=== PATIENT | male | born 1955 | race Caucasian/White ===

== ENCOUNTER → 2017-09-26 12:44 | Outpatient (CLI) | payer OTHER, SELFPAY ==
--- NOTE | 2017-09-26 12:46 | RAD_ITS ---
STUDY: X-RAY - LEFT ANKLE REASON FOR EXAM: Male, 62 years old. Post surgery TECHNIQUE: 3 view(s) of the ankle. COMPARISON: 07/18/2017. FINDINGS: Distal fibular fracture with increased screws. 3 screws in the distal tibia. Good alignment of the fractures with callus formation. Normal medial and lateral malleoli. Normal tibiotalar articulation and ankle mortise. Normal visualized talus and calcaneus. The visualized subtalar, talonavicular, calcaneocuboid and tarsal articulations are normal. The soft tissue structures are unremarkable. RAD/Ankle min 3 Views IMPRESSION: Intact hardware. Good alignment. No acute injury. Electronically Signed: Usman Jones DO at 21:24 EST , Service support ,
== END ==
PROVIDERS: Family Provider Family Medicine; PCP Family Medicine; Visit Provider Orthopaedic Surgery
DX: S82.302D Unspecified fracture of lower end of left tibia, subsequent encounter for closed fracture with routine healing (principal); S82.432D Displaced oblique fracture of shaft of left fibula, subsequent encounter for closed fracture with routine healing
CPT/HCPCS: 73610

== ENCOUNTER 2017-10-18 20:16 | Emergency (ER) | payer OTHER, SELFPAY ==
[2017-10-18 20:17] VITALS: BP 155/87; PULSE 88; RESP 16; TEMP 36.4; O2SAT 98; BMI 35.4
--- NOTE | 2017-10-18 21:25 | RAD_ITS ---
STUDY: X-RAY - LEFT HAND, ATTENTION 5TH FINGER REASON FOR EXAM: Male, 62 years old. SMASHING INJURY OF LEFT 5TH DIGIT TECHNIQUE: 3 view(s) of the finger were obtained. COMPARISON: None. FINDINGS: Normal metacarpal head. Normal metacarpophalangeal joint. Normal proximal phalanx. Normal middle phalanx. Normal distal phalanx. Normal proximal interphalangeal joint. Normal distal interphalangeal joint. Soft tissue swelling overlying the fifth digit. RAD/Finger(s) Min 2 Views IMPRESSION: Soft tissue swelling overlying the fifth digit. Electronically Signed: Rigo Lanier MD at 21:54 EST , Service support ,
--- NOTE | 2017-10-18 21:59 | ED.VISSUMM ---
- ER Visit Summary Date of Service: 10/18/17 Chief Complaint: Left fifth finger injury History of Present Illness: The patient is a 62 M who presents with an injury to his left small finger. This occurred about 3 hours prior to presentation. He states a piece of wood burning equipment fell in a trailer and pinched his finger between the piece of equipment in the side. He notes the piece of equipment weighs about 2 times. He does complain of some numbness in the distal finger. His tetanus is up-to-date. He denies any other injuries. Physical Examination: Afebrile vitals are stable Heart regular rate and rhythm Lungs are clear There is a crush injury over the distal left fifth finger and soft tissue swelling his sensation is intact to light touch distally and he does have brisk capillary refill there is skin tear along the medial side of the left fifth finger as well as some macerated tissue distally the nailbed appears to be intact he does not have a clear laceration amenable to sutured wound closure Test Results: Finger x-ray shows soft tissue swelling no fracture Emergency Department Course and Treatment: Digital block was performed and the patient's wound was cleansed with sterile saline small pieces of macerated tissue were debrided. There is no laceration amenable to sutured wound closure. Topical antibiotic ointment and dressing was applied. He was placed in a finger splint. He was instructed on dressing changes. He was advised to follow-up with his primary care physician. He understands return for new or worsening symptoms was discharged home. Treatment Plan: [] Disposition: Discharge Impression: Crush injury left fifth finger This note was generated with [employer] dictation software. It may contain incorrect words, spelling, and punctuation that were not noted in review of the chart prior to signing ED Disposition - Plan for ED Patient: Chief Complaint: Laceration Referrals: Marisa Arredondo MD [Primary Care Provider] -
--- NOTE | 2017-10-18 22:02 | ED.DEP ---
ED Disposition - Plan for ED Patient: Chief Complaint: Laceration Instructions: ED Crush Injury Finger No Fx Prescriptions: Hydrocodone Bitart/Apap 5-325 [[place] 5/325] 1 - 2 tab PO Q6H PRN 3 Days #12 tab PRN Reason: Pain Referrals: Marisa Arredondo MD [Primary Care Provider] -
== END 2017-10-18 22:21 | disposition home or self-care (01) ==
PROVIDERS: Emergency Provider Emergency Medicine; Family Provider Family Medicine; PCP Family Medicine
DX: S67.197A Crushing injury of left little finger, initial encounter (principal); W23.0XXA Caught, crushed, jammed, or pinched between moving objects, initial encounter; Y93.89 Activity, other specified; Y92.89 Other specified places as the place of occurrence of the external cause; Y99.8 Other external cause status
CPT/HCPCS: 73140; 99284

== ENCOUNTER 2019-03-21 22:59 | Observation (INO) | payer OTHER, SELFPAY ==
--- NOTE | 2019-03-21 11:45 | RAD_ITS ---
STUDY: X-RAY CHEST REASON FOR EXAM: Male, 63 years old. Chest pain TECHNIQUE: Frontal and lateral views of the chest. COMPARISON: None. FINDINGS: The lungs are clear and expanded. There is no demonstrated pleural abnormality. Normal size heart. Normal mediastinum and lisa. Normal visualized pulmonary arteries. Normal visualized aortic arch and descending thoracic aorta. Normal visualized thoracic spine. There is degenerative osteoarthritis of the bilateral shoulders. There is no demonstrated abnormality of the visualized soft tissue structures of the upper abdomen. RAD/Chest PA and Lateral IMPRESSION: Degenerative changes, as described above. No demonstrated acute cardiopulmonary process. Electronically Signed: Yann Muller, at 0:36 EDT Tel , Service support ,
[2019-03-21 23:00] VITALS: PULSE 71; RESP 13; TEMP 36.6; O2SAT 94; BMI 38.0
--- NOTE | 2019-03-21 23:23 | EKG12_ITS ---
Test Reason : CP Blood Pressure : / mmHG Vent. Rate : 071 BPM Atrial Rate : 071 BPM P-R Int : 162 ms QRS Dur : 080 ms QT Int : 368 ms P-R-T Axes : 052 -22 007 degrees QTc Int : 399 ms Normal sinus rhythm Low voltage QRS Inferior infarct , age undetermined Abnormal ECG Confirmed by SHYAM SAMUELS, REINA ([id number]), news copy editor JAMILA ALEXANDER ([id number]) on 03/23/2019 1:38:58 PM Referred By: DHIRAJ Confirmed By:REINA HOWE MD
--- NOTE | 2019-03-21 23:25 | ED.VIS.GEN ---
History of Present Illness Chief Complaint: Chest Pain Informant: Patient Narrative: She stated he has been having chest pain since early afternoon approximately 12 hours ago. Left-sided sharp waxes and wanes intermittent. Can last up to an hour or 2 at a time. He feels that sometimes in his left scapula. He is never had this before. No history of coronary artery disease. Does have diabetes hyperlipidemia and a history of smoking. No family history or hypertension history. 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 No other DVT or PE risk factors. Denies any pain or swelling in his legs that is new. He does have chronic discomfort in his left ankle from a previous fracture. This has not changed from his chronic baseline discomfort. No home treatment. He did take 2 aspirin tablets today. He takes this daily. He stated the pain was significant enough tonight that he felt short of breath. Currently he has no symptoms. Patient denies any recent history in the last 5 to 10 years of a stress test. He had one remotely that was normal. He is never had a heart cath. - Past Medical History (1) Crushing injury of distal finger Status: Acute (2) Crushing injury of finger of left hand Status: Acute (3) Displaced oblique fracture of shaft of left fibula, subsequent encounter for closed fracture with routine healing Status: Acute (4) Unspecified fracture of lower end of left tibia, subsequent encounter for closed fracture with routine healing Status: Acute (5) Diabetes mellitus type 2, uncontrolled, with complications Status: Chronic (6) Hyperlipidemia associated with type 2 diabetes mellitus Status: Chronic (7) Tobacco abuse disorder Status: Chronic Past Medical History - Allergies and Home Meds Allergies/Adverse Reactions: Allergies No Known Allergies Allergy (Verified 03/21/19 22:59) Primary Care Physician: Marisa Arredondo MD [Primary Care Provider] - Prior records reviewed: Yes Past Medical History: - - See problem list Surgical History: - - Reviewed Lives: With Family Smoking Status: Never smoker Alcohol: None Drugs: None Review of Systems General: Denies: Chills, Fever, Sweats Eyes: Denies: Visual changes - bilaterally, Diplopia ENT: Denies: Rhinorrhea, Sore throat Cardiovascular: Reports: Chest pain. Denies: Palpitations Respiratory: Reports: Dyspnea. Denies: Cough, Dyspnea on exertion Gastrointestinal: Denies: Abdominal pain, Nausea, Vomiting, Diarrhea, Melena, Hematochezia Genitourinary: Denies: Dysuria, Hematuria, Frequency Musculoskeletal: Denies: Back pain, Extremity Pain Skin: Denies: Rash, Wounds Neurological: Denies: Headache, Weakness, Numbness Physical Exam Vital Signs/Narrative: Vital Signs Temp Pulse Resp Pulse Ox 03/21/19 23:00 97.9 F 71 13 94 General: Well nourished, Well developed, No Acute Distress Head: Normocephalic, Atraumatic Eyes: Perrl, EOMI ENT: Moist mucous membranes, No rhinorrhea Neck: Supple, Nontender Cardiovascular: Regular rate, Regular rhythm, No murmurs Respiratory: No distress, CTA bilaterally, Chest nontender Abdomen: Soft, Nontender, Nondistended, Normal bowel sounds Back: Nontender, Normal Inspection Extremities: Nontender, No edema Skin: Normal color, No rash Neurological: Alert, Oriented x3, Cranial nerves II-XII grossly intact, Normal Strength, Normal Sensation Psychological: Normal affect, Normal Mood Diagnostic/Tx/Re-eval 03/21/19 23:24 Chest PA and Lateral [RAD] Stat Laboratory Results 03/21/19 03/21/19 23:05 23:05 WBC 6.5 RBC 4.62 Hgb 14.9 Hct 44.8 MCV 97.0 H MCH 32.3 H MCHC 33.3 RDW Std Deviation 48.0 H RDW Coeff of Carter 13.4 Plt Count 172 MPV 9.8 Immature Gran % (Auto) 1.200 H Neut % (Auto) 56.2 Lymph % (Auto) 24.8 [place] % (Auto) 11.1 H Eos % (Auto) 5.6 H Baso % (Auto) 1.1 H Absolute Neuts (auto) 3.6 Absolute Lymphs (auto) 1.60 Absolute Nucleated RBC 0.00 Nucleated RBC % 0 Sodium 135 L Potassium 4.3 Chloride 105 Carbon Dioxide 26.0 Anion Gap 4 L BUN 29 H Creatinine 1.23 Estim Creat Clear Calc 59.47 Est GFR (MDRD) Af Amer 76 Est GFR (MDRD) Non-Af 63 BUN/Creatinine Ratio 23.6 H Glucose 257 H Calcium 9.0 Troponin I < 0.015 - Medical Decision Making KG shows sinus rhythm. Inferior T wave inversion lead III. No acute STEMI pattern or other abnormalities. Patient took aspirin today. He is pain-free. Lab work and chest x-ray obtained. Lab work shows a negative troponin. See lab work above for individual numbers. Positive mild hyperglycemia. Chest x-ray shows no acute abnormalities. D-dimer was positive. CTA shows no PE however. Positive atelectasis filling defect left lower and peribronchial thickening. I do not think the patient has a pneumonia. He has no signs or symptoms of this. Patient is willing to stay for further cardiac rule out. Discussed with the hospitalist. I suspect he will need a stress test. ED Disposition - Plan for ED Patient: Disposition: [facility] Unit Diagnosis: Chest pain at rest Referrals: Marisa Arredondo MD [Primary Care Provider] -
[2019-03-21 23:39] LABS: Absolute Neutrophil Count 3.6 X10^3/uL (2.0-7.7); Basophil# 0.07 X10^3/uL; Basophil% 1.1 % (0-1); Eosinophil# 0.36 X10^3/uL; Eosinophils% 5.6 % (0-5); Hematocrit 44.8 % (40-54); Hemoglobin 14.9 g/dL (13.0-16.5); Lymphocyte % 24.8 % (19-41); Mean Corp Hgb Conc 33.3 g/dL (32-36); Mean Corpuscular Hgb 32.3 pg (27.0-32.0); Mean Platelet Vol. 9.8 fl (6.2-12.0); Monocyte# 0.72 X10^3/uL; Monocyte% 11.1 % (0-10); NRBC Flagged by Analyzer 0 % (0-5); Neutrophil # 3.63 X10^3/uL (2.7-7.7); Neutrophil % 56.2 % (47-70); Platelet Count 172 K/mm3 (150-450); RBC Distribution Width CV 13.4 % (11.6-14.6); Red Blood Count 4.62 M/mm3 (4.6-6.2); White Blood Count 6.5 K/mm3 (4.4-11.0)
[2019-03-21 23:55] LABS: Anion Gap 4 (5-15); BUN 29 mg/dL (7-18); BUN/Creat Ratio 23.6 RATIO (10-20); Chloride 105 mmol/L (98-107); Creatinine, Serum 1.23 mg/dL (0.70-1.30); EST Glomerular Filtration Rate 63 mL/min (>60); Est Glom Filt Rate - Afr Amer 76 mL/min (>60); Estimated Creatinine Clearance 59.47 ml/min; Glucose 257 mg/dL (74-106); Potassium 4.3 mmol/L (3.5-5.1); Sodium Level 135 mmol/L (136-145)
[2019-03-22] VITALS (23 sets, daily range): BP systolic 95–146; BP diastolic 57–81; PULSE 57–71; RESP 13–26; TEMP 36.6–37.2; O2SAT 94–98; BMI 37.5
[2019-03-22 00:07] LABS: D-Dimer Quantitative (DVT/PE) 3.28 FEU/ug/m (0.27-0.49)
--- NOTE | 2019-03-22 00:22 | CT_ITS ---
HISTORY: CHEST PAIN TECHNIQUE: CT angiogram images of the chest were obtained with 100 mL Isovue 370 IV contrast as per pulmonary angiogram protocol. 3D MIP images used to aid in evaluation for pulmonary embolism. Number of images including paperwork: 1254 A radiation dose optimization technique was used for this scan. COMPARISON: None FINDINGS: PULMONARY ARTERIES: No pulmonary arterial filling defects. AORTA AND GREAT VESSELS: No dissection. Vascular tortuosity and mild atherosclerotic plaque. HEART/PERICARDIUM: Normal heart size. Coronary calcification. MEDIASTINUM: Unremarkable. ADENOPATHY: No pathologic appearing adenopathy. THYROID: Unremarkable visualized portions. LUNG PARENCHYMA: Peribronchial thickening with some bronchial filling defects in the left lower lobe. Mild cylindrical bronchiectasis. Mild left lower lobe airspace opacities. Dependent atelectasis. Left lower lobe linear opacity compatible with subsegmental atelectasis. Mild paraseptal emphysema at the apices. Bilateral lower lobe nodular densities measuring 4-5 mm in average diameter. Small calcified granulomata. PLEURAL SPACES: Unremarkable. UPPER ABDOMEN: Decreased hepatic density compatible with steatosis. Mildly enlarged spleen, 13.5 cm AP. OSSEOUS AND SOFT TISSUE STRUCTURES: No acute skeletal findings. Degenerative changes. CT/CTA Chest W/WO Contrast IMPRESSION: 1. No pulmonary embolus detected. 2. Peribronchial thickening as can be seen with bronchitis or airways disease. Bronchial filling defects in the left lower lobe with left lower lobe opacities and volume loss, possibly atelectasis and/or early/mild infiltrate. 3. Small bilateral lower lobe nodules. If the patient is considered to be high risk for lung cancer, recommend follow-up CT in 12 months to assess stability. 4. Additional findings above. Individualized dose optimization techniques were used for this CT. at 0138 Reported and signed by: Mellisa Argueta MD Electronically Signed: Mellisa Argueta MD at 1:38 EDT Tel , Service support ,
[2019-03-22] MEDS: 0.9% Normal Saline 1,000 ML 1000 ML IV (01:02)
[2019-03-22] MEDS: Mag Hydrox/Al Hydrox/Simeth 30 ML UDC PO (01:06)
--- NOTE | 2019-03-22 01:59 | HP.PCM_ITS ---
Problem List (1) Chest pain Status: Acute (2) Crushing injury of finger of left hand Status: Resolved (3) Crushing injury of distal finger Status: Resolved Qualifiers: Encounter type: subsequent encounter Qualified Code(s): S67.10XD - Crushing injury of unspecified finger(s), subsequent encounter (4) Unspecified fracture of lower end of left tibia, subsequent encounter for closed fracture with routine healing Status: Resolved (5) Displaced oblique fracture of shaft of left fibula, subsequent encounter for closed fracture with routine healing Status: Resolved History of Present Illness Date of Admission: 03/22/19 Chief Complaint: CHEST PAIN 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 His symptoms started not too long after eating. He is unable to provide exact time that his symptoms started after his meal. Initially his chest pain was dull. However, it became sharp later on. Associated with symptoms is shortness of breath and diaphoresis. His chest pain radiated to his upper back. He denied any nausea or vomiting. He also reports concomitant heart pain for which reason he was given GI cocktail at the emergency department. His heartburn went away with a GI cocktail. At the point of evaluation patient had no chest pain. Reportedly he takes daily aspirin and he took his aspirin on the day of his presentation. At the emergency department troponin was negative. EKG showed sinus rhythm but with Q waves in inferior leads. The emergency department his d-dimer was elevated. Follow-up chest x-ray was unremarkable. Past Medical History Past Medical History (Chronic Problems): Chronic Problems (Last Reviewed 03/22/19 @ 03:09 by Mykel Biggs MD) Hyperlipidemia associated with type 2 diabetes mellitus (Chronic) Tobacco abuse disorder (Chronic) Diabetes mellitus type 2, uncontrolled, with complications (Chronic) Medical History: Medical History (Last Reviewed 03/22/19 @ 03:12 by Mykel Biggs MD) Diabetes E11.9 Allergies No Known Allergies Allergy (Verified 03/21/19 22:59) Home Medications: Ambulatory Orders Medication Instructions Recorded Aspirin [Adult Low Dose Aspirin EC] 81 mg PO DAILY 07/07/15 Glyburide,Micronized [Glyburide 6 mg PO DAILY 07/07/15 Micronized] lisinopril 20 mg tablet 20 mg PO QDAY 08/14/17 metformin 500 mg tablet 1,000 mg PO DAILY 08/14/17 Canagliflozin [Invokana] 300 mg PO DAILY 03/21/19 Surgical History: Surgical History (Last Reviewed 03/22/19 @ 03:12 by Mykel Biggs MD) History of open reduction and internal fixation (ORIF) procedure Z98.890 06/04/17 Surgical History: - - Reviewed Lives: With Family Smoking Status: Former smoker Alcohol: None Drugs: None - *Family History Maternal History Items: - - Mother had heart valve disease. Paternal History Items: Hypertension Review of Systems Constitutional: Denies: Chills, Fever, Weight Change HEENT: Denies: Head Aches, Sinus Congestion, Sinus Drainage Cardiovascular: Reports: Chest Pain. Denies: Palpitations Respiratory: Reports: Shortness of Breath. Denies: Cough, Sputum production Gastrointestinal: Denies: Abdominal Pain, Nausea, Vomiting Genitourinary: Denies: Dysuria Musculoskeletal: Denies: Joint Pain, Joint Tenderness Skin: Denies: Rash, Wounds Neurological: Reports: Numbness - Bilateral feet; chronic. Denies: Focal weakness, Tingling Psychiatric: Denies: Anxiety, Depression, Homicidal Ideations, Suicidal Ideations Hematologic/ Lymphatic: Denies: Easy Bruising, Easy Bleeding VTE Information - Inpt Only VTE Present on Admission: No VTE Mechan Device Prophylaxis: None VTE Pharm Prophylaxis ordered?: Yes Patient Problems: Active and Suspected Problems (Last Reviewed 03/22/19 @ 03:09 by Mykel Biggs MD) Chest pain at rest (Acute) Chest pain (Acute) - Physical Exam General: Alert, Oriented x3, Cooperative HEENT: Atraumatic, PERRLA, EOMI, Normocephalic Neck: Supple, No JVD, Negative Carotid Bruits Lungs: Clear to auscultation, Normal air movement Cardiovascular: Regular rate, No murmurs Abdomen: Bowel Sounds Present, Soft, Non Tender Extremities: No edema, Capillary Refill Less than 3 Seconds Skin: No rashes, No breakdown Musculoskeletal: No Tenderness to Palpation of Joints or Extremities Neurological: Cranial nerves II-XII grossly intact Psych/Mental Status: Normal Affect, Appropriate Vital Signs Temp Pulse Resp BP Pulse Ox 97.9 F 62 20 H 115/70 98 03/21/19 23:00 03/22/19 01:08 03/22/19 01:08 03/22/19 01:08 03/22/19 01:08 Oxygen Flow Rate (L/min) 2 Oxygen Delivery Method Nasal Cannula Weight: 113.36 kg Body Mass Index (BMI) 38.0 Laboratory Tests Past 24 Hrs 03/21/19 03/21/19 03/21/19 23:05 23:05 23:05 WBC 6.5 RBC 4.62 Hgb 14.9 Hct 44.8 MCV 97.0 H MCH 32.3 H MCHC 33.3 RDW Std Deviation 48.0 H RDW Coeff of [place] 13.4 Plt Count 172 MPV 9.8 Immature Gran % (Auto) 1.200 H Neut % (Auto) 56.2 Lymph % (Auto) 24.8 [place] % (Auto) 11.1 H Eos % (Auto) 5.6 H Baso % (Auto) 1.1 H Absolute Neuts (auto) 3.6 Absolute Lymphs (auto) 1.60 Absolute Nucleated RBC 0.00 Nucleated RBC % 0 D-Dimer Quant (PE/DVT) 3.28 H* Sodium 135 L Potassium 4.3 Chloride 105 Carbon Dioxide 26.0 Anion Gap 4 L BUN 29 H Creatinine 1.23 Estim Creat Clear Calc 59.47 Est GFR (MDRD) Af Amer 76 Est GFR (MDRD) Non-Af 63 BUN/Creatinine Ratio 23.6 H Glucose 257 H Calcium 9.0 Troponin I < 0.015 Assessment/Plan All Active Problems (Last Reviewed 03/22/19 @ 03:09 by Mykel Biggs MD) Chest pain at rest (Acute) Chest pain (Acute) Crushing injury of finger of left hand (Resolved) Crushing injury of distal finger (Resolved) Unspecified fracture of lower end of left tibia, subsequent encounter for closed fracture with routine healing (Resolved) Displaced oblique fracture of shaft of left fibula, subsequent encounter for closed fracture with routine healing (Resolved) 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 Chest pain Admit to a monitored bed on PCU CXR independently reviewed confirms no acute cardiopulmonary process. Chest X- ray was independently reviewed. I agree with the interpretation. 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 Chest CTA showed bronchial thickening; possible atelectasis and or early mild infiltrate. Small bilateral lower lobe nodules. EKG independently reviewed confirms Q waves in inferior leads no previous EKG to compare with. Patient reports stress test about 10 to 15 years ago. ASA 81 mg p.o. daily Morphine as needed for pain We will check lipid panel. Serial cardiac enzymes Stat EKG as needed for chest pain Chemical stress test in the AM if the cardiac enzymes are negative. Patient has a history of ankle surgery with hardware so would not order a treadmill stress test. Diabetes mellitus On presentation his blood glucose was not within goal. Metformin held since it is too early for admission. Invokana is nonformulary here. Continue glyburide. Put patient on correction scale insulin. Patient was supposed to follow-up with PCP on 03/22/2019 for diabetes. Patient's to notify PCP of patient admission status. Hypertension On presentation his blood pressure was stable Lisinopril continued Trend blood pressure and adjust blood pressure medication Atelectasis Patient had no white counts of fever or other signs of pneumonia. Incentive department ordered Pulmonary nodules Patient is a former smoker. Radiologist recommended follow-up CT in 12 months. Outpatient follow up DVT prophylaxis Subcutaneous Lovenox Code Visit OBSV E&M: 64128 Initial observation care L3
--- NOTE | 2019-03-22 02:58 | EKG12_ITS ---
Test Reason : CP ADMIT Blood Pressure : / mmHG Vent. Rate : 061 BPM Atrial Rate : 061 BPM P-R Int : 166 ms QRS Dur : 086 ms QT Int : 396 ms P-R-T Axes : 062 -16 003 degrees QTc Int : 398 ms Normal sinus rhythm Normal ECG When compared with ECG of 21-MAR-2019 23:04, MANUAL COMPARISON REQUIRED, DATA IS UNCONFIRMED Confirmed by SHYAM SAMUELS, REINA ([id number]), commissioning editor JAMILA ALEXANDER ([id number]) on 03/23/2019 1:55:45 PM Referred By: JESUS Confirmed By:REINA HOWE MD
[2019-03-22] MEDS: Lisinopril 20 MG Tablet PO (05:52)
[2019-03-22] MEDS: Aspirin E.C. 81 MG Tablet PO (05:52)
[2019-03-22 06:44] LABS: Cholesterol 169 mg/dL (200); High Density Lipoprotein 30 mg/dL; Triglycerides 304 mg/dL; Very Low Density Lipoprotein 61 mg/dL (5-40)
[2019-03-22 11:25] LABS: Bedside Glucose 161 mg/dL (70-110)
--- NOTE | 2019-03-22 11:50 | STRESSREP ---
Stress Test Report Pharmacologic myocardial perfusion stress test. 63-year-old male with a history of hypertension diabetes and chest discomfort. Stress protocol: Resting EKG demonstrates normal sinus rhythm with a rate of 63 bpm normal intervals noted resting blood pressures 122/74 mmHg. 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 Maximum heart rate attained was 81 bpm which was 51% maximum predicted heart rate and maximum workload was 1 metabolic equivalent. At rest nonspecific ST-T wave changes noted in the peak infusion nonspecific ST-T wave changes were noted. The resting blood pressure 122/74 with a final blood pressure 128/70 mmHg. Myocardial perfusion protocol. 13.0 mCi of technetium 99m sestamibi was injected at rest. 0.4 mg of regadenoson was infused per usual protocol. The peak infusion 42.7 mCi of technetium 99m sestamibi was injected stress images were obtained stress and rest images were reconstructed in comparing the short axis vertical and horizontal long axis. Gated images was obtained PACS Perfusion SPECT analysis: Review of the images demonstrate normal cardiac silhouette size. The septum anterior wall and lateral wall on the stress images demonstrate normal perfusion pattern. The inferior wall has a moderate reduction of perfusion noted on the stress images with improvement in the resting images. The above is suggestive of a moderate amount of mid inferior ischemia. There is possible GI attenuation artifact also noted. Gated SPECT analysis: The gated ejection fraction is noted to be 67%. Conclusion: Abnormal pharmacologic myocardial perfusion stress test with evidence of mid inferior ischemia and a moderate size soon. Preserved ejection fraction.
--- NOTE | 2019-03-22 12:04 | CASEMGMT ---
According to the [facility] website, the following are in-network tertiary facilities: [facility], [facility], [facility], [facility], [place], [facility], and . Beatriz SINGH CM
--- NOTE | 2019-03-22 12:12 | CON.PCM_ITS ---
Reason for Consult Date of Consultation: 03/22/19 Reason for Consultation: Chest discomfort. History of Present Illness: The patient is a 63 year old M with no previous cardiac history but a history of hypertension diabetes mellitus hypertriglyceridemia who presented to the emergency room yesterday with complaints of epigastric and chest discomfort. He said that it was a heaviness which would wax and wane. This chest discomfort was mostly at rest. It was associated with diaphoresis. There was no nausea or vomiting however. He has had an occasional episode of the above in the last few weeks. He presented to the emergency room was evaluated EKG was noted to be unremarkable but he did have a d-dimer which was elevated. He underwent a CT scan which did not demonstrate any evidence of ischemia. He was scheduled for and underwent a pharmacologic myocardial perfusion stress test this morning which demonstrated evidence of inferior ischemia. [] Past Medical History Allergies/Adverse Reactions: Allergies No Known Allergies Allergy (Verified 03/21/19 22:59) Home Medications: Ambulatory Orders Medication Instructions Recorded Aspirin [Adult Low Dose Aspirin EC] 81 mg PO DAILY 07/07/15 Glyburide,Micronized [Glyburide 6 mg PO DAILY 07/07/15 Micronized] lisinopril 20 mg tablet 20 mg PO QDAY 08/14/17 metformin 500 mg tablet 1,000 mg PO DAILY 08/14/17 Canagliflozin [Invokana] 300 mg PO DAILY 03/21/19 Past Medical History (Chronic Problems): Chronic Problems (Last Reviewed 03/22/19 @ 03:12 by Mykel Biggs MD) Hyperlipidemia associated with type 2 diabetes mellitus (Chronic) Tobacco abuse disorder (Chronic) Diabetes mellitus type 2, uncontrolled, with complications (Chronic) Surgical History: - - Reviewed - *Family History Maternal History Items: - - Mother had heart valve disease. Paternal History Items: Hypertension Lives: With Family Smoking Status: Former smoker Alcohol: None Drugs: None Review of Systems - Review of Systems General: Denies: Fever, Night Sweats, Fatigue HEENT: Denies: Vision Change Cardiovascular: Reports: Chest Discomfort, Chest Discomfort at Rest. Denies: Shortness of Breath, Orthopnea, PND, Peripheral Edema, Palpitations, Lightheadedness, Dizziness, Near Syncope, Syncope Respiratory: Denies: Cough, Sputum Production, Hemoptysis Gastrointestinal: Denies: Hematemesis, Hematochezia, Melena Genitourinary: Denies: Dysuria, Hematuria Muscoloskeletal: Reports: Myalgias Skin: Denies: Rash Neurological: Denies: Dizziness Psychiatric: Denies: Anxiety Endocrine: Denies: Unexplained Weight Loss Subjectve: Pleasant gentleman in no apparent distress at this time Objective: Vital Signs Temp Pulse Resp BP Pulse Ox 97.8 F 65 14 117/66 95 03/22/19 09:30 03/22/19 09:30 03/22/19 09:30 03/22/19 09:30 03/22/19 09:30 Oxygen Flow Rate (L/min) 2 Oxygen Delivery Method Room Air Weight: 246 lb 14.684 oz Body Mass Index (BMI) 37.5 Intake and Output for Last 24 Hours 03/20/19 03/21/19 03/22/19 23:59 23:59 23:59 Intake Total 140 / 140 Balance 140 / 140 General: Awake, Alert, Oriented x 3 HEENT: PERRL, EOMI, Sclera Non Icteric Neck: Supple, Good ROM, No Lymph Node Enlargement Lungs: Clear to auscultation Cardiovascular: Regular Rhythm, Normal S1, Normal S2, No Murmurs, No Rubs, No Gallops Vascular: No Carotid Bruits, Normal Femoral Pulses, Normal Radial Pulses, Normal Dorsalis Pedal Pulse, Normal Posterior Tibial Pulses Abdomen: Bowel Sounds Present, Soft, Non Tender, No HSM, No Organomegaly Extremities: No Cyanosis, No Clubbing, No edema Musculoskeletal: No Erythema Skin: No Rashes Lymphatic: No Lymph Node Enlargement Neurological: No Focal Motor or Sensory Deficit Psych/Mental Status: Appropriate 03/21/19 23:05: WBC 6.5, RBC 4.62, Hgb 14.9, Hct 44.8, MCV 97.0 H, MCH 32.3 H, MCHC 33.3, Plt Count 172, MPV 9.8, Immature Gran % (Auto) 1.200 H, Neut % (Auto) 56.2, Lymph % (Auto) 24.8, [place] % (Auto) 11.1 H, Eos % (Auto) 5.6 H, Baso % (Auto) 1.1 H, Absolute Neuts (auto) 3.6, Nucleated RBC % 0 03/21/19 23:05: Sodium 135 L, Potassium 4.3, Chloride 105, Carbon Dioxide 26.0, Anion Gap 4 L, BUN 29 H, Creatinine 1.23, Est GFR (MDRD) Af Amer 76, Est GFR (MDRD) Non-Af 63, BUN/Creatinine Ratio 23.6 H, Glucose 257 H, Calcium 9.0, Troponin I < 0.015 03/21/19 23:05: D-Dimer Quant (PE/DVT) 3.28 H* 03/22/19 02:45: Troponin I < 0.015 03/22/19 05:50: Troponin I < 0.015, Triglycerides 304 H, Cholesterol 169, LDL Cholesterol 78, VLDL Cholesterol 61 H, HDL Cholesterol 30 L Rhythm: EKG: Normal sinus rhythm with no acute changes Assessment/Plan 1. Chest pain with abnormal stress test. * He presents with chest discomfort with some features which are concerning for angina. His EKG is been noted to be normal but there was a suggestion on his stress test of inferior ischemia. 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 The risk benefits and alternatives have been explained to him he understands and agrees to proceed. * He will continue with aspirin and be loaded with ticagrelor. * 2. Hyperlipidemia * Does have significant hyperlipidemia which is likely secondary to metabolic syndrome. * I would recommend aggressive weight loss at this time. * Risk factor modification should also be considered. * * Thank you for allowing me to participate in the care of your patient. Please don't hesitate to call if any issues arise
[2019-03-22 12:15] LABS: Bedside Glucose 142 mg/dL (70-110)
--- NOTE | 2019-03-22 12:18 | NURSING ---
report called to Pricila SINGH in liaison inspection laboratory assistant
[2019-03-22] MEDS: TICAGRELOR 90 MG TABLET 180 MG PO (12:30)
--- NOTE | 2019-03-22 13:17 | CL.D_ITS ---
Patient Name: CAIO SENIOR Study Date: 03/22/2019 Performing: Long Ware MD Ht: 68.11 inches 173 cm : 1955 Wt: 246.92 lbs 112 kg Age: 63 Gender: male BSA: 2.24 PROCEDURE(S) PERFORMED DK22-LWV/COR/LV CLINICAL PROFILE AND INDICATIONS Indications: Suspected CAD Heart Failure: None Stress/Imaging Date: 03/22/2019Stress Test with SPECT MPI: Positive Intermediate Risk CAD Presentations: Unstable angina. CONCLUSIONS Severe te-moak coronary artery disease involving the proximal and mid circumflex artery the first obtu se marginal vessel with a totally occluded right coronary artery with [id number] collaterals and p reserved ejection fraction. RECOMMENDATIONS Referred for immediate PCI DESCRIPTION OF PROCEDURE The patient arrived to the procedure lab. The risks and benefits of the procedure as well as a full d escription of our services here and current unavailability of surgical backup were fully explained to the patient and/or their significant other prior to the catheterization. The Timeout was completed, verifying the correct patient and procedure. The patient's procedural site was prepped and draped in the usual fashion. Local anesthetic was given subcutaneously to right groin region with Lidocaine 2%. Using a modified Seldinger technique, arterial access was obtained via the right femoral artery, a 5 Fr sheath was inserted. Left Coronary Artery selective angiography was performed in multiple views u sing a 5 Fr. JL4 catheter. Right Coronary Artery selective angiography was then performed in multiple views using a 5 Fr. 3DRC (Rajat) catheter. Left Ventriculography was performed in COLBY projection using a 5 Fr. Pigtail catheter. LV to AO pullback pressures were then recorded. CORONARY ANGIOGRAPHY DOMINANCE: Right Dominant LEFT HEART ASSESSMENT Left Ventricular Ejection Fraction: by LV Gram 60 % Normal Left Ventricular systolic function LEFT MAIN: Angiographically normal LEFT ANTERIOR DESCENDING ARTERY: PROX LAD: Mild calcification MID LAD: Mild luminal irregularities CIRCUMFLEX ARTERY: Mid to distal circumflex after the first obtuse marginal branch appears to be subt otally occluded with ghost collateralsMid to distal circumflex after the first obtuse marginal branch appears to be subtotally occluded with ghost collaterals PROX CIRC: 90 % Stenosis MID CIRC: 75% OM 1: Proximal - 75 % Stenosis, Proximal - 90 % Stenosis RIGHT CORONARY ARTERY: PROX RCA: is occluded COLLATERAL FLOW: Collateral flow from Left to Right COMPLICATIONS PROCEDURE MEDICATIONS Versed 1 mg IV Fentanyl 50 mcg IV Brilinta 180 mg PO @ 03/22/2019 12:23:20 Heparin 6000 unit(s) IV 03/22/2019 13:09:32 Nitro 200 mcg IC 03/22/2019 13:11:03 Nitro 200 mcg IC 03/22/2019 13:11:03 IV Bolus: .9 NaCl ml total 03/22/2019 13:09:40 SUMMARY OF HEMODYNAMIC DATA Time AIR REST ECG 12:32:42 AO 102/60 (79) SA 12:50:49 LV 106/4, 14 12:59:48 LV 104/4, 14 12:59:54 LV 98/-6, 13 13:01:06 LV 107/-6, 16 13:01:12 LVp 110/-4, 18 13:01:16 AOp 117/59 (83) 13:01:21 Signed By Long Ware MD On 03/22/2019 13:42:08 Signed By Long Ware MD On 03/22/2019 13:16:29 Long Ware MD
--- NOTE | 2019-03-22 13:59 | CL.I_ITS ---
Patient Name: CAIO SENIOR Study Date: 03/22/2019 Performing: Gene Martin MD Ht: 68.11 inches 173 cm : 1955 Wt: 246.92 lbs 112 kg Age: 63 Gender: male BSA: 2.24 PROCEDURE(S) PERFORMED [id number]-WOD W OR WO PTCA, SINGLE CORONARY ARTERY CLINICAL PROFILE AND CO-MORBIDITIES Indications: Suspected CAD, New Onset Angina <= 2 months, Other Heart Failure: NYHA Class: 1 Stress/Imaging Date: 03/22/2019 Stress Test with SPECT MPI: Positive Intermediate Risk Angina Classification Anginal Classification w/in 2 Weeks: CCS III CAD Presentations: Unstable angina. Unstable angina. Comorbidities/Risk Factors: Hypertension Dyslipidemia CONCLUSIONS Successful PTCA/RAVI to proximal OM#1 with a 2.25 x 20 Promus Synergy, followed immediately upstream w ith a 2.25 x 20 Promus Synergy, all post dilated with a 2.25 x 8 NC balloon; 75%-->0%, no dissection. Manual sheath removal. RECOMMENDATIONS Highly recommend quitting all tobacco products Follow up with primary technology development intern Risk factor modification ASA Indefinitley Plavix for at least 12 months Routine post interventional care Refer for Outpatient Cardiac Rehab Manual sheath removal per protocol Follow up with Dr. Ware Medical management of distal OM and chronic RCA occlusion. No evidence of anterior ischemia or angina during procedure. DESCRIPTION OF PROCEDURE The patient arrived to the procedure lab. The risks and benefits of the procedure as well as a full d escription of our services here and current unavailability of surgical backup were fully explained to the patient and/or their significant other prior to the catheterization. The Timeout was completed, verifying the correct patient and procedure. The patient's procedural site was prepped and draped in the usual fashion. Local anesthetic was given subcutaneously to right groin region with Lidocaine 2% Using a modified Seldinger technique,arterial access was obtained via the right femoral artery, a 5Fr sheath was inserted. Left Coronary Artery selective angiography was performed in multiple views usin g a 5 Fr. JL4 catheter. Right Coronary Artery selective angiography was then performed in multiple vi ews using a 5 Fr. 3DRC (Rajat) catheter. Left Ventriculography was performed in COLBY projection usi ng a 5 Fr. Pigtail catheter. LV to AO pullback pressures were then recorded.The images were reviewed and options discussed. A decision was then made to proceed with an Intervention, IVUS o r other adjunct procedure. Arterial sheath was exchanged for a 6 Fr Sheath. EBu 3.75 Guide catheter was inserted and engaged into the LCA. BMW Live Oak Guide wire was inserted Emerge 2.0 x 12 Balloon catheter was inserted. R unthrough Guide wire was inserted. Emerge 2.0 x 12 Balloon catheter was inserted. Balloon catheter wa s advanced across lesion in the first obtuse marginal, proximal. Angiogram performed pre balloon dila tation. PTCA balloon inflated at 7 atms for 8 secs. PTCA balloon inflated at 7 atms for 7 secs. PTCA balloon inflated at 10 atms for 12 secs. Angiogram performed post balloon dilatation. Synergy 2.25 x 20 Drug Eluting stent was inserted. Drug Eluting stent was advanced across the lesion in the first ob tuse marginal, proximal. Angiogram performed pre stent deployment. Angiogram performed post stent dep loyment. Synergy 2.25 x 20 Drug Eluting stent was inserted. Drug Eluting stent was advanced across th e lesion in the first obtuse marginal, proximal. Angiogram performed pre stent deployment. Angiogram performed post stent deployment. NC Emerge 2.25 x 12 Balloon catheter was inserted. Balloon catheter was advanced across lesion in the first obtuse marginal, proximal. Angiogram performed pre balloon dilatation. Angiogram performed post balloon dilatation. Angiogram performed post balloon dil atation. Contrast was injected through the sheath and the Right Iliac and Femoral artery were assesse d for possible closure device. INTERVENTION INFORMATION LESION SITE: 1st OM (Proximal) Lesion Complexity: High/C, lesion at bifurcation: No, thrombus present: No, lesion length: 40 mm, cul prit lesion: Yes Pre Stenosis: 75 % Pre intervention PARAMJIT flow: 3 PROCEDURE: Drug Eluting Stent with pre and post dilatation Post Stenosis: 0 % Post intervention PARAMJIT flow: 3 Lesion Devices: Medtronic 6 Fr EBU3.75 100cm Guide Catheter Gonzalez .014 BMW Live Oak Straight 190cm Marco Sci EMERGE MR 2.00x12 BALLOON Terumo .014 Runthrough Extra Floppy 180cm straight Marco Sci Synergy MR RAVI 2.25x20 Marco Sci Synergy MR RAVI 2.25x20 Marco Sci NC EMERGE MR 2.25x12 BALLOON COMPLICATIONS No Complications PROCEDURE MEDICATIONS Versed 1 mg IV Fentanyl 50 mcg IV Brilinta 180 mg PO @ 03/22/2019 12:23:20 Heparin 6000 unit(s) IV 03/22/2019 13:09:32 Nitro 200 mcg IC 03/22/2019 13:11:03 Nitro 200 mcg IC 03/22/2019 13:11:03 IV Bolus: .9 NaCl 1000ml total 03/22/2019 13:09:40 IV Fluids: .9 NaCl decreased to 150 ml/hr 03/22/2019 13:46:10 SUMMARY OF HEMODYNAMIC DATA Time AIR REST ECG 12:32:42 AO 102/60 (79) SA 12:50:49 LV 106/4, 14 12:59:48 LV 104/4, 14 12:59:54 LV 98/-6, 13 13:01:06 LV 107/-6, 16 13:01:12 LVp 110/-4, 18 13:01:16 AOp 117/59 (83) 13:01:21 Signed By Gene Martin MD On 03/22/2019 13:59:03 Gene Martin MD
[2019-03-22 14:05] LABS: ACT Activated Clotting Time 180 sec (74-137)
[2019-03-22 14:05] LABS: ACT Activated Clotting Time 164 sec (74-137)
--- NOTE | 2019-03-22 14:05 | NURSING ---
report called to Al SINGH in ICU
--- NOTE | 2019-03-22 14:45 | NURSING ---
to ICU 204 per bed from lab support tech
[2019-03-22] MEDS: 0.9% Normal Saline 1,000 ML 150 ML IV (15:00)
--- NOTE | 2019-03-22 16:41 | EKG12_ITS ---
Test Reason : AM EKG Blood Pressure : / mmHG Vent. Rate : 059 BPM Atrial Rate : 059 BPM P-R Int : 178 ms QRS Dur : 086 ms QT Int : 414 ms P-R-T Axes : 057 -16 012 degrees QTc Int : 409 ms Sinus bradycardia Otherwise normal ECG When compared with ECG of 22-MAR-2019 14:54, MANUAL COMPARISON REQUIRED, DATA IS UNCONFIRMED Confirmed by ASHOK SAMUELS, LUIS ([id number]), research editor BOBO GOMEZ ([id number]) on 03/26/2019 9:57:38 AM Referred By: WILLIAMS Confirmed By:JOVAN PULIDO MD
[2019-03-22] MEDS: Morphine 2 MG/ML Syringe IV (17:15)
[2019-03-22 17:55] LABS: Bedside Glucose 108 mg/dL (70-110)
--- NOTE | 2019-03-22 19:29 | CCHN_ITS ---
Hospitalist Note Patient was seen and examined briefly today, he underwent a cardiac catheterization after his nuclear stress test was positive for ischemia, in terventional radiology was unable to stent the patient and he will be treated medically. Patient is currently in ICU at this time.
[2019-03-22] MEDS: Acetaminophen 325 MG Tablet 650 MG PO (19:53)
[2019-03-22] MEDS: Atorvastatin Calcium 80 MG Tablet PO (21:20)
[2019-03-22] MEDS: TICAGRELOR 90 MG TABLET PO (21:20)
[2019-03-22] MEDS: Metoprolol Tartrate 25 MG Tablet 12.5 MG PO (21:20)
[2019-03-23] VITALS (14 sets, daily range): BP systolic 99–137; BP diastolic 56–84; PULSE 54–68; RESP 13–22; TEMP 36.4–36.9; O2SAT 93–97
[2019-03-23 00:01] LABS: Bedside Glucose 131 mg/dL (70-110)
[2019-03-23] MEDS: Acetaminophen 325 MG Tablet 650 MG PO (04:15)
[2019-03-23] MEDS: 0.9% NaCl Peripheral Flush Adult/Peds IV (04:15)
[2019-03-23 04:22] LABS: Hematocrit 43.8 % (40-54); Hemoglobin 14.6 g/dL (13.0-16.5); Mean Corp Hgb Conc 33.3 g/dL (32-36); Mean Corpuscular Hgb 32.2 pg (27.0-32.0); Mean Corpuscular Volume 96.5 fL (80-94); Mean Platelet Vol. 9.5 fl (6.2-12.0); Platelet Count 171 K/mm3 (150-450); RBC Distribution Width CV 13.4 % (11.6-14.6); RBC Distribution Width SD 47.8 fl (35.1-43.9); Red Blood Count 4.54 M/mm3 (4.6-6.2); White Blood Count 6.4 K/mm3 (4.4-11.0)
[2019-03-23 04:51] LABS: Anion Gap 9 (5-15); BUN 17 mg/dL (7-18); BUN/Creat Ratio 20.6 RATIO (10-20); Calcium,Total 8.1 mg/dL (8.5-10.1); Chloride 109 mmol/L (98-107); Cholesterol 162 mg/dL (200); Creatinine, Serum 0.82 mg/dL (0.70-1.30); EST Glomerular Filtration Rate 100 mL/min (>60); Est Glom Filt Rate - Afr Amer 121 mL/min (>60); Estimated Creatinine Clearance 89.21 ml/min; Glucose 143 mg/dL (74-106); High Density Lipoprotein 28 mg/dL; Potassium 4.2 mmol/L (3.5-5.1); Sodium Level 139 mmol/L (136-145); Triglycerides 231 mg/dL; Very Low Density Lipoprotein 46 mg/dL (5-40)
[2019-03-23 05:05] LABS: Bedside Glucose 168 mg/dL (70-110)
[2019-03-23] MEDS: Insulin Lispro 100 UNIT/ML INSULN.PEN SC (05:06)
--- NOTE | 2019-03-23 06:44 | PN.CARD_ITS ---
Subjectve: Patient seen and evaluated. Did well overnight. No major events. Brief episode of chest discomfort. Objective: Vital Signs Temp Pulse Resp BP Pulse Ox 97.5 F L 59 L 18 117/84 H 93 03/23/19 04:00 03/23/19 06:00 03/23/19 06:00 03/23/19 06:00 03/23/19 06:00 Oxygen Flow Rate (L/min) 2 Oxygen Delivery Method Nasal Cannula Weight: 246 lb 14.684 oz Body Mass Index (BMI) 37.5 Intake and Output for Last 24 Hours 03/21/19 03/22/19 03/23/19 23:59 23:59 23:59 Intake Total 2696 / 2696 240 / 240 Output Total 1850 / 1850 Balance 846 / 846 240 / 240 General: Awake, Alert, Oriented x 3 HEENT: PERRL, EOMI, Sclera Non Icteric Neck: Supple, Good ROM, No Lymph Node Enlargement Lungs: Clear to auscultation Cardiovascular: Regular Rhythm, Normal S1, Normal S2, No Murmurs, No Rubs, No Gallops Vascular: No Carotid Bruits, Normal Femoral Pulses, Normal Radial Pulses, Normal Dorsalis Pedal Pulse, Normal Posterior Tibial Pulses Abdomen: Bowel Sounds Present, Soft, Non Tender, No HSM, No Organomegaly Extremities: No Cyanosis, No Clubbing, No edema Musculoskeletal: No Erythema Skin: No Rashes Lymphatic: No Lymph Node Enlargement Neurological: No Focal Motor or Sensory Deficit Psych/Mental Status: Appropriate 03/22/19 05:50: Troponin I < 0.015, Triglycerides 304 H, Cholesterol 169, LDL Cholesterol 78, VLDL Cholesterol 61 H, HDL Cholesterol 30 L 03/23/19 04:10: WBC 6.4, RBC 4.54 L, Hgb 14.6, Hct 43.8, MCV 96.5 H, MCH 32.2 H, MCHC 33.3, Plt Count 171, MPV 9.5 03/23/19 04:10: Sodium 139, Potassium 4.2, Chloride 109 H, Carbon Dioxide 21.0, Anion Gap 9, BUN 17, Creatinine 0.82, Est GFR (MDRD) Af Amer 121, Est GFR (MDRD) Non-Af 100, BUN/Creatinine Ratio 20.6 H, Glucose 143 H, Calcium 8.1 L, Triglycerides 231 H, Cholesterol 162, LDL Cholesterol 88, VLDL Cholesterol 46 H, HDL Cholesterol 28 L Rhythm: EKG: ECHO: Stress Test: Cardiac Cath: PCI: CT Surgery: Holter monitor: EPS: PPM: CXR: Chest CT Scan: Medical Necessity - Tobacco Use Smoking Status: Former smoker Assessment/Plan 1. Chest pain with abnormal stress test. * He presents with chest discomfort with some features which are concerning for angina. * His cardiac catheterization confirmed a normal left main coronary artery * Left anterior descending artery with mild diffuse disease * Left circumflex artery which had high-grade proximal and mid stenosis involving the first obtuse marginal branch which left to right collaterals * Totally occluded right coronary artery with [id number] collaterals * * He underwent angioplasty and stenting of the proximal left circumflex artery. The mid left circumflex artery was noted to be totally occluded and chronic. Medical therapy would be pursued for the above. He will be continued on his beta-abigail, GAURAV inhibitor, and oral nitrates added. * 2. Hyperlipidemia * Does have significant hyperlipidemia which is likely secondary to metabolic syndrome. * I would recommend aggressive weight loss at this time. * Risk factor modification should also be considered. * * * Can be discharged for outpatient follow-up. * Thank you for allowing me to participate in the care of your patient. Please don't hesitate to call if any issues arise
[2019-03-23] MEDS: Aspirin E.C. 81 MG Tablet PO (07:35)
[2019-03-23] MEDS: Lisinopril 20 MG Tablet PO (07:36)
[2019-03-23] MEDS: TICAGRELOR 90 MG TABLET PO (07:37)
[2019-03-23] MEDS: Metoprolol Tartrate 25 MG Tablet 12.5 MG PO (07:37)
[2019-03-23] MEDS: Isosorbide Mononitrate 30 MG Tablet PO (07:39)
--- NOTE | 2019-03-23 09:33 | CASEMGMT ---
RN CM Assessment Presentation: Chest pain, + stress, PTCA LCx. Intro role of CM and purpose of RN CM assessment to patient in room. Pt is awake alert and able to participate in assessment. Demographics, PCP and Pharmacy verified. Pt states he is independent and does not anticipate any dc needs. PCP: Dr. Mccallum Specialists: Dr. Ware. Pt states does not anticipate difficulty with f/u. [facility] Insurance: [employer]. Prescription Benefit: yes. [employer] card given to patient and explained. LNOK: Ophelia Living Arrangements: Lives independently in own home. No care needs identified. Transportation: drives, but can drive DME: None HHC: None Patient DC goals: Home DC PLAN: Home. Cassandra RIOSN RN ACM
--- NOTE | 2019-03-23 10:00 | EKG12_ITS ---
Test Reason : PCI Blood Pressure : / mmHG Vent. Rate : 064 BPM Atrial Rate : 064 BPM P-R Int : 172 ms QRS Dur : 082 ms QT Int : 406 ms P-R-T Axes : 067 -13 016 degrees QTc Int : 418 ms Poor data quality, interpretation may be adversely affected Sinus rhythm Inferior infarct , age undetermined Abnormal ECG When compared with ECG of 22-MAR-2019 02:43, MANUAL COMPARISON REQUIRED, DATA IS UNCONFIRMED Confirmed by ASHOK SAMUELS, LUIS ([id number]), editor index BOBO GOMEZ ([id number]) on 03/26/2019 9:57:53 AM Referred By: Confirmed By:JOVAN PULIDO MD
--- NOTE | 2019-03-23 10:27 | CRPHASE1 ---
Patient Communication PHII Cardiac Rehab Discussed with Patient:: Yes Guide to Cardiac Rehab Given to Patient:: Yes Cardiac Rehab Facility Choice List Given to Patient:: Yes Choice Program [facility] PHII:: Communication Given to CR, Refer to [facility] Choice Program Other:: Communication Given to CR, With permission faxed order and referral information Hospice Home Care Coordinator:: Gene Martin Refer Phase II Cardiac Rehab:: Yes Sessions:: 36 sessions - 3 days/wk, 12 weeks Risk Factors/Lifestyle Smoking Status: Former smoker Hx Hypertension: No Hx Diabetes Mellitus Type 1: No Hx Diabetes Mellitus Type 2: Yes Hx Metabolic Disorders: Yes Hx Dyslipidemia: Yes Hx Obesity: Yes Height: 5 ft 8 in - BMI 37.5 Stress: Home/Family Substance Abuse: No Risk Factor for Sedentary Lifestyle: Moderate Risk Family History: Family History (Last Updated 03/22/19 @ 18:08 by Ashtyn Fink) Mother Heart disease Father Hypertension Past Cardiac Illness: Coronary Artery Disease, Previous PCI w/Stent Laboratory Values: Cardiac Rehab Phase I Labs Triglycerides 231 mg/dL (-199) H 03/23/19 04:10 Cholesterol 162 mg/dL (200) 03/23/19 04:10 88 mg/dL (0-130) 03/23/19 04:10 28 mg/dL (40-) L 03/23/19 04:10 Phase I Education Given On:: [place], Nutrition, Antiplatelet medication, Diabetes - Type II Issues Affecting Care:: None Knowledge of Condition:: Yes Learning Preferences: Verbal, Written - AT BEDSIDE Hospital Course Presenting Symptoms:: ABNORMAL STRESS Medical/Surgical History [place]:: No - ABNORMAL STRESS CAD:: Yes Cardiomyopathy:: No COPD:: No Diabetes:: Yes Diabetes Type I:: No Diabetes Type II:: Yes Hypertension:: No Dyslipidemia:: Yes PTCA:: Yes - HX Discharge/Home/Social Eval Discharge Disposition: Home Cardiac Rehabilitation Info Cardiac Rehabilitation Program Information: Cardiac Rehabilitation is important for patients like you who are recovering from a heart problem. Cardiac rehabilitation programs are recognized as integral to the continued care of the patient with coronary heart disease. The cardiac rehabilitation program is designed to optimize a patient's physical, psychological, and social functioning. Health healthcare customer service work in cardiac rehabilitation programs and assist you with getting the treatments you need to get stronger and healthier - like exercise, healthy eating habits, and medications. Cardiac rehabilitation has been show to help people with heart problems live longer and have better life enjoyment than people who do not go to cardiac rehabilitation. Please contact the Cardiac Rehabilitation Program at [facility] at in two weeks if you have not heard from them.
--- NOTE | 2019-03-23 10:29 | CRPH1.INSTRU ---
General Education CAD and cardiac anatomy and function:: Patient communicates acknowledgment - AT BEDSIDE, Family communicates acknowledgment Explanation of diagnoses and procedures:: Patient communicates acknowledgment, Family communicates acknowledgment Sign/Symptoms of TX:: Patient communicates acknowledgment, Family communicates acknowledgment Antiplatelet therapy: Patient communicates acknowledgment, Family communicates acknowledgment Proper use of NTG-SL: Not instructed Emergency procedures and activation of EMS: Patient communicates acknowledgment, Family communicates acknowledgment Compliance of all prescribed medications: Patient communicates acknowledgment, Family communicates acknowledgment Smoking Recommendations Include:: Previous smoker; encourage continued cessation Nicotine/Smoking Response Code:: Patient communicates acknowledgment, Family communicates acknowledgment Dyslipidemia Patient Dyslipidemia Risk Factors Are:: Triglycerides, HDL Recommendations Include:: Lipid profile provided, Reviewed NCEP/ATP guidelines, Therapeutic Lifestyle Change dietary guidelines Dyslipidemia Response Code:: Patient communicates acknowledgment, Family communicates acknowledgment Overweight/Obesity Patient Overweight/Obesity Risk Factors Are:: Obesity - > or = 30 Recommendations Include:: Weight loss of 5-10%, Reduced calorie diet, Exercise 5-7 times/week Overweight/Obesity:: Patient communicates acknowledgment, Family communicates acknowledgment Hypertension Patient Hypertension Risk Factors Are:: No documented hx of HTN Heart Disease Patient Heart Disease Risk Factors Are:: Previous cardiac event Heart Disease Response Code:: Patient communicates acknowledgment, Family communicates acknowledgment Diabetes Patient Diabetes Risk Factors Are:: Elevated blood sugars Recommendations Include:: Maintain fasting blood sugars 70-110 md/dL, Maintain HgbA1c of 6% or less, Monitor blood sugar as prescribed, Diabetic dietary guidelines, Decrease/maintain body weight Diabetes:: Patient communicates acknowledgment, Family communicates acknowledgment Metabolic Syndrome Patient Metabolic Syndrome Risk Factors Are [3 of 5]:: Fasting blood sugar > 100 mg/dL, Waist circumference > 35 [female] or 40 [male], High triglyceride >150, Low HDL <40 [male] or < 50 [female] Recommendations Include:: Reinforce compliance to risk factor modifications, Patient is diabetic, Encouraged follow-up with Primary Care Physician Metabolic Syndrome Response Code:: Patient communicates acknowledgment, Family communicates acknowledgment Sedentary Patient Sedentary Risk Factors Are:: Lack of regular exercise Recommendations Include:: Aerobic exercise 5-7 times/week for 20-30 minutes continuously, Benefits of regular exercise, Discussed home walking program, Monitored Outpatient Cardiac Rehab Sedentary Response Code:: Patient communicates acknowledgment, Family communicates acknowledgment Stress Recommendations Include:: Identification of stressors, and assessment of coping skills, Stress management techniques Stress Response Code:: Patient communicates acknowledgment, Family communicates acknowledgment
--- NOTE | 2019-03-23 11:18 | DCINST_ITS ---
- Discharge Diagnoses Current Active Problems: Current Active and Chronic Problems (Last Updated 03/22/19 @ 18:07 by Ashtyn Fink) Atherosclerosis of coronary artery of [place] heart without angina pectoris (Chronic) [id number] OM1 w/ 2.25 x 20 mm Promus Synergy Stent, followed immediately upstream with a 2.25 x 20 mm Promus Synergy Stent 03/22/19 Hyperlipidemia (Chronic) You will use the following diet at home:: Calorie/Carbohydrate Controlled (specify 1200, 1400, etc) - 1800 chace Your liquids should be the consistency of: Regular/Thin Discharge Activity: Return to Normal Activity Weight Bearing Status: Full weight bearing Allergies/Adverse Reactions: Allergies No Known Allergies Allergy (Verified 03/21/19 22:59) Medications to take at Discharge Aspirin [Adult Low Dose Aspirin EC] 81 mg PO DAILY 07/07/15 Glyburide,Micronized [Glyburide Micronized] 6 mg PO DAILY 07/07/15 lisinopril 20 mg tablet 20 mg PO QDAY 08/14/17 metformin 500 mg tablet 1,000 mg PO DAILY 08/14/17 Canagliflozin [Invokana] 300 mg PO DAILY 03/21/19 Atorvastatin Calcium [Lipitor] 80 mg PO QHS #30 tab 03/23/19 Isosorbide Mononitrate [Imdur] 30 mg PO DAILY #30 tab 03/23/19 Metoprolol Tartrate [Lopressor (beta abigail)] 12.5 mg PO BID #30 tab 03/23/19 Ticagrelor [Brilinta] 90 mg PO BID #60 tab 03/23/19 The following prescriptions were given: Ticagrelor [Brilinta] 90 mg PO BID #60 tab [facility] Isosorbide Mononitrate [Imdur] 30 mg PO DAILY #30 tab Transmission Status: [facility] Atorvastatin Calcium [Lipitor] 80 mg PO QHS #30 tab Transmission Status: Pending to [facility] Metoprolol Tartrate [Lopressor (beta abigail)] 12.5 mg PO BID #30 tab Transmission Status[facility] Primary Care Physician: Marisa Arredondo MD [Primary Care Provider] - Please follow up with your Primary Care Physician in: 1-2 weeks Test Results: Test results from this visit will be discussed in further detail at your follow- up appointment, if applicable. Please Follow Up With: Logn Ware MD When: next week-call for time
--- NOTE | 2019-03-25 08:49 | PCM.DC.SUM ---
Discharge Date and Diagnosis Date of Admission: 03/22/19 Date of Discharge: 03/23/19 - Primary Discharge Diagnosis #1 occlusive coronary artery disease in the left circumflex artery #2 type 2 diabetes #3 hyperlipidemia #4 angina pectoris - Secondary Discharge Diagnosis Chronic Problems (Last Updated 03/22/19 @ 18:07 by Ashtyn Fink) Atherosclerosis of coronary artery of [place] heart without angina pectoris (Chronic) [id number] OM1 w/ 2.25 x 20 mm Promus Synergy Stent, followed immediately upstream with a 2.25 x 20 mm Promus Synergy Stent 03/22/19 Hyperlipidemia (Chronic) Diabetes mellitus type 2, uncontrolled, with complications (Chronic) Hospital Course and Treatment Operations: None Procedures: Cardiac catheterization - With insertion of drug-eluting stent in circumflex artery, Nuclear stress test Summary of Care Provided: The patient is a 63 year old M was seen in the emergency room it [address] with chief chest pain. Work-up in the emergency room included an EKG which showed sinus rhythm with inferior T wave inversions in lead III. Lab obtained showed a negative troponin, mild hyperglycemia was noted on the patient's labs. Chest x-ray showed no acute abnormality, d-dimer was positive and patient underwent a CT of the chest which showed no PE. Patient was placed in observation status on PCU, cardiac enzymes are cycled and were negative, and underwent a cardiac stress test that was positive for reversible ischemia, he was seen in consultation by cardiology and he then underwent a cardiac catheterization which revealed occlusive coronary disease in the circumflex artery which underwent angioplasty and insertion of a drug-eluting stent. It was noted to be a totally occluded right coronary artery with [id number] collaterals and preserved ejection fraction. Patient was transferred to the ICU in stable condition and there were no untoward events during his hospitalization. On 03/23/2019, patient was seen and examined: On examination he appeared in good health and spirits. Vital signs as documented. Skin warm and dry and without overt rashes. Neck without JVD. Lungs clear. Heart exam notable for regular rhythm, normal sounds and absence of murmurs, rubs or gallops. Abdomen unremarkable and without evidence of organomegaly, masses, or abdominal aortic enlargement. Extremities nonedematous. Neuro: Cranial nerves II through XII are grossly intact, no focal motor deficits were noted, sensation to light touch and pinprick intact. Psych: Patient is alert and oriented x3, he does not appear anxious or depressed On 03/23/2019, patient was seen and examined and discharged in stable condition to home. - Physical Exam Vital Signs Temp Pulse Resp BP Pulse Ox 98 F 62 21 H 109/56 L 95 03/23/19 08:00 03/23/19 11:00 03/23/19 11:00 03/23/19 11:00 03/23/19 11:00 Oxygen Flow Rate (L/min) 2 Oxygen Delivery Method Room Air Weight: 112 kg Body Mass Index (BMI) 37.5 Intake and Output for Last 24 Hours 03/23/19 03/24/19 03/25/19 23:59 23:59 23:59 Intake Total 240 / 240 Balance 240 / 240 Discharge Activity: Return to Normal Activity Weight Bearing Status: Full weight bearing Home Medications: Medications to take at Discharge Aspirin [Adult Low Dose Aspirin EC] 81 mg PO DAILY 07/07/15 Glyburide,Micronized [Glyburide Micronized] 6 mg PO DAILY 07/07/15 lisinopril 20 mg tablet 20 mg PO QDAY 08/14/17 metformin 500 mg tablet 1,000 mg PO DAILY 08/14/17 Canagliflozin [Invokana] 300 mg PO DAILY 03/21/19 Atorvastatin Calcium [Lipitor] 80 mg PO QHS #30 tab 03/23/19 Isosorbide Mononitrate [Imdur] 30 mg PO DAILY #30 tab 03/23/19 Metoprolol Tartrate [Lopressor (beta abigail)] 12.5 mg PO BID #30 tab 03/23/19 Ticagrelor [Brilinta] 90 mg PO BID #60 tab 03/23/19 Following Prescrptions Were Given to Patient: Ticagrelor [Brilinta] 90 mg PO BID #60 tab [facility] Isosorbide Mononitrate [Imdur] 30 mg PO DAILY #30 tab Transmission Status: [facility] Atorvastatin Calcium [Lipitor] 80 mg PO QHS #30 tab Transmission Status: [facility] Metoprolol Tartrate [Lopressor (beta abigail)] 12.5 mg PO BID #30 tab Transmission Status[facility] Primary Care Physician: Marisa Arredondo MD [Primary Care Provider] - Please follow up with your Primary Care Physician in: 1-2 weeks Please Follow Up With: Long Ware MD When: next week-call for time Disposition: Home Minutes spent on discharge:: 32 Patient Condition:: Stable Medical Necessity - Tobacco Use Smoking Status: Former smoker Meaningful Use Info Meaningful Use Diagnoses (Choose all that apply): None applicable Code Visit OBSV E&M: 34535 Observation care discharge
== END 2019-03-23 13:05 | disposition home or self-care (01) ==
LOC: ED 03-22 01:55 → PCU 03-22 03:34 → ICU 03-23 14:54
PROVIDERS: Internal Medicine Cardiovascular Disease; Admitting Provider Hospitalist; Emergency Provider Emergency Medicine; Family Provider Family Medicine; PCP Family Medicine; Visit Provider Internal Medicine
DX: I25.110 Atherosclerotic heart disease of native coronary artery with unstable angina pectoris (principal); E78.5 Hyperlipidemia, unspecified; E11.65 Type 2 diabetes mellitus with hyperglycemia; E11.69 Type 2 diabetes mellitus with other specified complication; R91.8 Other nonspecific abnormal finding of lung field; I10 Essential (primary) hypertension; J98.11 Atelectasis; E66.9 Obesity, unspecified; Z87.891 Personal history of nicotine dependence; Z79.899 Other long term (current) drug therapy; Z79.84 Long term (current) use of oral hypoglycemic drugs; Z79.82 Long term (current) use of aspirin; Z68.37 Body mass index [BMI] 37.0-37.9, adult; Z71.3 Dietary counseling and surveillance
CPT/HCPCS: 36415; 71046; 71275; 78452; 80048; 80061; 82962; 84484; 85025; 85027; 85347; 85379; 92928; 93005; 93017; 93458; 96361; 96374; 99152; 99153; 99218; 99285; A9500; J7030; Q9967; A4216; C1725; C1769; C1874; C1887; C9600; G0378; J2785

== ENCOUNTER → 2019-04-06 08:57 | Outpatient (CLI) | payer OTHER, SELFPAY ==
[2019-03-22 02:37] VITALS: BMI 37.5
[2019-04-02 12:53] VITALS: BMI 36.8
== END ==
PROVIDERS: Family Provider Family Medicine; PCP Family Medicine; Referring Provider Internal Medicine Cardiovascular Disease; Visit Provider Internal Medicine Cardiovascular Disease
DX: Z00.00 Encounter for general adult medical examination without abnormal findings (principal)

== ENCOUNTER → 2019-12-13 11:23 | Outpatient (CLI) | payer OTHER, SELFPAY ==
[2019-10-11 09:22] VITALS: BMI 36.0
[2019-12-13 15:18] LABS: AST(SGOT) 33 U/L (15-37); Alanine Aminotransfer ALT/SGPT 59 U/L (16-61); Albumin, Serum 3.8 g/dL (3.2-5.0); Alkaline Phosphatase 110 U/L (45-117); Anion Gap 8 (5-15); BUN 26 mg/dL (7-18); BUN/Creat Ratio 22.4 RATIO (10-20); Bilirubin, Direct 0.38 mg/dL (0.00-0.30); Calcium,Total 9.1 mg/dL (8.5-10.1); Chloride 99 mmol/L (98-107); Cholesterol 121 mg/dL (200); Creatinine, Serum 1.16 mg/dL (0.70-1.30); EST Glomerular Filtration Rate 67 mL/min (>60); Est Glom Filt Rate - Afr Amer 81 mL/min (>60); Globulin 3.8 g/dL (2.2-4.2); Glucose 310 mg/dL (74-106); High Density Lipoprotein 34 mg/dL; Potassium 4.3 mmol/L (3.5-5.1); Protein, Total 7.6 g/dL (6.4-8.2); Sodium Level 132 mmol/L (136-145); Triglycerides 192 mg/dL; Very Low Density Lipoprotein 38 mg/dL (5-40)
[2019-12-13 15:24] LABS: Microalbumin,Random Urine 33.9 mg/L (NO RANGE EST.); Microalbumin:Creatinine Ratio 120.2 mg/g CRE (<30 mg/g CRE)
== END ==
PROVIDERS: PCP Family Medicine; Referring Provider Family Medicine; Visit Provider Family Medicine
DX: E11.9 Type 2 diabetes mellitus without complications (principal)
CPT/HCPCS: 36415; 80048; 80061; 80076; 82043; 82570

== ENCOUNTER → 2020-03-29 14:38 | Outpatient (CLI) | payer OTHER, SELFPAY ==
[2019-10-11 09:22] VITALS: BMI 36.0
--- NOTE | 2020-03-29 14:46 | CT_ITS ---
STUDY: CT CHEST WITH CONTRAST REASON FOR EXAM: Male, 64 years old. Pulmonary nodule RADIATION DOSAGE (If Supplied By Facility): CTDIvol = ( 18.35 ) mGy, DLP = ( 713.25 ) mGycm TECHNIQUE: Transaxial imaging was performed following intravenous administration of ml of 100mL Isovue-300 contrast material. Coronal and sagittal reformatted images were created. Individualized dose optimization techniques were used for this CT. COMPARISON: CT chest dated 03/22/19 FINDINGS: There are no pulmonary infiltrates or pleural effusions. There is a stable 8 mm nodule in the right middle lobe (image 73 series 4). The previously seen bibasilar nodules have resolved and were likely postinfectious or postinflammatory in etiology. There is no pneumothorax. The heart and pericardium are within normal limits. There is no thoracic lymphadenopathy. There is no evidence of thoracic aortic aneurysm. Images through the upper abdomen demonstrate lymphadenopathy in the retrocrural regions and in the retroperitoneum. The largest node measures 3.0 x 2.6 cm in the periaortic region. There are no destructive osseous lesions. There are degenerative changes noted in the spine. CT/Chest WITH Contrast IMPRESSION: Stable 8 mm nodule in the right middle lobe. A follow-up CT in 6 months is recommended. Lymphadenopathy in the upper abdomen which is suspicious for neoplasm. Further evaluation with a contrast-enhanced CT of the abdomen and pelvis is recommended. Electronically Signed: Agus Jones, at 17:29 EDT Tel , Service support ,
[2020-03-29 15:06] LABS: CREATININE FINGERSTICK 0.7 mg/dL (0.70-1.30)
== END ==
PROVIDERS: PCP Family Medicine; Referring Provider Family Medicine; Visit Provider Family Medicine
DX: R91.1 Solitary pulmonary nodule (principal)
CPT/HCPCS: 71260; Q9967

== ENCOUNTER → 2020-04-10 17:28 | Outpatient (CLI) | payer OTHER, SELFPAY ==
[2019-10-11 09:22] VITALS: BMI 36.0
--- NOTE | 2020-04-10 17:37 | CT_ITS ---
STUDY: CT ABDOMEN AND PELVIS WITH CONTRAST REASON FOR EXAM: Male, 64 years old. Enlarged lymph nodes. RADIATION DOSAGE (If Supplied By Facility): CTDIvol = ( 17.57 ) mGy, DLP = ( 1125.04 ) mGycm TECHNIQUE: Transaxial images were obtained from the dome of the diaphragm to the symphysis pubis without oral contrast. 100mL Isovue-300 was administered. Sagittal and coronal images were reconstructed. Individualized dose optimization techniques were used for this CT. COMPARISON: CT of the chest, 03/29/2020 FINDINGS: The visualized lung bases are unremarkable. The visualized portions of the heart are within normal limits. Coronary artery calcifications. There are bilateral retrocrural lymph nodes. The largest, on the right, measures 2.3 x 1.9 x 3.1 cm. There is fatty infiltration of liver without focal mass. Normal gallbladder and extrahepatic biliary system. Normal spleen. Normal pancreas. Normal bilateral adrenal glands. Normal right kidney. Normal left kidney. Normal bilateral ureters. Normal visualized stomach. Normal small intestine. Normal colon. The appendix is visualized and appears normal. There is diffuse atherosclerotic calcification of the abdominal aorta, without a demonstrated aneurysm. Normal inferior vena cava. There there are retrocaval, aortocaval and preaortic and periaortic lymph nodes. A largest node, in the periaortic space extending downward along the distal aorta and left common iliac artery and measures 4.5 x 3.2 x 6.2 cm in size. The periaortic lymph node measured on the prior chest film is roughly unchanged in size. Normal urinary bladder. Mildly enlarged prostate. Pelvic lymphadenopathy. The largest node, the right pelvis measures 3.6 x 2.5 x 3.3 cm. There is also a enhancing mass posteriorly in the right pelvis with central low attenuation which measures 2.5 x 2.1 x 2.3 cm. This is best seen on image 95 of series 2. Phleboliths are seen in the pelvis. No free air or free fluid is seen within the peritoneal cavity. Normal abdominal wall. Nonspecific subcentimeter inguinal lymph nodes. There are diffuse degenerative changes of the visualized lumbar spine. CT/Abdomen/Pelvis W IV Cont ONLY IMPRESSION: 1. Retrocrural, retroperitoneal and pelvic lymphadenopathy. Findings are suspicious for metastatic disease. 2. Mildly enlarged prostate. 3. No other evidence of abdominal or pelvic abnormality. Electronically Signed: Adair Frey DO at 23:17 EDT Tel [phone], Service support ,
== END ==
PROVIDERS: PCP Family Medicine; Referring Provider Family Medicine; Visit Provider Family Medicine
DX: R59.0 Localized enlarged lymph nodes (principal)
CPT/HCPCS: 74177; Q9967

== ENCOUNTER → 2020-04-24 11:34 | Outpatient (CLI) | payer OTHER, SELFPAY ==
[2019-10-11 09:22] VITALS: BMI 36.0
[2020-04-24 15:57] LABS: Absolute Lymphocyte Count 0.94 X10^3/uL (0.83-4.51); Absolute Neutrophil Count 3.7 X10^3/uL (2.0-7.7); Basophil# 0.07 X10^3/uL; Basophil% 1.2 % (0-1); Eosinophil# 0.29 X10^3/uL; Eosinophils% 5.1 % (0-5); Hematocrit 44.2 % (40-54); Hemoglobin 14.3 g/dL (13.0-16.5); Lymphocyte # 0.94 X10^3/ul (4.0); Lymphocyte % 16.6 % (19-41); Mean Corp Hgb Conc 32.4 g/dL (32-36); Mean Corpuscular Hgb 32.8 pg (27.0-32.0); Mean Corpuscular Volume 101.4 fL (80-94); Monocyte# 0.63 X10^3/uL; Monocyte% 11.1 % (0-10); NRBC Flagged by Analyzer 0 % (0-5); Neutrophil # 3.67 X10^3/uL (2.7-7.7); Neutrophil % 64.9 % (47-70); Platelet Count 197 K/mm3 (150-450); Prothrombin Time (Protime)PT. 12.8 SECONDS (11.7-14.9); RBC Distribution Width CV 13.2 % (11.6-14.6); RBC Distribution Width SD 49.8 fl (35.1-43.9); Red Blood Count 4.36 M/mm3 (4.6-6.2); White Blood Count 5.7 K/mm3 (4.4-11.0)
[2020-04-24 15:58] LABS: Partial Thromboplast Time 29.6 Seconds (24.1-36.2)
== END ==
PROVIDERS: PCP Family Medicine; Referring Provider Family Medicine; Visit Provider Family Medicine
DX: R59.0 Localized enlarged lymph nodes (principal)
CPT/HCPCS: 36415; 85025; 85610; 85730

== ENCOUNTER → 2020-04-27 08:11 | Outpatient (CLI) | payer SELFPAY ==
[2019-10-11 09:22] VITALS: BMI 36.0
[2020-04-27] VITALS (11 sets, daily range): BP systolic 91–128; BP diastolic 55–75; PULSE 52–61; RESP 11–23; TEMP 36.5; O2SAT 93–958; BMI 33.7
--- NOTE | 2020-04-27 | LYMN_PTH ---
PATIENT: CAIO SENIOR LOC: CT U#:[id number] AGE/SX: 70/M ROOM: RE04/27/[address]: Dr. Marisa Arredondo MD : 1955 BED: DIS: SPEC #: [id number] RECD: 04/27/20 11:47 STATUS: IGOR AKHTARFausto #: [id number] NELLY: 04/27/20 00:[address]: Marisa Arredondo DEPT: SURGICAL PATHOLOGY RECD BY: Vickey Haider Tissues: LYMPH NODE BIOPSY Procedures: Special Stain Group II Surgery Specimen Level IV Imprint (control) HEADER OPERATION: CT-guided lymph node biopsy PRE-OP DIAGNOSIS: Enlarged lymph nodes TISSUE SUBMITTED: Enlarged lymph nodes 18-gauge core x4, left retroperitoneal lymph node MICROSCOPIC DIAGNOSIS Enlarged left retroperitoneal lymph node, CT-guided core biopsy: Metastatic adenocarcinoma consistent with prostate primary. See comment. AM:marvin 04/28/20 COMMENT The specimen is evaluated at the time of biopsy by Dr. Mendiola. Immediate Evaluation = Malignant cells present derived from non-small cell carcinoma. Immunohistochemistry ([id number]) favors a prostate primary. Case has been reviewed in consultation with Dr. Mendiola who concurs with the above diagnosis. IDC:SADIE MICROSCOPIC DESCRIPTION Slides are reviewed. GROSS DESCRIPTION Received in fixative is one container labeled with the patient's name and designated left retroperitoneal lymph node. The specimen consists of multiple irregular fragments of lisa soft tissue that in aggregate measure 1.5 x 0.1 x 0.1 cm. The specimen is totally submitted in one cassette. One touch imprint is prepared at the time of core biopsy. / SADIE:marvin 04/27/20 TC:0 CPT: 14474, 15129
--- NOTE | 2020-04-27 | IMM_PTH ---
PATIENT: CAIO SENIOR LOC: CT U#:[id number] AGE/SX: 70/M ROOM: RE04/27/[address]: Dr. Marisa Arredondo MD : 1955 BED: DIS: SPEC #: [id number] RECD: 04/28/20 12:25 STATUS: IGOR REFausto #: [id number] NELLY: 04/27/20 00:[address]: Marisa Arredondo DEPT: IMMUNOHISTOCHEMISTRY RECD BY: Janette Malloy Tissues: LYMPH NODE BIOPSY Procedures: RCC (add) Thyroglobulin (add) NAPSIN A (add) CEA (add) CK19 (add) CK20 (add) CK7 (add) CK8 (add) LABOY-2 (add) ISIS (add) HBME (add) HEP PAR (add) KI-67 (add) P53 (add) TTF1 (add) 34BE12 (add) Pankeratin (initial) CDX2 (add) PSAP (add) S-100 (add) PHYSICIAN & [address] [address] SPECIMEN INFORMATION: Tissue Source: Left retroperitoneal lymph node Clinical Info: Enlarged lymph nodes Specimen Number: [id number] CPT code: 33619, 16981 x19 METHODOLOGY: Deparaffinized sections of prefer/formalin-fixed tissue or PAP/DQ stained slides are incubated with monoclonal/polyclonal antibodies/oligonucleotide probes. Localization is made via biotin free immunoperoxidase method. Appropriate controls are performed and reacted as expected. Results on target cell population are indicated in the following table: RESULTS: ANTIBODY / CLONE RESULT AE1-3 (AE1/AE3/PCK26) positive CK7 (OV-TL12/30) negative CK8 (66zeskR51) positive CK20 (KS20.8) negative LABOY-2 (SP21) positive CDX2 ([id number]) negative 34BE12 (34BE12) negative S-100 (4C4.9) negative HBME1 (HBME-1) negative CK19 (A53-B/A2.26) negative TTF-1 (8G7G3/1) negative Napsin A (Rabbit Polyclonal) negative HepPar (OCh1E5) positive, focal RCC (PN-15) negative PSAP (PASE/4LJ) positive Thyro (2H11+6E1) negative ISIS (E29) negative CEA (11-7/TF-3HB-1) negative P53 (DO-7) positive, 10% Ki-67 (30-9) positive, 35% These tests were developed and their performance characteristics determined by [facility]. They may not have been cleared or approved by the U.S. Food and Drug Administration. The FDA has determined that such clearance or approval is not necessary. The above immunohistochemical/dualISH markers are ordered and reviewed by the Pathologist. INTERPRETATION: Left retroperitoneal lymph node, CT-guided core biopsy: Consistent with metastatic prostate carcinoma. AM:marvin 05/01/20 Case has been reviewed in consultation with Dr. Mendiola who concurs with the above diagnosis. IDC:SJ
--- NOTE | 2020-04-27 08:18 | CT_ITS ---
PROCEDURE: CT GUIDED biopsy of the left retroperitoneal mass. DATE: 04/27/2020. INDICATION: Male, 64 years old. Retroperitoneal lymphadenopathy. PHYSICIAN: Ebenezer Cardenas M.D. RADIATION DOSAGE (If Supplied By Facility): CTDIvol = ( 16.5 ) mGy, DLP = ( 595.75 ) mGycm. Individualized dose optimization techniques were utilized. PROCEDURE: The risks, benefits, and alternatives to the procedure were explained to the patient. The specific risk of hemorrhage requiring further treatment or intervention was detailed and accepted. Follow-up instructions were discussed with the patient as well. Written informed consent was obtained. The patient was brought into the CT suite and placed in the prone position. . An appropriate entry site was identified. The overlying skin was prepped and draped in the usual sterile fashion. 1% lidocaine was administered subcutaneously for local anesthesia. Conscious sedation was performed. The patient received 2 mg of VERSED and 50 mcg of FENTANYL intravenously. Conscious sedation was started at 9:42 AM and terminated at 9:55 AM. The patient was independently monitored by the department nurse. Under CT guidance, a total of 4 passes were performed utilizing a 18-gauge core biopsy needle. The specimens were then placed in the appropriate fluid and transported to the laboratory for analysis. Hemostasis was obtained. The patient tolerated the procedure well without immediate complications. CT/Biopsy/Inj or Needle Placement IMPRESSION: Successful CT guided left retroperitoneal lymph node biopsy, as described above. The conscious sedation protocol was followed. Electronically Signed: Ebenezer Cardenas, at 10:24 EDT , Service support ,
[2020-04-27] MEDS: Midazolam 2 MG/2 ML Syringe IV (09:42)
[2020-04-27] MEDS: fentaNYL 100 MCG/2 ML Ampul IV (09:44)
== END ==
PROVIDERS: PCP Family Medicine; Referring Provider Family Medicine; Visit Provider Family Medicine
DX: R59.0 Localized enlarged lymph nodes (principal)
CPT/HCPCS: 77012; 88305; 88313; 88341; 88342; J7040; A4216

== ENCOUNTER → 2020-05-15 07:43 | Outpatient (CLI) | payer OTHER, SELFPAY ==
[2020-05-03 15:46] VITALS: BMI 35.4
[2020-05-09 13:03] VITALS: BMI 34.9
--- NOTE | 2020-05-15 07:45 | NM_ITS ---
CLINICAL: 65-year-old male with recent diagnosis of primary prostate carcinoma. WHOLE BODY 99m Tc MDP RADIONUCLIDE BONE SCINTIGRAPHY COMPARISON: CT of the abdomen-pelvis report 04/10/2020, CT of the chest report 03/29/2020 FINDINGS: Following the intravenous administration of 26.0 mCi of 99m Tc MDP, whole body bone images reveal: 1. Increased radiopharmaceutical concentration is identified in the acromioclavicular and glenohumeral compartments of both shoulders, sternoclavicular compartment of the right shoulder, third lumbar vertebra posteriorly on the right, patellofemoral compartment of the right knee, the left ankle. 2. The remaining skeletal structures are scintigraphically unremarkable with normal-appearing renal images and urinary bladder activity identified. An increase in tracer distribution is identified in the bilateral maxilla and mandible most consistent with periodontal disease and/or periostitis. NM/Bone Scan Whole Body IMPRESSION: 1. The increase in radiopharmaceutical concentration identified in the bilateral shoulders, third lumbar vertebra, right knee and left ankle articulations is most consistent with degenerative arthritis. Plain film radiography correlation may be of benefit in the region of the left ankle. 2. There is no definitive typical scintigraphic evidence of diffuse axial skeletal metastatic disease on the current examination. Electronically Signed: Geoff Mccartney DO at 22:05 EDT Tel , Service support ,
== END ==
PROVIDERS: PCP Family Medicine; Referring Provider Internal Medicine Medical Oncology; Visit Provider Internal Medicine Medical Oncology
DX: C61 Malignant neoplasm of prostate (principal); C77.2 Secondary and unspecified malignant neoplasm of intra-abdominal lymph nodes
CPT/HCPCS: 78306

== ENCOUNTER → 2020-08-11 16:03 | Outpatient (CLI) | payer OTHER, SELFPAY ==
[2020-07-20 15:31] VITALS: BMI 36.8
== END ==
PROVIDERS: PCP Family Medicine; Referring Provider Family Medicine; Visit Provider Family Medicine
DX: B34.9 Viral infection, unspecified (principal)
CPT/HCPCS: 87635; U0003

== ENCOUNTER → 2020-10-30 07:45 | Outpatient (CLI) | payer SELFPAY ==
[2020-07-20 15:31] VITALS: BMI 36.8
--- NOTE | 2020-10-30 07:49 | CT_ITS ---
STUDY: CT ABDOMEN AND PELVIS WITH CONTRAST REASON FOR EXAM: Male, 65 years old. PROSTATE CANCER RADIATION DOSAGE (If Supplied By Facility): CTDIvol = ( 17.90 ) mGy, DLP = ( 1193.48 ) mGycm TECHNIQUE: Transaxial images were obtained from the dome of the diaphragm to the symphysis pubis with oral contrast. Oral and amp;amp; IV Readi-CAT and amp;amp; 100mL Isovue-300 was administered. Sagittal and coronal images were reconstructed. Individualized dose optimization techniques were used for this CT. COMPARISON: Comparison is made with prior study dated 04/10/2020. FINDINGS: The visualized lung bases are unremarkable. The previously seen retrocrural lymphadenopathy has resolved. Coronary artery calcification. There is decreased attenuation of the liver consistent with steatosis. Normal gallbladder and extrahepatic biliary system. Normal spleen. Normal pancreas. Normal bilateral adrenal glands. Normal right kidney. Normal left kidney. Normal visualized stomach. Normal small intestine. Normal colon. The appendix is visualized and appears normal. There is diffuse atherosclerotic calcification of the abdominal aorta, without a demonstrated aneurysm. Normal inferior vena cava. The previously seen retroperitoneal lymphadenopathy has almost completely resolved. The previously seen lymph nodes in the pelvis resolved as well. The urinary bladder is distended. There are prostatic calcifications. Small bilateral inguinal hernias containing fat. There are mild degenerative changes of the visualized lumbar spine. CT/Abdomen/Pelvis WITH Contrast IMPRESSION: The previously seen retroperitoneal and pelvic lymphadenopathy and almost completely resolved. Fatty infiltration of the liver. Electronically Signed: Ebenezer Cardenas MD at 10:05 EST , Service support ,
== END ==
PROVIDERS: PCP Family Medicine; Referring Provider Internal Medicine Medical Oncology; Visit Provider Internal Medicine Medical Oncology
DX: C61 Malignant neoplasm of prostate (principal); C77.2 Secondary and unspecified malignant neoplasm of intra-abdominal lymph nodes
CPT/HCPCS: 74177; Q9967

== ENCOUNTER → 2021-02-19 06:05 | Outpatient (CLI) | payer SELFPAY ==
[2021-02-05 11:11] VITALS: BMI 36.6
--- NOTE | 2021-02-19 09:58 | STRESSREP ---
Stress Test Report Pharmacologic myocardial perfusion stress test. 65-year-old man with a history of coronary artery disease. Previous right coronary arteries noted to be totally occluded as well as high-grade disease noted in the circumflex artery for which he underwent angioplasty. Stress protocol: Resting EKG demonstrates normal sinus rhythm with a rate of 71 bpm normal intervals are noted resting blood pressure is 128/74 mmHg. 0.4 mg of regadenoson was infused per usual protocol followed by rapid intravenous saline flush injection continuous EKG monitoring was performed. The maximum heart rate attained was 104 bpm which was 67% of maximum predicted heart rate the maximum workload was 1 metabolic equivalent. At rest there were no ST or T wave changes noted to suggest abnormal flow reserve and at peak infusion nonspecific ST changes were noted with did not meet the criteria for ischemia. The final blood pressure was 118/62 mmHg. Myocardial perfusion protocol. 15.0 mCi of technetium 99m sestamibi was injected at rest. 0.4 mg of regadenoson was infused per usual. At peak infusion 44.7 mCi of technetium 99m sestamibi was injected stress images were obtained stress and rest images were reconstructed and compared in the short axis vertical long and horizontal long axis. Gated images were also obtained per Perfusion SPECT analysis: Review of the stress images demonstrate a large defect noted in the inferior wall in the basal to mid segment. The septum anterior wall and lateral wall appeared to be well perfused. The resting images demonstrate a similar pattern. The above is suggestive of a previous inferior infarct. Minimal juan-infarct ischemia only is noted. Gated SPECT analysis: The gated ejection fraction is 77%. Conclusion: Pharmacologic myocardial perfusion stress test with evidence of previous inferior infarct. No significant ischemia is noted. Preserved ejection fraction.
== END ==
PROVIDERS: PCP Family Medicine; Referring Provider Nurse Practitioner Family; Visit Provider Nurse Practitioner Family
DX: I25.10 Atherosclerotic heart disease of native coronary artery without angina pectoris (principal); I10 Essential (primary) hypertension; E78.5 Hyperlipidemia, unspecified; R07.9 Chest pain, unspecified; Z95.5 Presence of coronary angioplasty implant and graft
CPT/HCPCS: 78452; 93017; A9500; A4216; J2785

== ENCOUNTER → 2021-08-21 11:05 | Outpatient (CLI) | payer SELFPAY ==
[2021-08-21 12:18] LABS: AST(SGOT) 14 U/L (15-37); Alanine Aminotransfer ALT/SGPT 43 U/L (16-61); Albumin, Serum 3.5 g/dL (3.2-5.0); Alkaline Phosphatase 106 U/L (45-117); Bilirubin, Direct 0.17 mg/dL (0.00-0.30); Cholesterol 125 mg/dL (200); Globulin 3.8 g/dL (2.2-4.2); High Density Lipoprotein 36 mg/dL; Protein, Total 7.3 g/dL (6.4-8.2); Triglycerides 257 mg/dL; Very Low Density Lipoprotein 51 mg/dL (5-40)
== END ==
PROVIDERS: PCP Family Medicine; Referring Provider Internal Medicine Cardiovascular Disease; Visit Provider Internal Medicine Cardiovascular Disease
DX: E78.00 Pure hypercholesterolemia, unspecified (principal)
CPT/HCPCS: 36415; 80061; 80076

== ENCOUNTER → 2022-05-10 | Outpatient (CLI) | payer SELFPAY ==
--- NOTE | 2022-05-10 18:10 | STRESSREP ---
Stress Test Report Pharmacologic myocardial perfusion stress test. 67-year-old man with a history of intermittent chest ache. Resting EKG demonstrates normal sinus rhythm with a rate of 62 bpm normal intervals are noted resting blood pressure is 116/72 mmHg. 0.4 mg of regadenoson was infused per usual protocol followed by rapid intravenous saline flush injection continuous EKG monitoring was performed. The maximum heart rate attained was noted to be 75 bpm which was 49% of max impacted heart rate the maximum workload was 1 metabolic equivalent. At rest there were no ST or T wave changes noted to suggest abnormal flow reserve and at peak infusion nonspecific ST changes were noted with did not meet the criteria for ischemia. No clinical angina was noted. Myocardial perfusion protocol. 14.5 mCi of technetium 99m sestamibi was injected at rest. 0.4 mg of regadenoson was infused per usual protocol. At peak infusion 44.7 mCi of technetium 99m sestamibi was injected stress images were obtained stress and rest images were reconstructed and compared in the short axis vertical long and horizontal long axis. Gated images were also obtained. Perfusion SPECT analysis: Review of the stress images demonstrate normal cardiac silhouette size. There is evidence of reduced perfusion noted basal to mid inferior wall. The anterior septal wall also has mildly reduced perfusion. The lateral wall appears to be well perfused. The resting images demonstrate a similar pattern with probably mild improvement in the anterior lateral wall. A small amount of anterolateral ischemia cannot be completely excluded. A previous inferior infarct is suggested. Gated SPECT analysis: The gated ejection fraction is 84%. Conclusion: Pharmacologic myocardial perfusion stress test with evidence of previous inferior infarct. Mild anterolateral ischemia is present.
== END | disposition home or self-care (01) ==
PROVIDERS: PCP Family Medicine; Referring Provider Nurse Practitioner Family; Visit Provider Nurse Practitioner Family
DX: R07.9 Chest pain, unspecified (principal); Z95.5 Presence of coronary angioplasty implant and graft
CPT/HCPCS: 78452; 93017; A9500; A4216; J2785

== ENCOUNTER → 2022-05-13 | Outpatient (CLI) | payer SELFPAY ==
[2022-05-13 07:07] LABS: Absolute Lymphocyte Count 1.03 X10^3/uL (0.83-4.51); Absolute Neutrophil Count 3.8 X10^3/uL (2.0-7.7); Basophil# 0.07 X10^3/uL; Basophil% 1.2 % (0-1); Eosinophil# 0.43 X10^3/uL; Eosinophils% 7.2 % (0-5); Hematocrit 41.2 % (40-54); Hemoglobin 13.3 g/dL (13.0-16.5); Lymphocyte # 1.03 X10^3/ul (0.83-4.51); Lymphocyte % 17.2 % (19-41); Mean Corp Hgb Conc 32.3 g/dL (32-36); Mean Corpuscular Hgb 31.5 pg (27.0-32.0); Mean Corpuscular Volume 97.6 fL (80-94); Monocyte# 0.63 X10^3/uL; Monocyte% 10.5 % (0-10); NRBC Flagged by Analyzer 0 % (0-5); Neutrophil % 63.2 % (47-70); Platelet Count 195 K/mm3 (150-450); RBC Distribution Width CV 13.7 % (11.6-14.6); RBC Distribution Width SD 49.1 fl (35.1-43.9); Red Blood Count 4.22 M/mm3 (4.6-6.2)
--- NOTE | 2022-05-13 07:10 | CT_ITS ---
STUDY: CT ABDOMEN AND PELVIS WITH CONTRAST REASON FOR EXAM: Male, 67 years old. MONITOR PROSTATE CA. Yearly follow-up. RADIATION DOSAGE (If Supplied By Facility): CTDIvol = ( 19.76 ) mGy, DLP = ( 1319.28 ) mGycm TECHNIQUE: Transaxial images were obtained from the dome of the diaphragm to the symphysis pubis without oral contrast. IV 100mL Isovue-370 was administered. Sagittal and coronal images were reconstructed. Individualized dose optimization techniques were used for this CT. COMPARISON: Comparison is made with prior examination dated 10/30/2020. FINDINGS: The visualized lung bases are unremarkable. Coronary artery calcification. There is decreased attenuation of the liver consistent with steatosis. Normal gallbladder and extrahepatic biliary system. Normal spleen. Normal pancreas. Normal bilateral adrenal glands. Normal right kidney. Normal left kidney. Normal visualized stomach. Normal small intestine. Normal colon. There are surgical clips in the region of the appendix consistent with a prior appendectomy. There is scattered atherosclerotic calcification of the abdominal aorta and its major visceral branches, without a demonstrated aneurysm. Normal inferior vena cava. There is borderline retroperitoneal lymphadenopathy with enlarged nodes no greater than 10mm in the short axis diameter. Mildly distended urinary bladder. There are central prostatic calcifications. There is a small umbilical hernia containing fat. Small benign-appearing lymph nodes are seen in both groins. There are mild degenerative changes of the visualized lumbar spine. Straightening of the normal lumbar lordosis. CT/Abdomen/Pelvis W IV Cont ONLY IMPRESSION: Stable examination. No acute abnormality is seen. Electronically Signed: Ebenezer Cardenas MD at 10:01 EDT ,
[2022-05-13 07:27] LABS: AST(SGOT) 20 U/L (15-37); Alanine Aminotransfer ALT/SGPT 49 U/L (16-61); Albumin, Serum 3.7 g/dL (3.2-5.0); Alkaline Phosphatase 101 U/L (45-117); Anion Gap 8 (5-15); BUN 34 mg/dL (7-18); BUN/Creat Ratio 28.1 RATIO (10-20); Calcium,Total 9.5 mg/dL (8.5-10.1); Chloride 105 mmol/L (98-107); Creatinine, Serum 1.21 mg/dL (0.70-1.30); EST Glomerular Filtration Rate 64 mL/min (>60); Est Glom Filt Rate - Afr Amer 77 mL/min (>60); Globulin 3.8 g/dL (2.2-4.2); Glucose 201 mg/dL (74-106); LDH 159 U/L (87-241); Potassium 4.5 mmol/L (3.5-5.1); Protein, Total 7.5 g/dL (6.4-8.2); Sodium Level 137 mmol/L (136-145)
[2022-05-13 07:35] LABS: CREATININE FINGERSTICK < 0.9 mg/dL (0.70-1.30); EGFR FINGERSTICK > 60.0000 mL/min (>60)
[2022-05-13 14:58] LABS: Xtra Tube EP Lab EXTRA TUBE
== END | disposition home or self-care (01) ==
LOC: CT 06:55
PROVIDERS: PCP Family Medicine; Referring Provider Internal Medicine Medical Oncology; Visit Provider Internal Medicine Medical Oncology
DX: C61 Malignant neoplasm of prostate (principal); C77.2 Secondary and unspecified malignant neoplasm of intra-abdominal lymph nodes; C77.5 Secondary and unspecified malignant neoplasm of intrapelvic lymph nodes
CPT/HCPCS: 36415; 74177; 80053; 83615; 84153; 85025; Q9967

== ENCOUNTER 2022-06-10 07:55 | Day surgery (SDC) | payer SELFPAY ==
--- NOTE | 2022-05-16 14:54 | RAD_ITS ---
STUDY: XR Chest 2 Views 05/16/2022 2:59 PM REASON FOR EXAM: Male, 67 years old. CHEST PAIN pre-operative: [facility] COMPARISON: 03/21/2019 TECHNIQUE: XR Chest 2 Views FINDINGS: There is no demonstrated pleural abnormality. Normal heart size. Normal mediastinum. Normal lisa. Prominent appearing increased interstitial lung markings. Normal visualized pulmonary arteries. There is atherosclerotic calcification of the aortic arch with tortuosity. There are diffuse degenerative changes of the visualized thoracic spine. There is degenerative osteoarthritis of the bilateral shoulders. There is no demonstrated abnormality of the visualized soft tissue structures of the upper abdomen. RAD/Chest PA and Lateral IMPRESSION: There are no acute findings. Electronically Signed: Rigo Lanier MD at 17:35 EDT ,
--- NOTE | 2022-06-06 12:43 | PCM.HP.BLA ---
History and Physical Date of Admission: 06/10/22 This is a pleasant 67-year-old man who presents to the [facility] today for a left heart catheterization. ? He has a history of hypertension, diabetes, and hyperlipidemia.? He presented to the Emergency Department in March 2019 with chest pain. His cardiac enzymes were noted to be normal.? He underwent a cardiac catheterization on 03/22/2019 which demonstrated a normal left main coronary artery, left anterior descending artery with mild calcification and mild luminary irregularities.? The circumflex artery had mid to distal subtotally occluded area with gross collaterals the proximal circumflex had a 90% stenosis the mid circumflex had a 75% stenosis.? The right coronary artery was totally occluded with collateral flow from left to right his ejection fraction was 60%.? He underwent successful drug-eluting stents to the first obtuse marginal branch and upstream with a 2.25 Promus Synergy stent.? He has also been diagnosed with metastatic prostate carcinoma and is being followed by the oncologist. Patient acknowledges chest pain with gradual onset and lasts for minutes.? He describes this as pressure.? This is located left side of chest and does not radiate to arm, jaw, or neck.? This is rated a 7-8/10.? Precipitating factors include stress.? Relieving factors include time.? The pain is not associated with shortness of breath, nausea, vomiting, lightheadedness, confusion, presyncope, syncope, abdominal symptoms.? He acknowledges noted discomfort previously.? He acknowledges with activity such as going up hills and when in a hurry.? He does not feel this to be worsening. He denies shortness breath at rest, orthopnea, cough, or PND.? He denies palpitations he acknowledges mild, bilateral lower extremity edema that improves by morning.? He acknowledges dizziness when he does not eat.? He acknowledges weakness since COVID-19 exposure (August 2020).? He denies lightheadedness, near-syncope, or syncope.? He denies fatigue. Intake Vital Signs: See EMR ? 08/21/2109:32 04/22/2213:29 04/22/2213:30 Intake Visit Reasons:?[facility] Required: No Accompanied by: None Is patient in pain?: No Allergies No Known Allergies Allergy (Verified 04/22/22 13:36) Medications See EMR PFSH Medical History? Atherosclerosis of coronary artery of council heart without angina pectoris COVID-19 virus detected (08/2020) Crushing injury of distal finger Diabetes Displaced oblique fracture of shaft of left fibula, subsequent encounter for closed fracture with routine healing Essential (primary) hypertension Hyperlipidemia Hyperlipidemia associated with type 2 diabetes mellitus Obesity 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 lymph node Tobacco abuse disorder Unspecified fracture of lower end of left tibia, subsequent encounter for closed fracture with routine healing Surgical History? History of coronary artery stent placement (03/22/19) History of open reduction and internal fixation (ORIF) procedure Family History? Mother Heart disease [place] spotted fever ?? ? cause of heart problemsFather Hypertension Diabetes mellitus, type 2 Myocardial infarction Social History? Smoking Status:? Former smoker how long ago did patient quit smoking:? 4 years ago alcohol intake:? never substance use type:? does not use caffeine:? Yes Type: coffee Number of servings: 1 ROS Const Const: Positive for weakness (Continues from covid); Negative for fatigue, headache(s), frequent falls, difficulty sleeping or excessive sweating Eyes Eyes: Negative for loss of peripheral vision, transient loss of vision, blurry vision, double vision or tunnel vision ENT ENT: Positive for dizziness (Only if he doesn't eat) and balance problems; Negative for headache(s) or Nosebleed/epistaxis Cardio Chest Pain: Yes Frequency: weekly (once a week when stressed) Character: other (pressure) Onset: other (Under stress) Location: left chest Duration: minutes Palpitations: No Edema: Bilateral (Mild, resolves by morning) Muscle aches with walking: None Resp Respiratory: Positive for SOB with activity (With hurried activity or hills); Negative for SOB at rest, SOB orthopnea\SOB lying down, Cough or paroxysmal nocturnal dyspnea GI GI: Negative nausea, vomiting, heartburn or black,tarry stools : Negative for hematuria Musc Musc: Positive for muscle weakness (Legs since covid) and balance problems; Negative for muscle aches/ myalgia or joint pain Skin Skin: Negative non-healing lesions, rash or unusual bruising Neuro Neuro: Positive for dizziness (Only if he doesn't eat) and weakness (Continues from covid); Negative for lightheadedness, near syncope, syncope, frequent falls, headache(s), blurry vision, double vision or lack of coordination Jef Hematologic/Lymphatic: Negative for easy bleeding or easy bruising Endo Endo: Negative for fatigue, excessive sweating or increased thirst/drinking Psych Psych: Negative for anxiety or depression Allergy Allergy/Immunology: Negative for hives and Negative for rash Cardiology Exam Const Appearance: cooperative, healthy appearing, comfortable and no acute distress Nutritional Appearance: well nourished and obese Orientation: alert, awake and oriented x3 Head Head: normal to inspection Ears: hearing grossly normal bilaterally Nose: external nose normal Face and Sinus: face symmetric Mouth: oral mucosae normal Eyes General: appearance normal, both eyes and all related structures Eyelids: eyelids normal EOM: EOM intact bilaterally Neck Neck: normal visual inspection and no JVD Carotids: normal carotid upstroke Chest Chest inspection: normal inspection of the chest, symmetric chest movement and normal respiratory effort; Negative cough Auscultation: Bilateral: Clear to Auscultation Cardio Rate: regular rate Rhythm: regular rhythm Heart sounds: S1 normal and S2 normal; Negative rub, gallop or murmur GI GI: normal to inspection and obese Neuro General: patient alert, patient awake, patient oriented x3 and CN's II-XI intact bilaterally Skin Skin: no rashes or lesions noted Extremities Pulses: Normal: Right Posterior Tibial Pulse, Left Posterior Tibial Pulse, Right Radial Pulse and Left Radial Pulse Lower Extremity Edema: Trace: Bilateral Psych Psychological: normal affect Supplemental Info Supplemental Information Stress test from 05/10/2022: Conclusion: Pharmacologic myocardial perfusion stress test with evidence of previous inferior infarct. Mild anterolateral ischemia is present. Cardiac Catheterization/Intervention? 03/22/2019 CORONARY ANGIOGRAPHY CONCLUSIONS Severe council coronary artery disease involving the proximal and mid circumflex artery the first obtuse marginal vessel with a totally occluded right coronary artery with [id number] collaterals and preserved ejection fraction. DOMINANCE:? Right Dominant LEFT HEART ASSESSMENT Left Ventricular Ejection Fraction: by LV Gram 60 % Normal Left Ventricular systolic function LEFT MAIN: Angiographically normal LEFT ANTERIOR DESCENDING ARTERY: PROX LAD: Mild calcification MID LAD: Mild luminal irregularities CIRCUMFLEX ARTERY: Mid to distal circumflex after the first obtuse marginal branch appears to be subtotally occluded with ghost collaterals Mid to distal circumflex after the first obtuse marginal branch appears to be subtotally occluded with ghost collaterals PROX CIRC: 90 % Stenosis MID CIRC: 75% OM 1: Proximal - 75 % Stenosis, Proximal - 90 % Stenosis RIGHT CORONARY ARTERY: PROX RCA: is occluded COLLATERAL FLOW: Collateral flow from Left to Right CONCLUSIONS ?PTCA/ARVI to proximal OM#1 with a 2.25 x 20 Promus Synergy, followed immediately upstream with a 2.25 x 20 Promus Synergy, all post dilated with a 2.25 x 8 NC balloon; 75%-->0%, no dissection. Manual sheath removal. ?? ? Stress Test NM ? Stress Test ? Pulmonary: ?? ? No Data to Display Assessment and Plan Assessment and Plan (1) History of coronary artery stent placement: ?Status:?Resolved ?Comment: [id number] OM1 w/ 2.25 x 20 mm Promus Synergy Stent, followed immediately upstream with a 2.25 x 20 mm Promus Synergy Stent 03/22/19 ?Plan: Patient was seen in office on 04/22/2022. He expressed concerns regarding intermittent chest discomfort similar to previous stenting in March 2019. He proceeded with a stress test. This was completed on 05/10/2022 and was considered to be abnormal with mild anterolateral ischemia. To evaluate further, he will proceed with heart catheterization.? Based on results, further recommendation will be made. (2) Essential (primary) hypertension: ?Status:?Chronic ?Plan: His blood pressure is well controlled.? He will continue current medical therapy. (3) Hyperlipidemia: ?Status:?Chronic ?Qualifiers: ?Hyperlipidemia type:?unspecified? Qualified Code(s):?E78.5 - Hyperlipidemia, unspecified ?Plan: Lipid panel from 08/21/2021 showed Cholesterol: 125, HDL: 36, LDL: 38, and Triglycerides: 257.? He will continue atorvastatin 80 mg p.o. nightly.
[2022-06-07 10:00] VITALS: BMI 38.1
--- NOTE | 2022-06-17 08:57 | CL.D_ITS ---
Patient Name: CAIO SENIOR Study Date: 06/10/2022 Performing: Long Ware MD Ht: 68 inches 172.72 cm : 1955 Wt: 251 lbs 113.85 kg Age: 67 Gender: male BSA: 2.25 PROCEDURE(S) PERFORMED [id number])LHC/COR/LV CLINICAL PROFILE AND INDICATIONS Indications: Suspected CAD Heart Failure: None Stress/Imaging Date: 05/10/22Stress Test with SPECT MPI: Positive Intermediate Risk CAD Presentations: Stable angina. CONCLUSIONS Coronary artery disease with moderate disease noted in the left anterior descending artery and diagonal vessel the circumflex artery is moderate to moderately severely diseased with [id number] collaterals noted and a totally occluded right coronary artery. Low normal left ventricular systolic function RECOMMENDATIONS Medical therapy DESCRIPTION OF PROCEDURE The patient arrived to the procedure lab. The risks and benefits of the procedure as well as a full description of our services here and current unavailability of surgical backup were fully explained to the patient and/or their significant other prior to the catheterization. The Timeout was completed, verifying the correct patient and procedure. The patient's procedural site was prepped and draped in the usual fashion. Local anesthetic was given subcutaneously to right radial region with Lidocaine 2%. Using a modified Seldinger technique, arterial access was obtained via the right radial artery, a 6Fr sheath was inserted. Left Coronary Artery selective angiography was performed in multiple views using a 5 Fr. 4.0 [place] catheter. Right Coronary Artery selective angiography was then performed in multiple views using a 5 Fr. 4.0 [place] catheter. Left Ventriculography was performed in COLBY projection using a 5 Fr. Pigtail catheter. LV to AO pullback pressures were then recorded.The arterial sheath was pulled and a TR Band was applied for hemostasis CORONARY ANGIOGRAPHY DOMINANCE: Right Dominant LEFT HEART ASSESSMENT Left Ventricular Ejection Fraction: by LV Gram 50 % Inferior Mid Hypokinesis - Moderate Normal Left Ventricular systolic function LEFT MAIN: Mild calcification, No significant disease noted LEFT ANTERIOR DESCENDING ARTERY: Anterior descending artery has mild to moderate 30 to 40% stenosis noted throughout with a first diagonal vessel with a long 50% proximal lesion noted. CIRCUMFLEX ARTERY: First proximal obtuse marginal branch was previously stented is noted to be patent and then the sidebranch of it is noted to be occluded. This vessel was previously angioplastied., Diffusely diseased up to 60 % RIGHT CORONARY ARTERY: OSTIAL RCA: is occluded RT PDA: Proximal - This vessel fills almost entirely via left to right collaterals COLLATERAL FLOW: Collateral flow from Left to Right COMPLICATIONS No Complications PROCEDURE MEDICATIONS Versed 1 mg IV Fentanyl 50 mcg IV Oxygen: 2 L/min via nasal cannula Brilinta 180 mg PO @ 06/10/2022 08:22:38 Heparin given IA 06/10/2022 09:10:33 Verapamil 2.5mg, Ntg 100mcgs, 3000 units of Heparin given IA 06/10/2022 09:10:33 SUMMARY OF HEMODYNAMIC DATA Time AIR REST ECG 08:17:52 Art 112/49 (64) 09:03:16 AO 85/52 (65) SA 09:12:02 LV 85/9, 15 09:18:06 LV 84/9, 21 09:18:14 LV 80/11, 14 09:18:51 LV 76/9, 15 09:18:59 LVp 77/8, 23 09:19:05 AOp 78/47 (59) 09:19:12 AIR REST 09:31:49 Signed By Long Ware MD On 06/17/2022 08:57:12 Long Ware MD
== END 2022-06-10 11:10 | disposition home or self-care (01) ==
PROVIDERS: PCP Family Medicine; Referring Provider Internal Medicine Cardiovascular Disease; Visit Provider Internal Medicine Cardiovascular Disease
DX: I25.118 Atherosclerotic heart disease of native coronary artery with other forms of angina pectoris (principal); E11.9 Type 2 diabetes mellitus without complications; E78.5 Hyperlipidemia, unspecified; I10 Essential (primary) hypertension; E66.9 Obesity, unspecified; Z87.891 Personal history of nicotine dependence; Z86.16 Personal history of COVID-19; Z95.5 Presence of coronary angioplasty implant and graft; Z79.82 Long term (current) use of aspirin; Z79.84 Long term (current) use of oral hypoglycemic drugs; Z79.899 Other long term (current) drug therapy
CPT/HCPCS: 71046; 93458; 99152; 99153; J7030; C1769; C1894; Q9967

== ENCOUNTER 2023-07-15 06:13 | Day surgery (SDC) | payer SELFPAY ==
[2023-07-15] VITALS (10 sets, daily range): BP systolic 79–116; BP diastolic 53–68; PULSE 55–63; RESP 16; TEMP 36.3–36.7; O2SAT 96–100; BMI 37.8
[2023-07-15] MEDS: Lactated Ringers 1,000 ML 15 ML IV (06:51)
[2023-07-15 07:14] LABS: Bedside Glucose 149 mg/dL (74-106)
--- NOTE | 2023-07-15 07:21 | HP.PCM_ITS ---
History and Physical Date of Admission: 07/15/23 Intake Vital Signs 05/19/2311:08 05/21/2310:16 06/09/2308:37 Height 5 ft 8 in 5 ft 8 in 5 ft 8 in Weight: 259 lb 1 oz 258 lb 258 lb BMI 39.4 39.2 39.2 BP 128/70 H 99/59 L 131/66 H Blood Pressure Location Lt brachial Lt brachial Rt brachial Position Sitting Sitting Sitting Respiration 18 20 H 16 Pulse 65 78 Pulse Source NIBP Monitor Temp 97.9 F Pulse Oximetry (%) 95 Oxygen Delivery Method room air Intake Visit Reasons: RECTAL BLEEDING Chief Complaint: rectal bleeding [employer]r Required: No Is patient in pain?: No Allergies No Known Allergies Allergy (Verified 06/09/23 08:38) Medications aspirin 81 mg tablet,delayed release 81 mg PO DAILY antiplatelet 07/07/15 [History Confirmed 06/09/23] canagliflozin 300 mg tablet 300 mg PO DAILY Check with primary doctor 03/21/19 [History Confirmed 06/09/23] lisinopril 10 mg tablet 5 mg PO QDAY blood pressure 04/27/20 [History Confirmed 06/09/23] atorvastatin 80 mg tablet See Rx Instructions .Route .COMPLEX #90 tabs 08/06/21 [Rx Confirmed 06/09/23] blood sugar diagnostic (OneTouch Verio test strips) #200 ea 09/17/21 [Rx Confirmed 06/09/23] blood-glucose meter (OneTouch Verio Meter) #1 ea 09/17/21 [Rx Confirmed 06/09/23] lancets 33 gauge (OneTouch Delica Plus Lancet) #200 ea 09/17/21 [Rx Confirmed 06/09/23] metformin 1,000 mg tablet 1,000 mg PO BID #60 tabs 09/17/21 [Rx Confirmed 06/09/23] isosorbide mononitrate 60 mg tablet,extended release 24 hr 60 mg PO DAILY #90 tabs 07/08/22 [Rx Confirmed 06/09/23] ticagrelor 90 mg tablet 90 mg PO BID #180 tabs 09/09/22 [Rx Confirmed 06/09/23] metoprolol tartrate 25 mg tablet 25 mg PO BID #180 tabs 09/30/22 [Rx Confirmed 06/09/23] bicalutamide 50 mg tablet (Casodex) 50 mg PO DAILY 90 days #90 tabs 05/19/23 [Rx Confirmed 06/09/23] glimepiride 4 mg tablet 4 mg PO DAILY 05/21/23 [History Confirmed 06/09/23] [facility] Medical History Atherosclerosis of coronary artery of standing [place] heart without angina pectoris COVID-19 virus detected (08/2020) Crushing injury of distal finger Diabetes Displaced oblique fracture of shaft of left fibula, subsequent encounter for closed fracture with routine healing Essential (primary) hypertension Hyperlipidemia Hyperlipidemia associated with type 2 diabetes mellitus Obesity 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 lymph node Tobacco abuse disorder Unspecified fracture of lower end of left tibia, subsequent encounter for closed fracture with routine healing Surgical History History of coronary artery stent placement (03/22/19) History of left heart catheterization (06/10/22) History of open reduction and internal fixation (ORIF) procedure Family History Mother Heart disease [place] spotted fever cause of heart problemsFather Hypertension Diabetes mellitus, type 2 Myocardial infarction Social History Smoking Status: Former smoker how long ago did patient quit smokin years ago alcohol intake: never substance use type: does not use caffeine: Yes Type: coffee Number of servings: 1 HPI HPI HPI: Patient is a 68-year-old male here for rectal bleeding. He does have a history of prostate cancer. Patient notes that 2 weeks ago he had blood per rectum. He is also having constipation and pain with bowel movements. ROS General General: Yes weight change and fatigue; No appetite, colon cancer, breast cancer or weakness HEENT HEENT: No difficulty swallowing, eye injury, eye surgery, swollen glands or hoarseness Endo Endocrine: Yes diabetes mellitus; No thyroid disease, thyroid cancer, Hair loss, heat intolerance or cold in tolerance Skin Skin: No rash or changing moles Breast Breast: No left breast lump, right breast lump, nipple discharge, breast pain, abnormal mammogram, abnormal US or breast enlargement Musc Musculoskeletal: Yes arthritis; No back problems, rheumatoid arthritis, gout or joint pain Cardio Cardiovascular: Yes heart stent and shortness of breat with exertion; No murmur, pacemaker, heart disease, atrial fibrillation, high blood pressure, heart attack, palpitations or chest pain Psych Psychiatric: No depression, anxiety or hearing voices Resp Respiratory: No shortness of breath, No sleep apnea, No cough, No COPD, No asthma, No emphysema and No wheezing Gastro Gastrointestinal: No abdominal pain, No nausea or vomiting, Yes diarrhea, Yes constipation, Yes blood in stool, No acid reflux, No hemorrhoids, No ulcers, No gallbladder problem and No black,tarry stools Jef Hematologic: Yes blood thinners, No blood disorders, Yes bleeding, No anemia and No blood clots Neuro Neurologic: No system reviewed and no additional complaints, except as documented, No as per HPI, No abnormal gait, No abnormal hearing, No abnormal movements, No abnormal speech, No behavioral changes, No burning sensations, No confusion, No convulsions, No disequilibrium, No dizziness, No localized weakness, No frequent falls, No headache(s), No lack of coordination, No loss of vision, No memory loss, Yes numbness, No other visual disturbances, No radicular pain, No restless legs, No sensory deficit, No syncope, Yes tingling, No tremor(s), No weakness and No other Exam Const General: cooperative Orientation: alert and oriented x3 HENMT Head: normal to inspection Neck Neck: normal visual inspection and full ROM Chest Chest palpation & inspection: normal inspection of the chest Resp Effort & Inspection: normal respiratory effort Auscultation: clear to auscultation bilaterally Cardio Rate: regular rate Rhythm: regular rhythm GI Inspection: non-distended Palpation: soft and nontender Skin General: no rashes or lesions noted Neuro General: patient alert and patient oriented x3 Extrem General: full ROM Psych Appearance: grossly normal Mental Status: mental status grossly normal Assessment and Plan Assessment and Plan (1) Rectal bleed: Status: Acute Plan: Patient has been having some rectal bleeding few weeks ago. He says for the last 2 weeks he has not had any blood per rectum. He has never had a colonoscopy. I performed a rectal exam and I was unable to identify any hemorrhoids or fissure. I will plan for colonoscopy. I explained endoscopy in detail to the patient. I explained the risks including but not limited to stroke or heart attack with anesthesia, perforation of the GI tract, bleeding, infection. I explained that any of these could necessitate further emergency surgery. The patient understands and all questions were answered sufficiently. The patient wishes to proceed with procedure. I will have him hold his Brilinta for 5 days. Morgan Hutton MD Pager: [facility] [address] [place] [address], [address] [place] [address] Office: I have examined the patient and the H&P has been reviewed. There are no clinical changes since date of exam.
--- NOTE | 2023-07-15 07:30 | COLBX_PTH ---
PATIENT: CAIO SENIOR LOC: EN U#:[id number] AGE/SX: 68/M ROOM: RE07/15/[address]: Dr. Morgan Hutton MD : 1955 BED: DIS: 07/15/2023 SPEC #: [id number] RECD: 07/15/23 08:26 STATUS: IGOR BERTHA #: [id number] NELLY: 07/15/23 07:[address]: Morgan Hutton DEPT: SURGICAL PATHOLOGY RECD BY: Greta Brambila ENTERED: 07/15/23 10:54 SP TYPE: COLON BX OT DR: Dr. Marisa Arredondo MD Tissues: A - Transverse colon B - Descending colon Procedures: Surgery Specimen Level IV HEADER OPERATION: Colonoscopy, polypectomy PRE-OP DIAGNOSIS: Rectal bleed TISSUE SUBMITTED: A - Transverse polyp, B - Descending polyp MICROSCOPIC DIAGNOSIS A. Transverse colon, biopsy: Tubular adenoma. B. Descending colon, biopsy: Tubular adenoma. AM:marvin 07/16/2023 MICROSCOPIC DESCRIPTION Slides are reviewed. GROSS DESCRIPTION A - Received in fixative is one container labeled with the patient's name and designated transverse polyp. The specimen consists of one irregular fragment of light lisa soft tissue that measures 0.5 x 0.5 x 0.1 cm. The specimen is totally submitted in one cassette. B - Received in fixative is one container labeled with the patient's name and designated descending polyp. The specimen consists of one irregular fragment of light lisa soft tissue that measures 0.6 x 0.5 x 0.2 cm. The specimen is totally submitted in one cassette. / AM:marvin 07/15/2023 TC:5 CPT: 38648 x2
--- NOTE | 2023-07-15 08:06 | OP.COLON_ITS ---
Patient Name: Kaleb Gardner Procedure Date: 07/15/2023 6:18 AM Date of : 1955 Age: 68 Procedure: Colonoscopy Indications: Rectal bleeding Providers: Morgan Hutton MD Medicines: Monitored Anesthesia Care Patient Profile: This is a 68 year old male. Refer to note in patient chart for documentation of history and physical. Last Colonoscopy: none. The patient's first colonoscopy is today. Complications: No immediate complications. Procedure: Pre-Anesthesia Assessment: - Prior to the procedure, a History and Physical was performed, and patient medications and allergies were reviewed. The patient's tolerance of previous anesthesia was also reviewed. The risks and benefits of the procedure and the sedation options and risks were discussed with the patient. All questions were answered, and informed consent was obtained. Prior Anticoagulants: The patient has taken Brilinta (ticagrelor), last dose was 5 days prior to procedure. After reviewing the risks and benefits, the patient was deemed in satisfactory condition to undergo the procedure. After I obtained informed consent, the scope was passed under direct vision. Throughout the procedure, the patient's blood pressure, pulse, and oxygen saturations were monitored continuously. The Colonoscope was introduced through the anus and advanced to the cecum, identified by appendiceal orifice and ileocecal valve. The colonoscopy was performed without difficulty. The patient tolerated the procedure well. The quality of the bowel preparation was good. The ileocecal valve, appendiceal orifice, and rectum were photographed. Scope In: 7:39:43 AM Scope Withdrawal Time 0 hours 7 minutes 46 seconds Scope Out: 7:51:37 AM Total Procedure Duration Time 0 hours 11 minutes 54 seconds Findings: Two polyps were found in the descending colon and transverse colon. The polyps were small in size. These polyps were removed with a hot snare. Resection and retrieval were complete. The entire examined colon appeared normal on direct and retroflexion views. Impression: - Two small polyps in the descending colon and in the transverse colon, removed with a hot snare. Resected and retrieved. - The entire examined colon is normal on direct and retroflexion views. Recommendation: - Discharge patient to home. - Resume previous diet. - Continue present medications. - Await pathology results. - Repeat colonoscopy in 5 years for surveillance of multiple polyps. Procedure Code(s): --- Professional --- 21027, Colonoscopy, flexible; with removal of tumor(s), polyp(s), or other lesion(s) by snare technique Diagnosis Code(s): --- Professional --- D12.4, Benign neoplasm of descending colon D12.3, Benign neoplasm of transverse colon (hepatic flexure or splenic flexure) K62.5, Hemorrhage of anus and rectum CPT copyright 2021 [employer]. All rights reserved. The codes documented in this report are preliminary and upon melt supervisor review may be revised to meet current compliance requirements. Morgan Hutton MD 07/15/2023 8:06:19 AM This report has been signed electronically. Number of Addenda: 0 Note Initiated On: 07/15/2023 6:18 AM
--- NOTE | 2023-07-15 08:07 | OP.CCLET_ITS ---
07/15/2023 Marisa Arredondo [address] [place] [address] Re : Colonoscopy procedure for [facility] Dear Dr. Arredondo This procedure was performed on Saturday, July 15, 2023. My impressions and recommendations are as follows: Impressions : - Two small polyps in the descending colon and in the transverse colon, removed with a hot snare. Resected and retrieved. - The entire examined colon is normal on direct and retroflexion views. Recommendations : - Discharge patient to home. - Resume previous diet. - Continue present medications. - Await pathology results. - Repeat colonoscopy in 5 years for surveillance of multiple polyps. My findings are described in the full procedure note, which is enclosed. If I can be of further assistance, please feel free to contact me at Doctor phone number(s): , Work: . Sincerely, Morgan Hutton MD 07/15/2023 8:06:19 AM This report has been signed electronically.
== END 2023-07-15 09:19 | disposition home or self-care (01) ==
LOC: EN 06:20 → AC 07:09
PROVIDERS: PCP Family Medicine; Referring Provider Family Medicine; Visit Provider Surgery
PROC: 0DJD8ZZ Inspection of Lower Intestinal Tract, Via Natural or Artificial Opening Endoscopic (ICD-10-PCS; CPT 45378; principal; 2023-07-15 07:25)
DX: D12.3 Benign neoplasm of transverse colon (principal); E11.9 Type 2 diabetes mellitus without complications; D12.4 Benign neoplasm of descending colon; I10 Essential (primary) hypertension; I25.10 Atherosclerotic heart disease of native coronary artery without angina pectoris; E66.9 Obesity, unspecified; Z79.84 Long term (current) use of oral hypoglycemic drugs; Z79.82 Long term (current) use of aspirin; Z79.899 Other long term (current) drug therapy; Z86.16 Personal history of COVID-19; Z87.891 Personal history of nicotine dependence; Z95.5 Presence of coronary angioplasty implant and graft; Z68.39 Body mass index [BMI] 39.0-39.9, adult
CPT/HCPCS: 45385; 82962; 88305; J7120; J2405

== ENCOUNTER → 2023-11-10 | Outpatient (CLI) | payer MEDICARE, OTHER, SELFPAY ==
--- OUTSIDE RECORDS SUMMARY | 2023-11-10 10:13 | XMS RPT_ITS | CCD ---
Author Name Unknown Address [address] [place] [address] Organization [facility] Care Team Providers Care Bist[employer] Server Name Role Phone Sammy Talley Unavailable Marisa Esquivel Unavailable Unavailable Medications Completed/Discontinued Medications Medication Drug Class(es) Dates Sig (Normalized) Sig (Original) acetaminophen 325 mg / oxyCODONE hydrochloride 5 mg oral tablet (6 sources) Opioid Agonist Start: 06-18-2017 take 1-2 tablets by mouth every six hours as needed for pain OXYCODONE-ACETAMIN OPHEN 5-325 MG TABS 1-2 po q6h as needed pain OXYCODONE-ACETAMIN OPHEN [id number] Sammy Morton Mayank Problems Problem Classification Problem Date Documented Da te Episodic/Chronic Fracture of lower limb (8 sources) Unspecified fracture of lower end of left tibia, subsequent encounter for closed fracture with routine healing; Translations: [Displaced oblique fracture of shaft of left fibula, subsequent encounter for closed fracture with routine healing] Onset: 06-18-2017 07-23-2017 Episodic Other non-traumatic joint disorders (3 sources) Ankle pain; Translations: [Pain in left ankle and joints of left foot] Onset: 06-18-2017 06-18-2017 Episodic Results Test Name Value Interpretation Reference Range Facil ity Vital Signs Date Time Vital Sign Value Performing Clinician Faci lity 06-18-2017 12:53-0400 BMI (Body Mass Index) 33.67 kg/m2 [facility] Work Phone: 06-18-2017 12:53-0400 Height 175.[facility] Work Phone: 06-18-2017 12:53-0400 Weight 103.42 kg [facility] Work Phone: Plan of Treatment Date Care Activity Detail Author Start: 08-15-2017 End: 08-15-2017 Appointment Appointment [facility] Work Phone: Start: 07-18-2017 End: 07-18-2017 Appointment Appointment [facility] Work Phone: Start: 07-18-2017 End: 07-18-2017 Radex ankle complete minimum 3 views X-Ray, Ankle [facility] Work Phone: Start: 06-18-2017 End: 06-18-2017 Radex ankle complete minimum 3 views X-Ray, Ankle [facility] Work Phone: Additional Source Comments FOR RECORDS PERTAINING TO PATIENTS WHO ARE OR HAVE BEEN ENROLLED IN A CHEMICAL DEPENDENCY/SUBSTANCEABUSE PROGRAM, SOME INFORMATION MAY BE OMITTED. This clinical summary was aggregated from multiple sources. Caution should be exercised in using it in the provision of clinical care. This summary normalizes information from multiple sources, and as a consequence, information in this document may materially change the coding, format and clinical context of patient data. In addition, data may be omitted in some cases. CLINICAL DECISIONS SHOULD BE BASED ON THE PRIMARY CLINICAL RECORDS. [employer] [facility]. provides no warranty or guarantee of the accuracy or completeness of information in this document.
[2023-11-10 11:16] LABS: AST(SGOT) 16 U/L (15-37); Alanine Aminotransfer ALT/SGPT 37 U/L (16-61); Albumin, Serum 3.4 g/dL (3.2-5.0); Alkaline Phosphatase 73 U/L (45-117); Cholesterol 233 mg/dL (200); Globulin 3.8 g/dL (2.2-4.2); High Density Lipoprotein 36 mg/dL; PSA,Total- Diagnostic 0.39 ng/mL (0.0-4.0); Protein, Total 7.2 g/dL (6.4-8.2); Triglycerides 302 mg/dL; Very Low Density Lipoprotein 60 mg/dL (5-40)
== END | disposition home or self-care (01) ==
PROVIDERS: Nurse Practitioner Family; PCP Family Medicine; Referring Provider Urology; Visit Provider Urology
DX: C61 Malignant neoplasm of prostate (principal); E78.00 Pure hypercholesterolemia, unspecified
CPT/HCPCS: 36415; 80061; 80076; 84153

== ENCOUNTER → 2023-12-16 | Outpatient (CLI) | payer MEDICARE, OTHER, SELFPAY ==
[2023-12-16 08:43] LABS: Hemoglobin A1c 10.1 % (3.8-5.6)
[2023-12-16 09:03] LABS: AST(SGOT) 14 U/L (15-37); Alanine Aminotransfer ALT/SGPT 33 U/L (16-61); Albumin, Serum 3.5 g/dL (3.2-5.0); Alkaline Phosphatase 68 U/L (45-117); Bilirubin, Direct 0.18 mg/dL (0.00-0.30); Cholesterol 222 mg/dL (200); Globulin 3.8 g/dL (2.2-4.2); High Density Lipoprotein 40 mg/dL; Protein, Total 7.3 g/dL (6.4-8.2); Triglycerides 288 mg/dL; Very Low Density Lipoprotein 58 mg/dL (5-40)
== END | disposition home or self-care (01) ==
LOC: LAB 07:36
PROVIDERS: Family Medicine; PCP Family Medicine; Referring Provider Nurse Practitioner Family; Visit Provider Nurse Practitioner Family
DX: Z02.4 Encounter for examination for driving license (principal); E11.9 Type 2 diabetes mellitus without complications; E78.5 Hyperlipidemia, unspecified; Z95.5 Presence of coronary angioplasty implant and graft
CPT/HCPCS: 36415; 80061; 80076; 83036

== ENCOUNTER 2024-01-05 20:02 | Outpatient (CLI) | payer MEDICARE, OTHER, SELFPAY | END 2024-01-05 23:59 | disposition home or self-care (01) | LOC: SL 20:02 | PROVIDERS: PCP Family Medicine; Referring Provider Nurse Practitioner Family; Visit Provider Nurse Practitioner Family | DX: G47.33 Obstructive sleep apnea (adult) (pediatric) (principal); G47.10 Hypersomnia, unspecified | CPT/HCPCS: 95810; 95811 ==

== ENCOUNTER → 2024-03-01 | Outpatient (CLI) | payer MEDICARE, OTHER, SELFPAY | END | disposition home or self-care (01) | LOC: LAB.FUTURE 10:29 → LAB 10:38 | PROVIDERS: PCP Family Medicine; Referring Provider Urology; Visit Provider Urology | DX: C61 Malignant neoplasm of prostate (principal) | CPT/HCPCS: 36415; 84153 ==

== ENCOUNTER 2024-04-11 14:18 | Emergency (ER) | payer MEDICARE, OTHER, SELFPAY ==
[2024-04-11 14:18] VITALS: BP 125/62; PULSE 76; RESP 20; TEMP 35.8; O2SAT 94; BMI 38.6
--- NOTE | 2024-04-11 14:31 | EDS_ITS ---
HPI History of Present Illness Chief Complaint: Hyperglycemia Informant: patient and family Onset/Context/Timing Onset: Yesterday Context: Gradual Onset Timing: Intermittent Quality: Weakness Location: Legs Worsened by: Nothing Relieved by: Rest Narrative Narrative: Patient presents with elevated blood sugar and dizziness that began yesterday. Patient states it is gradually getting worse. Patient states it is intermittent. Patient states he feels weak in his legs. Patient states it is better with rest. Patient family states patient did have some subjective chills yesterday. Family states patient did have an episode of diaphoresis with that yesterday. Patient states he had an episode of nausea and vomiting last week but denies any nausea or vomiting currently. Patient denies any chest pain or shortness of breath. [facility] Medical History Wears glasses Cancer Prostate disease High cholesterol Restless legs Former smoker Shortness of breath on exertion Neuropathy History of stress test Cardiology follow-up encounter COVID-19 virus detected (08/2020) Obesity Diabetes 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 lymph node Essential (primary) hypertension Atherosclerosis of coronary artery of [place] heart without angina pectoris Hyperlipidemia Displaced oblique fracture of shaft of left fibula, subsequent encounter for closed fracture with routine healing Unspecified fracture of lower end of left tibia, subsequent encounter for closed fracture with routine healing Hyperlipidemia associated with type 2 diabetes mellitus Tobacco abuse disorder Crushing injury of distal finger Home Medications ?Medication ?Instructions ?Recorded ?Last Taken ?Type aspirin 81 mg tablet,delayed 81 mg PO DAILY antiplatelet 07/07/15 06/10/22 History release canagliflozin 300 mg tablet 300 mg PO DAILY Check with primary 03/21/19 Unknown History doctor blood sugar diagnostic (OneTouch #200 ea 09/17/21 Unknown Rx Verio test strips) blood-glucose meter (OneTouch #1 ea 09/17/21 Unknown Rx Verio Meter) lancets 33 gauge (OneTouch Delica #200 ea 09/17/21 Unknown Rx Plus Lancet) metformin 1,000 mg tablet 1,000 mg PO BID #60 tabs 09/17/21 06/08/22 Rx bicalutamide 50 mg tablet (Casodex) 50 mg PO DAILY 90 days #90 tabs 05/19/23 07/15/23 03:45 Rx glimepiride 4 mg tablet 4 mg PO DAILY 05/21/23 Unknown History isosorbide mononitrate 60 mg 60 mg PO DAILY #90 tabs 10/02/23 Unknown Rx tablet,extended release 24 hr metoprolol tartrate 25 mg tablet 25 mg PO BID #180 tabs 10/02/23 Unknown Rx atorvastatin 80 mg tablet 80 mg PO DAILY #90 tabs 12/22/23 Unknown Rx Allergy/AdvReac Type Severity Reaction Status Date / Time No Known Allergies Allergy Verified 07/15/23 06:47 Family History Mother Heart disease [place] spotted fever cause of heart problems Father Hypertension Diabetes mellitus, type 2 Myocardial infarction Surgical History History of left heart catheterization (06/10/22) History of coronary artery stent placement (03/22/19) History of open reduction and internal fixation (ORIF) procedure Social History Smoking Status: Former smoker how long ago did patient quit smokin years ago alcohol intake: never substance use type: does not use caffeine: Yes Type: coffee Number of servings: 1 ROS ROS ED Constitutional Constitutional ED: Reports chills, subjective and sweats; Denies fever(s) Eyes Eyes: Denies blurry vision or change in vision ENT ENT ED: Denies rhinorrhea or sore throat Cardiovascular Cardiovascular: Denies chest pain or palpitations Respiratory/Chest Respiratory/Chest: Denies cough or dyspnea Gastrointestinal Gastrointestinal: Reports nausea and vomiting Genitourinary Genitourinary ED: Denies dysuria or hematuria Musculoskeletal Musculoskeletal: Denies back pain or neck pain Integumentary Denies abscess or rash Neurologic Neurologic: Reports weakness; Denies headache(s) Allergic/Immunologic Allergic/Immunologic ED: Denies mouth swelling or urticaria EXAM Physical Exam Const Vital Signs: 04/11/24 14:18 04/11/24 14:57 04/11/24 16:18 Temperature 96.4 F L Temperature Source Temporal Pulse Rate 76 55 L Respiratory Rate 20 H 18 Respiratory Effort Normal Non-Labored Respiratory Pattern Normal Blood Pressure 125/62 H 116/47 L Blood Pressure Mean 83 70 Pulse Ox 94 96 Oxygen Delivery Method Room Air Room Air Positive well nourished and well developed General Appearance ED: well developed and NAD HEENT Reports moist mucous membranes Neck supple and no JVD Resp normal respiratory effort and clear to auscultation bilaterally Cardio regular rate and regular rhythm GI non-tender and non-distended Palpation: soft Extremity normal to inspection General Extremety ED: Negative for edema or tenderness General Extremity: Negative for edema Neuro oriented x3, CN's II-XII intact bilaterally and no sensory deficits noted Sensorium / Orientation: alert Motor Exam: strength 5/5 throughout Psych mental status grossly normal MDM MDM MDM Narrative Medical decision making narrative: Differential diagnosis includes hyperglycemia, DKA, hyperosmolar hyper glycemic nonketotic state, electrolyte abnormality, and dehydration. CBC will be obtained to assess for leukocytosis and anemia. Basic metabolic profile will be obtained to assess for electrolyte abnormality, hyperglycemia, and renal function. Serum acetone will be obtained to assess for DKA. Urinalysis will be obtained to assess for ketonuria and glucosuria. Lab Data Attestation: I reviewed the patient's lab results. Lab results narrative: BGT was obtained and was 284. CBC was reviewed. There is a mild anemia with a hemoglobin of 12.4 and hematocrit 37.7. The remainder is within normal limits. Basic metabolic profile was reviewed. Glucose was elevated at 285. Anion gap was normal. The remainder was within normal limits. Serum acetone level was reviewed and was negative. Urinalysis was reviewed. There is no evidence of urinary tract infection or hematuria. There is urine glucose of 1000. Labs: Laboratory Results - last 24 hr 04/11/24 04/11/24 04/11/24 14:53 14:55 16:25 WBC 5.7 RBC 3.86 L Hgb 12.4 L Hct 37.7 L MCV 97.7 H MCH 32.1 H MCHC 32.9 RDW Std Deviation 46.1 H RDW Coeff of [place] 13.0 Plt Count 154 MPV 10.1 Immature Gran % (Auto) 0.500 Neut % (Auto) 66.8 Lymph % (Auto) 18.0 L [place] % (Auto) 8.6 Eos % (Auto) 4.9 Baso % (Auto) 1.2 H Absolute Neuts (auto) 3.8 Absolute Lymphs (auto) 1.03 Nucleated RBC % 0 Sodium 139 Potassium 4.4 Chloride 106 Carbon Dioxide 27.0 Anion Gap 6 BUN 26 H Creatinine 1.50 H Estim Creat Clear Calc 58.08 Est GFR (MDRD) Af Amer 60 Est GFR (MDRD) Non-Af 49 L BUN/Creatinine Ratio 17.3 Glucose 285 H Calcium 9.1 Urine Color Yellow Urine Clarity Clear Urine pH 7.0 Ur Specific [place] 1.010 Urine Protein 30 H Urine Glucose (UA) 1000 H Urine Ketones 5 H Urine Occult Blood Negative Urine Nitrite Negative Urine Bilirubin Negative Urine Urobilinogen 1 H Ur Leukocyte Esterase Negative Urine RBC 0-5 SEEN Urine WBC 0 SEEN Ur Squamous Epith Cells 0-5 SEEN Urine Bacteria 1+ Urine Mucus 0 SEEN Acetone Level NEGATIVE POC Glucose 284 H Treatment and Re-Evaluation :: Patient was given IV fluids. Patient was advised of his findings. Patient was instructed to limit his carbohydrate intake. Patient was also instructed to limit his intake of sweets. Patient was instructed to avoid driving until he is rechecked by his primary care physician. Patient was instructed to continue his medications as previously prescribed. Patient was instructed to follow-up with his primary care physician in 5 to 7 days. Patient understood and was agreeable with the plan. All questions were answered. Discharge Plan Triage Chief Complaint: Hyperglycemia ED Provider: Moe Barreto Dx/Rx/DC Orders Clinical Impression: Hyperglycemia, Diabetes Instructions: Diabetes: Driving Issues, Diabetes: Meal Planning, ED Diabetic Hyperglycemia Prescriptions: No Action (DME) blood-glucose meter [OneTouch Verio Meter[place] [facility] [place] [facility] [place] .ROUTE .MEDSUPPLY Qty: 1 0RF Rx Instructions: As directed (DME) OneTouch Verio test strips Strip See Rx Instructions .ROUTE .MEDSUPPLY Qty: 200 3RF Rx Instructions: twice a day (DME) lancets [OneTouch Delica Plus Lancet] 33 [place] [facility] [place] Rx Instructions .ROUTE .MEDSUPPLY Qty: 200 3RF Rx Instructions: twice a day metformin 1,000 mg tablet 1,000 mg PO BID Qty: 60 6RF glimepiride 4 mg tablet 4 mg PO DAILY bicalutamide [Casodex] 50 mg tablet 50 mg PO DAILY 90 Days Qty: 90 3RF atorvastatin 80 mg tablet 80 mg PO DAILY Qty: 90 3RF aspirin 81 MG tablet,delayed release (DR/EC) 81 mg PO DAILY canagliflozin 300 MG tablet 300 mg PO DAILY isosorbide mononitrate 60 mg tablet extended release 24 hr 60 mg PO DAILY Qty: 90 3RF metoprolol tartrate 25 mg tablet 25 mg PO BID Qty: 180 3RF Primary Care Provider: Marisa Arredondo Referrals: Marisa Arredondo MD [Primary Care Provider] - 5-7 Days Print Language: [place] Disposition Disposition: Home, Self Care
[2024-04-11] MEDS: 0.9% Normal Saline (1000mL) 1,000 ML 1000 ML IV (14:55)
[2024-04-11 15:02] LABS: Absolute Lymphocyte Count 1.03 X10^3/uL (0.83-4.51); Absolute Neutrophil Count 3.8 X10^3/uL (2.0-7.7); Basophil# 0.07 X10^3/uL; Basophil% 1.2 % (0-1); Eosinophil# 0.28 X10^3/uL; Eosinophils% 4.9 % (0-5); Hematocrit 37.7 % (40-54); Hemoglobin 12.4 g/dL (13.0-16.5); Lymphocyte # 1.03 X10^3/ul (0.83-4.51); Mean Corp Hgb Conc 32.9 g/dL (32-36); Mean Corpuscular Hgb 32.1 pg (27.0-32.0); Mean Corpuscular Volume 97.7 fL (80-94); Mean Platelet Vol. 10.1 fl (6.2-12.0); Monocyte# 0.49 X10^3/uL; Monocyte% 8.6 % (0-10); NRBC Flagged by Analyzer 0 % (0-5); Neutrophil # 3.83 X10^3/uL (2.7-7.7); Neutrophil % 66.8 % (47-70); Platelet Count 154 K/mm3 (150-450); RBC Distribution Width SD 46.1 fl (35.1-43.9); Red Blood Count 3.86 M/mm3 (4.6-6.2); White Blood Count 5.7 K/mm3 (4.4-11.0)
[2024-04-11 15:12] LABS: Bedside Glucose 284 mg/dL (74-106)
[2024-04-11 15:33] LABS: Anion Gap 6 (5-15); BUN 26 mg/dL (7-18); BUN/Creat Ratio 17.3 RATIO (10-20); Calcium,Total 9.1 mg/dL (8.5-10.1); Chloride 106 mmol/L (98-107); EST Glomerular Filtration Rate 49 mL/min (>60); Est Glom Filt Rate - Afr Amer 60 mL/min (>60); Estimated Creatinine Clearance 58.08 ml/min; Glucose 285 mg/dL (74-106); Potassium 4.4 mmol/L (3.5-5.1); Sodium Level 139 mmol/L (136-145)
[2024-04-11 16:18] VITALS: BP 116/47; PULSE 55; RESP 18; O2SAT 96
[2024-04-11 16:41] LABS: Mucous, Urine 0 SEEN /hpf (<or=2+)
[2024-04-11 16:43] LABS: Color, Urine Yellow (Yellow); Glucose, Dipstick 1000 mg/dl (Normal); Ketone-Dipstick 5 mg/dl (Negative); Leukocyte Esterase-Dipstick Negative /ul (Negative); Nitrite-Dipstick Negative (Negative); Occult Blood-Urine Negative /ul (Negative); Protein-Dipstick 30 mg/dl (Negative); Urine Bilirubin Dipstick Negative (Negative); Urine Clarity Clear (Clear); Urine Urobilinogen 1 mg/dl (Normal)
[2024-04-11 16:49] LABS: Bacteria 1+ /hpf (None Seen); Red Blood Cells-Urine 0-5 SEEN /hpf (0-5); Squamous Epithelial Cells - UA 0-5 SEEN /hpf (0-5); White Blood Cells 0 SEEN /hpf (0-5)
[2024-04-11 17:19] VITALS: BP 116/47; PULSE 55; RESP 18; TEMP 36.3; O2SAT 96
== END 2024-04-11 17:32 | disposition home or self-care (01) ==
PROVIDERS: Emergency Provider Emergency Medicine; PCP Family Medicine; Visit Provider Emergency Medicine
DX: E11.65 Type 2 diabetes mellitus with hyperglycemia (principal); E11.40 Type 2 diabetes mellitus with diabetic neuropathy, unspecified; E78.00 Pure hypercholesterolemia, unspecified; I10 Essential (primary) hypertension; I25.10 Atherosclerotic heart disease of native coronary artery without angina pectoris; Z87.891 Personal history of nicotine dependence
CPT/HCPCS: 80048; 81001; 82009; 82962; 85025; 99282; J7030

== ENCOUNTER → 2024-06-07 | Outpatient (CLI) | payer MEDICARE, OTHER, SELFPAY ==
--- NOTE | 2024-06-07 18:57 | CT_ITS ---
STUDY: LOW DOSE CT LUNG CANCER SCREENING REASON FOR EXAM: Male, 69 years old. Smoker quit 2017. Patient smoked 1 pack per day for 40 years. RADIATION DOSAGE (If Supplied By Facility): CTDIvol = ( 4.02 ) mGy, DLP = ( 148.48 ) mGycm TECHNIQUE: No contrast was administered. Low dose technique was utilized (average mAS-38 and kVp 120). 1.25 mm axial source images with a slice interval of 1.25-mm were reconstructed in lung windows. 2.5 mm axial source images with a slice interval of 2.5-mm were reconstructed in lung windows. 5.0 mm axial source images with a slice interval of 5.0-mm were reconstructed in soft tissue windows. COMPARISON: Comparison is made with prior study dated March 29, 2020. NODULES: Stable 8 mm partially calcified nodule in the anterior aspect of the right lower lobe as seen on axial image #144. Emphysema: Unremarkable Endobronchial lesion: Unremarkable Aorta: Mild atherosclerotic plaque formation of the aortic arch. CORONARY ARTERIES: Coronary artery calcification is seen. Heart: Unremarkable Pulmonary artery: Mediastinal nodes: Other chest and abdominal findings: CT/Low Dose CT Lung Screening IMPRESSION: Lung-RADS category 2 - Continue annual screening with LDCT in 12 months. IMPORTANT NOTES FOR USE: ACR Lung-RADS Version 1.1 Assessment Categories Release Date: 2018 Category: Coded 0-4 bases on nodule(s) with highest degree of suspicion. Negative screen is defined as categories 1 and 2; a positive screen is defined as categories 3 and 4. Category 3 and 4A nodules that are unchanged on interval CT should be coded as category 2, and individuals returned to screening in 12 months. Category 4X: Category 3 or 4 nodules with additional imaging findings that increase the suspicion of lung cancer, such as spiculation, GGN that doubles in size in 1 year, enlarged lymph notes, etc. Category Modifiers: S (significant finding unrelated to lung cancer) Electronically Signed: Ebenezer Cardenas MD at 15:24 EDT ,
== END | disposition home or self-care (01) ==
PROVIDERS: PCP Family Medicine; Referring Provider Nurse Practitioner Acute Care; Visit Provider Nurse Practitioner Acute Care
DX: Z12.2 Encounter for screening for malignant neoplasm of respiratory organs (principal); Z87.891 Personal history of nicotine dependence
CPT/HCPCS: 71271

== ENCOUNTER → 2024-06-14 | Outpatient (CLI) | payer MEDICARE, OTHER, SELFPAY ==
[2024-06-14 10:45] LABS: AST(SGOT) 18 U/L (15-37); Alanine Aminotransfer ALT/SGPT 40 U/L (16-61); Albumin, Serum 3.7 g/dL (3.2-5.0); Alkaline Phosphatase 81 U/L (45-117); Anion Gap 4 (5-15); BUN 20 mg/dL (7-18); BUN/Creat Ratio 19.8 RATIO (10-20); Bilirubin, Direct 0.36 mg/dL (0.00-0.30); Calcium,Total 9.4 mg/dL (8.5-10.1); Chloride 104 mmol/L (98-107); Cholesterol 106 mg/dL (200); Creatinine, Serum 1.01 mg/dL (0.70-1.30); EST Glomerular Filtration Rate 78 mL/min (>60); Est Glom Filt Rate - Afr Amer 94 mL/min (>60); Globulin 3.8 g/dL (2.2-4.2); Glucose 179 mg/dL (74-106); High Density Lipoprotein 34 mg/dL; Potassium 4.6 mmol/L (3.5-5.1); Protein, Total 7.5 g/dL (6.4-8.2); Sodium Level 137 mmol/L (136-145); Triglycerides 193 mg/dL; Very Low Density Lipoprotein 39 mg/dL (5-40)
== END | disposition home or self-care (01) ==
LOC: LAB 09:18
PROVIDERS: PCP Family Medicine; Referring Provider Nurse Practitioner Family; Visit Provider Nurse Practitioner Family
DX: I10 Essential (primary) hypertension (principal); E78.5 Hyperlipidemia, unspecified
CPT/HCPCS: 36415; 80048; 80061; 80076

== ENCOUNTER → 2024-09-27 | Outpatient (CLI) | payer MEDICARE, OTHER, SELFPAY ==
[2024-09-27 11:25] LABS: PSA,Total- Diagnostic 1.78 ng/mL (0.0-4.0)
== END | disposition home or self-care (01) ==
PROVIDERS: PCP Family Medicine; Referring Provider Urology; Visit Provider Urology
DX: C61 Malignant neoplasm of prostate (principal)
CPT/HCPCS: 36415; 84153

== ENCOUNTER → 2024-10-08 | Outpatient (CLI) | payer MEDICARE, OTHER, SELFPAY ==
[2024-10-08 13:11] LABS: Protein, Urine (Random) 42.9 mg/dL (<11.9); Protein:Creat Ratio 786 mg/g CRE (0-200)
[2024-10-08 13:14] LABS: Anion Gap 8 (5-15); BUN 21 mg/dL (7-18); Calcium,Total 9.7 mg/dL (8.5-10.1); Chloride 105 mmol/L (98-107); Cholesterol 121 mg/dL (200); Creatinine, Serum 0.96 mg/dL (0.70-1.30); EST Glomerular Filtration Rate 83 mL/min (>60); Est Glom Filt Rate - Afr Amer 100 mL/min (>60); Glucose 95 mg/dL (74-106); High Density Lipoprotein 38 mg/dL; Sodium Level 138 mmol/L (136-145); Triglycerides 134 mg/dL; Very Low Density Lipoprotein 27 mg/dL (5-40)
== END | disposition home or self-care (01) ==
LOC: MFPLAB 09:58
PROVIDERS: PCP Family Medicine; Referring Provider Family Medicine; Visit Provider Family Medicine
DX: E11.9 Type 2 diabetes mellitus without complications (principal)
CPT/HCPCS: 36415; 80048; 80061; 82570; 84156

== ENCOUNTER → 2024-10-15 | Outpatient (CLI) | payer MEDICARE, OTHER, SELFPAY ==
--- NOTE | 2024-10-15 08:50 | BI_ITS ---
PROCEDURE: DIAG MAMM W/CAD, BILAT REASON FOR EXAM: M, Age 69 y/o, six-month history of bilateral pain and swelling. TECHNIQUE: Bilateral screening digital breast tomosynthesis with 2D and 3D images. Computer aided detection. COMPARISON: Baseline examination. FINDINGS: The breasts are heterogeneously dense which may obscure small masses. No suspicious masses, areas of developing architectural distortion, or suspicious calcifications. BI/DIAG MAMM W/CAD, BILAT IMPRESSION: With the patient's history of bilateral breast pain and fullness, targeted sono graphic correlation recommended. Follow-up code: BI-RADS category 0. The patient will be notified of the results by letter. Reading Location: [facility]
--- NOTE | 2024-10-15 09:37 | US_ITS ---
PROCEDURE: BREAST LIMITED UNILATERAL REASON FOR EXAM: Palpable lump in the subareolar region. TECHNIQUE: Targeted bilateral breast ultrasound. COMPARISON: Comparison is made with prior mammogram done earlier in the day. FINDINGS: RIGHT: Right breast ultrasound was targeted to the retroareolar region.. The breast tissue appears sonographically normal. No cyst, solid mass, or suspicious shadowing. Findings suggestive of gynecomastia. US/Breast Limited Unilateral IMPRESSION: BI-RADS 2: BENIGN. RECOMMEND ANNUAL MAMMOGRAPHIC SCREENING. Follow-up code: Routine Follow-up Reading Location: [id number]
--- NOTE | 2024-10-15 09:38 | US_ITS ---
PROCEDURE: BREAST LIMITED UNILATERAL REASON FOR EXAM: Retroareolar palpable nodule. TECHNIQUE: Targeted left breast ultrasound. COMPARISON: Comparison is made with prior mammogram done earlier in the day. FINDINGS: LEFT: Left breast ultrasound was targeted to the retroareolar region.. The breast tissue appears sonographically normal. No cyst, solid mass, or suspicious shadowing. Probable gynecomastia. US/Breast Limited Unilateral IMPRESSION: BI-RADS 2: BENIGN. RECOMMEND ANNUAL MAMMOGRAPHIC SCREENING. Follow-up code: Routine Follow-up Reading Location: [id number]
== END | disposition home or self-care (01) ==
LOC: OPBI 08:47
PROVIDERS: PCP Family Medicine; Referring Provider Family Medicine; Visit Provider Family Medicine
DX: N64.4 Mastodynia (principal)
CPT/HCPCS: 76642; 77062; 77066; G0279

== ENCOUNTER → 2024-12-27 | Outpatient (CLI) | payer MEDICARE, OTHER, SELFPAY ==
[2024-12-27 11:56] LABS: PSA,Total- Diagnostic 0.39 ng/mL (0.00-4.00)
== END | disposition home or self-care (01) ==
LOC: LAB 10:41
PROVIDERS: PCP Family Medicine; Referring Provider Urology; Visit Provider Urology
DX: C61 Malignant neoplasm of prostate (principal)
CPT/HCPCS: 36415; 84153

== ENCOUNTER → 2025-03-24 | Outpatient (CLI) | payer MEDICARE, OTHER, SELFPAY ==
[2025-03-24 11:26] LABS: Cholesterol 135 mg/dL (<=200); Low Density Lipoprotein Calc. 50 mg/dL; Triglycerides 235 mg/dL; Very Low Density Lipoprotein 47 mg/dL (5-40); cholesterol:hdl ratio screen 3.57
[2025-03-24 11:27] LABS: PSA,Total- Diagnostic 0.42 ng/mL (0.00-4.00)
[2025-03-24 11:30] LABS: AST(SGOT) 20 U/L (<=37); Alanine Aminotransfer ALT/SGPT 28 U/L (<=46); Albumin, Serum 4.1 g/dL (3.4-4.8); Alkaline Phosphatase 95 U/L (40-129); Bilirubin, Direct 0.59 mg/dL (0.00-0.30); Globulin 3.2 g/dL (2.2-4.2)
--- OUTSIDE RECORDS SUMMARY | 2025-03-24 20:13 | XMS RPT_ITS | CCD ---
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 Marisa Arredondo Primary Care Provider Dr. Marisa Arredondo Referring Provider 1([facility])[phone] Roof DEPUTY SHERIFF K9 HANDLER, DEPUTY SHERIFF K9 HANDLER-C Delgado Aguiar Attending Provider Roof DEPUTY SHERIFF K9 HANDLER, DEPUTY SHERIFF K9 HANDLER-C Delgado Aguiar Referring Provider Roof DEPUTY SHERIFF K9 HANDLER, DEPUTY SHERIFF K9 HANDLER-C Delgado Aguiar Other Provider 1([facility])[phone] Long Ware Attending Provider 1([facility])[phone] Mykel Sweeney Attending Provider 1([facility])[phone] Long Ware Other Provider Dr. Marisa Arredondo Primary Care Provider Dr. Marisa Arredondo Referring Provider Dr. Mykel Sweeney Attending Provider Dr. Long Ware Attending Provider 1([facility])[phone] Morgan Hutton Attending Provider Dr. Morgan Hutton Other Provider Dr. Marisa Arredondo Primary Care Provider Dr. Marisa Arredondo Referring Provider Roof DEPUTY SHERIFF K9 HANDLER, DEPUTY SHERIFF K9 HANDLER-C Delgado Aguiar Attending Provider Marisa Arredondo Primary Care Unavailable Roof DEPUTY SHERIFF K9 HANDLER, Delgado Aguiar Attending Unavailable Indira DEPUTY SHERIFF K9 HANDLER, Delgado Aguiar Referring Unavailable Marisa Arredondo Primary Care Unavailable Moe Barreto Attending Unavailable Marisa Arredondo Attending Unavailable Marisa Arredondo Referring Unavailable Jolliff, Marisa S Primary Care Unavailable Jolliff, Marisa S Primary Care Unavailable Kari, Geovany Siegel Attending Unavailable Kari, Geovany Siegel Referring Unavailable Jolliff, Marisa S Primary Care Unavailable Roof DEPUTY SHERIFF K9 HANDLER, Delgado H Attending Unavailable Roof DEPUTY SHERIFF K9 HANDLER, Delgado H Referring Unavailable Kari, Geovany Siegel Referring Unavailable Jolliff, Marisa S Primary Care Unavailable Kari, Geovany Siegel Attending Unavailable Uriarte DEPUTY SHERIFF K9 HANDLER, Denise Attending Unavailable Jolliff, Marisa S Primary Care Unavailable Jolliff, Marisa S Referring Unavailable Jolliff, Marisa S Referring Unavailable Jolliff, Marisa S Primary Care Unavailable Roof DEPUTY SHERIFF K9 HANDLER, Delgado H Attending Unavailable Jolliff, Marisa S Primary Care Unavailable Kari, Geovany Siegel Attending Unavailable Kari, Gilles Referring Unavailable Jolliff, Marisa S Attending Unavailable Jolliff, Marisa S Referring Unavailable Jolliff, Marisa S Primary Care Unavailable Uriarte DEPUTY SHERIFF K9 HANDLER, Denise Attending Unavailable Jolliff, Marisa S Referring Unavailable Jolliff, Marisa S Primary Care Unavailable Uriarte DEPUTY SHERIFF K9 HANDLER, Denise Attending Unavailable Jolliff, Marisa S Primary Care Unavailable Uriarte DEPUTY SHERIFF K9 HANDLER, Denise Referring Unavailable Bethiff , Dr. Marisa Morton Primary Care Provider Kari SAMUELS, Dr. Geovany Siegel Attending Provider Kari SAMUELS, Dr. Geovany Siegel Referring Provider Arnulfo SAMUELS, Dr. Marisa Morton Referring Provider [phone] Jeanie SAMUELS, Dr. Alves Attending Provider Manan SAMUELS, Dr. Delgado Lindo Primary Care Provider Medications Current Medications Medication Drug Class(es) Dates Sig (Normalized) Sig (Original) aspirin 81 mg delayed release oral tablet (16 sources) Platelet Aggregation Inhibitor, Nonsteroidal Anti-inflammatory Drug Start: 07-07-2015 End: 07-07-2015 take 1 tablet by mouth once daily Aspirin 81 MG tablet,delayed release (/EC) Active 81 mg PO DAILY July 07, 2015 1:00am antiplatelet atorvastatin 80 mg oral tablet (20 sources) HMG-CoA Reductase Inhibitor Start: 11-13-2023 End: 12-27-2024 take 1 tablet by mouth once daily Atorvastatin 80 mg tablet Active 80 mg PO DAILY 90 December 27, 2024 9:30am Start: 03-23-2019 End: 08-06-2021 take 1 tablet by mouth at bedtime Atorvastatin 80 mg tablet Discontinued 80 mg PO AT BEDTIME 90 3 May 29, 2020 8:47am August 06, 2021 10:33am Start: 07-07-2015 End: 09-26-2017 take 1 tablet by mouth at bedtime Atorvastatin 20 MG tablet Discontinued 20 mg PO AT BEDTIME July 07, 2015 1:00am September 26, 2017 1:34pm bicalutamide 50 mg oral tablet (7 sources) Androgen Receptor Inhibitor Start: 05-19-2023 End: 09-06-2024 take 1 tablet by mouth once daily Bicalutamide 50 mg tablet Active 50 mg PO DAILY 90 3 September 06, 2024 12:03pm Blood-Glucose Meter (Onetouch Verio Meter) misc (8 sources) Start: 09-17-2021 Blood-Glucose Meter (Onetouch Verio Meter) misc Active 0 .ROUTE .MEDSUPPLY 1 0 September 17, 2021 1:00am As directed Start: 09-17-2021 Blood-Glucose Meter (Onetouch Verio Meter) misc Active 0 .ROUTE .MEDSUPPLY 1 September 17, 2021 12:00am As directed Start: 09-17-2021 Blood-Glucose Meter (Onetouch Verio Meter) misc Active 0 .ROUTE .MEDSUPPLY September 17, 2021 1:00am As directed canagliflozin 300 mg oral tablet (8 sources) Sodium-Glucose Cotransporter 2 Inhibitor Start: 03-21-2019 take 1 tablet by mouth once daily Canagliflozin 300 MG tablet Active 300 mg PO DAILY March 21, 2019 12:00am Check with primary doctor glimepiride 4 mg oral tablet (20 sources) Sulfonylurea Start: 09-22-2024 take 1 tablet by mouth twice daily Glimepiride 4 mg tablet Active 4 mg PO TWICE A DAY September 22, 2024 2:13pm Start: 05-21-2023 End: 09-22-2024 take 1 tablet by mouth once daily Glimepiride 4 mg tablet Discontinued 4 mg PO DAILY May 21, 2023 10:29am September 22, 2024 2:13pm Start: 04-22-2022 End: 05-21-2023 take 1 tablet by mouth twice daily Glimepiride 4 mg tablet Discontinued 4 mg PO TWICE A DAY April 22, 2022 1:37pm May 21, 2023 10:34am Start: 09-17-2021 End: 04-22-2022 take 2 tablets by mouth once daily Glimepiride 4 mg tablet Discontinued 8 mg PO DAILY 60 September 17, 2021 11:11am April 22, 2022 1:39pm Start: 09-17-2021 End: 04-22-2022 take 8 mg by mouth once daily Glimepiride Discontinued 8 MG PO DAILY 60 September 17, 2021 11:11am April 22, 2022 1:39pm Start: 06-04-2021 End: 09-17-2021 take 1 tablet by mouth once daily Glimepiride 4 mg tablet Discontinued 4 mg PO DAILY 60 June 04, 2021 12:00am September 17, 2021 11:15am 24 hr isosorbide mononitrate 60 mg extended release oral tablet (20 sources) Nitrate Vasodilator Start: 04-30-2021 End: 11-23-2024 take 1 tablet by mouth once daily, then take 1 tablet by mouth every twenty-four hours Isosorbide Mononitrate 60 mg tablet extended release 24 hr Active 60 mg PO DAILY 90 November 23, 2024 3:33pm Start: 12-04-2020 End: 04-30-2021 Isosorbide Mononitrate 30 mg tablet extended release 24 hr Discontinued 60 mg PO DAILY 90 December 04, 2020 8:46am April 30, 2021 5:04pm Start: 03-23-2019 End: 12-04-2020 take 1 tablet by mouth once daily, then take 1 tablet by mouth every twenty-four hours Isosorbide Mononitrate 30 mg tablet extended release 24 hr Discontinued 30 mg PO DAILY 90 April 03, 2020 9:02am December 04, 2020 8:46am lisinopril 10 mg oral tablet (20 sources) Angiotensin Converting Enzyme Inhibitor Start: 04-27-2020 Lisinopril Active 5 MG PO daily April 27, 2020 9:05am 10mg pill cut in half Start: 10-11-2019 End: 04-27-2020 take 1 tablet by mouth once daily Lisinopril 10 mg tablet Discontinued 10 mg PO daily 90 October 11, 2019 11:09am April 27, 2020 9:05am blood pressure Start: 07-07-2015 End: 10-11-2019 take 1 tablet by mouth once daily Lisinopril 20 mg tablet Discontinued 20 mg PO daily 90 April 02, 2019 1:31pm October 11, 2019 11:10am blood pressure metFORMIN hydrochloride 1000 mg oral tablet (20 sources) Biguanide Start: 09-17-2021 take 1 tablet by mouth twice daily Metformin 1,000 mg tablet Active 1000 mg PO TWICE A DAY 60 September 17, 2021 1:00am Start: 02-05-2021 End: 09-17-2021 Metformin 500 mg tablet exte nded release 24 hr Discontinued 1000 mg PO DAILY February 05, 2021 12:00am September 17, 2021 11:14am Start: 02-05-2021 End: 09-17-2021 take 1000 mg by mouth once daily Metformin Discontinued 1000 MG PO DAILY February 05, 2021 12:00am September 17, 2021 11:14am Start: 08-14-2017 End: 02-05-2021 take 2 tablets by mouth once daily Metformin 500 mg tablet Discontinued 1000 mg PO DAILY August 14, 2017 1:00am February 05, 2021 11:16am diabetes Start: 08-14-2017 End: 02-05-2021 take 1000 mg by mouth once daily Metformin Discontinued 1000 MG PO DAILY August 14, 2017 1:00am February 05, 2021 11:16am Start: 07-07-2015 End: 09-26-2017 take 1 tablet by mouth once daily Metformin 500 MG tablet Discontinued 500 mg PO DAILY July 07, 2015 1:00am September 26, 2017 1:35pm metoprolol tartrate 25 mg oral tablet (20 sources) beta-Adrenergic [place] Start: 06-10-2022 End: 11-30-2024 take 1 tablet by mouth twice daily Metoprolol Tartrate 25 mg tablet Active 25 mg PO TWICE A DAY 180 November 30, 2024 7:46am Start: 03-23-2019 End: 06-10-2022 Metoprolol Tartrate 25 mg ta blet Discontinued 12.5 mg PO TWICE A DAY 90 August 21, 2021 11:38am June 10, 2022 10:37am Start: 03-23-2019 End: 10-10-2022 take 12.5 mg by mouth twice daily Metoprolol Tartrate Discontinued 12.5 MG PO TWICE A DAY 90 August 21, 2021 11:38am June 10, 2022 10:37am Oral appliance (1 source) Start: 09-22-2024 Oral appliance Active 0 .ROUTE .MEDSUPPLY 1 0 September 22, 2024 1:00am Sleep apnea Obstructive sleep apnea syndrome Obstructive sleep apnea (adult) (pediatric) As directed Semaglutide (1 source) Start: 05-24-2024 Semaglutide (O zempic) 0.25 mg or 0.5 mg (2 mg/3 mL) pen injector Active mg SC May 24, 2024 12:00am Completed/Discontinued Medications Medication Drug Class(es) Dates Sig (Normalized) Sig (Original) acetaminophen 325 mg / oxyCODONE hydrochloride 5 mg oral tablet (14 sources) Opioid Agonist Start: 08-14-2017 End: 08-15-2017 Oxycodone-Acetamino phen 5-325 mg tablet Discontinued 1 {tbl} PO ONCE 0 August 14, 2017 1:00am August 15, 2017 2:12pm Start: 08-14-2017 End: 08-15-2017 take 1 tablet by mouth once Oxycodone-Acetaminophen Discontinued 1 TABLET PO ONCE August 14, 2017 1:00am August 15, 2017 2:12pm Start: 06-18-2017 take 1-2 tablets by mouth every six hours as needed for pain OXYCODONE-ACETAMINOPHEN 5-325 MG TABS 1- 2 po q6h as needed pain OXYCODONE-ACETAMINOPHEN [id number] Sammy Talley Start: 06-18-2017 OXYCODONE-ACET AMINOPHEN 5-325 MG TABS OXYCODONE-ACETAMINOPHEN [id number] Sammy Talley azithromycin 250 mg oral tablet (1 source) Macrolide Antimicrobial Start: 09-22-2024 End: 03-24-2025 take 2-5 tablets by mouth once daily Azithromycin 250 mg tablet Discontinued 0 PO .COMPLEX 6 0 September 22, 2024 1:00am March 24, 2025 9:09am Sleep apnea Obstructive sleep apnea (adult) (pediatric) take 500 mg today (day 1), then 250 mg for 4 days (days 2-5) PO glyBURIDE 6 mg oral tablet (8 sources) Sulfonylurea Start: 07-07-2015 End: 10-11-2019 take 1 tablet by mouth once daily Glyburide Micronized 6 MG tablet Discontinued 6 mg PO DAILY July 07, 2015 1:00am October 11, 2019 10:40am diabetes ticagrelor 90 mg oral tablet (20 sources) Start: 03-23-2019 End: 12-22-2023 take 1 tablet by mouth twice daily Ticagrelor 90 mg tablet Discontinued 90 mg PO TWICE A DAY 180 3 September 09, 2022 3:57pm December 22, 2023 9:10am Problems Active Problems Problem Classification Problem Date Documented Da te Episodic/Chronic Cancer of prostate (20 sources) Primary malignant neoplasm of prostate; Translations: [Malignant neoplasm of prostate] Onset: 12-30-2024 Chronic Comment on above: Prostate cancer, sta ge IV-cTx cN1 M1a on Eligard.Metastatic Prostate cancer in Retroperitoneal nodes and pelvic nodes with enlarged prostate.Bone scan showed no metastatic disease, PSA was [address] a/p on 05/13/2022 reviewed, shows resolution of abdominal lymph nodes.PSA was 15.3 in August 2022. PSA is rising slowly.Comes for follow up. PSA is 22 today.Discussed adding Xtandi, he cannot afford it.Suggested Casodex, pt accepted. Coronary atherosclerosis and other heart disease (8 sources) Coronary atherosclerosis; Translations: [Atherosclerotic heart disease of [place] coronary artery without angina pectoris] 05-08-2020 Chronic Diabetes mellitus with complications (17 sources) Hyperlipidemia; Translations: [Type 2 diabetes mellitus with other specified complication] Onset: 04-26-2024 03-22-2019 Chronic Diabetes mellitus without complication (9 sources) Diabetes mellitus; Translations: [Type 2 diabetes mellitus without complications] Onset: 10-25-2024 06-04-2021 Chronic Diabetes mellitus without complication (1 source) Hyperglycemia; Translations: [Hyperglycemia, unspecified] 04-19-2024 Episodic Disorders of lipid metabolism (6 sources) Hyperlipidemia, unspecified; Translations: [Other and unspecified hyperlipidemia] Chronic Essential hypertension (15 sources) Essential hypertension; Translations: [Essential (primary) hypertension] Onset: 07-06-2024 Chronic Gastrointestinal hemorrhage (7 sources) Rectal hemorrhage; Translations: [Hemorrhage of anus and rectum] 05-19-2023 Episodic Genitourinary symptoms and ill-defined conditions (6 sources) Increased frequency of urination; Translations: [Frequency of micturition] 05-19-2023 Episodic Nonmalignant breast conditions (1 source) Mastodynia; Translations: [Mastodynia] Onset: 10-29-2024 Episodic Nonspecific chest pain (20 sources) Chest pain at rest; Translations: [Chest pain, unspecified] 03-22-2019 Episodic Other diseases of veins and lymphatics (4 sources) Stasis dermatitis; Translations: [Venous insufficiency (chronic) (peripheral)] 11-15-2020 Episodic Other diseases of veins and lymphatics (2 sources) Venous insufficiency (chronic) (peripheral); Translations: [Varicose veins of lower extremities with inflammation] Episodic Other diseases of veins and lymphatics (4 sources) Disorder of vein of lower extremity; Translations: [Venous insufficiency (chronic) (peripheral)] 11-15-2020 Episodic Other nutritional; endocrine; and metabolic disorders (8 sources) Obesity; Translations: [Obesity, unspecified] 06-04-2021 Chronic Other screening for suspected conditions (not mental disorders or infectious disease) (9 sources) Cardiovascular stress test abnormal; Translations: [Abnormal result of other cardiovascular function study] Onset: 07-01-2024 05-14-2022 Episodic Residual codes; unclassified (2 sources) Hypersomnia; Translations: [Hypersomnia, unspecified] 12-22-2023 Chronic Residual codes; unclassified (2 sources) Hypersomnia, unspecified; Translations: [Hypersomnia, unspecified] Onset: 02-16-2024 12-22-2023 Chronic Residual codes; unclassified (1 source) Obstructive sleep apnea (adult) (pediatric); Translations: [Obstructive sleep apnea (adult) (pediatric)] Onset: 09-22-2024 Chronic Residual codes; unclassified (1 source) Sleep apnea; Translations: [Sleep apnea, unspecified] 05-25-2024 Chronic Substance-related disorders (2 sources) Nicotine dependence, cigarettes, uncomplicated; Translations: [Cigarette smoker ] Onset: 09-22-2024 05-25-2024 Chronic Comment on above: quit 2017 Past or Other Problems Problem Classification Problem Date Documented Da te Episodic/Chronic Coronary atherosclerosis and other heart disease (6 sources) Presence of coronary angioplasty implant and graft; Translations: [Percutaneous transluminal coronary angioplasty status] Onset: 03-22-2019 Episodic Fracture of lower limb (8 sources) Unspecified [...] Results Test Name Value Interpretation Reference Range Facility PSA,Total- Diagnosticon 12-01 PSA, DIAGNOSTIC 0.39 ng/mL Normal 0.00-4.00 [facility] Comment on above: Result Comment: This test was performed using the ChipX tPSA method. Measured values of a patient??sample can vary depending on the testing procedure used. PSA values determined on patient samples by different testing procedures cannot be used interchangeably. If there is a change in PSA assays while monitoring therapy, sequential testing should be performed to confirm baseline values. Performed By: #### L 501.9940 ####[facility] [id number] [facility]. [place], [place], [address] Breast Limited Unilateralon 10-15-2024 Breast Limited Unilateral [facility] [address], [place] [address] Breast Limited Unilateral MR#: [id number] Acct: [id number] Name: CAIO SENIOR Rep #: [id number] : 1955 M 69 From: Ebenezer fox MD PCP: Dr. Marisa Arredondo MD Status: [facility] Study: Breast Limited Unilateral Date of Exam: Exam# [id number] Ordering Dr: Marisa Arredondo MD PROCEDURE: BREAST LIMITED UNILATERAL REASON FOR EXAM: Retroareolar palpable nodule. TECHNIQUE: Targeted left breast ultrasound. COMPARISON: Comparison is made with prior mammogram done earlier in the day. FINDINGS: LEFT: Left breast ultrasound was targeted to the retroareolar region.. The breast tissue appears sonographically normal. No cyst, solid mass, or suspicious shadowing. Probable gynecomastia. US/Breast Limited Unilateral IMPRESSION: BI-RADS 2: BENIGN. RECOMMEND ANNUAL MAMMOGRAPHIC SCREENING. Follow-up code: Routine Follow-up Reading Location: [id number] CC: Dr. Marisa Arredondo MD Data Power Consultant: Signed Normal [facility] Breast Limited Unilateral [facility] [address], [place] [address] Breast Limited Unilateral MR#: [id number] Acct: [id number] Name: CAIO SENIOR Rep #: [id number] : 1955 M 69 From: Ebenezer fox MD PCP: Dr. Marisa Arredondo MD Status: [facility] Study: Breast Limited Unilateral Date of Exam: Exam# [id number] Ordering Dr: Marisa Arredondo MD PROCEDURE: BREAST LIMITED UNILATERAL REASON FOR EXAM: Palpable lump in the subareolar region. TECHNIQUE: Targeted bilateral breast ultrasound. COMPARISON: Comparison is made with prior mammogram done earlier in the day. FINDINGS: RIGHT: Right breast ultrasound was targeted to the retroareolar region.. The breast tissue appears sonographically normal. No cyst, solid mass, or suspicious shadowing. Findings suggestive of gynecomastia. US/Breast Limited Unilateral IMPRESSION: BI-RADS 2: BENIGN. RECOMMEND ANNUAL MAMMOGRAPHIC SCREENING. Follow-up code: Routine Follow-up Reading Location: [facility] CC: Dr. Marisa Arredondo MD Data Power Consultant: Signed Normal [facility] DIAG MAMM W/CAD, BILATon DIAG MAMM W/CAD, BILAT [facility] [address] [place] [address] DIAG MAMM W/CAD, BILAT MR#: [id number] Acct: [id number] Name: CAIO SENIOR Rep #: [id number] : 1955 M 69 From: Ebenezer fox MD PCP: Dr. Marisa Arredodno MD Status: REG CLI Study: DIAG MAMM W/CAD, BILAT Date of Exam: 10/15/24 Exam# [id number] Ordering Dr: Marisa Arredondo MD PROCEDURE: DIAG MAMM W/CAD, BILAT REASON FOR EXAM: M, Age 69 y/o, six-month history of bilateral pain and swelling. TECHNIQUE: Bilateral screening digital breast tomosynthesis with 2D and 3D images. Computer aided detection. COMPARISON: Baseline examination. FINDINGS: The breasts are heterogeneously dense which may obscure small masses. No suspicious masses, areas of developing architectural distortion, or suspicious calcifications. BI/DIAG MAMM W/CAD, BILAT IMPRESSION: With the patient's history of bilateral breast pain and fullness, targeted sonographic correlation recommended. Follow-up code: BI-RADS category 0. The patient will be notified of the results by letter. Reading Location: [facility] CC: Dr. Marisa Arredondo MD Data Power Consultant: Signed Normal [facility] Basic Metabolic Profile (BMP )on 10-08-2024 BUN/CRE 22.0 RATIO High 10-20 [facility] Comment on above: Performed By: #### L 500.4100, L501.0900, L500.2500 #### [facility] [address] [place], [address] CA,Total 9.7 mg/dL Normal 8.5-10.1 [facility] Comment on above: Performed By: #### L 500.4100, L501.0900, L500.2500 #### [facility] [address] [place], [address] Chloride [Moles/Vol] 105 mmol/L Normal 98-107 [facility] Comment on above: Performed By: #### L 500.4100, L501.0900, L500.2500 #### [facility] [address] [place], [address] CO2 [Moles/Vol] 26.0 mmol/L Normal 21.0-32.0 [facility] Comment on above: Performed By: #### L 500.4100, L501.0900, L500.2500 #### [facility] [address] [place], [address] Creatinine [Mass/Vol] 0.96 mg/dL Normal 0.70-1.30 [facility] Comment on above: Result Comment: The validity of the calculated GFR GFRAA in patients over 70 years has not been determined. Clinical correlation is essential. Performed By: #### L 500.4100, L501.0900, L500.2500 #### [facility] [address] [place], [address] EST GFR - AA 100 mL/min Normal >60 [facility] Comment on above: Result Comment: Afri can [place] GFR Calc Performed By: #### L 500.4100, L501.0900, L500.2500 #### [facility] [address] [place], [address] GAP 8 Normal 5-15 [facility] Comment on above: Performed By: #### L 500.4100, L501.0900, L500.2500 #### [facility] [address] [place], [address] GFR/1.73 sq M.predicted among non-blacks MDRD (S/P/Bld) [Vol rate/Area] 83 mL/min/{1.73_m2} Normal >60 [facility] Comment on above: Result Comment: Non- GFR Calc Performed By: #### L 500.4100, L501.0900, L500.2500 #### [facility] [address] [place], [address] Glucose [Mass/Vol] 95 mg/dL Normal 74-106 [facility] Comment on above: Performed By: #### L 500.4100, L501.0900, L500.2500 #### [facility] [address] [place], [address] Potassium [Moles/Vol] 4.0 mmol/L Normal 3.5-5.1 [facility] Comment on above: Performed By: #### L 500.4100, L501.0900, L500.2500 #### [facility] [address] [place], [address] Sodium [Moles/Vol] 138 mmol/L Normal 136-145 [facility] Comment on above: Performed By: #### L 500.4100, L501.0900, L500.2500 #### [facility] [address] [place], [address] Urea nitrogen [Mass/Vol] 21 mg/dL High 7-18 [facility] Comment on above: Performed By: #### L 500.4100, L501.0900, L500.2500 #### [facility] [address] [place], [address] Lipid Profileon 10-08-2024 Cholesterol [Mass/Vol] 121 mg/dL Normal 200 [facility] Comment on above: Result Comment: <200 mg/dL Desirable 200-240 mg/dL Borderline >240 mg/dL High Risk Performed By: #### L 500.4100, L501.0900, L500.2500 #### [facility] [address] [place], [address] Cholesterol in HDL [Mass/Vol] 38 mg/dL Low [facility] Comment on above: Result Comment: The drugs N-Acetylcysteine and Metamizole may falsely depress this assay. Reference Range HDL <40 mg/dL Low HDL Cholesterol HDL >or= 60 mg/dL High HDL Cholesterol Performed By: #### L 500.4100, L501.0900, L500.2500 #### [facility] [address] [place], [address] Cholesterol in LDL [Mass/Vol] 56 mg/dL Normal 0-130 [facility] Comment on above: Performed By: #### L 500.4100, L501.0900, L500.2500 #### [facility] [address] [place], [address] Cholesterol in VLDL [Mass/Vol] 27 mg/dL Normal 5-40 [facility] Comment on above: Performed By: #### L 500.4100, L501.0900, L500.2500 #### [facility] [address] [place], [address] Triglyceride [Mass/Vol] 134 mg/dL Normal [facility] Comment on above: Result Comment: The drugs N-Acetylcysteine and Metamizole may falsely depress this assay. Serum Triglycerides Reference Interval Normal <150 mg/dL Borderline high 150 - 199 mg/dL High 200 - 499 mg/dL Very High > or = 500 mg/dL Performed By: #### L 500.4100, L501.0900, L500.2500 #### [facility] [address] [place], [address] Protein+Creatinine Ratio,Uri neon 10-08-2024 PROT:CRE RATIO 786 mg/g CRE High 0-200 [facility] Comment on above: Performed By: #### L 500.4100, L501.0900, L500.2500 #### [facility] [address] [place], [address] Protein (U) [Mass/Vol] 42.9 mg/dL High <11.9 [facility] Comment on above: Performed By: #### L 500.4100, L501.0900, L500.2500 #### [facility] [address] [place], [address] UR CREAT 54.60 mg/dL Normal NO RANGE EST. [facility] Comment on above: Performed By: #### L 500.4100, L501.0900, L500.2500 #### [facility] [address] [place], [place], [address] PSA,Total- Diagnosticon 09-02 PSA, DIAGNOSTIC 1.78 ng/mL Normal 0.0-4.0 [facility] Comment on above: Result Comment: This test was performed using the TPSA assay method for the Clover chemistry system. Values obtained with different assay methods cannot be used interchangably. When changing PSA assays in the course of monitoring a patient, additional sequential testing should be carried out to confirm baseline values. Performed By: #### L 501.9940 #### [facility] [address] [place], [place], [address] Pulmonary Visit Reporton Pulmonary Visit Report [facility] [place] [address] [place] [address] OFFICE VISIT Date of Service: 09/22/24 MR#: [id number] Acct: [id number] Name: CAIO SENIOR Rep #: [id number] : 1955 Provider: ANTHONY Uriarte Age/Sex: 69/M Location: [facility] Status: Signed Assessment and Plan Assessment and Plan (1) Sleep apnea: Status: Chronic Qualifiers: Sleep apnea type: obstructive Qualified Code(s): G47.33 - Obstructive sleep apnea (adult) (pediatric) Plan: He "hates" his PAP machine. He states that he cannot fall asleep with it on. He has attempted multiple times over the months. He states that when he puts it on he just lays there awake watching the traffic drive-by". He is open to discussing alternatives. He is not interested in the inspire device, however would like to be evaluated for the use of a mandibular advancement device. Referral has been placed to a dentist that can help him. The patient will follow-up here in the office in 6 months. He has been encouraged to contact the office with any difficulties in the meantime. 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 He would like to continue working and would require a mandibular device that is acceptable for ODOT purposes. (2) Smoking greater than 40 pack years: Status: Chronic Comment: quit 2017 Plan: Encourage ongoing smoking cessation. Repeat LDCT due in June 2025, ordered. (3) Obesity: Status: Chronic Qualifiers: Obesity type: due to excess calories Obesity classification: adult class 2 (BMI 35 - 39.9) Serious obesity comorbidity presence: with serious comorbidity Body mass index: BMI 36.0-36.9 Qualified Code(s): E66.812 - Obesity, class 2; E66.01 - Morbid (severe) obesity due to excess calories; Z68.36 - Body mass index [BMI] 36.0-36.9, adult Plan: Complicates exam, plan, care and prognosis. Continue to encourage weight loss. Orders: Orders Low Dose CT Lung Screening 06/01/25 F17.200 - Nicotine dependence, unspecified, uncomplicated, F17.210 - Nicotine dependence, cigarettes, uncomplicated Referrals Dental G47.33 - Obstructive sleep apnea (adult) (pediatric) Medications: New [Oral appliance] As directed 1 ea 0RF G47.33 - Obstructive sleep apnea (adult) (pediatric) azithromycin take 500 mg today (day 1), then 250 mg for 4 days (days 2-5) PO 6 tabs 0RF G47.33 - Obstructive sleep apnea (adult) (pediatric) Plan Details Follow Up: 6 Months (CSM or LMR) HPI 3 M FU Chief Complaint: routine follow up HPI Comments Details: This patient presents to the office today for follow-up of his obstructive sleep apnea and to discuss test results. He is ambulatory and currently on room air. He was seen last week in urgent care. It sounds as though this was a virtual visit. Unfortunately, symptoms have been ongoing for the past 4 weeks. He is experiencing chest congestion and a cough that is productive of yellow to green-colored sputum. He was treated with Tessalon Perles. He states he was taking 1 daily and has 2 days remaining. He does not feel any improvement with current treatment. He denies any difficulty with shortness of breath. He reports a cough that continues to be productive of green to yellow-colored sputum. He denies any wheezing, chest tightness, chest pain or palpitations. He has not had any fever, chills or body aches. The patient admits that he "hates" his PAP machine. He tries to use it, however he is not able to fall asleep with it. He states that he feels more tired when trying to use the PAP machine that he does when he just sleeps without it". 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 He has not recently been driving but he is not ready to retire just yet. He continues complete smoking cessation. If you recall, he quit smoking back in 2017. Test results personally reviewed with the patient: Low-dose CT lung screening completed on June 07, 2024. Noted is a stable 8 mm partially calcified nodule in the anterior aspect of the right lower lobe. Recommendation is to repeat LDCT in 12 months. Compliance report for the past 30 days shows 30% compliance with an average use of 3 hours per night. Current setting is AutoPap 5-15 cmH2O with a residual AHI of 6 events per hour. Pressures are typically utilized at 9.3 to 14.1 cm water. Leaks are not problematic. Intake Vital Signs 05/24/24 07:49 06/14/24 08:34 09/22/24 08:23 Height 5 ft 8 in 5 ft 8 in 5 ft 8 in Weight: 244 lb 246 lb 240 lb BMI 37.0 37.4 36.5 BP 116/63 114/63 103/56 L Blood Pressure Location Rt radial Lt brachial Rt brachial Position Sitting Sitting Sitting Respiration 18 18 20 H Pulse 74 63 62 Pulse Source Monitor Monitor Monitor Temp 97.4 F L (more content not included)... Normal [facility] Basic Metabolic Profile (BMP )on 06-14-2024 BUN/CRE 19.8 RATIO Normal 06-20 [facility] Comment on above: Performed By: #### L 500.2500, L500.3400, L500.4100 ####[facility] [address] [place], [address] CA,Total 9.4 mg/dL Normal 8.5-10.1 [facility] Comment on above: Performed By: #### L 500.2500, L500.3400, L500.4100 ####[facility] [address] [place], [address] Chloride [Moles/Vol] 104 mmol/L Normal 98-107 [facility] Comment on above: Performed By: #### L 500.2500, L500.3400, L500.4100 ####[facility] [address] [place], [address] CO2 [Moles/Vol] 29.0 mmol/L Normal 21.0-32.0 [facility] Comment on above: Performed By: #### L 500.2500, L500.3400, L500.4100 ####[facility] [address] [place], [address] Creatinine [Mass/Vol] 1.01 mg/dL Normal 0.70-1.30 [facility] Comment on above: Result Comment: The validity of the calculated GFR GFRAA in patients over 70 years has not been determined. Clinical correlation is essential. Performed By: #### L 500.2500, L500.3400, L500.4100 ####[facility] [address] [place], [address] EST GFR - AA 94 mL/min Normal >60 [facility] Comment on above: Result Comment: Afri can Nauruan GFR Calc Performed By: #### L 500.2500, L500.3400, L500.4100 ####[facility] [address] [place], [address] GAP 4 Low 5-15 [facility] Comment on above: Performed By: #### L 500.2500, L500.3400, L500.4100 ####[facility] [address] [place], [address] GFR/1.73 sq M.predicted among non-blacks MDRD (S/P/Bld) [Vol rate/Area] 78 mL/min/{1.73_m2} Normal >60 [facility] Comment on above: Result Comment: Non- GFR Calc Performed By: #### L 500.2500, L500.3400, L500.4100 ####[facility] [address] [place], [address] Glucose [Mass/Vol] 179 mg/dL High 74-106 [facility] Comment on above: Result Comment: Fast ing Glucose result greater than or equal to 126 mg/dL suggests DIABETES MELLITUS per A.D.A. criteria. Performed By: #### L 500.2500, L500.3400, L500.4100 ####[facility] [address] [place], [address] Potassium [Moles/Vol] 4.6 mmol/L Normal 3.5-5.1 [facility] Comment on above: Performed By: #### L 500.2500, L500.3400, L500.4100 ####[facility] [address] [place], [address] Sodium [Moles/Vol] 137 mmol/L Normal 136-145 [facility] Comment on above: Performed By: #### L 500.2500, L500.3400, L500.4100 ####[facility] [address] [place], [address] Urea nitrogen [Mass/Vol] 20 mg/dL High 7-18 [facility] Comment on above: Performed By: #### L 500.2500, L500.3400, L500.4100 ####[facility] [address] [place], [address] Cardiology Visit Reporton Cardiology Visit Report [facility] [address] [place] [address] OFFICE VISIT Date of Service: 06/14/24 MR#: [id number] Acct: [id number] Name: CAIO SENIOR Rep #: [id number] : 1955 Provider: ANTHONY roldan Age/Sex: 69/M Location: [facility] Status: Signed HPI HPI History of Present Illness Details: This is a pleasant 69-year-old man who presents for a follow-up cardiovascular visit. He has a history of hypertension, diabetes, and hyperlipidemia. He presented to the emergency department in March 2019 with chest pain. His cardiac enzymes were noted to be normal. He underwent a cardiac catheterization on 03/22/2019 which demonstrated a normal left main coronary artery, left anterior descending artery with mild calcification and mild luminary irregularities. The circumflex artery had mid to distal subtotally occluded area with gross collaterals the proximal circumflex had a 90% stenosis the mid circumflex had a 75% stenosis. The right coronary artery was totally occluded with collateral flow from left to right his ejection fraction was 60%. He underwent successful drug- eluting stents to the first obtuse marginal branch and upstream with a 2.25 Promus Synergy stent. He has also been diagnosed with metastatic prostate carcinoma and is being followed by the oncologist. He denies chest, arm, jaw, or neck discomfort. He denies palpitations. He denies bilateral lower extremity edema. He denies claudication. He denies shortness of breath with activity, shortness of breath at rest, orthopnea, or PND. He denies chronic cough. He denies significant, sudden weight gain. He denies lightheadedness, dizziness, near-syncope, or syncope. He denies blood in urine, blood in stool, or epistaxis. He denies fever with chills. He denies myalgia. He denies fatigue. His exercise level has remained stable. Intake Vital Signs 12/22/23 09:02 05/24/24 07:49 06/14/24 08:34 Height 5 ft 8 in 5 ft 8 in 5 ft 8 in Weight: 246 lb BMI 37.4 BP 114/63 Blood Pressure Location Lt brachial Position Sitting Respiration 18 Pulse 63 Pulse Source Monitor Pulse Oximetry (%) 94 Intake Visit Reasons: 6 M FU Sewer Head Required: No Is patient in pain?: No Allergies No Known Allergies Allergy (Verified 06/14/24 08:34) Medications ???Medication ???Instructions ???Recorded ???Confirmed ???Type aspirin 81 mg tablet,delayed 81 mg PO DAILY antiplatelet 07/07/15 06/14/24 History release canagliflozin 300 mg tablet 300 mg PO DAILY Check with primary 03/21/19 06/14/24 History doctor blood sugar diagnostic ([facility]a 09/17/21 05/24/24 Rx Verio test strips) blood-glucose meter (OneTouch #1 ea 09/17/21 05/24/24 Rx Verio Meter) lancets 33 gauge (OneTouch Delica #200 ea 09/17/21 06/09/23 Rx Plus Lancet) metformin 1,000 mg tablet 1,000 mg PO BID #60 tabs 09/17/21 06/14/24 Rx bicalutamide 50 mg tablet (Casodex) 50 mg PO DAILY 90 days #90 tabs 05/19/23 06/14/24 Rx glimepiride 4 mg tablet 4 mg PO DAILY 05/21/23 06/14/24 History isosorbide mononitrate 60 mg 60 mg PO DAILY #90 tabs 10/02/23 06/14/24 Rx tablet,extended release 24 hr metoprolol tartrate 25 mg tablet 25 mg PO BID #180 tabs 10/02/23 06/14/24 Rx atorvastatin 80 mg tablet 80 mg PO DAILY #90 tabs 12/22/23 06/14/24 Rx semaglutide 0.25 mg or 0.5 mg (2 mg subcut 05/24/24 06/14/24 History mg/3 mL) subcutaneous pen injector (Gamemaster) Have you fallen in the past year?: No PFSH Medical History Wears glasses Cancer Prostate disease High cholesterol Restless legs Former smoker Shortness of breath on exertion Neuropathy History of stress test Cardiology follow-up encounter COVID-19 virus detected (08/2020) Obesity Diabetes 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 lymph node Essential (primary) hypertension Atherosclerosis of coronary artery of [place] heart without angina pectoris Hyperlipidemia Displaced oblique fracture of shaft of left fibula, subsequent encounter for closed fracture with routine healing Unspecified fracture of lower end of left tibia, subsequent encounter for closed fracture with routine healing Hyperlipidemia associated with type 2 diabetes mellitus Tobacco abuse disorder Crushing injury of distal finger Surgical History History of left heart catheterization (06/10/22) History of coronary artery stent placement (03/22/19) History of open reduction and internal fixation (ORIF) procedure Family History Mother Heart disease [place] spotted fever cause of heart problems Father Hypertension Diabetes mellitus, type 2 Myocardial infarction (more content not included)... Normal [facility] Lipid Profileon 06-14-2024 Cholesterol [Mass/Vol] 106 mg/dL Normal 200 [facility] Comment on above: Result Comment: <200 mg/dL Desirable 200-240 mg/dL Borderline >240 mg/dL High Risk Performed By: #### L 500.2500, L500.3400, L500.4100 ####[facility] [address] [place], [address] Cholesterol in HDL [Mass/Vol] 34 mg/dL Low [facility] Comment on above: Result Comment: The drugs N-Acetylcysteine and Metamizole may falsely depress this assay. Reference Range HDL <40 mg/dL Low HDL Cholesterol HDL >or= 60 mg/dL High HDL Cholesterol Performed By: #### L 500.2500, L500.3400, L500.4100 ####[facility] [address] [place], [address] Cholesterol in LDL [Mass/Vol] 33 mg/dL Normal 0-130 [facility] Comment on above: Performed By: #### L 500.2500, L500.3400, L500.4100 ####[facility] [address] [place], [address] Cholesterol in VLDL [Mass/Vol] 39 mg/dL Normal 5-40 [facility] Comment on above: Performed By: #### L 500.2500, L500.3400, L500.4100 ####[facility] [address] [place], [address] Triglyceride [Mass/Vol] 193 mg/dL Normal [facility] Comment on above: Result Comment: The drugs N-Acetylcysteine and Metamizole may falsely depress this assay. Serum Triglycerides Reference Interval Normal <150 mg/dL Borderline high 150 - 199 mg/dL High 200 - 499 mg/dL Very High > or = 500 mg/dL Performed By: #### L 500.2500, L500.3400, L500.4100 ####[facility] [address] [place], [address] Liver Profileon 06-14-2024 Albumin [Mass/Vol] 3.7 g/dL Normal 3.2-5.0 [facility] Comment on above: Performed By: #### L 500.2500, L500.3400, L500.4100 ####[facility] [address] [place], [address] ALK P 81 U/L Normal 45-117 [facility] Comment on above: Performed By: #### L 500.2500, L500.3400, L500.4100 ####[facility] [address] [place], [address] ALT [Catalytic activity/Vol] 40 U/L Normal 16-61 [facility] Comment on above: Performed By: #### L 500.2500, L500.3400, L500.4100 ####[facility] [address] [place], [address] AST [Catalytic activity/Vol] 18 U/L Normal 15-37 [facility] Comment on above: Performed By: #### L 500.2500, L500.3400, L500.4100 ####[facility] [address] [place], [address] Bilirubin [Mass/Vol] 1.80 mg/dL High 0.20-1.00 [facility] Comment on above: Result Comment: For patients on eltrombopag therapy, use of Dimension [place] TBIL is not recommended. Performed By: #### L 500.2500, L500.3400, L500.4100 ####[facility] [address] [place], [address] Bilirubin.direct [Mass/Vol] 0.36 mg/dL High 0.00-0.30 [facility] Comment on above: Performed By: #### L 500.2500, L500.3400, L500.4100 ####[facility] [address] [place], [address] Globulin (S) [Mass/Vol] 3.8 g/dL Normal 2.2-4.2 [facility] Comment on above: Performed By: #### L 500.2500, L500.3400, L500.4100 ####[facility] [address] [place], [address] T PROT 7.5 g/dL Normal 6.4-8.2 [facility] Comment on above: Performed By: #### L 500.2500, L500.3400, L500.4100 ####[facility] [address] [place], [address] Lung Screeningon 06-07-[address] Lung Screening [facility] [address] [place] [address] Lung Screening MR#: [id number] Acct: [id number] Name: CAIO SENIOR Rep #: [id number] : 1955 M 69 From: Ebenezer fox MD PCP: Dr. Marisa Arredondo MD Status: [facility] Study: Low Dose CT Lung Screening Date of Exam: 06/07 Exam# [id number] Ordering Dr: Denise Uriarte DEPUTY SHERIFF K9 HANDLER DEPUTY SHERIFF K9 HANDLER-C [id number] STUDY: LOW DOSE CT LUNG CANCER SCREENING REASON FOR EXAM: Male, 69 years old. Smoker quit 2017. Patient smoked 1 pack per day for 40 years. RADIATION DOSAGE (If Supplied By Facility): CTDIvol = ( 4.02 ) mGy, DLP = ( 148.48 ) mGycm TECHNIQUE: No contrast was administered. Low dose technique was utilized (average mAS-38 and kVp 120). 1.25 mm axial source images with a slice interval of 1.25-mm were reconstructed in lung windows. 2.5 mm axial source images with a slice interval of 2.5-mm were reconstructed in lung windows. 5.0 mm axial source images with a slice interval of 5.0-mm were reconstructed in soft tissue windows. COMPARISON: Comparison is made with prior study dated March 29, 2020. NODULES: Stable 8 mm partially calcified nodule in the anterior aspect of the right lower lobe as seen on axial image #144. Emphysema: Unremarkable Endobronchial lesion: Unremarkable Aorta: Mild atherosclerotic plaque formation of the aortic arch. CORONARY ARTERIES: Coronary artery calcification is seen. Heart: Unremarkable Pulmonary artery: Mediastinal nodes: Other chest and abdominal findings: CT/Low Dose CT Lung Screening IMPRESSION: Lung-RADS category 2 - Continue annual screening with LDCT in 12 months. IMPORTANT NOTES FOR USE: ACR Lung-RADS Version 1.1 Assessment Categories Release Date: 2018 Category: Coded 0-4 bases on nodule(s) with highest degree of suspicion. Negative screen is defined as categories 1 and 2; a positive screen is defined as categories 3 and 4. Category 3 and 4A nodules that are unchanged on interval CT should be coded as category 2, and individuals returned to screening in 12 months. Category 4X: Category 3 or 4 nodules with additional imaging findings that increase the suspicion of lung cancer, such as spiculation, GGN that doubles in size in 1 year, enlarged lymph notes, etc. Category Modifiers: S (significant finding unrelated to lung cancer) Electronically Signed: Ebenezer Cardenas MD at 15:24 EDT Reading Location ID and State: [facility] / [place] , Service support , CC: ANTHONY Uriarte; Dr. Marisa Arredondo MD Data Power Consultant: Signed Normal [facility] Pulmonary Visit Reporton Pulmonary Visit Report [facility] of [address] [place], [place] [address] OFFICE VISIT Date of Service: 05/24/24 MR#: [id number] Acct: [id number] Name: CAIO SENIOR Rep #: [id number] : 1955 Provider: ANTHONY Uriarte Age/Sex: 69/M Location: [facility] [place] Status: Signed Assessment and Plan Assessment and Plan (1) Smoking greater than 40 pack years: Status: Chronic Comment: quit 2017 Plan: Encourage ongoing smoking cessation. Repeat LDCT in one year, ordered. (2) Sleep apnea: Status: Chronic Qualifiers: Sleep apnea type: obstructive Qualified Code(s): G47.33 - Obstructive sleep apnea (adult) (pediatric) Plan: He is using and benefiting from Pap therapy, however he does not "like it". We discussed treatment alternatives, the patient is not interested in the inspire device. After reviewing the severity of his obstructive sleep apnea and discussing the risks of untreated sleep apnea the patient has agreed to continue with PAP therapy and try to wear it more often". No indication for titration study at this time. Contact the office for any new or worsening symptoms in the meantime. Follow-up in 3 months to evaluate for better compliance. Orders: Orders Low Dose CT Lung Screening 05/24/24 F17.200 - Nicotine dependence, unspecified, uncomplicated, F17.210 - Nicotine dependence, cigarettes, uncomplicated HPI Sleep concern Chief Complaint: sleep apnea HPI Comments Details: This patient presents to the office today for initial consultation regarding concern for obstructive sleep apnea. He is ambulatory and currently on room air. The patient reports that he was tested earlier this year and set up with PAP therapy a few months ago (March 02, 2024). He states that he wants to get rid of it". He is unsure if he snores with the device on. He is not napping. He does admit to occasionally nodding off to sleep unintentionally. He does report dry mouth. He is not having difficulty with morning headaches. He is not having nocturia. 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 He states that he "he is not going to take that machine in the truck with me, I will use it on the weekends". He does have a smoking history. He was a pack per day smoker for 44 years quitting completely 7 years ago. He has never seen a sprinkler installer. He was prescribed a rescue inhaler back in 2019 when he had COVID. Past medical family history significant for: Mother had heart trouble, father also had heart problems. He has 3 sisters and 1 brother, all have good health. The patient has 5 sons and 1 daughter, 1 son has a history of "small windpipe at , was on a trach for a while and required a dilation". He denies any difficulty with shortness of breath. He denies any cough, sputum production or hemoptysis. He denies any wheezing, chest tightness, chest pain or palpitations. He has not had any fever, chills or body aches. Test results personally reviewed with the patient: Polysomnogram completed on January 05, 2024. Overall AHI is 17.7 events per hour. Impression is moderate obstructive sleep apnea. Recommendation is trial of AutoPap. Compliance report for the past 30 days shows 47% compliance and average use of 3 hours and 29 minutes per night. Current setting is AutoPap 5-15 cmH2O pressure typically being utilized at 9.1 to 13.9 cm water. Residual AHI of 7.6 events per hour. Leaks could be an issue. Intake Vital Signs 12/22/23 09:02 04/11/24 14:18 05/24/24 07:49 Height 5 ft 8 in 5 ft 8 in 5 ft 8 in Weight: 244 lb BMI 37.0 BP 116/63 Blood Pressure Location Rt radial Position Sitting Respiration 18 Pulse 74 Pulse Source Monitor Temp 97.4 F L Temperature Source Temporal Artery Pulse Oximetry (%) 95 Oxygen Delivery Method room air Intake Visit Reasons: Sleep problems DME Vendor: Mell Accompanied by: Self Allergies No Known Allergies Allergy (Verified 05/24/24 10:49) Medications ???Medication ???Instructions ???Recorded ???Confirmed ???Type aspirin 81 mg tablet,delayed 81 mg PO DAILY antiplatelet 07/07/15 05/24/24 History release canagliflozin 300 mg tablet 300 mg PO DAILY Check with primary 03/21/19 05/24/24 History doctor blood sugar diagnostic (Corefinouch #200 ea 09/17/21 05/24/24 Rx Verio test strips) blood-glucose meter (OneTouch #1 ea 09/17/21 05/24/24 Rx Verio Meter) lancets 33 gauge (OneTouch Delica #200 ea 09/17/21 06/09/23 Rx Plus Lancet) metformin 1,000 mg tablet 1,000 mg PO BID #60 tabs 09/17/21 05/24/24 Rx bicalutamide 50 mg tablet (Casodex) 50 mg PO DAILY 90 days #90 tabs 05/19/23 05/24/24 Rx glimepiride 4 mg tablet 4 mg PO DAILY 05/21/23 05/24/24 History isosorbide mononitrate 60 mg 60 mg PO DAILY #90 tabs 10/02/23 05/24/24 Rx tab (more content not included)... Normal [facility] Acetone Serumon 04-11-2024 ACETONE SERUM Negative Normal NEG [facility] Comment on above: Performed By: #### L 100.0100, L501.6900, L500.2500 ####[facility] [address] [place], [address] Basic Metabolic Profile (BMP )on 04-11-2024 BUN/CRE 17.3 RATIO Normal 10-20 [facility] Comment on above: Performed By: #### L 100.0100, L501.6900, L500.2500 #### [facility] [address] [place], [address] CA,Total 9.1 mg/dL Normal 8.5-10.1 [facility] Comment on above: Performed By: #### L 100.0100, L501.6900, L500.2500 #### [facility] [address] [place], [address] Chloride [Moles/Vol] 106 mmol/L Normal 98-107 [facility] Comment on above: Performed By: #### L 100.0100, L501.6900, L500.2500 #### [facility] [address] [place], [address] CO2 [Moles/Vol] 27.0 mmol/L Normal 21.0-32.0 [facility] Comment on above: Performed By: #### L 100.0100, L501.6900, L500.2500 #### [facility] [address] [place], [address] Creatinine [Mass/Vol] 1.50 mg/dL High 0.70-1.30 [facility] Comment on above: Result Comment: The validity of the calculated GFR GFRAA in patients over 70 years has not been determined. Clinical correlation is essential. Performed By: #### L 100.0100, L501.6900, L500.2500 #### [facility] [address] [place], [address] ECRCL 58.08 ml/min Normal [facility] Comment on above: Performed By: #### L 100.0100, L501.6900, L500.2500 #### [facility] [address] [place], [address] EST GFR - AA 60 mL/min Normal >60 [facility] Comment on above: Result Comment: Afri can Nauruan GFR Calc Performed By: #### L 100.0100, L501.6900, L500.2500 #### [facility] [address] [place], [address] GAP 6 Normal 5-15 [facility] Comment on above: Performed By: #### L 100.0100, L501.6900, L500.2500 #### [facility] [address] [place], [address] GFR/1.73 sq M.predicted among non-blacks MDRD (S/P/Bld) [Vol rate/Area] 49 mL/min/{1.73_m2} Low >60 [facility] Comment on above: Result Comment: Non- GFR Calc Performed By: #### L 100.0100, L501.6900, L500.2500 #### [facility] [address] [place], [address] Glucose [Mass/Vol] 285 mg/dL High 74-106 [facility] Comment on above: Result Comment: Gluc ose result greater than or equal to 200 mg/dL suggests DIABETES MELLITUS per A.D.A. criteria. Performed By: #### L 100.0100, L501.6900, L500.2500 #### [facility] [address] [place], [address] Potassium [Moles/Vol] 4.4 mmol/L Normal 3.5-5.1 [facility] Comment on above: Performed By: #### L 100.0100, L501.6900, L500.2500 #### [facility] [address] [place], [address] Sodium [Moles/Vol] 139 mmol/L Normal 136-145 [facility] Comment on above: Performed By: #### L 100.0100, L501.6900, L500.2500 #### [facility] [address] [place], [address] Urea nitrogen [Mass/Vol] 26 mg/dL High 7-18 [facility] Comment on above: Performed By: #### L 100.0100, L501.6900, L500.2500 #### [facility] [address] [place], [address] Bedside Glucoseon 04-11-2024 FINGERSTICK GLU 284 mg/dL High 74-106 [facility] Comment on above: Result Comment: NARDA EASTMAN OF PATIENT CARE PER NURSING PROTOCOL Performed By: #### L 501.080 #### [facility] [address] [place], [address] CBC W/Diff, Automatedon 04-01 Absolute Lymph 1.03 X10 3/uL Normal 0.83-4.51 [facility] Comment on above: Performed By: #### L 100.0100, L501.6900, L500.2500 #### [facility] [address] [place], [address] Absolute Neut 3.8 X10 3/uL Normal 2.0-7.7 [facility] Comment on above: Performed By: #### L 100.0100, L501.6900, L500.2500 #### [facility] [address] [place], [address] Basophils/100 WBC (Bld) 1.2 % High 0-1 [facility] Comment on above: Performed By: #### L 100.0100, L501.6900, L500.2500 #### [facility] [address] [place], [address] Eosinophils/100 WBC (Bld) 4.9 % Normal 0-5 [facility] Comment on above: Performed By: #### L 100.0100, L501.6900, L500.2500 #### [facility] [address] [place], [address] Erythrocyte distribution width (RBC) [Ratio] 13.0 % Normal 11.6-14.6 [facility] Comment on above: Performed By: #### L 100.0100, L501.6900, L500.2500 #### [facility] [address] [place], [address] Hematocrit (Bld) [Volume fraction] 37.7 % Low 40-54 [facility] Comment on above: Performed By: #### L 100.0100, L501.6900, L500.2500 #### [facility] [address] [place], [address] Hemoglobin (Bld) [Mass/Vol] 12.4 g/dL Low 13.0-16.5 [facility] Comment on above: Performed By: #### L 100.0100, L501.6900, L500.2500 #### [facility] [address] [place], [address] IG% 0.500 Normal 0.0-0.9 [facility] Comment on above: Result Comment: IG% - Immature Granulocytes (promyelocytes, myelocytes and metamyelocytes) > 1% indicates that a LEFT SHIFT is Present. Performed By: #### L 100.0100, L501.6900, L500.2500 #### [facility] [address] [place], [address] Lymphocytes/100 WBC (Bld) 18.0 % Low 19-41 [facility] Comment on above: Performed By: #### L 100.0100, L501.6900, L500.2500 #### [facility] [address] [place], [address] MCH (RBC) [Entitic mass] 32.1 pg High 27.0-32.0 [facility] Comment on above: Performed By: #### L 100.0100, L501.6900, L500.2500 #### [facility] [address] [place], [address] MCHC (RBC) [Mass/Vol] 32.9 g/dL Normal 32-36 [facility] Comment on above: Performed By: #### L 100.0100, L501.6900, L500.2500 #### [facility] [address] [place], [address] MCV (RBC) [Entitic vol] 97.7 fL High 80-94 [facility] Comment on above: Performed By: #### L 100.0100, L501.6900, L500.2500 #### [facility] [address] [place], [address] Monocytes/100 WBC (Bld) 8.6 % Normal 0-10 [facility] Comment on above: Performed By: #### L 100.0100, L501.6900, L500.2500 #### [facility] [address] [place], [address] Neutrophils/100 WBC (Bld) 66.8 % Normal 47-70 [facility] Comment on above: Performed By: #### L 100.0100, L501.6900, L500.2500 #### [facility] [address] [place], [address] Nucleated RBC (Bld) [#/Vol] 0 10*3/uL Normal 0-5 [facility] Comment on above: Performed By: #### L 100.0100, L501.6900, L500.2500 #### [facility] [address] [place], [address] Platelet mean volume (Bld) [Entitic vol] 10.1 fL Normal 6.2-12.0 [facility] Comment on above: Performed By: #### L 100.0100, L501.6900, L500.2500 #### [facility] [address] [place], [address] Platelets (Bld) [#/Vol] 154 10*3/uL Normal 150-450 [facility] Comment on above: Performed By: #### L 100.0100, L501.6900, L500.2500 #### [facility] [address] [place], [address] RBC (Bld) [#/Vol] 3.86 10*6/uL Low 4.6-6.2 [facility] Comment on above: Performed By: #### L 100.0100, L501.6900, L500.2500 #### [facility] [address] [place], [address] RDW SD 46.1 fl High 35.1-43.9 [facility] Comment on above: Performed By: #### L 100.0100, L501.6900, L500.2500 #### [facility] [address] [place], [address] WBC (Bld) [#/Vol] 5.7 10*3/uL Normal 4.4-11.0 [facility] Comment on above: Performed By: #### L 100.0100, L501.6900, L500.2500 #### [facility] [address] [place], [address] Emergency Department Summary on 04-11-2024 Emergency Department Summary [facility] Medical Records Department [address] [place] [address] Emergency Department Summary 04/11/24 MR#: [id number] Acct: [id number] Name: CAIO SENIOR Rep #: [id number] : 1955 68 From: Moe Barreto DO PCP: Dr. Marisa Arredondo MD Status:REG ER Location: ED HPI History of Present Illness Chief Complaint: Hyperglycemia Informant: patient and family Onset/Context/Yunielin g Onset: Yesterday Context: Gradual Onset Timing: Intermittent Quality: Weakness Location: Legs Worsened by: Nothing Relieved by: Rest Narrative Narrative: Patient presents with elevated blood sugar and dizziness that began yesterday. Patient states it is gradually getting worse. Patient states it is intermittent. Patient states he feels weak in his legs. Patient states it is better with rest. Patient family states patient did have some subjective chills yesterday. Family states patient did have an episode of diaphoresis with that yesterday. Patient states he had an episode of nausea and vomiting last week but denies any nausea or vomiting currently. Patient denies any chest pain or shortness of breath. [facility] Medical History Wears glasses Cancer Prostate disease High cholesterol Restless legs Former smoker Shortness of breath on exertion Neuropathy History of stress test Cardiology follow-up encounter COVID-19 virus detected (08/2020) Obesity Diabetes 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 lymph node Essential (primary) hypertension Atherosclerosis of coronary artery of [place] heart without angina pectoris Hyperlipidemia Displaced oblique fracture of shaft of left fibula, subsequent encounter for closed fracture with routine healing Unspecified fracture of lower end of left tibia, subsequent encounter for closed fracture with routine healing Hyperlipidemia associated with type 2 diabetes mellitus Tobacco abuse disorder Crushing injury of distal finger Home Medications ???Medication ???Instructions ???Recorded ???Last Taken ???Type aspirin 81 mg tablet,delayed 81 mg PO DAILY antiplatelet 07/07/15 06/10/22 History release canagliflozin 300 mg tablet 300 mg PO DAILY Check with primary 03/21/19 Unknown History doctor blood sugar diagnostic (OneTouch #200 ea 09/17/21 Unknown Rx Verio test strips) blood-glucose meter (OneTouch #1 ea 09/17/21 Unknown Rx Verio Meter) lancets 33 gauge (OneTouch Delica #200 ea 09/17/21 Unknown Rx Plus Lancet) metformin 1,000 mg tablet 1,000 mg PO BID #60 tabs 09/17/21 06/08/22 Rx bicalutamide 50 mg tablet (Casodex) 50 mg PO DAILY 90 days #90 tabs 05/19/23 07/15/23 03:45 Rx glimepiride 4 mg tablet 4 mg PO DAILY 05/21/23 Unknown History isosorbide mononitrate 60 mg 60 mg PO DAILY #90 tabs 10/02/23 Unknown Rx tablet,extended release 24 hr metoprolol tartrate 25 mg tablet 25 mg PO BID #180 tabs 10/02/23 Unknown Rx atorvastatin 80 mg tablet 80 mg PO DAILY #90 tabs 12/22/23 Unknown Rx Allergy/AdvReac Type Severity Reaction Status Date / Time No Known Allergies Allergy Verified 07/15/23 06:47 Family History Mother Heart disease [place] spotted fever cause of heart problems Father Hypertension Diabetes mellitus, type 2 Myocardial infarction Surgical History History of left heart catheterization (06/10/22) History of coronary artery stent placement (03/22/19) History of open reduction and internal fixation (ORIF) procedure Social History Smoking Status: Former smoker how long ago did patient quit smokin years ago alcohol intake: never substance use type: does not use caffeine: Yes Type: coffee Number of servings: 1 ROS ROS ED Constitutional Constitutional ED: Reports chills, subjective and sweats; Denies fever(s) Eyes Eyes: Denies blurry vision or change in vision ENT ENT ED: Denies rhinorrhea or sore throat Cardiovascular Cardiovascular: Denies chest pain or palpitations Respiratory/Chest Respiratory/Chest: Denies cough or dyspnea Gastrointestinal Gastrointestinal: Reports nausea and vomiting Genitourinary Genitourinary ED: Denies dysuria or hematuria Musculoskeletal Musculoskeletal: Denies back pain or neck pain Integumentary Denies abscess or rash Neurologic Neurologic: Reports weakness; Denies headache(s) Allergic/Immunologi c Allergic/Immunologi c ED: Denies mouth swelling or urticaria EXAM Physical Exam Const Vital Signs: 04/11/24 14:18 04/11/24 14:57 04/11/24 16:18 Temperature 96.4 F L Temperature Source Temporal Pulse Rate 76 55 L Respiratory Rate 20 H 18 Respiratory Effort N (more content not included)... Normal [facility] Urinalysis, Completeon 04-11 BACTERIA 1+ /hpf Normal None Seen [facility] Comment on above: Order Comment: CLEAN CATCH Performed By: #### L 400.0001 ####[facility] [address] [facility] [address] EPI,SQUAMOUS 0-5 SEEN Normal 0-5 [facility] Comment on above: Order Comment: CLEAN CATCH Performed By: #### L 400.0001 ####[facility] [address] [place], [address] RBC 0-5 SEEN Normal 0-5 [facility] Comment on above: Order Comment: CLEAN CATCH Performed By: #### L 400.0001 ####[facility] [address] [place], [address] WBC 0 SEEN Normal 0-5 [facility] Comment on above: Order Comment: CLEAN CATCH Performed By: #### L 400.0001 ####[facility] [address] [place], [address] Mucus Ql (Urine sed) 0 SEEN Normal [facility] Comment on above: Order Comment: CLEAN CATCH Performed By: #### L 400.0001 ####[facility] [address] [place], [place], [address] PSA,Total- Diagnosticon 07-0 PSA, DIAGNOSTIC 0.20 ng/mL Normal 0.0-4.0 [facility] Comment on above: Result Comment: This test was performed using the TPSA assay method for the [employer] chemistry system. Values obtained with different assay methods cannot be used interchangably. When changing PSA assays in the course of monitoring a patient, additional sequential testing should be carried out to confirm baseline values. Performed By: #### L 501.9940 #### [facility] [address] [place], [place], [address] Basophil percentageOrdered B y: Delgado Jacobson on 12-16-2023 Bilirubin [Mass/Vol] 0.90 mg/dL 0.20-1.00 [facility] Comment on above: For patients on eltr ombopag therapy, use of Dimension [place] TBIL is not recommended. Cholesterol [Mass/Vol] 222 mg/dL <200 [facility] Comment on above: <200 mg/dL Desirable 200-240 mg/dL Borderline >240 mg/dL High Risk Protein [Mass/Vol] 7.3 g/dL 6.4-8.2 [facility] Triglyceride [Mass/Vol] 288 mg/dL <199 [facility] Comment on above: The drugs N-Acetylcy steine and Metamizole may falsely depress this assay.Serum Triglycerides Reference Interval Normal <150 mg/dL Borderline high 150 - 199 mg/dL High 200 - 499 mg/dL Very High > or = 500 mg/dL Direct bilirubinOrdered By: Delgado Jacobson on 12-16-2023 Bilirubin.direct [Mass/Vol] 0.18 mg/dL 0.00-0.30 [facility] - Chemistry and C hemistry - challengeOrdered By: Delgado Jacobson on 12-16-2023 ALP [Catalytic activity/Vol] 68 U/L 45-117 [facility] ALT [Catalytic activity/Vol] 33 U/L 16-61 [facility] Cholesterol in HDL [Mass/Vol] 40 mg/dL >40 [facility] Comment on above: The drugs N-Acetylcy steine and Metamizole may falsely depress this assay. Reference Range HDL <40 mg/dL Low HDL Cholesterol HDL >or= 60 mg/dL High HDL Cholesterol Cholesterol in LDL [Mass/Vol] 124 mg/dL 0-130 [facility] Globulin (S) [Mass/Vol] 3.8 g/dL 2.2-4.2 [facility] No Panel InformationOrdered By: Delgado Jacobson on 12-16-2023 VLDL Cholesterol 58 mg/dL 5-40 [facility] Thin prep Papanicolaou smear with manual screeningOrdered By: Delgado Jacobson on 12-16-2023 Thin prep Papanicolaou smear with manual screening 3.5 g/dL 3.2-5.0 [facility] Thin prep Papanicolaou smear with manual screening 14 U/L 15-37 [facility] Whole blood hemoglobin A1c/t otal hemoglobin ratio (mass fraction)Ordered By: Moe Agudelo on 12-16-2023 HbA1c (Bld) [Mass fraction] 10.1 % 3.8-5.6 [facility] Comment on above: Normal < 5.7 % Predi abetic 5.7 - 6.4 % Diabetic >or= 6.5 % Please note range changes. Basophil percentageOrdered B y: Delgado Jacobson on 11-10-2023 Basophil percentage 0.39 ng/mL 0.0-4.0 [facility] Comment on above: This test was perfor med using the TPSA assay method for the[employer] chemistry system. Values obtained with differentassay methods cannot be used interchangably.When changing PSA assays in the course of monitoring apatient, additional sequential testing should be carriedout to confirm baseline values. Bilirubin [Mass/Vol] 1.00 mg/dL 0.20-1.00 [facility] Comment on above: For patients on eltr ombopag therapy, use of Dimension [place] TBIL is not recommended. Cholesterol [Mass/Vol] 233 mg/dL <200 [facility] Comment on above: <200 mg/dL Desirable 200-240 mg/dL Borderline >240 mg/dL High Risk Protein [Mass/Vol] 7.2 g/dL 6.4-8.2 [facility] Triglyceride [Mass/Vol] 302 mg/dL <199 [facility] Comment on above: The drugs N-Acetylcy steine and Metamizole may falsely depress this assay.Serum Triglycerides Reference Interval Normal <150 mg/dL Borderline high 150 - 199 mg/dL High 200 - 499 mg/dL Very High > or = 500 mg/dL Direct bilirubinOrdered By: Delgado Jacobson on 11-10-2023 Bilirubin.direct [Mass/Vol] 0.20 mg/dL 0.00-0.30 [facility] - Chemistry and C hemistry - challengeOrdered By: Delgado Jacobson on 11-10-2023 ALP [Catalytic activity/Vol] 73 U/L 45-117 [facility] ALT [Catalytic activity/Vol] 37 U/L 16-61 [facility] Cholesterol in HDL [Mass/Vol] 36 mg/dL >40 [facility] Comment on above: The drugs N-Acetylcy steine and Metamizole may falsely depress this assay. Reference Range HDL <40 mg/dL Low HDL Cholesterol HDL >or= 60 mg/dL High HDL Cholesterol Cholesterol in LDL [Mass/Vol] 137 mg/dL 0-130 [facility] Globulin (S) [Mass/Vol] 3.8 g/dL 2.2-4.2 [facility] No Panel InformationOrdered By: Delgado Jacobson on 11-10-2023 VLDL Cholesterol 60 mg/dL 5-40 [facility] Thin prep Papanicolaou smear with manual screeningOrdered By: Delgado Jacobson on 11-10-2023 Thin prep Papanicolaou smear with manual screening 3.4 g/dL 3.2-5.0 [facility] Thin prep Papanicolaou smear with manual screening 16 U/L 15-37 [facility] Glucose Glucometer (BldC) [M ass/Vol]Ordered By: Morgan Hutton on 07-15-2023 Glucose [Mass/Vol] 149 mg/dL 74-106 [facility] Comment on above: MANAGEMENT OF PATIEN T CARE PER NURSING PROTOCOL Absolute lymphocyte countOrd ered By: Mykel Sweeney on 05-19-2023 Lymphocytes Auto (Unsp spec) [#/Vol] 0.93 10*3/uL 0.83-4.51 [facility] Basophil percentageOrdered B y: Mykel Sweeney on 05-19-2023 Basophils/100 WBC (Bld) 1.0 % 0-1 [facility] Bilirubin [Mass/Vol] 0.90 mg/dL 0.20-1.00 [facility] Comment on above: For patients on eltr ombopag therapy, use of Dimension [place] TBIL is not recommended. Chloride [Moles/Vol] 101 mmol/L 98-107 [facility] Eosinophils/100 WBC (Bld) 5.5 % 0-5 [facility] Glucose [Mass/Vol] 283 mg/dL 74-106 [facility] Comment on above: Glucose result great er than or equal to 200 mg/dLsuggests DIABETES MELLITUS per A.D.A. criteria. LDH [Catalytic activity/Vol] 186 U/L 87-241 [facility] Neutrophils (Bld) [#/Vol] 3.3 10*3/uL 2.0-7.7 [facility] Neutrophils/100 WBC (Bld) 64.8 % 47-70 [facility] Potassium [Moles/Vol] 4.3 mmol/L 3.5-5.1 [facility] Protein [Mass/Vol] 7.3 g/dL 6.4-8.2 [facility] Sodium [Moles/Vol] 136 mmol/L 136-145 [facility] WBC (Bld) [#/Vol] 5.1 10*3/uL 4.4-11.0 [facility] Blood erythrocytes count (nu mber/volume)Ordered By: Mykel Sweeney on 05-19-2023 RBC (Bld) [#/Vol] 4.30 10*6/uL 4.6-6.2 [facility] Blood hemoglobin measurement (mass/volume)Ordered By: Mykel Sweeney on 05-19-2023 Hemoglobin (Bld) [Mass/Vol] 13.7 g/dL 13.0-16.5 [facility] Blood lymphocytes/100 leukoc ytesOrdered By: Mykel Sweeney on 05-19-2023 Lymphocytes/100 WBC (Bld) 18.4 % 19-41 [facility] Blood monocytes/100 leukocyt esOrdered By: Mykel Sweeney on 05-19-2023 Monocytes/100 WBC (Bld) 8.9 % 0-10 [facility] Blood platelet mean volumeOr dered By: Mykel Sweeney on 05-19-2023 Platelet mean volume (Bld) [Entitic vol] 9.8 fL 6.2-12.0 [facility] Determination of erythrocyte mean corpuscular volume (MCV)Ordered By: Mykel Sweeney on 05-19-2023 MCV (RBC) [Entitic vol] 99.1 fL 80-94 [facility] Hematocrit Auto (Bld) [Volum e fraction]Ordered By: Mykel Sweeney on 05-19-2023 Hematocrit (Bld) [Volume fraction] 42.6 % 40-54 [facility] - Chemistry and C hemistry - challengeOrdered By: [place] Zahra on 05-19-2023 ALP [Catalytic activity/Vol] 79 U/L 45-117 [facility] ALT [Catalytic activity/Vol] 82 U/L 16-61 [facility] CO2 [Moles/Vol] 27.0 mmol/L 21.0-32.0 [facility] Globulin (S) [Mass/Vol] 3.8 g/dL 2.2-4.2 [facility] Urea nitrogen/Creatinine [Mass ratio] 25.5 mg/mg 10-20 [facility] - Hematology and Cell countsOrdered By: [place] Zahra on 05-19-2023 Erythrocyte distribution width (RBC) [Entitic vol] 49.7 fL 35.1-43.9 [facility] Erythrocyte distribution width (RBC) [Ratio] 13.6 % 11.6-14.6 [facility] Immature granulocytes/100 WBC (Bld) 1.400 % 0.0-0.9 [facility] Comment on above: IG% - Immature Granu locytes (promyelocytes, myelocytes and metamyelocytes) > 1% indicates that a LEFT SHIFT is Present. MCH (RBC) [Entitic mass] 31.9 pg 27.0-32.0 [facility] Nucleated RBC/100 WBC (Bld) [Ratio] 0 % 0-5 [facility] MCHC Auto (RBC) [Mass/Vol]Or dered By: Mykel Sweeney on 05-19-2023 MCHC (RBC) [Mass/Vol] 32.2 g/dL 32-36 [facility] No Panel InformationOrdered By: Mykel Sweeney on 05-19-2023 Estimated Creatinine Clearance Calc 64.53 ml/min [facility] Estimated GFR (MDRD) Amer 89 mL/min >60 [facility] Comment on above: GFR Calc Estimated GFR (MDRD) Non-Af Amer 74 mL/min >60 [facility] Comment on above: Non- GFR Calc Prostate Specific Antigen Total 22.70 ng/mL 0.0-4.0 [facility] Comment on above: This test was perfor med using the TPSA assay method for the[employer] chemistry system. Values obtained with differentassay methods cannot be used interchangably.When changing PSA assays in the course of monitoring apatient, additional sequential testing should be carriedout to confirm baseline values. Platelets bldOrdered By: lT Sweeney on 05-19-2023 Platelets (Bld) [#/Vol] 159 10*3/uL 150-450 [facility] Serum or plasma albumin jhony urement (mass/volume)Ordered By: Mykel Sweeney on 05-19-2023 Albumin [Mass/Vol] 3.5 g/dL 3.2-5.0 [facility] Serum or plasma albumin/glob ulin mass ratioOrdered By: Mykel Sweeney on 05-19-2023 Albumin/Globulin [Mass ratio] 0.9 {ratio} 0.9-2.4 [facility] Serum or plasma calcium jhony urement (mass/volume)Ordered By: Mykel Sweeney on 05-19-2023 Calcium [Mass/Vol] 8.8 mg/dL 8.5-10.1 [facility] Serum or plasma creatinine m easurement (mass/volume)Ordered By: Mykel Sweeney on 05-19-2023 Creatinine [Mass/Vol] 1.06 mg/dL 0.70-1.30 [facility] Comment on above: The validity of the calculated GFR & GFRAA in patients over 70 years has not been determined. Clinical correlation is essential. Serum or plasma urea nitroge n measurement (mass/volume)Ordered By: Mykel Sweeney on 05-19-2023 Urea nitrogen [Mass/Vol] 27 mg/dL - [facility] Thin prep Papanicolaou smear with manual screeningOrdered By: Mykel Sweeney on 05-19-2023 Thin prep Papanicolaou smear with manual screening 46 U/L 15-37 [facility] Thin prep Papanicolaou smear with manual screening 8 5-15 [facility] Absolute lymphocyte counton 05-13-2022 Lymphocytes Auto (Unsp spec) [#/Vol] 1.03 10*3/uL 0.83-4.51 [facility] Work Phone: Basophil percentageon 2021 Basophil percentage < 0.9 mg/dL 0.70-1.30 [facility] Work Phone: Basophils/100 WBC (Bld) 1.2 % 0-1 [facility] Work Phone: Bilirubin [Mass/Vol] 1.10 mg/dL 0.20-1.00 [facility] Work Phone: Comment on above: For patients on eltr ombopag therapy, use of Dimension [place] TBIL is not recommended. Chloride [Moles/Vol] 105 mmol/L 98-107 [facility] Work Phone: Eosinophils/100 WBC (Bld) 7.2 % 0-5 [facility] Work Phone: Glucose [Mass/Vol] 201 mg/dL 74-106 [facility] Work Phone: Comment on above: Glucose result great er than or equal to 200 mg/dLsuggests DIABETES MELLITUS per A.D.A. criteria. Neutrophils (Bld) [#/Vol] 3.8 10*3/uL 2.0-7.7 [facility] Work Phone: Neutrophils/100 WBC (Bld) 63.2 % 47-70 [facility] Work Phone: Potassium [Moles/Vol] 4.5 mmol/L 3.5-5.1 [facility] Work Phone: Protein [Mass/Vol] 7.5 g/dL 6.4-8.2 [facility] Work Phone: Sodium [Moles/Vol] 137 mmol/L 136-145 [facility] Work Phone: WBC (Bld) [#/Vol] 6.0 10*3/uL 4.4-11.0 [facility] Work Phone: Blood erythrocytes count (nu mber/volume)on 05-13-2022 RBC (Bld) [#/Vol] 4.22 10*6/uL 4.6-6.2 [facility]: Blood hemoglobin measurement (mass/volume)on 05-13-2022 Hemoglobin (Bld) [Mass/Vol] 13.3 g/dL 13.0-16.5 [facility] Work Phone: Blood lymphocytes/100 leukoc yteson 05-13-2022 Lymphocytes/100 WBC (Bld) 17.2 % 19-41 [facility] Work Phone: Blood monocytes/100 leukocyt eson 05-13-2022 Monocytes/100 WBC (Bld) 10.5 % 0-10 [facility] Work Phone: Blood platelet mean volumeon 05-13-2022 Platelet mean volume (Bld) [Entitic vol] 10.0 fL 6.2-12.0 [facility] Work Phone: Determination of erythrocyte mean corpuscular volume (MCV)on 05-13-2022 MCV (RBC) [Entitic vol] 97.6 fL 80-94 [facility] Work Phone: Hematocrit Auto (Bld) [Volum e fraction]on 05-13-2022 Hematocrit (Bld) [Volume fraction] 41.2 % 40-54 [facility] Work Phone: Laboratory - Chemistry and C hemistry - challengeon 05-13-2022 ALP [Catalytic activity/Vol] 101 U/L 45-117 [facility] Work Phone: ALT [Catalytic activity/Vol] 49 U/L 16-61 [facility] Work Phone: CO2 [Moles/Vol] 24.0 mmol/L 21.0-32.0 [facility] Work Phone: Globulin (S) [Mass/Vol] 3.8 g/dL 2.2-4.2 [facility] Work Phone: Urea nitrogen/Creatinine [Mass ratio] 28.1 mg/mg 10-20 [facility] Work Phone: Laboratory - Hematology and Cell countson 05-13-2022 Erythrocyte distribution width (RBC) [Entitic vol] 49.1 fL 35.1-43.9 [facility] Work Phone: Erythrocyte distribution width (RBC) [Ratio] 13.7 % 11.6-14.6 [facility] Work Phone: Immature granulocytes/100 WBC (Bld) 0.700 % 0.0-0.9 [facility] Work Phone: Comment on above: IG% - Immature Granu locytes (promyelocytes, myelocytes and metamyelocytes) > 1% indicates that a LEFT SHIFT is Present. MCH (RBC) [Entitic mass] 31.5 pg 27.0-32.0 [facility] Work Phone: Nucleated RBC/100 WBC (Bld) [Ratio] 0 % 0-5 [facility] Work Phone: MCHC Auto (RBC) [Mass/Vol]on 05-13-2022 MCHC (RBC) [Mass/Vol] 32.3 g/dL 32-36 [facility] Work Phone: No Panel Informationon 05-13 Bedside Estimated GFR (eGFR) > 60.0000 mL/min >60 [facility] Work Phone: Estimated GFR (MDRD) Amer 77 mL/min >60 [facility] Work Phone: Comment on above: GFR Calc Estimated GFR (MDRD) Non-Af Amer 64 mL/min >60 [facility] Work Phone: Comment on above: Non- GFR Calc Prostate Specific Antigen Total 12.70 ng/mL 0.0-4.0 [facility] Work Phone: Comment on above: This test was perfor med using the TPSA assay method for [employer] chemistry system. Values obtained with differentassay methods cannot be used interchangably.When changing PSA assays in the course of monitoring apatient, additional sequential testing should be carriedout to confirm baseline values. Platelets bldon 05-13-2022 Platelets (Bld) [#/Vol] 195 10*3/uL 150-450 [facility] Work Phone: Serum or plasma albumin jhony urement (mass/volume)on 05-13-2022 Albumin [Mass/Vol] 3.7 g/dL 3.2-5.0 [facility] Work Phone: Serum or plasma albumin/glob ulin mass ratioon 05-13-2022 Albumin/Globulin [Mass ratio] 1.0 {ratio} 0.9-2.4 [facility] Work Phone: Serum or plasma calcium jhony urement (mass/volume)on 05-13-2022 Calcium [Mass/Vol] 9.5 mg/dL 8.5-10.1 [facility] Work Phone: Serum or plasma creatinine m easurement (mass/volume)on 05-13-2022 Creatinine [Mass/Vol] 1.21 mg/dL 0.70-1.30 [facility] Work Phone: Comment on above: The validity of the calculated GFR & GFRAA in patients over 70 years has not been determined. Clinical correlation is essential. Serum or plasma urea nitroge n measurement (mass/volume)on 05-13-2022 Urea nitrogen [Mass/Vol] 34 mg/dL 7-18 [facility] Work Phone: Thin prep Papanicolaou smear with manual screeningon 05-13-2022 Thin prep Papanicolaou smear with manual screening 20 U/L 15-37 [facility] Work Phone: Thin prep Papanicolaou smear with manual screening 8 5-15 [facility] Work Phone: Thin prep Papanicolaou smear with manual screening 159 U/L 87-241 [facility] Work Phone: Absolute lymphocyte counton 11-12-2021 Lymphocytes Auto (Unsp spec) [#/Vol] 0.71 10*3/uL 0.83-4.51 [facility] Work Phone: Basophil percentageon 2021 Basophils/100 WBC (Bld) 0.8 % 0-1 [facility] Work Phone: Bilirubin [Mass/Vol] 1.30 mg/dL 0.20-1.00 [facility] Work Phone: Comment on above: For patients on eltr ombopag therapy, use of Dimension [place] TBIL is not recommended. Chloride [Moles/Vol] 102 mmol/L 98-107 [facility] Work Phone: Eosinophils/100 WBC (Bld) 6.0 % 0-5 [facility] Work Phone: Glucose [Mass/Vol] 405 mg/dL 74-106 [facility] Work Phone: Comment on above: Glucose result great er than or equal to 200 mg/dLsuggests DIABETES MELLITUS per A.D.A. criteria. Neutrophils (Bld) [#/Vol] 3.3 10*3/uL 2.0-7.7 [facility] Work Phone: Neutrophils/100 WBC (Bld) 69.0 % 47-70 [facility] Work Phone: Potassium [Moles/Vol] 3.9 mmol/L 3.5-5.1 [facility] Work Phone: Protein [Mass/Vol] 7.6 g/dL 6.4-8.2 [facility] Work Phone: Sodium [Moles/Vol] 135 mmol/L 136-145 [facility] Work Phone: WBC (Bld) [#/Vol] 4.8 10*3/uL 4.4-11.0 [facility] Work Phone: Blood erythrocytes count (nu mber/volume)on 11-12-2021 RBC (Bld) [#/Vol] 4.26 10*6/uL 4.6-6.2 [facility] Work Phone: Blood hemoglobin measurement (mass/volume)on 11-12-2021 Hemoglobin (Bld) [Mass/Vol] 13.7 g/dL 13.0-16.5 [facility] Work Phone: Blood lymphocytes/100 leukoc yteson 11-12-2021 Lymphocytes/100 WBC (Bld) 14.8 % 19-41 [facility] Work Phone: Blood monocytes/100 leukocyt eson 11-12-2021 Monocytes/100 WBC (Bld) 8.8 % 0-10 [facility] Work Phone: Blood platelet mean volumeon 11-12-2021 Platelet mean volume (Bld) [Entitic vol] 9.9 fL 6.2-12.0 [facility] Work Phone: Determination of erythrocyte mean corpuscular volume (MCV)on 11-12-2021 MCV (RBC) [Entitic vol] 96.5 fL 80-94 [facility] Work Phone: Hematocrit Auto (Bld) [Volum e fraction]on 11-12-2021 Hematocrit (Bld) [Volume fraction] 41.1 % 40-54 [facility] Work Phone: Laboratory - Chemistry and C hemistry - challengeon 11-12-2021 ALP [Catalytic activity/Vol] 120 U/L 45-117 [facility] Work Phone: ALT [Catalytic activity/Vol] 41 U/L 16-61 [facility] Work Phone: CO2 [Moles/Vol] 27.0 mmol/L 21.0-32.0 [facility] Work Phone: Globulin (S) [Mass/Vol] 3.9 g/dL 2.2-4.2 [facility] Work Phone: Urea nitrogen/Creatinine [Mass ratio] 18.9 mg/mg 10-20 [facility] Work Phone: Laboratory - Hematology and Cell countson 11-12-2021 Erythrocyte distribution width (RBC) [Entitic vol] 47.3 fL 35.1-43.9 [facility] Work Phone: Erythrocyte distribution width (RBC) [Ratio] 13.3 % 11.6-14.6 [facility] Work Phone: Immature granulocytes/100 WBC (Bld) 0.600 % 0.0-0.9 [facility] Work Phone: Comment on above: IG% - Immature Granu locytes (promyelocytes, myelocytes and metamyelocytes) > 1% indicates that a LEFT SHIFT is Present. MCH (RBC) [Entitic mass] 32.2 pg 27.0-32.0 [facility] Work Phone: Nucleated RBC/100 WBC (Bld) [Ratio] 0 % 0-5 [facility] Work Phone: MCHC Auto (RBC) [Mass/Vol]on 11-12-2021 MCHC (RBC) [Mass/Vol] 33.3 g/dL 32-36 [facility] Work Phone: No Panel Informationon 11-12 Estimated Creatinine Clearance Calc 57.62 ml/min [facility] Work Phone: Estimated GFR (MDRD) Amer 76 mL/min >60 [facility] Work Phone: Comment on above: GFR Calc Estimated GFR (MDRD) Non-Af Amer 63 mL/min >60 [facility] Work Phone: Comment on above: Non- GFR Calc Prostate Specific Antigen Total 8.52 ng/mL 0.0-4.0 [facility] Work Phone: Comment on above: This test was perfor med using the TPSA assay method for the[employer] chemistry system. Values obtained with differentassay methods cannot be used interchangably.When changing PSA assays in the course of monitoring apatient, additional sequential testing should be carriedout to confirm baseline values. Platelets bldon 03-14-2022 Platelets (Bld) [#/Vol] 192 10*3/uL 150-450 [facility] Work Phone: Serum or plasma albumin jhony urement (mass/volume)on 11-12-2021 Albumin [Mass/Vol] 3.7 g/dL 3.2-5.0 [facility] Work Phone: Serum or plasma albumin/glob ulin mass ratioon 11-12-2021 Albumin/Globulin [Mass ratio] 0.9 {ratio} 0.9-2.4 [facility] Work Phone: Serum or plasma calcium jhony urement (mass/volume)on 11-12-2021 Calcium [Mass/Vol] 9.0 mg/dL 8.5-10.1 [facility] Work Phone: Serum or plasma creatinine m easurement (mass/volume)on 11-12-2021 Creatinine [Mass/Vol] 1.22 mg/dL 0.70-1.30 [facility] Work Phone: Comment on above: The validity of the calculated GFR & GFRAA in patients over 70 years has not been determined. Clinical correlation is essential. Serum or plasma urea nitroge n measurement (mass/volume)on 11-12-2021 Urea nitrogen [Mass/Vol] 23 mg/dL 7-18 [facility] Work Phone: Thin prep Papanicolaou smear with manual screeningon 11-12-2021 Thin prep Papanicolaou smear with manual screening 16 U/L 15-37 [facility] Work Phone: Thin prep Papanicolaou smear with manual screening 6 5-15 [facility] Work Phone: Thin prep Papanicolaou smear with manual screening 164 U/L 87-241 [facility] Work Phone: Basophil percentageon 2020 Testosterone [Mass/Vol] 14 ng/dL 264-916 [facility] Comment on above: Adult male reference interval is based on a population ofhealthy nonobese males (BMI <30) between 19 and 39 yearsold. mari Cummins.al. JCEM 2017,102;[id number]. PMID:[id number]. Free testosterone percentage on 11-15-2020 Testosterone Free/Testosterone.mildred l [Mass fraction] 3.45 % 1.50-4.20 [facility] Comment on above: Performed at: - [facility] [address] [id number] Director: Jacoby Jimenez PhD, Phone: [phone] at: [facility] [id number] Director: Zac Nicholas MD, Phone: [phone] Serum or plasma testosterone free measurement (mass/volume)on 11-15-2020 Testosterone Free [Mass/Vol] 0.48 ng/dL 5.00-21.00 [facility] Office Visiton 07-18-2017 Documentation of current medications (procedure) Done Invalid Interpretation Code [facility] Work Phone: Smoking cessation education (procedure) yes Invalid Interpretation Code [facility] Work Phone: Tobacco use [facility] Current every day smoker Invalid Interpretation Code [facility] Work Phone: Office Visiton 06-18-2017 Documentation of current medications (procedure) Done Invalid Interpretation Code [facility] Work Phone: Smoking cessation education (procedure) yes Invalid Interpretation Code [facility] Work Phone: Tobacco use [facility] Current every day smoker Invalid Interpretation Code [facility] Work Phone: Vital Signs Date Time Vital Sign Value Performing Clinician Facility 03-24-2025 08:55-0400 Body height 172.[address] Marisa Arredondo MD Work Phone: [facility] 03-24-2025 08:55-0400 Body mass index (BMI) [Ratio] 38.5 kg/m2 Dr. Marisa Arredondo MD Work Phone: [facility] 03-24-2025 08:55-0400 Body weight 114.[address] Marisa Arredondo MD Work Phone: [facility] 03-24-2025 08:55-0400 Diastolic blood pressure 53 mm[Hg] Dr. Marisa Arredondo MD Work Phone: [facility] 03-24-2025 08:55-0400 Heart rate 68 /min Dr. Marisa Arredondo MD Work Phone: [facility] 03-24-2025 08:55-0400 Respiratory rate 16 /min Dr. Marisa Arredondo MD Work Phone: [facility] 03-24-2025 08:55-0400 Systolic blood pressure 114 mm[Hg] Dr. Marisa Arredondo MD Work Phone: [facility] 12-22-2023 09:02-0400 Body height 172.[address] Marisa Arredondo Work Phone: [facility] 12-22-2023 09:02-0400 Body mass index (BMI) [Ratio] 39.2 kg/m2 Dr. Marisa Arredondo Work Phone: [facility] 12-22-2023 09:02-0400 Body weight 117.[address] Marisa Arredondo Work Phone: [facility] 12-22-2023 09:02-0400 Diastolic blood pressure 56 mm[Hg] Dr. Marisa Arredondo Work Phone: [facility] 12-22-2023 09:02-0400 Respiratory rate 16 /min Dr. Marisa Arredondo Work Phone: [facility] 12-22-2023 09:02-0400 Systolic blood pressure 100 mm[Hg] Dr. Marisa Arredondo Work Phone: [facility] 07-15-2023 08:45-0500 Body temperature 97.3 [degF] Dr. Marisa Arredondo Work Phone: [facility] 07-15-2023 08:45-0500 Diastolic blood pressure 68 mm[Hg] Dr. Marisa Arredondo Work Phone: [facility] 07-15-2023 08:45-0500 Heart rate 57 /min Dr. Marisa Arredondo Work Phone: [facility] 07-15-2023 08:45-0500 Respiratory rate 16 /min Dr. Marisa Arredondo Work Phone: [facility] 07-15-2023 08:45-0500 SaO2% (BldA) [Mass fraction] 99 % Dr. Marisa Arredondo Work Phone: 7(477)106-142414 [address] 07-15-2023 08:45-0500 Systolic blood pressure 105 mm[Hg] Dr. Marisa Arredondo Work Phone: 8(366)[phone] [place] [address] 07-15-2023 06:48-0500 Body height 172.[address] Marisa Arredondo Work Phone: 6(083)[phone] [place] [address] 07-15-2023 06:48-0500 Body mass index (BMI) [Ratio] 37.8 kg/m2 Dr. Marisa Arredondo Work Phone: 3(475)433-697214 [address] 07-15-2023 06:48-0500 Body weight 112.[address] Marisa Arredonod Work Phone: 8(589)[phone] [place] [address] 06-09-2023 08:37-0400 Body mass index (BMI) [Ratio] 39.2 kg/m2 Dr. Marisa Arredondo Work Phone: 5(374)[phone] [place] [address] 06-09-2023 08:37-0400 Body weight 117.[address] Marisa Arredondo Work Phone: 4(336)008-599814 [address] 06-09-2023 08:37-0400 Diastolic blood pressure 66 mm[Hg] Dr. Marisa Arredondo Work Phone: 3(901)[phone] [address] 06-09-2023 08:37-0400 Respiratory rate 16 /min Dr. Marisa Arredondo Work Phone: 2(675)469-855569 [place] [address] 06-09-2023 08:37-0400 Systolic blood pressure 131 mm[Hg] Dr. Marisa Arredondo Work Phone: [facility] 05-21-2023 10:16-0400 Body mass index (BMI) [Ratio] 39.2 kg/m2 Dr. Marisa Arredondo Work Phone: [facility] 05-21-2023 10:16-0400 Body weight 117.[address] Marisa Arredondo Work Phone: [facility] 05-21-2023 10:16-0400 Diastolic blood pressure 59 mm[Hg] Dr. Marisa Arredondo Work Phone: [facility] 05-21-2023 10:16-0400 Heart rate 78 /min Dr. Marisa Arredondo Work Phone: [facility] 05-21-2023 10:16-0400 Respiratory rate 20 /min Dr. Marisa Arredondo Work Phone: [facility] 05-21-2023 10:16-0400 Systolic blood pressure 99 mm[Hg] Dr. Marisa Arredondo Work Phone: [facility] 05-19-2023 11:08-0400 Body mass index (BMI) [Ratio] 39.4 kg/m2 Dr. Marisa Arredondo Work Phone: [facility] 05-19-2023 11:08-0400 Body temperature 97.9 [degF] Dr. Marisa Arredondo Work Phone: [facility] 05-19-2023 11:08-0400 Body weight 117.[address] Marisa Arredondo Work Phone: [facility] 05-19-2023 11:08-0400 Diastolic blood pressure 70 mm[Hg] Dr. Marisa Arredondo Work Phone: [facility] 05-19-2023 11:08-0400 Heart rate 65 /min Dr. Marisa Arredondo Work Phone: [facility] 05-19-2023 11:08-0400 Respiratory rate 18 /min Dr. Marisa Arredondo Work Phone: [facility] 05-19-2023 11:08-0400 SaO2% (BldA) [Mass fraction] 95 % Dr. Marisa Arredondo Work Phone: [facility] 05-19-2023 11:08-0400 Systolic blood pressure 128 mm[Hg] Dr. Marisa Arredondo Work Phone: [facility] 06-10-2022 08:15-0400 Body height 172.[address] Marisa Arredondo Work Phone: [facility] Work Phone: 06-10-2022 08:15-0400 Body weight 113.[address] Marisa Arredondo Work Phone: [facility] Work Phone: 06-07-2022 10:00-0400 Body mass index (BMI) [Ratio] 38.1 kg/m2 Dr. Marisa Arredondo Work Phone: [facility] Work Phone: 05-16-2022 15:24-0400 Body height 172.[address] Marisa Arredondo Work Phone: [facility] Work Phone: 05-16-2022 15:24-0400 Body mass index (BMI) [Ratio] 38.5 kg/m2 Dr. Marisa Arredondo Work Phone: [facility] Work Phone: 05-16-2022 15:24-0400 Body temperature 98.2 [degF] Dr. Marsia Arredondo Work Phone: [facility] Work Phone: 05-16-2022 15:24-0400 Body weight 114.[address] Marisa Arredondo Work Phone: [facility] Work Phone: 05-16-2022 15:24-0400 Diastolic blood pressure 63 mm[Hg] Dr. Marisa Arredondo Work Phone: [facility] Work Phone: 05-16-2022 15:24-0400 Heart rate 70 /min Dr. Marisa Arredondo Work Phone: [facility] Work Phone: 05-16-2022 15:24-0400 Respiratory rate 16 /min Dr. Marisa Arredondo Work Phone: [facility] Work Phone: 05-16-2022 15:24-0400 SaO2% (BldA) [Mass fraction] 97 % Dr. Marisa Arredondo Work Phone: [facility] Work Phone: 05-16-2022 15:24-0400 Systolic blood pressure 99 mm[Hg] Dr. Marisa Arredondo Work Phone: [facility] Work Phone: 04-22-2022 13:30-0400 Body height 172.[address] Marisa Arredondo Work Phone: [facility] Work Phone: 04-22-2022 13:30-0400 Body mass index (BMI) [Ratio] 38.1 kg/m2 Dr. Marisa Arredondo Work Phone: [facility] Work Phone: 04-22-2022 13:30-0400 Body weight 113.[address] Marisa Arredondo Work Phone: [facility] Work Phone: 04-22-2022 13:30-0400 Diastolic blood pressure 58 mm[Hg] Dr. Marisa Arredondo Work Phone: [facility] Work Phone: 04-22-2022 13:30-0400 Heart rate 69 /min Dr. Marisa Arredondo Work Phone: [facility] Work Phone: 04-22-2022 13:30-0400 Respiratory rate 18 /min Dr. Marisa Arredondo Work Phone: [facility] Work Phone: 04-22-2022 13:30-0400 Systolic blood pressure 99 mm[Hg] Dr. Marisa Arredondo Work Phone: [facility] Work Phone: 11-15-2020 10:40-0400 Body mass index (BMI) [Ratio] 36.3 kg/m2 Dr. Marisa Arredondo Work Phone: [facility] 11-15-2020 10:40-0400 Body temperature 98.2 [degF] Dr. Marisa Arredondo Work Phone: [facility] 11-15-2020 10:40-0400 Body weight 108.[address] Marisa Arredondo Work Phone: [facility] Work Phone: 11-15-2020 10:40-0400 Diastolic blood pressure 58 mm[Hg] Dr. Marisa Arredondo Work Phone: [facility] 11-15-2020 10:40-0400 Heart rate 62 /min Dr. Marisa Arredondo Work Phone: [facility] 11-15-2020 10:40-0400 Respiratory rate 16 /min Dr. Marisa Arredondo Work Phone: [facility] 11-15-2020 10:40-0400 SaO2% (BldA) [Mass fraction] 94 % Dr. Marisa Arredondo Work Phone: [facility] 11-15-2020 10:40-0400 Systolic blood pressure 103 mm[Hg] Dr. Marisa Arredondo Work Phone: [facility] 06-18-2017 12:53-0400 BMI (Body Mass Index) 33.67 kg/m2 [facility] Work Phone: 06-18-2017 12:53-0400 Height 175.26 cm [facility] Work Phone: 06-18-2017 12:53-0400 Weight 103.42 kg Sammy Talley [facility] Work Phone: Encounters Encounter Date Encounter Type Care Provider Facility Start: 03-24-2025 End: 03-24-[address] Marisa Arredondo MD Work Phone: -[facility] Start: 03-24-2025 End: 03-24-[address] Long Ware MD -[facility] Work Phone: Start: 12-27-2024 End: 12-27-[address] Geovany Pierce MD -Laboratory Work Phone: Start: 12-27-2024 End: 12-27-2024 ambulatory Marisa S Jolliff Facility:[facility] Start: 10-15-2024 End: 10-15-2024 ambulatory Marisa S Jolliff Facility:[facility] Start: 10-08-2024 End: 10-08-2024 ambulatory Marisa S Jolliff Facility:[facility] Start: 09-27-2024 End: 09-27-2024 ambulatory Marisa S Jolliff Facility:[facility] Start: 09-22-2024 End: 09-22-2024 ambulatory Denise Uriarte DEPUTY SHERIFF K9 HANDLER Facility:[facility] Start: 06-14-2024 End: 06-14-2024 ambulatory Marisa S Jolliff Facility:[facility] Start: 06-14-2024 End: 06-14-2024 ambulatory Marisa S Jolliff Facility:[facility] Start: 06-07-2024 End: 06-07-2024 ambulatory Denise Uriarte DEPUTY SHERIFF K9 HANDLER Facility:[facility] Start: 05-24-2024 End: 05-24-2024 ambulatory Denise Uriarte DEPUTY SHERIFF K9 HANDLER Facility:[facility] Start: 04-11-2024 End: 04-11-2024 Emergency department patient visit Marisa S Arnulfo Facility:[facility] Start: 03-01-2024 End: 03-01-2024 ambulatory Geovany Pierce Facility:[facility] Start: 01-05-2024 End: 01-05-[address] Marisa Arredondo Work Phone: [facility]-Sleep Lab Work Phone: Start: 01-05-2024 End: 01-05-[address] Marisa Arredondo Work Phone: [facility] Work Phone: Start: 12-22-2023 End: 12-22-[address] Marisa Arredondo Work Phone: [facility] Work Phone: Start: 12-16-2023 End: 12-16-[address] Marisa Arredondo Work Phone: [facility] Work Phone: Start: 12-16-2023 End: 12-16-[address] Marisa Arredondo Work Phone: [facility]-Laboratory Work Phone: Start: 11-10-2023 End: 11-10-2023 ambulatory [facility] Work Phone: Start: 11-10-2023 End: 11-10-2023 Patient encounter procedure [facility]-Laboratory Work Phone: Start: 07-15-2023 Non-patient / Non-visit Dr. Do Arredondo Work Phone: [facility] Start: 07-15-2023 End: 07-15-2023 Admission to same day surgery center Dr. Marisa Arredondo Work Phone: [facility]-Endoscopy Work Phone: Start: 07-15-2023 End: 07-15-[address] Marisa Arredondo Work Phone: [facility] Work Phone: Start: 06-09-2023 End: 06-09-[address] Marisa Arredondo Work Phone: [facility] Work Phone: Start: 05-21-2023 End: 05-21-[address] Marisa Arredondo Work Phone: [facility] Work Phone: Start: 05-19-[address] Marisa velasquez Work Phone: [facility] Start: 05-19-2023 End: 05-19-[address] Marisa Arredondo Work Phone: [facility] Work Phone: Start: 06-10-2022 End: 06-10-2022 Admission to same day surgery center Dr. Marias Arredondo Work Phone: [facility]-Metallurgy Laboratory Technician/Special Procedures Start: 06-10-2022 End: 06-10-[address] Marisa Arredondo Work Phone: [facility] Work Phone: Start: 06-06-2022 Non-patient / Non-visit Dr. Do Arredondo Work Phone: [facility] Start: 05-16-[address] Marisa velasquez Work Phone: [facility] Start: 05-16-2022 End: 05-16-[address] Marisa Arredondo Work Phone: [facility] Start: 05-14-[address] Marisa Arredondo Work Phone: [facility] Start: 05-13-2022 End: 05-13-[address] Marisa Arredondo Work Phone: [facility] Work Phone: Start: 05-13-2022 End: 05-13-[address] Marisa Arredondo Work Phone: [facility] Start: 05-10-2022 Non-patient / Non-visit Dr. Do Arredondo Work Phone: [facility] Start: 05-10-2022 End: 05-10-[address] Marisa Arredondo Work Phone: [facility] Work Phone: Start: 05-10-2022 End: 05-10-[address] Marisa Arredondo Work Phone: [facility]Cardiovascular Services Start: 04-22-2022 End: 04-22-[address] Marisa Arredondo Work Phone: [facility] Procedures Date Procedure Procedure Detail Performing Clinician Start: 12-27-2024 Assay of prostate sp ecific antigen total Dr. Marisa Arredondo MD Work Phone: Comment on above: This test was perfor med using the [employer] tPSA method. Measured values of a patient sample can vary depending on the testing procedure used. PSA values determined on patient samples by different testing procedures cannot be used interchangeably. If there is a change in PSA assays while monitoring therapy, sequential testing should be performed to confirm baseline values. Start: 07-15-[address] Marisa mir Work Phone: Start: 05-16-2022 Plain chest X-ray Dr. Steve Arredondo Work Phone: Start: 05-13-2022 Computed tomography of abdomen and pelvis with intravenous contrast Dr. Marisa Arredondo Work Phone: Start: 05-10-2022 Cardiovascular stres s test using pharmacologic stress agent Dr. Marisa Arredondo Work Phone: Start: 03-22-2019 History of placement of stent for coronary artery disease History of coronary artery stent placement Dr. Marisa Arredondo Work Phone: Comment on above: [id number] OM1 w/ 2.25 x 20 mm Promus Synergy Stent, followed immediately upstream with a 2.25 x 20 mm Promus Synergy Stent 03/22/19 Plan of Treatment Date Care Activity Detail Author Start: 07-15-2023 Patient discharge [facility] Start: 05-19-2023 Patient referral [facility] Work Phone: Start: 08-15-2017 End: 08-15-2017 Appointment Appointment [facility]opa[facility] Work Phone: Start: 07-18-2017 End: 07-18-2017 Appointment Appointment [facility] Work Phone: Start: 07-18-2017 End: 07-18-2017 Radex ankle complete minimum 3 views X-Ray, Ankle [facility] Work Phone: Start: 06-18-2017 End: 06-18-2017 Radex ankle complete minimum 3 views X-Ray, Ankle [facility] Work Phone: Blood chemistry [place] [facility] Lipid 1996 panel - S shari or Plasma [facility] Patient referral [facility] Work Phone: Prostate specific an tigen measurement [facility] Work Phone: [facility] Payers Date Payer Category Payer Self-pay [id number] 2023 Medicare [id number] Unknown [id number] Unknown [facility] [id number] 3 Unknown [facility] PACKAGE PLAN [id number] Unknown [facility] PACKAGE PLAN [id number] Unknown [id number] Unknown [id number] Unknown [id number] Unknown [id number] Unknown [id number] Unknown [id number] Unknown [id number] Unknown [id number] Unknown [id number] Unknown [id number] Unknown [id number] Unknown [id number] Social History Date Type Detail Facility Start: 04-22-2022 End: 07-10-2023 Tobacco smoking status OKIS Unknown if ever smoked [facility] Start: 03-21-2019 None [facility] Start: 03-21-2019 With Family [facility] Start: 11-15-2020 Non-smoker [facility] Start: 1955 Sex Assigned At Male [facility] Start: 09-22-2024 Tobacco smoking stat us OKIS Ex-smoker (finding) [facility] Medical Equipment Procedure Code Equipment Code Equipment Origin al Text Equipment Identifier Dates Blood Sugar Diagnostic (Onetouch Verio Test Strips) strip Start: 09-17-2021 Lancets (Onetouc h Delica Plus Lancet) 33 gauge misc Start: 09-17-2021 Blood Sugar Diagnostic (Onetouch Verio Test Strips) strip Start: 09-17-2021 Lancets (Onetouc h Delica Plus Lancet) 33 gauge misc Start: 09-17-2021 Blood Sugar Diagnostic (Onetouch Verio Test Strips) strip Start: 09-17-2021 Lancets (Onetouc h Delica Plus Lancet) 33 gauge misc Start: 09-17-2021 Blood Sugar Diagnostic (Onetouch Verio Test Strips) strip Start: 09-17-2021 Lancets (Onetouc h Delica Plus Lancet) 33 gauge misc Start: 09-17-2021 Blood Sugar Diagnostic (Onetouch Verio Test Strips) strip Start: 09-17-2021 Lancets (Onetouc h Delica Plus Lancet) 33 gauge misc Start: 09-17-2021 Blood Sugar Diagnostic (Onetouch Verio Test Strips) strip Start: 09-17-2021 Lancets (Onetouc h Delica Plus Lancet) 33 gauge misc Start: 09-17-2021 Blood Sugar Diagnostic (Onetouch Verio Test Strips) strip Start: 09-17-2021 Lancets (Onetouc h Delica Plus Lancet) 33 gauge misc Start: 09-17-2021 Blood Sugar Diagnostic (Onetouch Verio Test Strips) strip Start: 09-17-2021 Lancets (Onetouc h Delica Plus Lancet) 33 gauge mis Start: 09-17-2021 Goals Date Patient Goal Desired Activity /State Mental Status Date Assessment Result Facility 07-15-2023 Cognitive function Voice/Name [facility] Work Phone: Procedure note 07-15-2023 Note Date & Type Note Facility 07-15-2023 Procedure note [facility] Procedure note 07-15-2023 Note Date & Type Note Facility 07-15-2023 Procedure note [facility] Evaluation note 03-22-2019 Note Date & Type Note Facility 03-22-2019 Evaluation note Diagnosis Onset Date Essential (primary) hypertension chronic Hyperlipidemia chronic History of coronary artery stent placement March 22, 2019 resolved [facility] Work Phone: Evaluation note 03-22-2019 Note Date & Type Note Facility 03-22-2019 Evaluation note Diagnosis Onset Date Essential (primary) hypertension chronic Hyperlipidemia chronic History of coronary artery stent placement March 22, 2019 resolved 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 Acute stasis dermatitis of left lower extremity acute 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 lymph node chronic [facility] Work Phone: Evaluation note 03-22-2019 Note Date & Type Note Facility 03-22-2019 Evaluation note Diagnosis Onset Date Hypersomnolence acute Essential (primary) hypertension chronic Hyperlipidemia chronic History of coronary artery stent placement March 22, 2019 resolved [facility] Work Phone: Evaluation note Note Date & Type Note Facility Evaluation note Diagnosis Onset Date Frequency of micturition acu te Rectal bleed acute 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 Acute stasis dermatitis of left lower extremity acute 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 lymph node chronic Essential (primary) hypertension chronic Hyperlipidemia chronic History of coronary artery stent placement March 22, 2019 resolved Rectal bleed acute [facility] Work Phone: Evaluation note Note Date & Type Note Facility Evaluation note No assessment information availa [facility] Work Phone: History and physical note Note Date & Type Note Facility History and physical note Note Date/Time July 15, 2023 7:21am [facility] Medical Records Department [address] [place] [id number] History & Physical Exam 07/15/23720 MR#: [id number] Acct: [id number] Name: CAIO SENIOR Rep #:[id number] : 1955 68 From: Morgan richmond MD PCP: Dr. Marisa Arredondo MD Status:[facility] Location: [place] [address] History and Physical Date of Admission: 07/15/23 Intake Vital Signs 05/19/2311:08 05/21/2310:16 06/09/2308:37 Height 5 ft 8 in 5 ft 8 in 5 ft 8 in Weight: 259 lb 1 oz 258 lb 258 lb BMI 39.4 39.2 39.2 BP 128/70 H 99/59 L 131/66 H Blood Pressure Location Lt brachial Lt brachial Rt brachial Position Sitting Sitting Sitting Respiration 18 20 H 16 Pulse 65 78 Pulse Source NIBP Monitor Temp 97.9 F Pulse Oximetry (%) 95 Oxygen Delivery Method room air Intake Visit Reasons: RECTAL BLEEDING Chief Complaint: rectal bleeding Sewer Head Required: No Is patient in pain?: No Allergies No Known Allergies Allergy (Verified 06/09/23 08:38) Medications aspirin 81 mg tablet,delayed release 81 mg PO DAILY antiplatelet 07/07/15 [History Confirmed 06/09/23] canagliflozin 300 mg tablet 300 mg PO DAILY Check with primary doctor 03/21/19 [History Confirmed 06/09/23] lisinopril 10 mg tablet 5 mg PO QDAY blood pressure 04/27/20 [History Confirmed 06/09/23] atorvastatin 80 mg tablet See Rx Instructions .Route .COMPLEX #90 tabs 08/06/21 [Rx Confirmed 06/09/23] blood sugar diagnostic (OneTouch Verio test strips) #200 ea 09/17/21 [Rx Confirmed 06/09/23] blood-glucose meter (OneTouch Verio Meter) #1 ea 09/17/21 [Rx Confirmed 06/09/23] lancets 33 gauge (OneTouch Delica Plus Lancet) #200 ea 09/17/21 [Rx Confirmed 06/09/23] metformin 1,000 mg tablet 1,000 mg PO BID #60 tabs 09/17/21 [Rx Confirmed 06/09/23] isosorbide mononitrate 60 mg tablet,extended release 24 hr 60 mg PO DAILY #90 tabs 07/08/22 [Rx Confirmed 06/09/23] ticagrelor 90 mg tablet 90 mg PO BID #180 tabs 09/09/22 [Rx Confirmed 06/09/23] metoprolol tartrate 25 mg tablet 25 mg PO BID #180 tabs 09/30/22 [Rx Confirmed 06/09/23] bicalutamide 50 mg tablet (Casodex) 50 mg PO DAILY 90 days #90 tabs 05/19/23 [Rx Confirmed 06/09/23] glimepiride 4 mg tablet 4 mg PO DAILY 05/21/23 [History Confirmed 06/09/23] [facility] Medical History Atherosclerosis of coronary artery of [place] heart without angina pectoris COVID-19 virus detected (08/2020) Crushing injury of distal finger Diabetes Displaced oblique fracture of shaft of left fibula, subsequent encounter for closed fracture with routine healing Essential (primary) hypertension Hyperlipidemia Hyperlipidemia associated with type 2 diabetes mellitus Obesity 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 lymph node Tobacco abuse disorder Unspecified fracture of lower end of left tibia, subsequent encounter for closedfracture with routine healing Surgical History History of coronary artery stent placement (03/22/19) History of left heart catheterization (06/10/22) History of open reduction and internal fixation (ORIF) procedure Family History Mother Heart disease [place] spotted fever cause of heart problemsFather Hypertension Diabetes mellitus, type 2 Myocardial infarction Social History Smoking Status: Former smoker how long ago did patient quit smokin years ago alcohol intake: never substance use type: does not use caffeine: Yes Type: coffee Number of servings: 1 HPI HPI HPI: Patient is a 68-year-old male here for rectal bleeding. He does have a history of prostate cancer. Patient notes that 2 weeks ago he had blood per rectum. Heis also having constipation and pain with bowel movements. ROS General General: Yes weight change and fatigue; No appetite, colon cancer, breast cancer or weakness HEENT HEENT: No difficulty swallowing, eye injury, eye surgery, swollen glands or hoarseness Endo Endocrine: Yes diabetes mellitus; No thyroid disease, thyroid cancer, Hair loss, heat intolerance or cold intolerance Skin Skin: No rash or changing moles Breast Breast: No left breast lump, right breast lump, nipple discharge, breast pain, abnormal mammogram, abnormal US or breast enlargement Musc Musculoskeletal: Yes arthritis; No back problems, rheumatoid arthritis, gout or joint pain Cardio Cardiovascular: Yes heart stent and shortness of breat with exertion; No murmur, pacemaker, heart disease, atrial fibrillation, high blood pressure, heart attack, palpitations or chest pain Psych Psychiatric: No depression, anxiety or hearing voices Resp Respiratory: No shortness of breath, No sleep apnea, No cough, No COPD, No asthma, No emphysema and No wheezing Gastro Gastrointestinal: No abdominal pain, No nausea or vomiting, Yes diarrhea, Yes constipation, Yes blood in stool, No acid reflux, No hemorrhoids, No ulcers, No gallbladder problem and No black,tarry stools Jef Hematologic: Yes blood thinners, No blood disorders, Yes bleeding, No anemia andNo blood clots Neuro Neurologic: No system reviewed and no additional complaints, except as documented, No as per HPI, No abnormal gait, No abnormal hearing, No abnormal movements, No abnormal speech, No behavioral changes, No burning sensations, No confusion, No convulsions, No disequilibrium, No dizziness, No localized weakness, No frequent falls, No headache(s), No lack of coordination, No loss ofvision, No memory loss, Yes numbness, No other visual disturbances, No radicularpain, No restless legs, No sensory deficit, No syncope, Yes tingling, No tremor(s), No weakness and No other Exam Const General: cooperative Orientation: alert and oriented x3 HENMT Head: normal to inspection Neck Neck: normal visual inspection and full ROM Chest Chest palpation & inspection: normal inspection of the chest Resp Effort & Inspection: normal respiratory effort Auscultation: clear to auscultation bilaterally Cardio Rate: regular rate Rhythm: regular rhythm GI Inspection: non-distended Palpation: soft and nontender Skin General: no rashes or lesions noted Neuro General: patient alert and patient oriented x3 Extrem General: full ROM Psych Appearance: grossly normal Mental Status: mental status grossly normal Assessment and Plan Assessment and Plan (1) Rectal bleed: Status: Acute Plan: Patient has been having some rectal bleeding few weeks ago. He says for the last 2 weeks he has not had any blood per rectum. He has never had a colonoscopy. I performed a rectal exam and I was unable to identify any hemorrhoids or fissure. I will plan for colonoscopy. I explained endoscopy in detail to the patient. I explained the risks including but not limited to stroke or heart attack with anesthesia, perforation of the GI tract, bleeding, infection. I explained that any of these could necessitate further emergency surgery. The patient understands and all questions were answered sufficiently. The patient wishes to proceed with procedure. I will have him hold his Brilintafor 5 days. Morgan Hutton MD Pager: [facility] [address] [facility] [address] [place] [address] Office: I have examined the patient and the H&P has been reviewed. There are no clinicalchanges since date of exam. 07/15/23 0721 <Electronically signed by Morgan Hutton MD> Cosigner Signature (if applicable): CC: Dr. Marisa Arredondo MD; Dr. Morgan Hutton MD~ Signed [facility] Work Phone: Reason for referral (narrative) Note Date & Type Note Facility Reason for referral (narrative) No reason for referral information available [facility] Work Phone: Chief Complaint and Reason for Visit Chief Complaint 8m fu CHEST PAIN CHEST PAIN MONITOR PROSTATE CANCER Reason for Visit Essential (primary) hypertension Hyperlipidemia History of coronary artery stent placement Chief Complaint 8m fu CHEST PAIN CHEST PAIN MONITOR PROSTATE CANCER 6 MO - LABS - INJECTION REVIEW CT Reason for Visit Essential (primary) hypertension Hyperlipidemia History of coronary artery stent placement Chief Complaint 8m fu CHEST PAIN CHEST PAIN MONITOR PROSTATE CANCER 6 MO - LABS - INJECTION REVIEW CT 6 MO - LABS - INJECTION CAD, ABN STRESS TEST CAD, ABN STRESS TEST Reason for Visit Essential (primary) hypertension Hyperlipidemia History of coronary artery stent placement Prostate cancer metastatic to intraabdominal lymph node Acute stasis dermatitis of left lower extremity Prostate cancer metastatic to intraabdominal lymph node 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 lymph node Chief Complaint 6 MO - LABS - INJECT ION 6 MO - LABS - INJECTION 1 Y FU RECTAL BLEEDING Reason for Visit Frequency of micturi tion Rectal bleed Prostate cancer metastatic to intraabdominal lymph node Acute stasis dermatitis of left lower extremity Prostate cancer metastatic to intraabdominal lymph node 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 lymph node Essential (primary) hypertension Hyperlipidemia History of coronary artery stent placement Rectal bleed Chief Complaint INT LABS Chief Complaint INT LABS E ORDERS 7 m fu Reason for Visit Essential (primary) hypertension Hyperlipidemia History of coronary artery stent placement Chief Complaint INT LABS E ORDERS 7 m fu HYPERSOMNIA Reason for Visit Hypersomnolence Essential (primary) hypertension Hyperlipidemia History of coronary artery stent placement Chief Complaint Admit Date 1 Y FU March 24, 2025 8:47 am Family History Relationship Condition Age at Onset Recorded Date/T clifford mother Cardiac disease Unknown [place] spotted fever Unknown father Hypertension Unknown Type 2 diabetes mellitus Unknown Myocardial infarction Unknown Advance Directives Advance Directive Response Recorded Date/ Time Advance Directives No November 12 12:32pm Living Will No November 12, 2021 12:32pm Power of Bean Weigher No November 12 12:32pm Advance Directive Response Recorded Date/ Time Advance Directives No June 10, 2022 8:15am Living Will No June 10 8:15am Power of Bean Weigher No June 10, 2022 8:15am Advance Directive Response Recorded Date/ Time Name of Medical Power of Bean Weigher BIRGIT SENIOR July 10, 2023 12:19pm Advance Directives No May 11:30am Living Will Yes July 10 12:19pm Power of Bean Weigher Yes July 10, 2023 12:19pm Advance Directive Response Recorded Date/ Time Advance Directives No May 12:30pm Living Will Yes July 10 1:19pm Power of Bean Weigher Yes July 10, 2023 1:19pm Advance Directive Response Recorded Date/ Time Living Will Yes July 10 1:19pm Do you have a Healthcare Power of Bean Weigher? Yes July 10, 2023 1:19pm Advance Directives No May 12:30pm Summary Purpose Additional Source Comments Goals (unrecognized section and content) Goals may be documented in a n alternate sectionGoals may be documented in an alternate sectionGoals may be documented in an alternate sectionGoals may be documented in an alternate sectionGoals may be documented in an alternate sectionGoals may be documented in an alternate sectionGoals may be documented in an alternate section Care Teams (unrecognized sec tion and content) Team Status: Active Member Role Status Dates Dr. Marisa Arredondo MD Family Provider Active Dr. Marisa Arredondo MD Primary Care Provider Active Team Status: Inactive Member Role Status Dates Dr. Marisa Arredondo MD Primary Care Provider, Marcus michael Provider Active Dr. Long Ware MD Attending Provider Active Team Status: Inactive Member Role Status Dates Dr. Marisa Arredondo MD Primary Care Provider, Referrin g Provider Active Dr. Mykel Sweeney MD Attending Provider Active Team Status: Inactive Member Role Status Dates Dr. Marisa Arredondo MD Primary Care Provider, Referrin g Provider Active Dr. Morgan Hutton MD Attending Provider Active Team Status: Active Member Role Status Dates Dr. Marisa Arredondo MD Primary Care Provider, Referrin g Provider Active Dr. Morgan Hutton MD Attending Provider, Other Provider Active Team Status: Active Member Role Status Dates Dr. Marisa Arredondo MD Primary Care Provider, Referrin g Provider Active Dr. Mykel Sweeney MD Attending Provider Active Team Status: Inactive Member Role Status Dates Dr. Marisa Arredondo MD Primary Care Provider Active Dr. Geovany Pierce MD Attending Provider, Referr ing Provider Active Dr. Moe Agudelo MD Other Provider Active Team Status: Active Member Role Status Dates Dr. Marisa Arredondo MD Primary Care Provider, Referrin g Provider Active Delgado Jacobson DEPUTY SHERIFF K9 HANDLER, DEPUTY SHERIFF K9 HANDLER-C Attending Provider Active Team Status: Inactive Member Role Status Dates Dr. Marisa Arredondo MD Primary Care Provider Active Delgado Jacobson DEPUTY SHERIFF K9 HANDLER, DEPUTY SHERIFF K9 HANDLER-C Attending Provider, Referring Pro vider Active Team Status: Inactive Member Role Status Dates Dr. Marisa Arredondo MD Primary Care Provider, Referrin g Provider Active Delgado Jacobson DEPUTY SHERIFF K9 HANDLER, DEPUTY SHERIFF K9 HANDLER-C Attending Provider Active Team Status: Active Member Role/Relationship Status Dates Dr. Delgado Hinkle MD Primary Care Provider Active Team Status: Inactive Member Role/Relationship Status Dates Dr. Marisa Arredondo MD Primary Care Provider Active Start: December 27, 2024 End: December 27, 2024 Dr. Geovany Pierce MD Attending Provider Active Start: December 27, 2024 End: December 27, 2024 Dr. Geovany Pierce MD Referring Provider Active Start: December 27, 2024 End: December 27, 2024 Team Status: Inactive Member Role/Relationship Status Dates Dr. Marisa Arredondo MD Referring Provider Active Start: March 24, 2025 End: March 24, 2025 Dr. Long Ware MD Attending Provider Active S tart: March 24, 2025 End: March 24, 2025 Dr. Delgado Hinkle MD Primary Care Provider Active Start: March 24, 2025 End: March 24, 2025 (unrecognized sect ion and content) No Status Records Found INFORMATION SOURCE (unrecogn ized section and content) DATE CREATED AUTHOR 01/04/2025 [facility] FOR RECORDS PERTAINING TO PATIENTS WHO ARE [...] BE BASED ON THE PRIMARY CLINICAL RECORDS. [employer] [facility]. provides no warranty or guarantee of the accuracy or completeness of information in this document.
== END | disposition home or self-care (01) ==
PROVIDERS: PCP Family Medicine; Referring Provider Internal Medicine Cardiovascular Disease; Visit Provider Internal Medicine Cardiovascular Disease
DX: R97.20 Elevated prostate specific antigen [PSA] (principal); E78.5 Hyperlipidemia, unspecified
CPT/HCPCS: 36415; 80061; 80076; 84153

== ENCOUNTER 2025-04-13 11:37 | Observation (INO) | payer MEDICARE, OTHER, SELFPAY ==
--- NOTE | 2025-04-01 19:42 | PAT.ANE_ITS ---
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 When Was Last Pacemaker Check QUESTION #4 FULL TEXT: You/Your Family Experience fever (hyperthermia) with Anesthesia Last Oral Intake Last Oral intake: Last Oral Intake NPO since Meds taken in AM with sips of water? Meds patient instructed to take am of surgery PONV PONV - founder and chief executive officer: PONV - founder and chief executive officer Female No 04/01/25 13:32 HX of Motion Sickness No 04/01/25 13:32 HX of N/V After Surgery No 04/01/25 13:32 Non-Smoker Yes 04/01/25 13:32 Duration of Surgery greater Yes 04/01/25 13:32 than 60 minutes Number of Risk Factors 2 04/01/25 13:32 PONV Score Moderate Risk 04/01/25 13:32 Height & Weight Height & Weight: Anesthesia: Height & Weight Height 5 ft 8 in 03/24/25 08:55 Respiratory Assessment Respiratory Assessment - founder and chief executive officer: Respiratory Tract Infection Hx - founder and chief executive officer Hx Respiratory Tract Infection No 04/01/25 13:32 STOP Sleep Apnea STOP Sleep Apnea - founder and chief executive officer: STOP Sleep Apnea - founder and chief executive officer Hx Hypertension Yes 04/01/25 13:32 Hx Sleep Apnea Yes 04/01/25 13:32 CPAP Yes: non compliant 04/01/25 13:32 BIPAP No 04/01/25 13:32 Do you snore loudly (louder than talking or can be heard Do you often feel tired/ fatigued/ sleepy during daytime? Has anyone observed you stop breathing during sleep? STOP Results Positive 04/01/25 13:32 QUESTION #5 FULL TEXT : Do you snore loudly (louder than talking or can be heard through closed doors)? Tobacco Use History Tobacco Use History - founder and chief executive officer: Tobacco Use History - founder and chief executive officer Tobacco Use Smoking Status Former smoker 04/01/25 13:32 Hx Tobacco Use No 04/01/25 13:32 Years Smoking Packs Smoked per Day Smoking Cessation Date was Yes - quit smoking within 15 04/01/25 13:32 within the last 15 years years Hx Smoking Cessation Date 09/01/16 04/01/25 13:32 Hx Smoking Cessation No 04/01/25 13:32 Counseling Hematologic Medial History Hematologic Hx - founder and chief executive officer: Hematologic Medical Hx - student accounts coordinator Hx of Blood Transfusion No 04/01/25 13:32 Hx of Transfusion in last 3 No 04/01/25 13:32 Months Date of Last Transfusion (if within last 3 months) Ever experience any problems No 04/01/25 13:32 with transfusion(s)? Specify any problems Hx of Preganancy in last 3 N/A 04/01/25 13:32 Months Nurse Filling Out Transfusion JZOLLTREMAINE 04/01/25 13:32 & Questions: Date: 04/01/25 04/01/25 13:32 Time: 13:33 04/01/25 13:32 Patient unable to answer at this time (ie. confused, unrespo /Reproduction History /Reproductive History - founder and chief executive officer: /Reproductive Hx- founder and chief executive officer Hx Now No 04/01/25 13:32 Gestational Age (in weeks): EDC: Hx Hx Para Hx Section SAB No 04/01/25 13:32 [facility] Medical History (Updated 04/01/25 @ 13:32 by Allyson Alexis) Dietary restriction CPAP (continuous positive airway pressure) dependence Wears glasses Cancer Prostate disease High cholesterol Restless legs Former smoker Shortness of breath on exertion Neuropathy History of stress test Cardiology follow-up encounter COVID-19 virus detected (08/2020) Obesity Diabetes 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 lymph node Essential (primary) hypertension Atherosclerosis of coronary artery of [place] heart without angina pectoris Hyperlipidemia Displaced oblique fracture of shaft of left fibula, subsequent encounter for closed fracture with routine healing Unspecified fracture of lower end of left tibia, subsequent encounter for closed fracture with routine healing Hyperlipidemia associated with type 2 diabetes mellitus Tobacco abuse disorder Crushing injury of distal finger Home Medications Medication Instructions Recorded Last Taken Type aspirin 81 mg tablet,delayed 81 mg PO DAILY antiplatel et 07/07/15 06/10/22 History release canagliflozin 300 mg tablet 300 mg PO DAILY Check with primary 03/21/19 Unknown History doctor blood sugar diagnostic (OneTouch #200 ea 09/17/21 Unkn own Rx Verio test strips) blood-glucose meter (OneTouch #1 ea 09/17/21 Unknown R x Verio Meter) lancets 33 gauge (OneTouch Delica #200 ea 09/17/21 Unk nown Rx Plus Lancet) metformin 1,000 mg tablet 1,000 mg PO BID #60 tabs 06/08/22 Rx semaglutide 0.25 mg or 0.5 mg (2 0.5 mg subcut QWEEK 0 05/24/24 Unknown History mg/3 mL) subcutaneous pen injector ([employer]) bicalutamide 50 mg tablet 50 mg PO DAILY #90 TABLETS 0 09/06/24 Unknown Rx Oral appliance #1 ea 09/22/24 Unknown Rx isosorbide mononitrate 60 mg 60 mg PO DAILY #90 tabs 0 11/23/24 Unknown Rx tablet,extended release 24 hr metoprolol tartrate 25 mg tablet 25 mg PO BID #180 tab s 11/30/24 Unknown Rx atorvastatin 80 mg tablet 80 mg PO DAILY #90 tabs 12/01 04/25 Unknown Rx Allergy/AdvReac Type Severity Reaction Status Date / Time No Known Allergies Allergy Verified 04/01/25 13:10 Family History Mother Heart disease [place] spotted fever cause of heart problems Father Hypertension Diabetes mellitus, type 2 Myocardial infarction Surgical History (Updated 04/01/25 @ 13:32 by Allyson Alexis) Hx of colonoscopy History of left heart catheterization (06/10/22) History of coronary artery stent placement (03/22/19) History of open reduction and internal fixation (ORIF) procedure Social History Smoking Status: Former smoker how long ago did patient quit smokin years ago second hand exposure: No alcohol intake: never substance use type: does not use caffeine: Yes Type: coffee Number of servings: 1 Audit: Pertinent Findings Pertinent Findings EKG Perinent findings: April 11, 2025. Pending Stress test pertinent findings: May 10, 2022. EF is 84%. Small area anterior lateral ischemia cannot be excluded. Previous inferior infarct is suggested. Heart catheterization pertinent findings: June 10, 2022. EF is 50%. LAD is 30 to 40% stenosis throughout. 50% proximal lesion in the first diagonal. Circumflex artery 60% with [id number] collaterals. RCA 100%. Consult pertinent findings: March 24, 2025. Dr. Ware. 1. History of coronary artery stent placement-RAVI to the proximal OM1 and second RAVI immediately upstream. 2. Hypertension chronic–well-controlled Recommendation Anesthesia Recommendation Anesthesia recommendation: F/U recommended (Pending EKG on April 11, 2025.)
--- NOTE | 2025-04-11 06:51 | EKG12_ITS ---
Test Reason : PREOP Blood Pressure : */* mmHG Vent. Rate : 59 BPM Atrial Rate : 59 BPM P-R Int : 186 ms QRS Dur : 84 ms QT Int : 420 ms P-R-T Axes : 6 -29 1 degrees QTcB Int : 415 ms Sinus bradycardia Otherwise normal ECG Confirmed by SHYAM SAMUELS, REINA ([id number]), loan expeditor CASSANDRA OLIVER ([id number]) on 04/11/2025 1:18:29 PM Referred By: Geovany Pierce Confirmed By: REINA HOWE MD
[2025-04-11 07:58] LABS: Hematocrit 37.7 % (40-54); Hemoglobin 12.4 g/dL (13.0-16.5); Mean Corp Hgb Conc 32.9 g/dL (32-36); Mean Corpuscular Volume 98.4 fL (80-94); Mean Platelet Vol. 10.1 fl (6.2-12.0); Platelet Count 172 K/mm3 (150-450); RBC Distribution Width CV 13.4 % (11.6-14.6); RBC Distribution Width SD 47.6 fl (35.1-43.9); Red Blood Count 3.83 M/mm3 (4.6-6.2); White Blood Count 4.8 K/mm3 (4.4-11.0)
[2025-04-11 08:45] LABS: Anion Gap 12 (5-15); BUN 19 mg/dL (4-19); BUN/Creat Ratio 18.7 RATIO (10-20); Calcium,Total 9.5 mg/dL (7.6-11.0); Carbon Dioxide 23.2 mmol/L (21.0-32.0); Chloride 104 mmol/L (98-108); Glucose 224 mg/dL (70-99); Potassium 4.2 mmol/L (3.3-5.1)
--- NOTE | 2025-04-12 15:44 | PAT.ANE_ITS ---
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 When Was Last Pacemaker Check QUESTION #4 FULL TEXT: You/Your Family Experience fever (hyperthermia) with Anesthesia Last Oral Intake Last Oral intake: Last Oral Intake NPO since Meds taken in AM with sips of water? Meds patient instructed to take am of surgery PONV PONV - environmental engineering manager: PONV - environmental engineering manager Female No 04/01/25 13:32 HX of Motion Sickness No 04/01/25 13:32 HX of N/V After Surgery No 04/01/25 13:32 Non-Smoker Yes 04/01/25 13:32 Duration of Surgery greater Yes 04/01/25 13:32 than 60 minutes Number of Risk Factors 2 04/01/25 13:32 PONV Score Moderate Risk 04/01/25 13:32 Height & Weight Height & Weight: Anesthesia: Height & Weight Height 5 ft 8 in 03/24/25 08:55 Respiratory Assessment Respiratory Assessment - environmental engineering manager: Respiratory Tract Infection Hx - environmental engineering manager Hx Respiratory Tract Infection No 04/01/25 13:32 STOP Sleep Apnea STOP Sleep Apnea - environmental engineering manager: STOP Sleep Apnea - environmental engineering manager Hx Hypertension Yes 04/01/25 13:32 Hx Sleep Apnea Yes 04/01/25 13:32 CPAP Yes: non compliant 04/01/25 13:32 BIPAP No 04/01/25 13:32 Do you snore loudly (louder than talking or can be heard Do you often feel tired/ fatigued/ sleepy during daytime? Has anyone observed you stop breathing during sleep? STOP Results Positive 04/01/25 13:32 QUESTION #5 FULL TEXT : Do you snore loudly (louder than talking or can be heard through closed doors)? 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 Specify any problems Hx of Preganancy in last 3 N/A 04/01/25 13:32 Months Nurse Filling Out Transfusion JZOLLTREMAINE 04/01/25 13:32 & Questions: Date: 04/01/25 04/01/25 13:32 Time: 13:33 04/01/25 13:32 Patient unable to answer at this time (ie. confused, unrespo /Reproduction History /Reproductive History - environmental engineering manager: /Reproductive Hx- environmental engineering manager Hx Now No 04/01/25 13:32 Gestational Age (in weeks): EDC: Hx Hx Para Hx Section SAB No 04/01/25 13:32 Active Medications Active Medications: Current Medications Generic Name Dose Route Start Last Admin Trade Name Freq PRN Reason Stop Dose Admin Cefazolin Sodium 2 gm/ Sodium 110 mls @ 200 mls/hr 04/13/25 11:00 Chloride IV 04/13/25 11:32 [facility] Medical History (Updated 04/01/25 @ 13:32 by Allyson Alexis) Dietary restriction CPAP (continuous positive airway pressure) dependence Wears glasses Cancer Prostate disease High cholesterol Restless legs Former smoker Shortness of breath on exertion Neuropathy History of stress test Cardiology follow-up encounter COVID-19 virus detected (08/2020) Obesity Diabetes 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 lymph node Essential (primary) hypertension Atherosclerosis of coronary artery of [place] heart without angina pectoris Hyperlipidemia Displaced oblique fracture of shaft of left fibula, subsequent encounter for closed fracture with routine healing Unspecified fracture of lower end of left tibia, subsequent encounter for closed fracture with routine healing Hyperlipidemia associated with type 2 diabetes mellitus Tobacco abuse disorder Crushing injury of distal finger Home Medications Medication Instructions Recorded Last Taken Type aspirin 81 mg tablet,delayed 81 mg PO DAILY antiplatel et 07/07/15 06/10/22 History release canagliflozin 300 mg tablet 300 mg PO DAILY Check with primary 03/21/19 Unknown History doctor blood sugar diagnostic ([place] [employer] #200 ea 09/17/21 Unkn own Rx Verio test strips) blood-glucose meter (OneTouch #1 ea 09/17/21 Unknown R x Verio Meter) lancets 33 gauge (OneTouch Delica #200 ea 09/17/21 Unk nown Rx Plus Lancet) metformin 1,000 mg tablet 1,000 mg PO BID #60 tabs 06/08/22 Rx semaglutide 0.25 mg or 0.5 mg (2 0.5 mg subcut QWEEK 0 05/24/24 Unknown History mg/3 mL) subcutaneous pen injector ([employer]) bicalutamide 50 mg tablet 50 mg PO DAILY #90 TABLETS 0 09/06/24 Unknown Rx Oral appliance #1 ea 09/22/24 Unknown Rx isosorbide mononitrate 60 mg 60 mg PO DAILY #90 tabs 0 11/23/24 Unknown Rx tablet,extended release 24 hr metoprolol tartrate 25 mg tablet 25 mg PO BID #180 tab s 11/30/24 Unknown Rx atorvastatin 80 mg tablet 80 mg PO DAILY #90 tabs 12/01 04/25 Unknown Rx Allergy/AdvReac Type Severity Reaction Status Date / Time No Known Allergies Allergy Verified 04/01/25 13:10 Family History Mother Heart disease [place] spotted fever cause of heart problems Father Hypertension Diabetes mellitus, type 2 Myocardial infarction Surgical History (Updated 04/01/25 @ 13:32 by Allyson Alexis) Hx of colonoscopy History of left heart catheterization (06/10/22) History of coronary artery stent placement (03/22/19) History of open reduction and internal fixation (ORIF) procedure Social History Smoking Status: Former smoker how long ago did patient quit smokin years ago second hand exposure: No alcohol intake: never substance use type: does not use caffeine: Yes Type: coffee Number of servings: 1 Audit: Pertinent Findings HISTORY of Pertinent Findings History of Pertinent Findings: EKG Pertinent Findings EKG Perinent findings April 11, 2025. Pending 04/01/25 19:52 Stress Test Pertinent Findings Stress test pertinent findings May 10, 2022. EF is 84 04/01/25 19:48 %. Small area anterior lateral ischemia cannot be excluded. Previous inferior infarct is suggested. Heart Catheterization Pertinent Findings Heart catheterization June 10, 2022. EF is 50% 04/01/25 19:48 pertinent findings . LAD is 30 to 40% stenosis throughout. 50% proximal lesion in the first diagonal . Circumflex artery 60% with [id number] collaterals. RCA 100%. Consult Pertinent Findings Consult pertinent findings March 24, 2025. Dr. Ware. 04/01/25 19:52 1. History of coronary artery stent placement-RAVI to the proximal OM1 and second RAVI immediately upstream. 2. Hypertension chronic– well-controlled Recommendation Anesthesia Recommendation Anesthesia recommendation: OPTIMIZED for anesthesia (Patient's hemoglobin A1c is elevated at 10.2. Patient has had elevated A1c is all the way back to 2015. However this is a risk factor for poor wound healing and increased infections postoperatively. Thus surgeons office should be notified.)
[2025-04-13] VITALS (15 sets, daily range): BP systolic 113–164; BP diastolic 53–80; PULSE 50–90; RESP 12–16; TEMP 35.6–36.4; O2SAT 92–100; BMI 36.8
--- OUTSIDE RECORDS SUMMARY | 2025-04-13 09:09 | XMS RPT_ITS | CCD ---
Author Organization [facility] Care Team Providers Care Nursing Home Physician Name Role Phone Sammy Talley Unavailable Marisa Esquivel Unavailable Unavailable Dr. Marisa Arredondo Primary Care Provider Dr. Marisa Arredondo Referring Provider Roof VALET MANAGER, VALET MANAGER-C Delgado Aguiar Attending Provider Roof VALET MANAGER, VALET MANAGER-C Delgado Aguiar Referring Provider Roof VALET MANAGER, VALET MANAGER-C Delgado Aguiar Other Provider Dr. Long Ware Attending Provider Dr. Mykel Sweeney Attending Provider Dr. Long Ware Other Provider Dr. Marisa Arredondo Primary Care Provider Dr. Marisa Arredondo Referring Provider Dr. Mykel Sweeney Attending Provider Dr. Long Ware Attending Provider Dr. Morgan Hutton Attending Provider [phone] Dr. Morgan Hutton Other Provider Dr. Marisa Arredondo Primary Care Provider Dr. Marisa Arredondo Referring Provider Roof VALET MANAGER, VALET MANAGER-C Delgado Aguiar Attending Provider Dr. Marisa Arredondo MD Primary Care Provider [phone] Kari SAMUELS, Dr. Geovany Siegel Attending Provider Kari MD, Dr. Geovany Siegel Referring Provider Arnulfo SAMUELS, Dr. Marisa Morton Referring Provider Jeanie SAMUELS, Dr. Alves Attending Provider Manan SAMUELS, Dr. Delgado Lindo Primary Care Provider Jeanie SAMUELS, Dr. Alves Referring Provider [phone] Kari SAMUELS, Dr. Geovany Siegel Other Provider Jolliff, Marisa S Primary Care Unavailable Jolliff, Marisa S Referring Unavailable Jolliff, Marisa S Attending Unavailable Kari, Geovany Siegel Referring Unavailable Kari, Geovany Siegel Attending Unavailable Jolliff, Marisa S Primary Care Unavailable Schinner, Delgado E Primary Care Unavailable KariGeovany Consulting Unavailable Jeanie, Tatum Referring Unavailable Jeanie, Long Attending Unavailable Kancherfawn, Chester Consulting Unavailable Delgado Hinkle Primary Care Unavailable Kari, Geovany Siegel Referring Unavailable Kari, Geovany Siegel Attending Unavailable Kari, Geovany Siegel Referring Unavailable Kari, Geovany Siegel Attending Unavailable Jolliff, Marisa S Primary Care Unavailable Roof VALET MANAGER, Delgado Aguiar Attending Unavailable Jolliff, Marisa S Referring Unavailable Jolliff, Marisa S Primary Care Unavailable SchinnerDelgado E Primary Care Unavailable Jolliff, Marisa S Referring Unavailable Jeanie, Long Attending Unavailable SchinDelgado rey E Primary Care Unavailable Kari, Geovany Siegel Referring Unavailable Jeanie, Long Attending Unavailable Jolliff, Marisa S Referring Unavailable Jolliff, Marisa S Primary Care Unavailable Uriarte VALET MANAGER, Denise Attending Unavailable Jolliff, Mairsa S Primary Care Unavailable Jolliff, Marisa S Referring Unavailable Jolliff, Marisa S Attending Unavailable Uriarte VALET MANAGER, Denise Attending Unavailable Jolliff, Marisa S Primary Care Unavailable Jolliff, Marisa S Referring Unavailable Jolliff, Marisa S Primary Care Unavailable Uriarte VALET MANAGER, Denise Referring Unavailable Uriarte VALET MANAGER, Denise Attending Unavailable Roof VALET MANAGER, Delgado H Referring Unavailable Roof VALET MANAGER, Delgado H Attending Unavailable Jolliff, Marisa S Primary Care Unavailable Medications Current Medications Medication Drug Class(es) Dates Sig (Normalized) Sig (Original) aspirin 81 mg delayed release oral tablet (18 sources) Platelet Aggregation Inhibitor, Nonsteroidal Anti-inflammatory Drug Start: 07-07-2015 End: 07-07-2015 take 1 tablet by mouth once daily Aspirin 81 MG tablet,delayed release (DR/EC) Active 81 mg PO DAILY July 07, 2015 1:00am antiplatelet Blood-Glucose Meter (Onetouch Verio Meter) mis (9 sources) Start: 09-17-2021 Blood-Glucose Meter (Onetouch Verio Meter) [facility] [place] Active 0 .ROUTE .MEDSUPPLY 1 0 September 17, 2021 1:00am As directed Start: 09-17-2021 Blood-Glucose Meter (Onetouch Verio Meter) [facility] [place] Active 0 .ROUTE .MEDSUPPLY September 17, 2021 12:00am As directed Start: 09-17-2021 Blood-Glucose Meter (Onetouch Verio Meter) [facility] [place] Active 0 .ROUTE .MEDSUPPLY September 17, 2021 1:00am As directed canagliflozin 300 mg oral tablet (9 sources) Sodium-Glucose Cotransporter 2 Inhibitor Start: 03-21-2019 [...] tablet Discontinued 4 mg PO DAILY 60 6 June 04, 2021 12:00am September 17, 2021 11:15am lisinopril 10 mg oral tablet (20 sources) Angiotensin Converting Enzyme Inhibitor Start: 04-27-2020 Lisinopril Active 5 MG PO daily April 27, 2020 9:05am 10mg pill cut in half Start: 10-11-2019 End: 04-27-2020 take 1 tablet by mouth once daily Lisinopril 10 mg tablet Discontinued 10 mg PO daily 90 3 October 11, 2019 11:09am April 27, 2020 9:05am blood pressure Start: 07-07-2015 End: 10-11-2019 take 1 tablet by mouth once daily Lisinopril 20 mg tablet Discontinued 20 mg PO daily 90 3 April 02, 2019 1:31pm October 11, 2019 11:10am blood pressure metFORMIN hydrochloride 1000 mg oral tablet (20 sources) Biguanide Start: 09-17-2021 take 1 tablet by mouth twice daily Metformin 1,000 mg tablet Active 1000 mg PO TWICE A DAY 60 6 September 17, 2021 1:00am Start: 02-05-2021 End: [...] 07, 2015 1:00am September 26, 2017 1:35pm Oral appliance (2 sources) Start: 09-22-2024 Oral appliance Active 0 .ROUTE .MEDSUPPLY 1 0 September 22, 2024 1:00am Sleep apnea Obstructive sleep apnea syndrome Obstructive sleep apnea (adult) (pediatric) As directed Semaglutide (2 sources) Start: 05-24-2024 Semaglutide (O zempic) 0.25 mg or 0.5 mg (2 mg/3 mL) pen injector Active mg SC May 24, 2024 12:00am Completed/Discontinued Medications Medication Drug Class(es) Dates Sig (Normalized) Sig (Original) acetaminophen 325 mg / oxyCODONE hydrochloride 5 mg oral tablet (15 sources) Opioid Agonist Start: 08-14-2017 End: 08-15-2017 [...] 2 po q6h as needed pain OXYCODONE-ACETAMINOPHEN [id number] Sammy Talley Start: 06-18-2017 OXYCODONE-ACET AMINOPHEN 5-325 MG TABS OXYCODONE-ACETAMINOPHEN [id number] Sammy Talley atorvastatin 80 mg oral tablet (20 sources) HMG-CoA Reductase Inhibitor Start: 11-13-2023 End: 12-27-2024 take 1 tablet by mouth once daily Atorvastatin 80 mg tablet Discontinued 80 mg PO DAILY 90 3 December 22, 2023 9:25am December 27, 2024 9:30am Start: 03-23-2019 End: [...] 07, 2015 1:00am September 26, 2017 1:34pm azithromycin 250 mg oral tablet (2 sources) Macrolide Antimicrobial Start: 09-22-2024 End: 03-24-2025 take 2-5 tablets by mouth once daily Azithromycin 250 mg tablet Discontinued 0 PO .COMPLEX 6 0 September 22, 2024 1:00am March 24, 2025 9:09am Sleep apnea Obstructive sleep apnea (adult) (pediatric) take 500 mg today (day 1), then 250 mg for 4 days (days 2-5) PO bicalutamide 50 mg oral tablet (10 sources) Androgen Receptor Inhibitor Start: 05-19-2023 End: 09-06-2024 take 1 tablet by mouth once daily Bicalutamide (Casodex) 50 mg tablet Discontinued 50 mg PO DAILY 90 90 0 June 16, 2024 2:43pm September 06, 2024 12:03pm glyBURIDE 6 mg oral tablet (9 sources) Sulfonylurea Start: 07-07-2015 End: 10-11-2019 take 1 tablet by mouth once daily Glyburide Micronized 6 MG tablet Discontinued 6 mg PO DAILY July 07, 2015 1:00am October 11, 2019 10:40am diabetes 24 hr isosorbide mononitrate 60 mg extended release oral tablet (20 sources) Nitrate Vasodilator Start: 04-30-2021 End: 11-23-2024 take 1 tablet by mouth once daily, then take 1 tablet by mouth every twenty-four hours Isosorbide Mononitrate 60 mg tablet extended release 24 hr Discontinued 60 mg PO DAILY 90 October 02, 2023 11:07am November 23, 2024 3:33pm Start: 12-04-2020 End: [...] hr Discontinued 30 mg PO DAILY 90 3 April 03, 2020 9:02am December 04, 2020 8:46am metoprolol tartrate 25 mg oral tablet (20 sources) beta-Adrenergic [place] Start: 06-10-2022 End: 11-30-2024 take 1 tablet by mouth twice daily Metoprolol Tartrate 25 mg tablet Discontinued 25 mg PO TWICE A DAY 180 3 October 02, 2023 2:03pm November 30, 2024 7:46am Start: 03-23-2019 End: 06-10-2022 Metoprolol Tartrate 25 mg ta blet Discontinued 12.5 mg PO TWICE A DAY 90 August 21, 2021 11:38am June 10, 2022 10:37am Start: 03-23-2019 End: 06-10-2022 take 12.5 mg by mouth twice daily Metoprolol Tartrate Discontinued 12.5 MG PO TWICE A DAY 90 August 21, 2021 11:38am June 10, 2022 10:37am ticagrelor 90 mg oral tablet (20 sources) [...] accepted. Coronary atherosclerosis and other heart disease (9 sources) Coronary atherosclerosis; Translations: [Atherosclerotic heart disease of [place] coronary artery without angina pectoris] 05-08-2020 Chronic Diabetes mellitus with complications (19 sources) Hyperlipidemia; Translations: [Type 2 diabetes mellitus with other specified complication] 03-22-2019 Chronic Diabetes mellitus without complication (11 sources) Diabetes mellitus; Translations: [Type 2 diabetes mellitus without complications] Onset: 10-25-2024 06-04-2021 Chronic Diabetes mellitus without complication (2 sources) Hyperglycemia; Translations: [Hyperglycemia, unspecified] 04-19-2024 Episodic Disorders of lipid metabolism (6 sources) Hyperlipidemia, unspecified; Translations: [Other and unspecified hyperlipidemia] Chronic Essential hypertension (17 sources) Essential hypertension; Translations: [Essential (primary) hypertension] Onset: 07-06-2024 Chronic Gastrointestinal hemorrhage (8 sources) Rectal hemorrhage; Translations: [Hemorrhage of anus and rectum] 05-19-2023 Episodic Genitourinary symptoms and ill-defined conditions (7 sources) Increased frequency of urination; Translations: [Frequency of micturition] 05-19-2023 Episodic Nonspecific chest pain (20 sources) Chest pain at rest; Translations: [Chest pain, unspecified] 03-22-2019 Episodic Other diseases of veins and lymphatics (4 sources) Stasis dermatitis; Translations: [Venous insufficiency (chronic) (peripheral)] 11-15-2020 Episodic Other diseases of veins and lymphatics (2 sources) Venous insufficiency (chronic) (peripheral); Translations: [Varicose veins of lower extremities with inflammation] Episodic Other diseases of veins and lymphatics (5 sources) Disorder of vein of lower extremity; Translations: [Venous insufficiency (chronic) (peripheral)] 11-15-2020 Episodic Other nutritional; endocrine; and metabolic disorders (9 sources) Obesity; Translations: [Obesity, unspecified] 06-04-2021 Chronic Other screening for suspected conditions (not mental disorders or infectious disease) (11 sources) Cardiovascular stress test abnormal; Translations: [Abnormal result of other cardiovascular function study] Onset: 07-01-2024 05-14-2022 Episodic Residual codes; unclassified (3 sources) Hypersomnia; Translations: [Hypersomnia, unspecified] 12-22-2023 Chronic Residual codes; unclassified (1 source) Hypersomnia, unspecified; Translations: [Hypersomnia, unspecified] 12-22-2023 Chronic Residual codes; unclassified (2 sources) Sleep apnea; Translations: [Sleep apnea, unspecified] 05-25-2024 Chronic Residual codes; unclassified (1 source) Obstructive sleep apnea (adult) (pediatric); Translations: [Obstructive sleep apnea (adult) (pediatric)] Onset: 09-22-2024 Chronic Substance-related disorders (3 sources) Cigarette smoker ; Translations: [Nicotine dependence, cigarettes, uncomplicated] Onset: 09-22-2024 05-25-2024 Chronic Comment on above: quit 2016 Past or Other Problems Problem Classification Problem [...] with routine healing] Onset: 06-18-2017 07-23-2017 Episodic Nonmalignant breast conditions (1 source) Mastodynia; Translations: [Mastodynia] Onset: 10-29-2024 Episodic Other non-traumatic joint disorders (3 sources) Ankle pain; Translations: [Pain in left ankle and joints of left foot] Onset: 06-18-2017 06-18-2017 Episodic Results Test Name Value Interpretation Reference Range Facility MR/PATBere 04-12-2025 /PAT.JOSIAH [facility] Medical Records Department [address] [place] [address] PAT - Anesthesia 04/12/25 1544 MR#: [id number] Acct: [id number] Name: CAIO SENIOR Rep #: [id number] : 1955 69 From: Chester Brynat MD PCP: Dr. Delgado Hinkle MD Status[place]PRE [facility] [place] C [place] [facility] [place] Pre-Assessment Diagnosis/Proposed Procedure Planned Operative Procedure(s): Cysto,Transurethral Resection Prostate Anesthesia History Anesthesia History - artist relationship manager: Anesthesia History - artist relationship manager Hx Hospitalization No 04/01/25 13:32 Any Problems With Anesthesia No 04/01/25 13:32 Cholinesterase deficiency No 04/01/25 13:32 You/Your Family Experience No 04/01/25 13:32 fever (hyperthermia) with Relationship Recent Exposure to Contagious No 07/15/23 06:48 Disease Does patient have nerve No 04/01/25 13:32 stimulator Patient instructed to have device shut off --Does patient have Pacemaker or ICD? When Was Last Pacemaker Check QUESTION #4 FULL TEXT: You/Your Family Experience fever (hyperthermia) with Anesthesia Last Oral Intake Last Oral intake: Last Oral Intake NPO since Meds taken in AM with sips of water? Meds patient instructed to take am of surgery PONV PONV - artist relationship manager: PONV - artist relationship manager Female No 04/01/25 13:32 HX of Motion Sickness No 04/01/25 13:32 HX of N/V After Surgery No 04/01/25 13:32 Non-Smoker Yes 04/01/25 13:32 Duration of Surgery greater Yes 04/01/25 13:32 than 60 minutes Number of Risk Factors 2 04/01/25 13:32 PONV Score Moderate Risk 04/01/25 13:32 Height Weight Height Weight: Anesthesia: Height Weight Height 5 ft 8 in 03/24/25 08:55 Respiratory Assessment Respiratory Assessment - artist relationship manager: Respiratory Tract Infection Hx - artist relationship manager Hx Respiratory Tract Infection No 04/01/25 13:32 STOP Sleep Apnea STOP Sleep Apnea - artist relationship manager: STOP Sleep Apnea - artist relationship manager Hx Hypertension Yes 04/01/25 13:32 Hx Sleep Apnea Yes 04/01/25 13:32 CPAP Yes: non compliant 04/01/25 13:32 BIPAP No 04/01/25 13:32 Do you snore loudly (louder than talking or can be heard Do you often feel tired/ fatigued/ sleepy during daytime? Has anyone observed you stop breathing during sleep? STOP Results Positive 04/01/25 13:32 QUESTION #5 FULL TEXT : Do you snore loudly (louder than talking or can be heard through closed doors)? 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 Specify any problems Hx of Preganancy in last 3 N/A 04/01/25 13:32 Months Nurse Filling Out Transfusion ALONZO 04/01/25 13:32 Questions: Date: 04/01/25 04/01/25 13:32 Time: 13:33 04/01/25 13:32 Patient unable to answer at this time (ie. confused, unrespo /Reproduct ion History /Reproduct audrey History - artist relationship manager: /Reproduct audrey Hx- artist relationship manager Hx Now No 04/01/25 13:32 Gestational Age (in weeks): EDC: Hx Hx Para Hx Section SAB No 04/01/25 13:32 Active Medications Active Medications: Current Medications Generic Name Dose Route Start Last Admin Trade Name Freq PRN Reason Stop Dose Admin Cefazolin Sodium 2 gm/ Sodium 110 mls @ 200 mls/hr 04/13/25 11:00 Chloride IV 04/13/25 11:32 INTRAOP ONE [facility] Medical History (Updated 04/01/25 @ 13:32 by Allyson Alexis) Dietary restriction CPAP (continuous positive airway pressure) dependence Wears glasses Cancer Prostate disease High cholesterol Restless legs Former smoker Shortness of breath on exertion Neuropathy History of stress test Cardiology follow-up encounter COVID-19 virus detected (08/2020) Obesity Diabetes 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 lymph node Essential (primary) hypertension Atherosclerosis of coronary artery of [place] heart without angina pectoris Hyperlipidemia Displaced oblique fracture (more content not included)... Normal [facility] 12 Lead EKGon 04-11-2025 12 Lead EKG [facility] Cardiovascular Services [address] [place] [address] 12 Lead EKG 04/11/25 0708 MR#: [id number] Acct: [id number] Name: CAIO SENIOR Rep #: [id number] : 1955 69 From: Long Ware MD Attending Dr: Dr. Geovany Estrada MD Status: PRE [facility] [place] Dr: Geovany Estrada MD Date: 04/11/25 [place] [facility] [place] Sex: M C Admitted: Test Reason : PREOP Blood Pressure : */* mmHG Vent. Rate : 59 BPM Atrial Rate : 59 BPM P-R Int : 186 ms QRS Dur : 84 ms QT Int : 420 ms P-R-T Axes : 6 -29 1 degrees QTcB Int : 415 ms Sinus bradycardia Otherwise normal ECG Confirmed by JEANIE SAMUELS, LONG ([id number]), graphic editor CASSANDRA OLIVER ([id number]) on 04/11/2025 1:18:29 PM Referred By: Geovany Estrada Confirmed By: LONG WARE MD 04/11/25 1318 Date Long Ware MD CC: Dr. Delgado Hinkle MD; Dr. Geovany Estrada MD Signed Normal [facility] Basic Metabolic Profile (BMP )on 04-11-2025 BUN/CRE 18.7 RATIO Normal 10-20 [facility] Comment on above: Performed By: #### L 501.0900, L500.2500, L500.4100 #### [facility] [address] [place], [address] Calcium [Mass/Vol] 9.5 mg/dL Normal 7.6-11.0 [facility] Comment on above: Performed By: #### L 501.0900, L500.2500, L500.4100 #### [facility] [address] [place], [address] Chloride [Moles/Vol] 104 mmol/L Normal 98-[address] [facility] Comment on above: Performed By: #### L 501.0900, L500.2500, L500.4100 #### [facility] [address] [place], [address] CO2 [Moles/Vol] 23.2 mmol/L Normal 21.0-32.0 [facility] Comment on above: Performed By: #### L 501.0900, L500.2500, L500.4100 #### [facility] [address] [place], [address] Creatinine [Mass/Vol] 1.00 mg/dL Normal 0.70-1.20 [facility] Comment on above: Performed By: #### L 501.0900, L500.2500, L500.4100 #### [facility] [address] [place], [address] GAP 12 Normal 5-15 [facility] Comment on above: Performed By: #### L 501.0900, L500.2500, L500.4100 #### [facility] [address] [place], [address] GFR/1.73 sq M.predicted among non-blacks MDRD (S/P/Bld) [Vol rate/Area] 82 mL/min/{1.73_m2} Normal >60 [facility] Comment on above: Result Comment: mL/m in/1.73m2 CKD-EPI Creatinine Equation (2020) Performed By: #### L 501.0900, L500.2500, L500.4100 #### [facility] [address] [place], [address] Glucose [Mass/Vol] 224 mg/dL High 70-99 [facility] Comment on above: Performed By: #### L 501.0900, L500.2500, L500.4100 #### [facility] [address] [place], [address] Potassium [Moles/Vol] 4.2 mmol/L Normal 3.3-5.1 [facility] Comment on above: Performed By: #### L 501.0900, L500.2500, L500.4100 #### [facility] [address] [place], [address] Sodium [Moles/Vol] 139 mmol/L Normal 133-145 [facility] Comment on above: Performed By: #### L 501.0900, L500.2500, L500.4100 #### [facility] [address] [place], [address] Urea nitrogen [Mass/Vol] 19 mg/dL Normal 4-19 [facility] Comment on above: Performed By: #### L 501.0900, L500.2500, L500.4100 #### [facility] [address] [place], [address] CBC-Complete Blood Cnt No Di ffon 04-11-2025 Erythrocyte distribution width (RBC) [Ratio] 13.4 % Normal 11.6-14.6 [facility] Comment on above: Performed By: #### L 501.0900, L500.2500, L500.4100 #### [facility] [address] [place], [address] Hematocrit (Bld) [Volume fraction] 37.7 % Low 40-54 [facility] Comment on above: Performed By: #### L 501.0900, L500.2500, L500.4100 #### [facility] [address] [place], [address] Hemoglobin (Bld) [Mass/Vol] 12.4 g/dL Low 13.0-16.5 [facility] Comment on above: Performed By: #### L 501.0900, L500.2500, L500.4100 #### [facility] [address] [place], [address] MCH (RBC) [Entitic mass] 32.4 pg High 27.0-32.0 [facility] Comment on above: Performed By: #### L 501.0900, L500.2500, L500.4100 #### [facility] [address] [place], [address] MCHC (RBC) [Mass/Vol] 32.9 g/dL Normal 32-36 [facility] Comment on above: Performed By: #### L 501.0900, L500.2500, L500.4100 #### [facility] [address] [place], [address] MCV (RBC) [Entitic vol] 98.4 fL High 80-94 [facility] Comment on above: Performed By: #### L 501.0900, L500.2500, L500.4100 #### [facility] [address] [place], [address] Platelet mean volume (Bld) [Entitic vol] 10.1 fL Normal 6.2-12.0 [facility] Comment on above: Performed By: #### L 501.0900, L500.2500, L500.4100 #### [facility] [address] [place], [address] Platelets (Bld) [#/Vol] 172 10*3/uL Normal 150-450 [facility] Comment on above: Performed By: #### L 501.0900, L500.2500, L500.4100 #### [facility] [address] [place], [address] RBC (Bld) [#/Vol] 3.83 10*6/uL Low 4.6-6.2 [facility] Comment on above: Performed By: #### L 501.0900, L500.2500, L500.4100 #### [facility] [address] [place], [address] RDW SD 47.6 fl High 35.1-43.9 [facility] Comment on above: Performed By: #### L 501.0900, L500.2500, L500.4100 #### [facility] [address] [place], [address] WBC (Bld) [#/Vol] 4.8 10*3/uL Normal 4.4-11.0 [facility] Comment on above: Performed By: #### L 501.0900, L500.2500, L500.4100 #### [facility] [address] [facility] [place], [address] Hemoglobin A1con 04-11-2025 HbA1c (Bld) [Mass fraction] 10.2 % High <=5.6 [facility] Comment on above: Result Comment: Norm al < 5.7 % Prediabetic 5.7 - 6.4 % Diabetic >or= 6.5 % Please note range changes. Performed By: #### L 501.0900, L500.2500, L500.4100 #### [facility] [address] [place], [address] MR/PAT.ANEon 04-01-2025 MR/PAT.JOSIAH [facility] Medical Records Department [address] [place] [address] PAT - Anesthesia 04/01/251941 MR#: [id number] Acct: [id number] Name: CAIO SENIOR Rep #: [id number] : 1955 69 From: Chester Bryant MD PCP: Dr. Delgado Hinkle MD Status:PRE [facility] [place] C [place] [facility] [place] Pre-Assessment Diagnosis/Proposed Procedure Planned Operative Procedure(s): Cysto,Transurethral Resection Prostate Anesthesia History Anesthesia History - artist relationship manager: Anesthesia History - artist relationship manager Hx Hospitalization No 04/01/25 13:32 Any Problems With Anesthesia No 04/01/25 13:32 Cholinesterase deficiency No 04/01/25 13:32 You/Your Family Experience No 04/01/25 13:32 fever (hyperthermia) with Relationship Recent Exposure to Contagious No 07/15/23 06:48 Disease Does patient have nerve No 04/01/25 13:32 stimulator Patient instructed to have device shut off --Does patient have Pacemaker or ICD? When Was Last Pacemaker Check QUESTION #4 FULL TEXT: You/Your Family Experience fever (hyperthermia) with Anesthesia Last Oral Intake Last Oral intake: Last Oral Intake NPO since Meds taken in AM with sips of water? Meds patient instructed to take am of surgery PONV PONV - artist relationship manager: PONV - artist relationship manager Female No 04/01/25 13:32 HX of Motion Sickness No 04/01/25 13:32 HX of N/V After Surgery No 04/01/25 13:32 Non-Smoker Yes 04/01/25 13:32 Duration of Surgery greater Yes 04/01/25 13:32 than 60 minutes Number of Risk Factors 2 04/01/25 13:32 PONV Score Moderate Risk 04/01/25 13:32 Height Weight Height Weight: Anesthesia: Height Weight Height 5 ft 8 in 03/24/25 08:55 Respiratory Assessment Respiratory Assessment - artist relationship manager: Respiratory Tract Infection Hx - artist relationship manager Hx Respiratory Tract Infection No 04/01/25 13:32 STOP Sleep Apnea STOP Sleep Apnea - artist relationship manager: STOP Sleep Apnea - artist relationship manager Hx Hypertension Yes 04/01/25 13:32 Hx Sleep Apnea Yes 04/01/25 13:32 CPAP Yes: non compliant 04/01/25 13:32 BIPAP No 04/01/25 13:32 Do you snore loudly (louder than talking or can be heard Do you often feel tired/ fatigued/ sleepy during daytime? Has anyone observed you stop breathing during sleep? STOP Results Positive 04/01/25 13:32 QUESTION #5 FULL TEXT : Do you snore loudly (louder than talking or can be heard through closed doors)? 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 Specify any problems Hx of Preganancy in last 3 N/A 04/01/25 13:32 Months Nurse Filling Out Transfusion ALONZO 04/01/25 13:32 Questions: Date: 04/01/25 04/01/25 13:32 Time: 13:33 04/01/25 13:32 Patient unable to answer at this time (ie. confused, unrespo /Reproduct ion History /Reproduct audrey History - artist relationship manager: /Reproduct audrey Hx- artist relationship manager Hx Now No 04/01/25 13:32 Gestational Age (in weeks): EDC: Hx Hx Para Hx Section SAB No 04/01/25 13:32 [facility] Medical History (Updated 04/01/25 @ 13:32 by Allyson Alexis) Dietary restriction CPAP (continuous positive airway pressure) dependence Wears glasses Cancer Prostate disease High cholesterol Restless legs Former smoker Shortness of breath on exertion Neuropathy History of stress test Cardiology follow-up encounter COVID-19 virus detected (08/2020) Obesity Diabetes 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 Normal [facility] Bilirubin directOrdered By: Long Ware on 03-24-2025 Bilirubin.direct [Mass/Vol] 0.59 mg/dL High 0.00-0.30 [facility] Comment on above: Hemolysis present, R esults could be affected. Bilirubin, totalOrdered By: Long Ware on 03-24-2025 Bilirubin [Mass/Vol] 1.88 mg/dL High 0.00-1.[address] [facility] Calculated very low density lipoprotein (VLDL) cholesterol measurementOrdered By: Long Ware on 03-24-2025 Calculated very low density lipoprotein (VLDL) cholesterol measurement 47 mg/dL High 5-40 [facility] Cardiology Visit Reporton Cardiology Visit Report [facility] [address] [place], [place] [id number] OFFICE VISIT Date of Service: 03/24/25 MR#: [id number] Acct: [id number] Name: CAIO SENIOR Rep #: [id number] : 1955 Provider: Dr. Long Ware MD Age/Sex: 69/M Location: [facility] Status: Signed HPI HPI History of Present [...] upstream with a 2.25 Promus Synergy stent. In May 2022 he had a stress test which demonstrated evidence of anterolateral ischemia and he underwent a cardiac catheterization in June 2022 demonstrating moderate disease in the left anterior descending artery and diagonal vessel circumflex artery was moderate to moderately severely diseased with [id number] collaterals and an occluded right coronary artery. Medical therapy was recommended. He has also been diagnosed with metastatic [...] remained stable. Intake Vital Signs 12/22/23 09:02 09/22/24 08:23 03/24/25 08:55 Height 5 ft 8 in 5 ft 8 in 5 ft 8 in Weight: 253 lb BMI 38.5 BP 114/53 L Blood Pressure Location Lt brachial Position Sitting Respiration 16 Pulse 68 Pulse Source Monitor Intake Visit Reasons: 1 Y FU Media Reporter Required: No Accompanied by: Self Is patient in pain?: No Allergies No Known Allergies Allergy (Verified 03/24/25 09:09) Medications ???Medication ???Instructions ???Recorded ???Confirmed ???Type aspirin 81 mg tablet,delayed 81 mg PO DAILY antiplatelet 03/24/25 History release canagliflozin 300 mg tablet 300 mg PO DAILY Check with primary 03/21/19 03/24/25 History doctor blood sugar diagnostic (InstallFreeTouch #200 ea 09/17/21 05/24/24 Rx Verio test strips) blood-glucose meter (InstallFreeTouch #1 ea 09/17/21 05/24/24 Rx Verio Meter) lancets 33 gauge (OneTouch Delica #200 ea 09/17/21 06/09/23 Rx Plus Lancet) metformin 1,000 mg tablet 1,000 mg PO BID #60 tabs 09/17/21 03/24/25 Rx semaglutide 0.25 mg or 0.5 mg (2 mg subcut 05/24/24 03/24/25 Histor y mg/3 mL) subcutaneous pen injector (Ozempic) bicalutamide 50 mg tablet 50 mg PO DAILY #90 TABLETS 5 03/24/25 Rx Oral appliance #1 ea 09/22/24 09/22/24 Rx glimepiride 4 mg tablet 4 mg PO BID 09/22/24 03/24/25 Hist ory isosorbide mononitrate 60 mg 60 mg PO DAILY #90 tabs 11/23/24 0 03/24/25 Rx tablet,extended release 24 hr metoprolol tartrate 25 mg tablet 25 mg PO BID #180 tabs 11/30/24 Rx atorvastatin 80 mg tablet 80 mg PO DAILY #90 tabs 12/27/24 0 03/24/25 Rx Have you fallen in the past year?: Yes PFSH Medical History Wears glasses Cancer Prostate disease High cholesterol Restless legs Former smoker Shortness of breath on exertion Neuropathy History of stress test Cardiology follow-up encounter COVID-19 virus detected (08/2020) Obesity Diabetes 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 lymph node Essential (primary) hypertension Atherosclerosis of coronary artery of [place] heart without angina pectoris Hyperlipidemia Displaced oblique fracture of shaft of left fibula, subsequent encounter for closed fracture with routine healing Unspecified fracture of lower end of left tibia, subsequent encounter for closed fracture with routine healing Hyperlipidemia associated with type 2 diabetes mellitus Tobacco abuse disorder Crushing injury of distal finger Tian (more content not included)... Normal [facility] LDL calc ser/plasOrdered By: Long Ware on 03-24-2025 Cholesterol in LDL [Mass/Vol] 50 mg/dL [facility] Comment on above: Zrxfqactrz=471-028 m g/dL & Higher Qmok=295 mg/dL or greater Laboratory - Chemistry and C hemistry - challengeOrdered By: Long Ware on 03-24-2025 AST [Catalytic activity/Vol] 20 U/L <38 [facility] Comment on above: Hemolysis present, R esults could be affected. Lipid Profileon 03-24-2025 CHOL:HDL 3.57 Normal [facility] Comment on above: Performed By: #### L 500.4100, L500.3400 #### [facility] [address] [place], [place], [id number] ([phone] Cholesterol [Mass/Vol] 135 mg/dL Normal <=200 [facility] Comment on above: Result Comment: Chol esterol level, Desirable <200 mg/dL Borderline high cholesterol 200-239 mg/dL High cholesterol >=240 mg/dL Recommendations of the NCEP Adult Treatment Panel for the following risk-cutoff thresholds for the [place] population. Performed By: #### L 500.4100, L500.3400 #### [facility] [address] [place], [address] Cholesterol in HDL [Mass/Vol] 38 mg/dL Low [facility] Comment on above: Result Comment: Jo-Ann onal Cholesterol Education Program (NCEP) guidelines: <40 mg/dL: Low HDL-cholesterol (major risk factor for CHD) >= 60 mg/dL: High HDL-cholesterol (negative risk factor for CHD) HDL-cholesterol is affected by a number of factors, e.g. smoking, exercise, hormones, sex and age. Performed By: #### L 500.4100, L500.3400 #### [facility] [address] [place], [address] Cholesterol in LDL [Mass/Vol] 50 mg/dL Normal [facility] Comment on above: Result Comment: Bord chbrsz=459-786 mg/dL Higher Dljb=238 mg/dL or greater Performed By: #### L 500.4100, L500.3400 #### [facility] [address] [place], [address] Cholesterol in VLDL [Mass/Vol] 47 mg/dL High 5-40 [facility] Comment on above: Performed By: #### L 500.4100, L500.3400 #### [facility] [address] [place], [address] Triglyceride [Mass/Vol] 235 mg/dL High [facility] Comment on above: Result Comment: The drugs N-Acetylcysteine and Metamizole may falsely depress this assay. Normal range: <150 mg/dL Borderline High: 150-199 mg/dL High: 200-499 mg/dL Very High: >500 mg/dL Performed By: #### L 500.4100, L500.3400 #### [facility] [address] [place], [address] Liver Profileon 03-24-2025 Albumin [Mass/Vol] 4.1 g/dL Normal 3.4-4.8 [facility] Comment on above: Performed By: #### L 500.4100, L500.3400 #### [facility] [address] [place], [address] ALK PHOS 95 U/L Normal 40-129 [facility] Comment on above: Performed By: #### L 500.4100, L500.3400 #### [facility] [address] [place], [address] ALT [Catalytic activity/Vol] 28 U/L Normal <=46 [facility] Comment on above: Performed By: #### L 500.4100, L500.3400 #### [facility] [address] [place], [address] AST [Catalytic activity/Vol] 20 U/L Normal <=37 [facility] Comment on above: Result Comment: Hemo lysis present, Results??could be affected. ?? Performed By: #### L 500.4100, L500.3400 #### [facility] [address] [place], [address] Bilirubin [Mass/Vol] 1.88 mg/dL High 0.00-1.[address] [facility] Comment on above: Performed By: #### L 500.4100, L500.3400 #### [facility] [address] [place], [address] Bilirubin.direct [Mass/Vol] 0.59 mg/dL High 0.00-0.30 [facility] Comment on above: Result Comment: Hemo lysis present, Results??could be affected. ?? Performed By: #### L 500.4100, L500.3400 #### [facility] [address] [place], [address] Globulin (S) [Mass/Vol] 3.2 g/dL Normal 2.2-4.2 [facility] Comment on above: Performed By: #### L 500.4100, L500.3400 #### [facility] [address] [place], [address] T PROT 7.3 g/dL Normal 5.9-8.4 [facility] Comment on above: Performed By: #### L 500.4100, L500.3400 #### [facility] [address] [place], [place], [address] PSA,Total- Diagnosticon 03-02 PSA, DIAGNOSTIC 0.42 ng/mL Normal 0.00-4.00 [facility] Comment on above: Result Comment: This test was performed using the [employer] tPSA method. Measured values of a patient??sample can vary depending on the testing procedure used. PSA values determined on patient samples by different testing procedures cannot be used interchangeably. If there is a change in PSA assays while monitoring therapy, sequential testing should be performed to confirm baseline values. Performed By: #### L 501.0900, L500.2500, L500.4100 #### [facility] [address] [place], [address] Screening total cholesterol/ high density lipoprotein (HDL) cholesterol ratioOrdered By: Long Ware on 03-24-2025 Cholesterol.total/Chol esterol in HDL [Mass ratio] 3.57 {ratio} [facility] Serum globulin measurementOr dered By: Long Ware on 03-24-2025 Globulin (S) [Mass/Vol] 3.2 g/dL 2.2-4.2 [facility] Serum or plasma alanine shultz otransferase (ALT) measurementOrdered By: Long Ware on 03-24-2025 ALT [Catalytic activity/Vol] 28 U/L <47 [facility] Serum or plasma albumin jhony urement (mass/volume)Ordered By: Long Ware on 03-24-2025 Albumin [Mass/Vol] 4.1 g/dL 3.4-4.8 [facility] Serum or plasma alkaline peri sphatase measurementOrdered By: Long Jeanie on 03-24-2025 ALP [Catalytic activity/Vol] 95 U/L 40-129 [facility] Serum or plasma cholesterol in HDL measurement (mass/volume)Ordered By: Long Ware on 03-24-2025 Cholesterol in HDL [Mass/Vol] 38 mg/dL Low >40 [facility] Comment on above: National Cholesterol Education Program (NCEP) guidelines:<40 mg/dL: Low HDL-cholesterol (major risk factor for CHD)>= 60 mg/dL: High HDL-cholesterol (negative risk factor for CHD)HDL-cholesterol is affected by a number of factors, e.g. smoking, exercise, hormones, sex and age. Serum or plasma cholesterol measurement (mass/volume)Ordered By: Long Ware on 03-24-2025 Cholesterol [Mass/Vol] 135 mg/dL <201 [facility] Comment on above: Cholesterol level, D esirable <200 mg/dLBorderline high cholesterol 200-239 mg/dLHigh cholesterol >=240 mg/dLRecommendations of the NCEP Adult Treatment Panel for the following risk-cutoff thresholds for the [place] population. Total proteinOrdered By: Saundra Ware on 03-24-2025 Protein [Mass/Vol] 7.3 g/dL 5.9-8.4 [facility] Triglycerides measurementOrd ered By: Long Ware on 03-24-2025 Triglyceride [Mass/Vol] 235 mg/dL High <199 [facility] Comment on above: The drugs N-Acetylcy steine and Metamizole may falsely depress this assay. Normal range: <150 mg/dLBorderline High: 150-199 mg/dLHigh: 200-499 mg/dLVery High: >500 mg/dL PSA,Total- Diagnosticon 12-01 PSA, DIAGNOSTIC 0.39 ng/mL Normal 0.00-4.00 [facility] Comment on above: Result Comment: This test was performed using the [employer] tPSA method. Measured values of a patient??sample can vary depending on the testing procedure used. PSA values determined on patient samples by different testing procedures cannot be used interchangeably. If there is a change in PSA assays while monitoring therapy, sequential testing should be performed to confirm baseline values. Performed By: #### L 501.9940 #### [facility] [address] [place], [address] Breast Limited Unilateralon 10-15-2024 Breast Limited Unilateral [facility] [address] [place], [place] [address] Breast Limited Unilateral MR#: [id number] Acct: [id number] Name: CAIO SENIOR Rep #: [id number] : 1955 M 69 From: Ebenezer fox MD PCP: Dr. Marisa Arredondo MD Status: REG CLI Study: Breast Limited Unilateral Date of Exam: Exam# [id number] Ordering Dr: Marisa Arredondo MD PROCEDURE: BREAST [...] SCREENING. Follow-up code: Routine Follow-up Reading Location: [facility] CC: Dr. Marisa Arredondo MD Environmental Studies Professor: Signed Normal [facility] Breast Limited Unilateral [facility] Imaging Services [address] [place] [id number] Breast Limited Unilateral MR#: [id number] Acct: [id number] Name: CAIO SENIOR Rep #: [id number] : 1955 M 69 From: Ebenezer fox MD PCP: Dr. Marisa Arredondo MD Status: REG CLI Study: Breast Limited Unilateral Date of Exam: Exam# [id number] Ordering Dr: Marisa Arredondo MD PROCEDURE: BREAST [...] SCREENING. Follow-up code: Routine Follow-up Reading Location: [id number] CC: Dr. Marisa Arredondo MD Environmental Studies Professor: Signed Normal [facility] DIAG MAMM W/CAD, BILATon DIAG MAMM W/CAD, BILAT [facility] [address] [address] [place], [place] [address] DIAG MAMM W/CAD, BILAT MR#: [id number] Acct: [id number] Name: CAIO SENIOR Rep #: [id number] : 1955 M 69 From: Ebenezer fox MD PCP: Dr. Marisa Arredondo MD Status: REG CLI Study: DIAG MAMM W/CAD, BILAT Date of Exam: 10/15/24 Exam# [id number] Ordering Dr: Marisa Arredondo MD PROCEDURE: DIAG [...] of the results by letter. Reading Location: [id number] CC: Dr. Marisa Arredondo MD Environmental Studies Professor: Signed Normal [facility] Basic Metabolic Profile (BMP )on 10-08-2024 BUN/CRE 22.0 RATIO High 10-20 [facility] Comment on above: Performed By: #### L 501.0900, L500.2500, L500.4100 #### [facility] [address] [place], [address] CA,Total 9.7 mg/dL Normal 8.5-10.1 [facility] Comment on above: Performed By: #### L 501.0900, L500.2500, L500.4100 #### [facility] [address] [place], [address] Chloride [Moles/Vol] 105 mmol/L Normal 98-[address] [facility] Comment on above: Performed By: #### L 501.0900, L500.2500, L500.4100 #### [facility] [address] [place], [address] CO2 [Moles/Vol] 26.0 mmol/L Normal 21.0-32.0 [facility] Comment on above: Performed By: #### L 501.0900, L500.2500, L500.4100 #### [facility] [address] [place], [address] Creatinine [Mass/Vol] 0.96 mg/dL Normal 0.70-1.30 [facility] Comment on above: Result Comment: The validity of the calculated GFR GFRAA in patients over 70 years has not been determined. Clinical correlation is essential. Performed By: #### L 501.0900, L500.2500, L500.4100 #### [facility] [address] [place], [address] EST GFR - AA 100 mL/min Normal >60 [facility] Comment on above: Result Comment: Afri can [place] GFR Calc Performed By: #### L 501.0900, L500.2500, L500.4100 #### [facility] [address] [place], [address] GAP 8 Normal 5-15 [facility] Comment on above: Performed By: #### L 501.0900, L500.2500, L500.4100 #### [facility] [address] [place], [address] GFR/1.73 sq M.predicted among non-blacks MDRD (S/P/Bld) [Vol rate/Area] 83 mL/min/{1.73_m2} Normal >60 [facility] Comment on above: Result Comment: Non- GFR Calc Performed By: #### L 501.0900, L500.2500, L500.4100 #### [facility] [address] [place], [address] Glucose [Mass/Vol] 95 mg/dL Normal 74-106 [facility] Comment on above: Performed By: #### L 501.0900, L500.2500, L500.4100 #### [facility] [address] [place], [address] Potassium [Moles/Vol] 4.0 mmol/L Normal 3.5-5.1 [facility] Comment on above: Performed By: #### L 501.0900, L500.2500, L500.4100 #### [facility] [address] [place], [address] Sodium [Moles/Vol] 138 mmol/L Normal 136-145 [facility] Comment on above: Performed By: #### L 501.0900, L500.2500, L500.4100 #### [facility] [address] [place], [address] Urea nitrogen [Mass/Vol] 21 mg/dL High 7-18 [facility] Comment on above: Performed By: #### L 501.0900, L500.2500, L500.4100 #### [facility] [address] [place], [address] Lipid Profileon 10-08-2024 Cholesterol [Mass/Vol] 121 mg/dL Normal 200 [facility] Comment on above: Result Comment: <200 mg/dL Desirable 200-240 mg/dL Borderline >240 mg/dL High Risk Performed By: #### L 501.0900, L500.2500, L500.4100 #### [facility] [address] [place], [address] Cholesterol in HDL [Mass/Vol] 38 mg/dL Low [facility] Comment on above: Result Comment: The drugs N-Acetylcysteine and Metamizole may falsely depress this assay. Reference Range HDL <40 mg/dL Low HDL Cholesterol HDL >or= 60 mg/dL High HDL Cholesterol Performed By: #### L 501.0900, L500.2500, L500.4100 #### [facility] [address] [place], [address] Cholesterol in LDL [Mass/Vol] 56 mg/dL Normal 0-130 [facility] Comment on above: Performed By: #### L 501.0900, L500.2500, L500.4100 #### [facility] [address] [place], [address] Cholesterol in VLDL [Mass/Vol] 27 mg/dL Normal 5-40 [facility] Comment on above: Performed By: #### L 501.0900, L500.2500, L500.4100 #### [facility] [address] [place], [address] Triglyceride [Mass/Vol] 134 mg/dL Normal [facility] Comment on above: Result Comment: The drugs N-Acetylcysteine and Metamizole may falsely depress this assay. Serum Triglycerides Reference Interval Normal <150 mg/dL Borderline high 150 - 199 mg/dL High 200 - 499 mg/dL Very High > or = 500 mg/dL Performed By: #### L 501.0900, L500.2500, L500.4100 #### [facility] [address] [place], [address] Protein+Creatinine Ratio,Uri neon 10-08-2024 PROT:CRE RATIO 786 mg/g CRE High 0-200 [facility] Comment on above: Performed By: #### L 501.0900, L500.2500, L500.4100 #### [facility] [address] [place], [address] Protein (U) [Mass/Vol] 42.9 mg/dL High <11.9 [facility] Comment on above: Performed By: #### L 501.0900, L500.2500, L500.4100 #### [facility] [address] [place], [address] UR CREAT 54.60 mg/dL Normal NO RANGE EST. [facility] Comment on above: Performed By: #### L 501.0900, L500.2500, L500.4100 #### [facility] [address] [place], [address] PSA,Total- Diagnosticon 09-02 PSA, DIAGNOSTIC 1.78 ng/mL Normal 0.0-4.0 [facility] Comment on above: Result Comment: This test was performed using the TPSA assay method for the [employer] chemistry system. Values obtained with different assay methods cannot be used interchangably. When changing PSA assays in the course of monitoring a patient, additional sequential testing should be carried out to confirm baseline values. Performed By: #### L 501.9967 #### [facility] [address] [place], [address] Pulmonary Visit Reporton Pulmonary Visit Report [facility] [place] 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 He would like to continue working and would require a mandibular device that is acceptable for [employer] purposes. (2) Smoking greater than 40 pack years: Status: Chronic Comment: quit 2016 Plan: Encourage ongoing smoking cessation. Repeat LDCT [...] it". 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 [...] F L (more content not included)... Normal [facility] Basic Metabolic Profile (BMP )on 06-14-2024 BUN/CRE 19.8 RATIO Normal 10-20 [facility] Comment on above: Performed By: #### L 500.2500, L500.3400, L500.4100 #### [facility] [address] [place], [address] CA,Total 9.4 mg/dL Normal 8.5-10.1 [facility] Comment on above: Performed By: #### L 500.2500, L500.3400, L500.4100 #### [facility] [address] [place], [address] Chloride [Moles/Vol] 104 mmol/L Normal 98-[address] [facility] Comment on above: Performed By: #### L 500.2500, L500.3400, L500.4100 #### [facility] [address] [place], [address] CO2 [Moles/Vol] 29.0 mmol/L Normal 21.0-32.0 [facility] Comment on above: Performed By: #### L 500.2500, L500.3400, L500.4100 #### [facility] [address] [place], [address] Creatinine [Mass/Vol] 1.01 mg/dL Normal 0.70-1.30 [facility] Comment on above: Result Comment: The validity of the calculated GFR GFRAA in patients over 70 years has not been determined. Clinical correlation is essential. Performed By: #### L 500.2500, L500.3400, L500.4100 #### [facility] [address] [place], [address] EST GFR - AA 94 mL/min Normal >60 [facility] Comment on above: Result Comment: Afri can [place] GFR Calc Performed By: #### L 500.2500, L500.3400, L500.4100 #### [facility] [address] [place], [address] GAP 4 Low 5-15 [facility] Comment on above: Performed By: #### L 500.2500, L500.3400, L500.4100 #### [facility] [address] [place], [address] GFR/1.73 sq M.predicted among non-blacks MDRD (S/P/Bld) [Vol rate/Area] 78 mL/min/{1.73_m2} Normal >60 [facility] Comment on above: Result Comment: Non- GFR Calc Performed By: #### L 500.2500, L500.3400, L500.4100 #### [facility] [address] [place], [address] Glucose [Mass/Vol] 179 mg/dL High 74-106 [facility] Comment on above: Result Comment: Fast ing Glucose result greater than or equal to 126 mg/dL suggests DIABETES MELLITUS per A.D.A. criteria. Performed By: #### L 500.2500, L500.3400, L500.4100 #### [facility] [address] [place], [address] Potassium [Moles/Vol] 4.6 mmol/L Normal 3.5-5.1 [facility] Comment on above: Performed By: #### L 500.2500, L500.3400, L500.4100 #### [facility] [address] [place], [address] Sodium [Moles/Vol] 137 mmol/L Normal 136-145 [facility] Comment on above: Performed By: #### L 500.2500, L500.3400, L500.4100 #### [facility] [address] [place], [address] Urea nitrogen [Mass/Vol] 20 mg/dL High 7-18 [facility] Comment on above: Performed By: #### L 500.2500, L500.3400, L500.4100 #### [facility] [address] [place], [address] Cardiology Visit Reporton Cardiology Visit Report [facility] [address] [place] [address] OFFICE VISIT Date of Service: 06/14/24 MR#: [id number] Acct: [id number] Name: CAIO SENIOR Rep #: [id number] : 1955 Provider: ANTHONY roldan Age/Sex: 69/M Location: [facility] Status: Signed HPI HPI History of Present [...] 94 Intake Visit Reasons: 6 M FU Media Reporter Required: No Is patient in pain?: No Allergies No Known Allergies Allergy (Verified 06/14/24 08:34) Medications ???Medication ???Instructions ???Recorded ???Confirmed ???Type aspirin 81 mg tablet,delayed 81 mg PO DAILY antiplatelet 07/07/15 06/14/24 History release canagliflozin 300 mg tablet 300 mg PO DAILY Check with primary 03/21/19 06/14/24 History doctor blood sugar diagnostic (InstallFreeTouch #200 ea 09/17/21 05/24/24 Rx Verio test strips) blood-glucose meter (InstallFreeTouch #1 ea 09/17/21 05/24/24 Rx Verio Meter) lancets 33 gauge (InstallFreeTouch Delica #200 ea 09/17/21 06/09/23 Rx Plus [...] 06/14/24 History mg/3 mL) subcutaneous pen injector (Ozempic) Have you fallen in the past year?: No PFSH Medical History Wears glasses Cancer Prostate disease High cholesterol Restless legs Former smoker Shortness of breath on exertion Neuropathy History of stress test Cardiology follow-up encounter COVID-19 virus detected (08/2020) Obesity Diabetes 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 Normal [facility] Lipid Profileon 06-14-2024 Cholesterol [Mass/Vol] 106 mg/dL Normal 200 [facility] Comment on above: Result Comment: <200 mg/dL Desirable 200-240 mg/dL Borderline >240 mg/dL High Risk Performed By: #### L 500.2500, L500.3400, L500.4100 #### [facility] [address] [place], [address] Cholesterol in HDL [Mass/Vol] 34 mg/dL Low [facility] Comment on above: Result Comment: The drugs N-Acetylcysteine and Metamizole may falsely depress this assay. Reference Range HDL <40 mg/dL Low HDL Cholesterol HDL >or= 60 mg/dL High HDL Cholesterol Performed By: #### L 500.2500, L500.3400, L500.4100 #### [facility] [address] [place], [address] Cholesterol in LDL [Mass/Vol] 33 mg/dL Normal 0-130 [facility] Comment on above: Performed By: #### L 500.2500, L500.3400, L500.4100 #### [facility] [address] [place], [address] Cholesterol in VLDL [Mass/Vol] 39 mg/dL Normal 5-40 [facility] Comment on above: Performed By: #### L 500.2500, L500.3400, L500.4100 #### [facility] [address] [place], [address] Triglyceride [Mass/Vol] 193 mg/dL Normal [facility] Comment on above: Result Comment: The drugs N-Acetylcysteine and Metamizole may falsely depress this assay. Serum Triglycerides Reference Interval Normal <150 mg/dL Borderline high 150 - 199 mg/dL High 200 - 499 mg/dL Very High > or = 500 mg/dL Performed By: #### L 500.2500, L500.3400, L500.4100 #### [facility] [address] [place], [address] Liver Profileon 06-14-2024 Albumin [Mass/Vol] 3.7 g/dL Normal 3.2-5.0 [facility] Comment on above: Performed By: #### L 500.2500, L500.3400, L500.4100 #### [facility] [address] [place], [address] ALK P 81 U/L Normal 45-117 [facility] Comment on above: Performed By: #### L 500.2500, L500.3400, L500.4100 #### [facility] [address] [place], [address] ALT [Catalytic activity/Vol] 40 U/L Normal 16-61 [facility] Comment on above: Performed By: #### L 500.2500, L500.3400, L500.4100 #### [facility] [address] [place], [address] AST [Catalytic activity/Vol] 18 U/L Normal 15-37 [facility] Comment on above: Performed By: #### L 500.2500, L500.3400, L500.4100 #### [facility] [address] [place], [address] Bilirubin [Mass/Vol] 1.80 mg/dL High 0.20-1.[address] [facility] Comment on above: Result Comment: For patients on eltrombopag therapy, use of Dimension [place] TBIL is not recommended. Performed By: #### L 500.2500, L500.3400, L500.4100 #### [facility] [address] [place], [address] Bilirubin.direct [Mass/Vol] 0.36 mg/dL High 0.00-0.30 [facility] Comment on above: Performed By: #### L 500.2500, L500.3400, L500.4100 #### [facility] [address] [place], [address] Globulin (S) [Mass/Vol] 3.8 g/dL Normal 2.2-4.2 [facility] Comment on above: Performed By: #### L 500.2500, L500.3400, L500.4100 #### [facility] [address] [place], [address] T PROT 7.5 g/dL Normal 6.4-8.2 [facility] Comment on above: Performed By: #### L 500.2500, L500.3400, L500.4100 #### [facility] [address] [place], [address] Lung Screeningon 06-07-[address] Lung Screening [facility] Services [address] [place] [address] Lung Screening MR#: [id number] Acct: [id number] Name: CAIO SENIOR Rep #: [id number] : 1955 M 69 From: Ebenezer fox MD PCP: Dr. 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 [place], [place] [id number] OFFICE VISIT Date of Service: 05/24/24 MR#: [id number] Acct: [id number] Name: CAIO SENIOR Rep #: [id number] : 1955 Provider: ANTHONY Uriarte Age/Sex: 69/M Location: [facility] Status: Signed Assessment and Plan Assessment and Plan (1) Smoking greater than 40 pack years: Status: Chronic Comment: quit 2016 Plan: Encourage ongoing smoking cessation. 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 He states that he "he is not going to take that machine in the truck with me, I will use it on the weekends". He does have a smoking history. He was a pack per day smoker for 44 years quitting completely 7 years ago. He has never seen a cigarette tipper. He was prescribed a rescue inhaler back [...] 03/21/19 05/24/24 History doctor blood sugar diagnostic (InstallFreeTouch #200 ea 09/17/21 05/24/24 Rx Verio test strips) blood-glucose meter (InstallFreeTouch #1 ea 09/17/21 05/24/24 Rx Verio Meter) [...] Rx tab (more content not included)... Normal [facility] Basophil percentageOrdered B y: Delgado Jacobson on 12-16-2023 Bilirubin [Mass/Vol] 0.90 mg/dL 0.20-1.[address] [facility] Comment on above: For patients on eltr ombopag therapy, use of Dim[place] TBIL is not recommended. Cholesterol [Mass/Vol] 222 mg/dL <200 [facility] Comment on above: <200 mg/dL Desirable 200-240 mg/dL Borderline >240 mg/dL High Risk Protein [Mass/Vol] 7.3 g/dL 6.4-8.2 [facility] Triglyceride [Mass/Vol] 288 mg/dL <199 [facility] Comment on above: The drugs N-Acetylcy steine and Metamizole may falsely depress this assay.Serum Triglycerides Reference Interval Normal <150 mg/dL Borderline high 150 - 199 mg/dL High 200 - 499 mg/dL Very High > or = 500 mg/dL Direct bilirubinOrdered By: Delgado Jacobson on 12-16-2023 Bilirubin.direct [Mass/Vol] 0.18 mg/dL 0.00-0.30 [facility] - Chemistry and C hemistry - challengeOrdered By: Delgado Jacobson on 12-16-2023 ALP [Catalytic activity/Vol] 68 U/L 45-117 [facility] ALT [Catalytic activity/Vol] 33 U/L 16-61 [facility] Cholesterol in HDL [Mass/Vol] 40 mg/dL >40 [facility] Comment on above: The drugs N-Acetylcy steine and Metamizole may falsely depress this assay. Reference Range HDL <40 mg/dL Low HDL Cholesterol HDL >or= 60 mg/dL High HDL Cholesterol Cholesterol in LDL [Mass/Vol] 124 mg/dL 0-130 [facility] Globulin (S) [Mass/Vol] 3.8 g/dL 2.2-4.2 [facility] No Panel InformationOrdered By: Delgado Jacobson on 12-16-2023 VLDL Cholesterol 58 mg/dL 5-40 [facility] Thin prep Papanicolaou smear with manual screeningOrdered By: Delgado Jacobson on 12-16-2023 Thin prep Papanicolaou smear with manual screening 3.5 g/dL 3.2-5.0 [facility] Thin prep Papanicolaou smear with manual screening 14 U/L 15-37 [facility] Whole blood hemoglobin A1c/t otal hemoglobin ratio (mass fraction)Ordered By: Moe Agudelo on 12-16-2023 HbA1c (Bld) [Mass fraction] 10.1 % 3.8-5.6 [facility] Comment on above: Normal < 5.7 % Predi abetic 5.7 - 6.4 % Diabetic >or= 6.5 % Please note range changes. Basophil percentageOrdered B y: Delgado Jacobson on 11-10-2023 Basophil percentage 0.39 ng/mL 0.0-4.0 [facility] Comment on above: This test was perfor med using the TPSA assay method for the[employer] chemistry system. Values obtained with differentassay methods cannot be used interchangably.When changing PSA assays in the course of monitoring apatient, additional sequential testing should be carriedout to confirm baseline values. Bilirubin [Mass/Vol] 1.00 mg/dL 0.20-1.[address] [facility] Comment on above: For patients on eltr ombopag therapy, use of Dimension [place] TBIL is not recommended. Cholesterol [Mass/Vol] 233 mg/dL <200 [facility] Comment on above: <200 mg/dL Desirable 200-240 mg/dL Borderline >240 mg/dL High Risk Protein [Mass/Vol] 7.2 g/dL 6.4-8.2 [facility] Triglyceride [Mass/Vol] 302 mg/dL <199 [facility] Comment on above: The drugs N-Acetylcy steine and Metamizole may falsely depress this assay.Serum Triglycerides Reference Interval Normal <150 mg/dL Borderline high 150 - 199 mg/dL High 200 - 499 mg/dL Very High > or = 500 mg/dL Direct bilirubinOrdered By: Delgado Jacobson on 11-10-2023 Bilirubin.direct [Mass/Vol] 0.20 mg/dL 0.00-0.30 [facility] - Chemistry and C hemistry - challengeOrdered By: Delgado Jacobson on 11-10-2023 ALP [Catalytic activity/Vol] 73 U/L 45-117 [facility] ALT [Catalytic activity/Vol] 37 U/L 16-61 [facility] Cholesterol in HDL [Mass/Vol] 36 mg/dL >40 [facility] Comment on above: The drugs N-Acetylcy steine and Metamizole may falsely depress this assay. Reference Range HDL <40 mg/dL Low HDL Cholesterol HDL >or= 60 mg/dL High HDL Cholesterol Cholesterol in LDL [Mass/Vol] 137 mg/dL 0-130 [facility] Globulin (S) [Mass/Vol] 3.8 g/dL 2.2-4.2 [facility] No Panel InformationOrdered By: Delgado Jacobson on 11-10-2023 VLDL Cholesterol 60 mg/dL 5-40 [facility] Thin prep Papanicolaou smear with manual screeningOrdered By: Delgado Jacobson on 11-10-2023 Thin prep Papanicolaou smear with manual screening 3.4 g/dL 3.2-5.0 [facility] Thin prep Papanicolaou smear with manual screening 16 U/L 15-37 [facility] Glucose Glucometer (BldC) [M ass/Vol]Ordered By: Morgan Hutton on 07-15-2023 Glucose [Mass/Vol] 149 mg/dL 74-106 [facility] Comment on above: MANAGEMENT OF PATIEN T CARE PER NURSING PROTOCOL Absolute lymphocyte countOrd ered By: Mykel Sweeney on 05-19-2023 Lymphocytes Auto (Unsp spec) [#/Vol] 0.93 10*3/uL 0.83-4.51 [facility] Basophil percentageOrdered B y: Mykel Sweeney on 05-19-2023 Basophils/100 WBC (Bld) 1.0 % 0-1 [facility] Bilirubin [Mass/Vol] 0.90 mg/dL 0.20-1.[address] [facility] Comment on above: For patients on eltr ombopag therapy, use of Dimension [place] TBIL is not recommended. Chloride [Moles/Vol] 101 mmol/L 98-[address] [facility] Eosinophils/100 WBC (Bld) 5.5 % 0-5 [facility] Glucose [Mass/Vol] 283 mg/dL 74-106 [facility] Comment on above: Glucose result great er than or equal to 200 mg/dLsuggests DIABETES MELLITUS per A.D.A. criteria. LDH [Catalytic activity/Vol] 186 U/L 87-241 [facility] Neutrophils (Bld) [#/Vol] 3.3 10*3/uL 2.0-7.7 [facility] Neutrophils/100 WBC (Bld) 64.8 % 47-70 [facility] Potassium [Moles/Vol] 4.3 mmol/L 3.5-5.1 [facility] Protein [Mass/Vol] 7.3 g/dL 6.4-8.2 [facility] Sodium [Moles/Vol] 136 mmol/L 136-145 [facility] WBC (Bld) [#/Vol] 5.1 10*3/uL 4.4-11.0 [facility] Blood erythrocytes count (nu mber/volume)Ordered By: Mykel Sweeney on 05-19-2023 RBC (Bld) [#/Vol] 4.30 10*6/uL 4.6-6.2 [facility] Blood hemoglobin measurement (mass/volume)Ordered By: Dim[place]ale Aidan on 05-19-2023 Hemoglobin (Bld) [Mass/Vol] 13.7 g/dL 13.0-16.5 [facility] Blood lymphocytes/100 leukoc ytesOrdered By: [place] Zahra on 05-19-2023 Lymphocytes/100 WBC (Bld) 18.4 % 19-41 [facility] Blood monocytes/100 leukocyt esOrdered By: [facility] on 05-19-2023 Monocytes/100 WBC (Bld) 8.9 % 0-10 [facility] Blood platelet mean volumeOr dered By: [facility] on 05-19-2023 Platelet mean volume (Bld) [Entitic vol] 9.8 fL 6.2-12.0 [facility] Determination of erythrocyte mean corpuscular volume (MCV)Ordered By: [facility] 05-19-2023 MCV (RBC) [Entitic vol] 99.1 fL 80-94 [facility] Hematocrit Auto (Bld) [Volum e fraction]Ordered By: [facility] on 05-19-2023 Hematocrit (Bld) [Volume fraction] 42.6 % 40-54 [facility] - Chemistry and C hemistry - challengeOrdered By: [facility] on 05-19-2023 ALP [Catalytic activity/Vol] 79 U/L 45-117 [facility] ALT [Catalytic activity/Vol] 82 U/L 16-61 [facility] CO2 [Moles/Vol] 27.0 mmol/L 21.0-32.0 [facility] Globulin (S) [Mass/Vol] 3.8 g/dL 2.2-4.2 [facility] Urea nitrogen/Creatinine [Mass ratio] 25.5 mg/mg 10-20 [facility] - Hematology and Cell countsOrdered By: [facility] on 05-19-2023 Erythrocyte distribution width (RBC) [Entitic vol] 49.7 fL 35.1-43.9 [facility] Erythrocyte distribution width (RBC) [Ratio] 13.6 % 11.6-14.6 [facility] Immature granulocytes/100 WBC (Bld) 1.400 % 0.0-0.9 [facility] Comment on above: IG% - Immature Granu locytes (promyelocytes, myelocytes and metamyelocytes) > 1% indicates that a LEFT SHIFT is Present. MCH (RBC) [Entitic mass] 31.9 pg 27.0-32.0 [facility] Nucleated RBC/100 WBC (Bld) [Ratio] 0 % 0-5 [facility] MCHC Auto (RBC) [Mass/Vol]Or dered By: Mykel Sweeney on 05-19-2023 MCHC (RBC) [Mass/Vol] 32.2 g/dL 32-36 [facility] No Panel InformationOrdered By: Mykel Sweeney on 05-19-2023 Estimated Creatinine Clearance Calc 64.53 ml/min [facility] Estimated GFR (MDRD) Amer 89 mL/min >60 [facility] Comment on above: GFR Calc Estimated GFR (MDRD) Non-Af Amer 74 mL/min >60 [facility] Comment on above: Non- GFR Calc Prostate Specific Antigen Total 22.70 ng/mL 0.0-4.0 [facility] Comment on above: This test was perfor med using the TPSA assay method for the[employer] chemistry system. Values obtained with differentassay methods cannot be used interchangably.When changing PSA assays in the course of monitoring apatient, additional sequential testing should be carriedout to confirm baseline values. Platelets bldOrdered By: Tl Sweeney on 05-19-2023 Platelets (Bld) [#/Vol] 159 10*3/uL 150-450 [facility] Serum or plasma albumin jhony urement (mass/volume)Ordered By: Mykel Sweeney on 05-19-2023 Albumin [Mass/Vol] 3.5 g/dL 3.2-5.0 [facility] Serum or plasma albumin/glob ulin mass ratioOrdered By: Mykel Sweeney on 05-19-2023 Albumin/Globulin [Mass ratio] 0.9 {ratio} 0.9-2.4 [facility] Serum or plasma calcium jhony urement (mass/volume)Ordered By: Mykel Sweeney on 05-19-2023 Calcium [Mass/Vol] 8.8 mg/dL 8.5-10.1 [facility] Serum or plasma creatinine m easurement (mass/volume)Ordered By: Mykel Sweeney on 05-19-2023 Creatinine [Mass/Vol] 1.06 mg/dL 0.70-1.30 [facility] Comment on above: The validity of the calculated GFR & GFRAA in patients over 70 years has not been determined. Clinical correlation is essential. Serum or plasma urea nitroge n measurement (mass/volume)Ordered By: Mykel Sweeney on 05-19-2023 Urea nitrogen [Mass/Vol] 27 mg/dL 7-18 [facility] Thin prep Papanicolaou smear with manual screeningOrdered By: Mykel Sweeney on 05-19-2023 Thin prep Papanicolaou smear with manual screening 46 U/L 15-37 [facility] Thin prep Papanicolaou smear with manual screening 8 5-15 [facility] Absolute lymphocyte counton 05-13-2022 Lymphocytes Auto (Unsp spec) [#/Vol] 1.03 10*3/uL 0.83-4.51 [facility] Work Phone: Basophil percentageon 2021 Basophil percentage < 0.9 mg/dL 0.70-1.[address] [facility] Work Phone: Basophils/100 WBC (Bld) 1.2 % 0-1 [facility] Work Phone: Bilirubin [Mass/Vol] 1.10 mg/dL 0.20-1.[address] [facility] Work Phone: Comment on above: For patients on eltr ombopag therapy, use of Dim[place] TBIL is not recommended. Chloride [Moles/Vol] 105 mmol/L 98-[address] [facility] Work Phone: Eosinophils/100 WBC (Bld) 7.2 % 0-5 [facility] Work Phone: Glucose [Mass/Vol] 201 mg/dL 74-106 [facility] Work Phone: Comment on above: Glucose result great er than or equal to 200 mg/dLsuggests DIABETES MELLITUS per A.D.A. criteria. Neutrophils (Bld) [#/Vol] 3.8 10*3/uL 2.0-7.7 [facility] Work Phone: Neutrophils/100 WBC (Bld) 63.2 % 47-70 [facility] Work Phone: Potassium [Moles/Vol] 4.5 mmol/L 3.5-5.1 [facility] Work Phone: Protein [Mass/Vol] 7.5 g/dL 6.4-8.2 [facility] Work Phone: Sodium [Moles/Vol] 137 mmol/L 136-145 [facility] Work Phone: WBC (Bld) [#/Vol] 6.0 10*3/uL 4.4-11.0 [facility] Work Phone: Blood erythrocytes count (nu mber/volume)on 05-13-2022 RBC (Bld) [#/Vol] 4.22 10*6/uL 4.6-6.2 [facility] Work Phone: Blood hemoglobin measurement (mass/volume)on 05-13-2022 Hemoglobin (Bld) [Mass/Vol] 13.3 g/dL 13.0-16.5 [facility] Work Phone: Blood lymphocytes/100 leukoc yteson 05-13-2022 Lymphocytes/100 WBC (Bld) 17.2 % 19-41 [facility] Work Phone: Blood monocytes/100 leukocyt eson 05-13-2022 Monocytes/100 WBC (Bld) 10.5 % 0-10 [facility] Work Phone: Blood platelet mean volumeon 05-13-2022 Platelet mean volume (Bld) [Entitic vol] 10.0 fL 6.2-12.0 [facility] Work Phone: Determination of erythrocyte mean corpuscular volume (MCV)on 05-13-2022 MCV (RBC) [Entitic vol] 97.6 fL 80-94 [facility] Work Phone: Hematocrit Auto (Bld) [Volum e fraction]on 05-13-2022 Hematocrit (Bld) [Volume fraction] 41.2 % 40-54 [facility] Work Phone: Laboratory - Chemistry and C hemistry - challengeon 05-13-2022 ALP [Catalytic activity/Vol] 101 U/L 45-117 [facility] Work Phone: ALT [Catalytic activity/Vol] 49 U/L 16-61 [facility] Work Phone: CO2 [Moles/Vol] 24.0 mmol/L 21.0-32.0 [facility] Work Phone: Globulin (S) [Mass/Vol] 3.8 g/dL 2.2-4.2 [facility] Work Phone: Urea nitrogen/Creatinine [Mass ratio] 28.1 mg/mg 10-20 [facility] Work Phone: Laboratory - Hematology and Cell countson 05-13-2022 Erythrocyte distribution width (RBC) [Entitic vol] 49.1 fL 35.1-43.9 [facility] Work Phone: Erythrocyte distribution width (RBC) [Ratio] 13.7 % 11.6-14.6 [facility] Work Phone: Immature granulocytes/100 WBC (Bld) 0.700 % 0.0-0.9 [facility] Work Phone: Comment on above: IG% - Immature Granu locytes (promyelocytes, myelocytes and metamyelocytes) > 1% indicates that a LEFT SHIFT is Present. MCH (RBC) [Entitic mass] 31.5 pg 27.0-32.0 [facility] Work Phone: Nucleated RBC/100 WBC (Bld) [Ratio] 0 % 0-5 [facility] Work Phone: MCHC Auto (RBC) [Mass/Vol]on 05-13-2022 MCHC (RBC) [Mass/Vol] 32.3 g/dL 32-36 [facility] Work Phone: No Panel Informationon 05-13 Bedside Estimated GFR (eGFR) > 60.0000 mL/min >60 [facility] Work Phone: Estimated GFR (MDRD) Amer 77 mL/min >60 [facility] Work Phone: Comment on above: GFR Calc Estimated GFR (MDRD) Non-Af Amer 64 mL/min >60 [facility] Work Phone: Comment on above: Non- GFR Calc Prostate Specific Antigen Total 12.70 ng/mL 0.0-4.0 [facility] Work Phone: Comment on above: This test was perfor med using the TPSA assay method for [employer] chemistry system. Values obtained with differentassay methods cannot be used interchangably.When changing PSA assays in the course of monitoring apatient, additional sequential testing should be carriedout to confirm baseline values. Platelets bldon 05-13-2022 Platelets (Bld) [#/Vol] 195 10*3/uL 150-450 [facility] Work Phone: Serum or plasma albumin jhony urement (mass/volume)on 05-13-2022 Albumin [Mass/Vol] 3.7 g/dL 3.2-5.0 [facility] Work Phone: Serum or plasma albumin/glob ulin mass ratioon 05-13-2022 Albumin/Globulin [Mass ratio] 1.0 {ratio} 0.9-2.4 [facility] Work Phone: Serum or plasma calcium jhony urement (mass/volume)on 05-13-2022 Calcium [Mass/Vol] 9.5 mg/dL 8.5-10.1 [facility] Work Phone: Serum or plasma creatinine m easurement (mass/volume)on 05-13-2022 Creatinine [Mass/Vol] 1.21 mg/dL 0.70-1.30 [facility] Work Phone: Comment on above: The validity of the calculated GFR & GFRAA in patients over 70 years has not been determined. Clinical correlation is essential. Serum or plasma urea nitroge n measurement (mass/volume)on 05-13-2022 Urea nitrogen [Mass/Vol] 34 mg/dL 7-18 [facility] Work Phone: Thin prep Papanicolaou smear with manual screeningon 05-13-2022 Thin prep Papanicolaou smear with manual screening 20 U/L 15-37 [facility] Work Phone: Thin prep Papanicolaou smear with manual screening 8 5-15 [facility] Work Phone: Thin prep Papanicolaou smear with manual screening 159 U/L 87-241 [facility] Work Phone: Absolute lymphocyte counton 11-12-2021 Lymphocytes Auto (Unsp spec) [#/Vol] 0.71 10*3/uL 0.83-4.51 [facility] Work Phone: Basophil percentageon 2021 Basophils/100 WBC (Bld) 0.8 % 0-1 [facility] Work Phone: Bilirubin [Mass/Vol] 1.30 mg/dL 0.20-1.[address] [facility] Work Phone: Comment on above: For patients on eltr ombopag therapy, use of Dimension [place] TBIL is not recommended. Chloride [Moles/Vol] 102 mmol/L 98-[address] [facility] Work Phone: Eosinophils/100 WBC (Bld) 6.0 % 0-5 [facility] Work Phone: Glucose [Mass/Vol] 405 mg/dL 74-106 [facility] Work Phone: Comment on above: Glucose result great er than or equal to 200 mg/dLsuggests DIABETES MELLITUS per A.D.A. criteria. Neutrophils (Bld) [#/Vol] 3.3 10*3/uL 2.0-7.7 [facility] Work Phone: Neutrophils/100 WBC (Bld) 69.0 % 47-70 [facility] Work Phone: Potassium [Moles/Vol] 3.9 mmol/L 3.5-5.1 [facility] Work Phone: Protein [Mass/Vol] 7.6 g/dL 6.4-8.2 [facility] Work Phone: Sodium [Moles/Vol] 135 mmol/L 136-145 [facility] Work Phone: WBC (Bld) [#/Vol] 4.8 10*3/uL 4.4-11.0 [facility] Work Phone: Blood erythrocytes count (nu mber/volume)on 11-12-2021 RBC (Bld) [#/Vol] 4.26 10*6/uL 4.6-6.2 [facility] Work Phone: Blood hemoglobin measurement (mass/volume)on 11-12-2021 Hemoglobin (Bld) [Mass/Vol] 13.7 g/dL 13.0-16.5 [facility] Work Phone: Blood lymphocytes/100 leukoc yteson 11-12-2021 Lymphocytes/100 WBC (Bld) 14.8 % 19-41 [facility] Work Phone: Blood monocytes/100 leukocyt eson 11-12-2021 Monocytes/100 WBC (Bld) 8.8 % 0-10 [facility] Work Phone: Blood platelet mean volumeon 11-12-2021 Platelet mean volume (Bld) [Entitic vol] 9.9 fL 6.2-12.0 [facility] Work Phone: Determination of erythrocyte mean corpuscular volume (MCV)on 11-12-2021 MCV (RBC) [Entitic vol] 96.5 fL 80-94 [facility] Work Phone: Hematocrit Auto (Bld) [Volum e fraction]on 11-12-2021 Hematocrit (Bld) [Volume fraction] 41.1 % 40-54 [facility] Work Phone: Laboratory - Chemistry and C hemistry - challengeon 11-12-2021 ALP [Catalytic activity/Vol] 120 U/L 45-117 [facility] Work Phone: ALT [Catalytic activity/Vol] 41 U/L 16-61 [facility] Work Phone: CO2 [Moles/Vol] 27.0 mmol/L 21.0-32.0 [facility] Work Phone: Globulin (S) [Mass/Vol] 3.9 g/dL 2.2-4.2 [facility] Work Phone: Urea nitrogen/Creatinine [Mass ratio] 18.9 mg/mg 10-20 [facility] Work Phone: Laboratory - Hematology and Cell countson 11-12-2021 Erythrocyte distribution width (RBC) [Entitic vol] 47.3 fL 35.1-43.9 [facility] Work Phone: Erythrocyte distribution width (RBC) [Ratio] 13.3 % 11.6-14.6 [facility] Work Phone: Immature granulocytes/100 WBC (Bld) 0.600 % 0.0-0.9 [facility] Work Phone: Comment on above: IG% - Immature Granu locytes (promyelocytes, myelocytes and metamyelocytes) > 1% indicates that a LEFT SHIFT is Present. MCH (RBC) [Entitic mass] 32.2 pg 27.0-32.0 [facility] Work Phone: Nucleated RBC/100 WBC (Bld) [Ratio] 0 % 0-5 [facility] Work Phone: MCHC Auto (RBC) [Mass/Vol]on 11-12-2021 MCHC (RBC) [Mass/Vol] 33.3 g/dL 32-36 [facility] Work Phone: No Panel Informationon 11-12 Estimated Creatinine Clearance Calc 57.62 ml/min [facility] Work Phone: Estimated GFR (MDRD) Amer 76 mL/min >60 [facility] Work Phone: Comment on above: GFR Calc Estimated GFR (MDRD) Non-Af Amer 63 mL/min >60 [facility] Work Phone: Comment on above: Non- GFR Calc Prostate Specific Antigen Total 8.52 ng/mL 0.0-4.0 [facility] Work Phone: Comment on above: This test was perfor med using the TPSA assay method for [employer] chemistry system. Values obtained with differentassay methods cannot be used interchangably.When changing PSA assays in the course of monitoring apatient, additional sequential testing should be carriedout to confirm baseline values. Platelets bldon 11-12-2021 Platelets (Bld) [#/Vol] 192 10*3/uL 150-450 [facility] Work Phone: Serum or plasma albumin jhony urement (mass/volume)on 11-12-2021 Albumin [Mass/Vol] 3.7 g/dL 3.2-5.0 [facility] Work Phone: Serum or plasma albumin/glob ulin mass ratioon 11-12-2021 Albumin/Globulin [Mass ratio] 0.9 {ratio} 0.9-2.4 [facility] Work Phone: Serum or plasma calcium jhony urement (mass/volume)on 11-12-2021 Calcium [Mass/Vol] 9.0 mg/dL 8.5-10.1 [facility] Work Phone: Serum or plasma creatinine m easurement (mass/volume)on 11-12-2021 Creatinine [Mass/Vol] 1.22 mg/dL 0.70-1.30 [facility] Work Phone: Comment on above: The validity of the calculated GFR & GFRAA in patients over 70 years has not been determined. Clinical correlation is essential. Serum or plasma urea nitroge n measurement (mass/volume)on 11-12-2021 Urea nitrogen [Mass/Vol] 23 mg/dL 7-18 [facility] Work Phone: Thin prep Papanicolaou smear with manual screeningon 11-12-2021 Thin prep Papanicolaou smear with manual screening 16 U/L 15-37 [facility] Work Phone: Thin prep Papanicolaou smear with manual screening 6 5-15 [facility] Work Phone: Thin prep Papanicolaou smear with manual screening 164 U/L 87-241 [facility] Work Phone: Basophil percentageon 2020 Testosterone [Mass/Vol] 14 ng/dL 264-916 [facility] Comment on above: Adult male reference interval is based on a population ofhealthy nonobese males (BMI <30) between 19 and 39 yearsold. Maria G, et.al. JCEM 2017,102;[id number]. PMID:[id number]. Free testosterone percentage on 11-15-2020 Testosterone Free/Testosterone.tota l [Mass fraction] 3.45 % 1.50-4.20 [facility] Comment on above: Performed at: [address] [id number] Director: Jacoby Jimenez PhD, Phone: [phone] at: - [facility] [id number] Director: Zac Nicholas MD, Phone: [phone] Serum or plasma testosterone free measurement (mass/volume)on 11-15-2020 Testosterone Free [Mass/Vol] 0.48 ng/dL 5.00-21.00 [facility] Office Visiton 07-18-2017 Documentation of current medications (procedure) Done Invalid Interpretation Code [facility] Work Phone: Smoking cessation education (procedure) yes Invalid Interpretation Code [facility] Work Phone: Tobacco use [facility] Current every day smoker Invalid Interpretation Code [facility] Work Phone: Office Visiton 06-18-2017 Documentation of current medications (procedure) Done Invalid Interpretation Code [facility] Work Phone: Smoking cessation education (procedure) yes Invalid Interpretation Code [facility] Work Phone: Tobacco use [facility] Current every day smoker Invalid Interpretation Code [facility] Work Phone: Vital Signs Date Time Vital Sign Value Performing Clinician Facility 03-24-2025 08:55-0400 Body height 172.[address] Marisa Arredondo MD Work Phone: [facility] 03-24-2025 08:55-0400 Body mass index (BMI) [Ratio] 38.5 kg/m2 Dr. Marisa Arredondo MD Work Phone: [facility] 03-24-2025 08:55-0400 Body weight 114.[address] Marisa Arredondo MD Work Phone: [phone] [address] 03-24-2025 08:55-0400 Diastolic blood pressure 53 mm[Hg] Dr. Marisa Arredondo MD Work Phone: [phone] [place] [address] 03-24-2025 08:55-0400 Heart rate 68 /min Dr. Marisa Arredondo MD Work Phone: [phone] [place] [address] 03-24-2025 08:55-0400 Respiratory rate 16 /min Dr. Marisa Arredondo MD Work Phone: [phone] [address] 03-24-2025 08:55-0400 Systolic blood pressure 114 mm[Hg] Dr. Marisa Arredondo MD Work Phone: [facility] 12-22-2023 09:02-0400 Body height 172.[address] Marisa Arredondo Work Phone: [facility] 12-22-2023 09:02-0400 Body mass index (BMI) [Ratio] 39.2 kg/m2 Dr. Marisa Arredondo Work Phone: [facility] 12-22-2023 09:02-0400 Body weight 117.[address] Marisa Arredondo Work Phone: [facility] 12-22-2023 09:02-0400 Diastolic blood pressure 56 mm[Hg] Dr. Marisa Arredondo Work Phone: [facility] 12-22-2023 09:02-0400 Respiratory rate 16 /min Dr. Marisa Arredondo Work Phone: [facility] 12-22-2023 09:02-0400 Systolic blood pressure 100 mm[Hg] Dr. Marisa Arredondo Work Phone: [facility] 07-15-2023 08:45-0500 Body temperature 97.3 [degF] Dr. Marisa Arredondo Work Phone: [facility] 07-15-2023 08:45-0500 Diastolic blood pressure 68 mm[Hg] Dr. Marisa Arredondo Work Phone: [facility] 07-15-2023 08:45-0500 Heart rate 57 /min Dr. Marisa Arredondo Work Phone: [facility] 07-15-2023 08:45-0500 Respiratory rate 16 /min Dr. Marisa Arredondo Work Phone: [facility] 07-15-2023 08:45-0500 SaO2% (BldA) [Mass fraction] 99 % Dr. Marisa Arredondo Work Phone: [facility] 07-15-2023 08:45-0500 Systolic blood pressure 105 mm[Hg] Dr. Marisa Arredondo Work Phone: [facility] 07-15-2023 06:48-0500 Body height 172.[address] Marisa Arredondo Work Phone: [facility] 07-15-2023 06:48-0500 Body mass index (BMI) [Ratio] 37.8 kg/m2 Dr. Marisa Arredondo Work Phone: [facility] 07-15-2023 06:48-0500 Body weight 112.[address] Marisa Arredondo Work Phone: [facility] 06-09-2023 08:37-0400 Body mass index (BMI) [Ratio] 39.2 kg/m2 Dr. Marisa Arredondo Work Phone: [facility] 06-09-2023 08:37-0400 Body weight 117.[address] Marisa Arredondo Work Phone: [facility] 06-09-2023 08:37-0400 Diastolic blood pressure 66 mm[Hg] Dr. Marisa Arredondo Work Phone: [facility] 06-09-2023 08:37-0400 Respiratory rate 16 /min Dr. Marisa Arredondo Work Phone: [facility] 06-09-2023 08:37-0400 Systolic blood pressure 131 mm[Hg] Dr. Marisa Arredondo Work Phone: [facility] 05-21-2023 10:16-0400 Body mass index (BMI) [Ratio] 39.2 kg/m2 Dr. Marisa Arredondo Work Phone: [facility] 05-21-2023 10:16-0400 Body weight 117.[address] Marisa Arredondo Work Phone: [facility] 05-21-2023 10:16-0400 Diastolic blood pressure 59 mm[Hg] Dr. Marisa Arredondo Work Phone: [facility] 05-21-2023 10:16-0400 Heart rate 78 /min Dr. Marisa Arredondo Work Phone: [facility] 05-21-2023 10:16-0400 Respiratory rate 20 /min Dr. Marisa Arredondo Work Phone: [facility] 05-21-2023 10:16-0400 Systolic blood pressure 99 mm[Hg] Dr. Marisa Arredondo Work Phone: [facility] 05-19-2023 11:08-0400 Body mass index (BMI) [Ratio] 39.4 kg/m2 Dr. Marisa Arredondo Work Phone: [facility] 05-19-2023 11:08-0400 Body temperature 97.9 [degF] Dr. Marisa Arredondo Work Phone: [facility] 05-19-2023 11:08-0400 Body weight 117.[address] Marisa Arredondo Work Phone: [facility] 05-19-2023 11:08-0400 Diastolic blood pressure 70 mm[Hg] Dr. Marisa Arredondo Work Phone: [facility] 05-19-2023 11:08-0400 Heart rate 65 /min Dr. Marisa Arredondo Work Phone: [facility] 05-19-2023 11:08-0400 Respiratory rate 18 /min Dr. Marisa Arredondo Work Phone: [facility] 05-19-2023 11:08-0400 SaO2% (BldA) [Mass fraction] 95 % Dr. Marisa Arredondo Work Phone: [facility] 05-19-2023 11:08-0400 Systolic blood pressure 128 mm[Hg] Dr. Marisa Arredondo Work Phone: [facility] 06-10-2022 08:15-0400 Body height 172.[address] Marisa Arredondo Work Phone: [facility] Work Phone: 06-10-2022 08:15-0400 Body weight 113.[address] Marisa Arredondo Work Phone: [facility] Work Phone: 06-07-2022 10:00-0400 Body mass index (BMI) [Ratio] 38.1 kg/m2 Dr. Marisa Arredondo Work Phone: [facility] Work Phone: 05-16-2022 15:24-0400 Body height 172.[address] Marisa Arredondo Work Phone: [facility] Work Phone: 05-16-2022 15:24-0400 Body mass index (BMI) [Ratio] 38.5 kg/m2 Dr. Marisa Arredondo Work Phone: [facility] Work Phone: 05-16-2022 15:24-0400 Body temperature 98.2 [degF] Dr. Marisa Arredondo Work Phone: [facility] Work Phone: 05-16-2022 15:24-0400 Body weight 114.[address] Marisa Arredondo Work Phone: [facility] Work Phone: 05-16-2022 15:24-0400 Diastolic blood pressure 63 mm[Hg] Dr. Marisa Arredondo Work Phone: [facility] Work Phone: 05-16-2022 15:24-0400 Heart rate 70 /min Dr. Marisa Arredondo Work Phone: [facility] Work Phone: 05-16-2022 15:24-0400 Respiratory rate 16 /min Dr. Marisa Arredondo Work Phone: [facility] Work Phone: 05-16-2022 15:24-0400 SaO2% (BldA) [Mass fraction] 97 % Dr. Marisa Arredondo Work Phone: [facility] Work Phone: 05-16-2022 15:24-0400 Systolic blood pressure 99 mm[Hg] Dr. Marisa Arredondo Work Phone: [facility] Work Phone: 04-22-2022 13:30-0400 Body height 172.[address] Marisa Arredondo Work Phone: [facility] Work Phone: 04-22-2022 13:30-0400 Body mass index (BMI) [Ratio] 38.1 kg/m2 Dr. Marisa Arredondo Work Phone: [facility] Work Phone: 04-22-2022 13:30-0400 Body weight 113.[address] Marisa Arredondo Work Phone: [facility] Work Phone: 04-22-2022 13:30-0400 Diastolic blood pressure 58 mm[Hg] Dr. Marisa Arredondo Work Phone: [facility] Work Phone: 04-22-2022 13:30-0400 Heart rate 69 /min Dr. Marisa Arredondo Work Phone: [facility] Work Phone: 04-22-2022 13:30-0400 Respiratory rate 18 /min Dr. Marisa Arredondo Work Phone: [facility] Work Phone: 04-22-2022 13:30-0400 Systolic blood pressure 99 mm[Hg] Dr. Marisa Arredondo Work Phone: [facility] Work Phone: 11-15-2020 10:40-0400 Body mass index (BMI) [Ratio] 36.3 kg/m2 Dr. Marisa Arredondo Work Phone: [facility] 11-15-2020 10:40-0400 Body temperature 98.2 [degF] Dr. Marisa Arredondo Work Phone: [facility] 11-15-2020 10:40-0400 Body weight 108.[address] Marisa Arredondo Work Phone: [facility] Work Phone: 11-15-2020 10:40-0400 Diastolic blood pressure 58 mm[Hg] Dr. Marisa Arredondo Work Phone: [facility] 11-15-2020 10:40-0400 Heart rate 62 /min Dr. Marisa Arredondo Work Phone: [facility] 11-15-2020 10:40-0400 Respiratory rate 16 /min Dr. Marisa Arredondo Work Phone: [facility] 11-15-2020 10:40-0400 SaO2% (BldA) [Mass fraction] 94 % Dr. Marisa Arredondo Work Phone: [facility] 11-15-2020 10:40-0400 Systolic blood pressure 103 mm[Hg] Dr. Marisa Arredondo Work Phone: [facility] 06-18-2017 12:53-0400 BMI (Body Mass Index) 33.67 kg/m2 [facility] Work Phone: 06-18-2017 12:53-0400 Height 175.26 cm [facility] Work Phone: 06-18-2017 12:53-0400 Weight 103.42 kg [facility] Work Phone: Encounters Encounter Date Encounter Type Care Provider Facility Start: 04-13-2025 Encounter for other preprocedural examination Geovany Estrada [facility] Start: 04-13-2025 ambulatory Chester Bryant Facilit y:[facility] Start: 04-11-2025 ambulatory Delgado Hinkle Facilit y:[facility] Start: 03-24-2025 End: 03-24-[address] Long Ware MD -[facility] Work Phone: Start: 03-24-2025 End: 03-24-[address] Marisa Arredondo MD Work Phone: -[facility] Start: 03-24-2025 End: 03-24-2025 ambulatory Delgado Hinkle Facility:[facility] Start: 12-27-2024 End: 12-27-[address] Geovany Estrada MD -Laboratory Work Phone: Start: 12-27-2024 End: 12-27-2024 ambulatory Geovany Estrada Facility:[facility] Start: 10-15-2024 End: 10-15-2024 ambulatory Marisa Arredondo Facility:[facility] Start: 10-08-2024 End: 10-08-2024 ambulatory Marisa Arredondo Facility:[facility] Start: 09-27-2024 End: 09-27-2024 ambulatory Geovany Estrada Facility:[facility] Start: 09-22-2024 End: 09-22-2024 ambulatory Denise Uriarte VALET MANAGER Facility:[facility] Start: 06-14-2024 End: 06-14-2024 ambulatory Delgado Aguiar Indira VALET MANAGER Facility:[facility] Start: 06-14-2024 End: 06-14-2024 ambulatory Delgado Aguiar Indira VALET MANAGER Facility:[facility] Start: 06-07-2024 End: 06-07-2024 ambulatory Marisa Arredondo Facility:[facility] Start: 05-24-2024 End: 05-24-2024 ambulatory Marisa Arredondo Facility:[facility] Start: 01-05-2024 End: 01-05-[address] Marisa Arredondo Work Phone: [facility] Work Phone: Start: 01-05-2024 End: 01-05-[address] Marisa Arredondo Work Phone: [facility] Work Phone: Start: 12-22-2023 End: 12-22-[address] Marisa Arredondo Work Phone: [facility] Work Phone: Start: 12-16-2023 End: 12-16-[address] Marisa Arredondo Work Phone: [facility] Work Phone: Start: 12-16-2023 End: 12-16-[address] Marisa Arredondo Work Phone: [facility] Work Phone: Start: 11-10-2023 End: 11-10-2023 ambulatory [facility] Work Phone: Start: 11-10-2023 End: 11-10-2023 Patient encounter procedure [facility] Work Phone: Start: 07-15-2023 Non-patient / Non-visit Dr. Do Arredondo Work Phone: [facility] Start: 07-15-2023 End: 07-15-2023 Admission to same day surgery center Dr. Marisa Arredondo Work Phone: [facility] Work Phone: Start: 07-15-2023 End: 07-15-[address] Marisa Arredondo Work Phone: [facility] Work Phone: Start: 06-09-2023 End: 06-09-[address] Marisa Arredondo Work Phone: [facility] Work Phone: Start: 05-21-2023 End: 05-21-[address] Marisa Arredondo Work Phone: [facility] Work Phone: Start: 05-19-[address] Marisa velasquez Work Phone: [facility] Start: 05-19-2023 End: 05-19-[address] Marisa Arredondo Work Phone: [facility] Work Phone: Start: 06-10-2022 End: 06-10-2022 Admission to same day surgery center Dr. Marisa Arredondo Work Phone: [facility] Start: 06-10-2022 End: 06-10-[address] Marisa Arredondo Work Phone: [facility] Work Phone: Start: 06-06-2022 Non-patient / Non-visit Dr. Do Arredondo Work Phone: [facility] Start: 05-16-[address] Marisa velasquez Work Phone: [facility] Start: 05-16-2022 End: 05-16-[address] Marisa Arredondo Work Phone: [facility] Start: 05-14-[address] Steve Arredondo Work Phone: [facility] Start: 05-13-2022 End: 05-13-[address] Marisa Arredondo Work Phone: [facility] Work Phone: Start: 05-13-2022 End: 05-13-[address] Marisa Arredondo Work Phone: [facility] Start: 05-10-2022 Non-patient / Non-visit Dr. Do Arredondo Work Phone: [facility] Start: 05-10-2022 End: 05-10-[address] Marisa Arredondo Work Phone: [facility] Work Phone: Start: 05-10-2022 End: 05-10-[address] Marisa Arredondo Work Phone: [facility] Start: 04-22-2022 End: 04-22-[address] Marisa Arredondo Work Phone: [facility] Procedures Date Procedure Procedure Detail Performing Clinician Start: 03-24-2025 Assay of prostate sp ecific antigen total [...] be performed to confirm baseline values. Start: 12-27-2024 Assay of prostate sp ecific [...] History of coronary artery stent placement Dr. Long Ware MD Comment on above: [id number] OM1 w/ 2.25 x 20 mm Promus Synergy Stent, followed immediately upstream with a 2.25 x 20 mm Promus Synergy Stent 03/22/19 Plan of Treatment Date Care Activity Detail Author Start: 07-15-2023 Patient discharge [facility] Start: 05-19-2023 Patient referral [facility] Work Phone: Start: 08-15-2017 End: 08-15-[address] [facility] Work Phone: Start: 07-18-2017 End: 07-18-[address] [facility] Work Phone: Start: 07-18-2017 End: 07-18-2017 Radex ankle complete minimum 3 views X-Ray, Ankle [facility] Work Phone: Start: 06-18-2017 End: 06-18-2017 Radex ankle complete minimum 3 views X-Ray, Ankle [facility] Work Phone: Blood chemistry [facility] Colonoscopy [facility] Lipid 1996 panel - S shari or Plasma [facility] Patient referral [facility] Work Phone: Prostate specific an tigen measurement [facility] Work Phone: [facility] Payers Date Payer Category Payer Self-pay [id number] 2023 Medicare [id number] 2023 Unknown [id number] Unknown [facility] [id number] Unknown [facility] PACKAGE PLAN [id number] Unknown [facility] PACKAGE PLAN [id number] Unknown [id number] Unknown [id number] Unknown [id number] Unknown [id number] Unknown [id number] Unknown [id number] Unknown [id number] Unknown [id number] Unknown [id number] Unknown [id number] Unknown [id number] Unknown [id number] Unknown [id number] Social History Date Type Detail Facility Start: 04-22-2022 End: 07-10-2023 Tobacco smoking status ORIS Unknown if ever smoked [facility] Start: 03-21-2019 None [facility] Start: 03-21-2019 With Family [facility] Start: 11-15-2020 Non-smoker [facility] Start: 1955 Sex Assigned At Male [facility] Start: 09-22-2024 Tobacco smoking stat us ORIS Ex-smoker (finding) [facility] Medical Equipment Procedure Code Equipment Code Equipment Origin al Text Equipment Identifier Dates Blood Sugar Diagnostic (Onetouch Verio Test Strips) strip Start: 09-17-2021 Lancets (Onetouc h Delica Plus Lancet) 33 gauge [facility] [place] Start: 09-17-2021 Blood Sugar Diagnostic (Onetouch Verio Test Strips) strip Start: 09-17-2021 Lancets (Onetouc h Delica Plus Lancet) 33 gauge [facility] [place] Start: 09-17-2021 Blood Sugar Diagnostic (Onetouch Verio Test Strips) strip Start: 09-17-2021 Lancets (Onetouc h Delica Plus Lancet) 33 gauge [facility] [place] Start: 09-17-2021 Blood Sugar Diagnostic (Onetouch Verio Test Strips) strip Start: 09-17-2021 Lancets (Onetouc h Delica Plus Lancet) 33 gauge [facility] [place] Start: 09-17-2021 Blood Sugar Diagnostic (Onetouch Verio [...] Plus Lancet) 33 gauge misc Start: 09-17-2021 Goals Date Patient Goal Desired Activity /State Mental Status Date Assessment Result Facility 07-15-2023 Cognitive function Voice/Name [facility] Work Phone: Evaluation note 03-24-2025 Note Date & Type Note Facility 03-24-2025 Evaluation note Diagnosis Onset Date Resolution Diabetes acute March 24 8:47am Essential (primary) hypertension chronic March 24, 2025 8:47am Hyperlipidemia chronic March 24, 2025 8:47am History of coronary artery stent placement March 22, 2019 resolved March 24, 2025 8:47am [facility] Work Phone: Procedure note 07-15-2023 Note Date & Type Note Facility 07-15-2023 Procedure note [facility] Procedure note 07-15-2023 Note Date & Type Note Facility 07-15-2023 Procedure note [facility] Evaluation note 03-22-2019 Note Date & Type Note Facility 03-22-2019 Evaluation note Diagnosis Onset Date Essential (primary) hypertension chronic Hyperlipidemia chronic History of coronary artery stent placement March 22, 2019 resolved [facility] Work Phone: Evaluation note 03-22-2019 Note [...] 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 Work Phone: History and physical note Note Date & Type Note Facility History and physical note Note Date/Time July 15, 2023 7:21am [facility] Medical Records Department [address] [place] [address] History & Physical Exam 07/15/2321 MR#: [id number] Acct: [id number] Name: CAIO SENIOR Rep #:[id number] : 1955 68 From: Morgan ricmhond MD PCP: Dr. Marisa Arredondo MD [place] [facility] [place] [address] History and Physical Date of Admission: 07/15/23 [...] Reasons: RECTAL BLEEDING Chief Complaint: rectal bleeding Media Reporter Required: No Is patient in pain?: No [...] 08/06/21 [Rx Confirmed 06/09/23] blood sugar diagnostic (InstallFreeTouch Verio test strips) #200 ea 09/17/21 [Rx Confirmed 06/09/23] blood-glucose meter (InstallFreeTouch Verio Meter) #1 ea 09/17/21 [Rx Confirmed 06/09/23] lancets 33 gauge (InstallFreeTouch Delica Plus Lancet) #200 ea 09/17/21 [Rx [...] mg PO DAILY 05/21/23 [History Confirmed 06/09/23] [facility] Medical History Atherosclerosis of coronary artery of [place] heart without angina pectoris COVID-19 virus detected [...] (ORIF) procedure Family History Mother Heart disease [place] spotted fever cause of heart problemsFather Hypertension [...] Brilintafor 5 days. Morgan Hutton MD Pager: [facility] [address] [place] [address], [address] [place] [address] Office: I have examined the patient and the H&P has been reviewed. There are no clinicalchanges since date of exam. 07/15/23 0721 <Electronically signed by Morgan Hutton MD> Cosigner Signature (if applicable): CC: Dr. Marisa Arredondo MD; Dr. Morgan Hutton MD~ Signed [facility] Work Phone: Reason for referral (narrative) Note Date & Type Note Facility Reason for referral (narrative) No reason for referral information available [facility] Work Phone: Chief Complaint and Reason for [...] placement Chief Complaint Admit Date 1 Y March 24, 2025 8:47 am Chief Complaint Admit Date 1 Y March 24, 2025 8:47 am E ORDER//NEED ORDER FROM DR ESTRADA March 24, 2025 9:32am Reason for Visit Admit Date Diabetes March 24, 2025 8:47 am Essential (primary) hypertension March 242024 8:47am Hyperlipidemia March 24, 2025 8:47 am History of coronary artery stent placeme nt March 24, 2025 8:47am Family History No Family History Records Found Relationship Condition Age at Onset Recorded Date/T clifford mother Cardiac disease Unknown [place] spotted fever Unknown father Hypertension Unknown Type 2 diabetes mellitus Unknown Myocardial infarction Unknown Advance Directives No Advanced Directives Records Found Advance Directive Response Recorded Date/ Time Advance Directives No November 12 12:32pm Living Will No November 12, 2021 12:32pm Power of Automation Control Integrator No November 12 12:32pm Advance Directive Response Recorded Date/ Time Advance Directives No June 10, 2022 8:15am Living Will No June 10 8:15am Power of Automation Control Integrator No June 10, 2022 8:15am Advance Directive Response Recorded Date/ Time Name of Medical Power of Automation Control Integrator BIRGIT SENIOR July 10, 2023 12:19pm Advance Directives No May 11:30am Living Will Yes July 10 12:19pm Power of Automation Control Integrator Yes July 10, 2023 12:19pm Advance Directive Response Recorded Date/ Time Advance Directives No May 12:30pm Living Will Yes July 10 1:19pm Power of Automation Control Integrator Yes July 10, 2023 1:19pm Advance Directive Response Recorded Date/ Time Living Will Yes July 10 1:19pm Do you have a Healthcare Power of Automation Control Integrator? Yes July 10, 2023 1:19pm Advance Directives [...] Care Provider, Referrin g Provider Active Dr. Long Ware MD Attending [...] MD Primary Care Provider Active Dr. Geovany Estrada MD Attending Provider, Referr ing Provider Active Dr. Moe Agudelo MD Other Provider Active Team Status: Active Member Role Status Dates Dr. Marisa Arredondo MD Primary Care Provider, Referrin g Provider Active Delgado Jacobson VALET MANAGER, VALET MANAGER-C Attending Provider Active Team Status: Inactive Member Role Status Dates Dr. Marisa Arredondo MD Primary Care Provider Active Delgado Jacobson VALET MANAGER, VALET MANAGER-C Attending Provider, Referring Pro vider Active Team Status: Inactive Member Role Status Dates Dr. Marisa Arredondo MD Primary Care Provider, Referrin g Provider Active Delgado Jacobson VALET MANAGER, VALET MANAGER-C Attending Provider Active Team Status: Active Member Role/Relationship Status Dates Dr. Delgado Hinkle MD Primary Care Provider Active Team Status: Inactive Member Role/Relationship Status Dates Dr. Marisa Arredondo MD Primary Care Provider Active Start: December 27, 2024 End: December 27, 2024 Dr. Geovany Estrada MD Attending Provider Active Start: December 27, 2024 End: December 27, 2024 Dr. Geovany Estrada MD Referring Provider Active Start: December 27, [...] March 24, 2025 End: March 24, 2025 Team Status: Inactive Member Role/Relationship Status Dates Dr. Delgado Hinkle MD Primary Care Provider Active Start: March 24, 2025 End: March 24, 2025 Dr. Long Ware MD Attending Provider Active S tart: March 24, 2025 End: March 24, 2025 Dr. Long Ware MD Referring Provider Active S tart: March 24, 2025 End: March 24, 2025 Dr. Geovany Estrada MD Other Provider Active Start: March 24, 2025 End: March 24, 2025 (unrecognized sect ion and content) No Status Records Found INFORMATION SOURCE (unrecogn ized section and content) DATE CREATED AUTHOR 04/13/2025 [facility] FOR RECORDS PERTAINING TO PATIENTS WHO ARE [...] BE BASED ON THE PRIMARY CLINICAL RECORDS. [employer] provides no warranty or guarantee of the accuracy or completeness of information in this document.
[2025-04-13] MEDS: Lactated Ringers 1,000 ML 15 ML IV (09:37)
--- NOTE | 2025-04-13 09:50 | PRE.ANES_ITS ---
ASA Classification* ASA Classification ASA Classification: 3 Assessment & Plan Anesthesia* Anesthesia Assessment Anesthesia Assessment: Discussed sedation and/or anesthesia options, risks, benefits, and alternatives with patient/parents/legal guardian/POA. Questions invited. The patient/parents/legal guardian/POA seems to understand and agrees to proceed with anesthesia plan. Reviewed the physical assessment, medical history, allergy history and patient home medications list prior to surgery/procedure/anesthetic and documented any changes. Performed airway and anesthesia risk assessments. Anesthesia Type Anesthesia Type: General History Source History Obtained from:: Patient, Chart and Significant Other Anesthesia Focused Assessment* Temperature: 97.5 F Pulse Rate: 65 Blood Pressure: 120/57 Respiratory Rate: 16 Pulse Ox: 100 Oxygen Delivery Method: Room Air Airway Assessment Mouth opens: >3 cm Mallampati Score: II Teeth Condition: Caps/Crowns and Missing Neck Range of motion (ROM): Limited ROM Labs Anesthesia Preop lab: CBC WBC 4.8 K/mm3 (4.4-11.0) 04/11/25 07:04/11/25 RBC 3.83 M/mm3 (4.6-6.2) L 04/11/25 07:23 04/11/25 Hgb 12.4 g/dL (13.0-16.5) L 04/11/25 07:23 5 Hct 37.7 % (40-54) L 04/11/25 07:23 04/11/25 Plt Count 172 K/mm3 (150-450) 04/11/25 07:23 04/11/25 CHEMISTRY Potassium 4.2 mmol/L (3.3-5.1) 04/11/25 07:23 04/11/25 Sodium 139 mmol/L (133-145) 04/11/25 07:23 04/11/25 BUN 19 mg/dL (4-19) 04/11/25 07:23 04/11/25 Creatinine 1.00 mg/dL (0.70-1.20) 04/11/25 07:23 04/11/25 Glucose 224 mg/dL (70-99) H 04/11/25 07:23 04/11/25 POC Glucose 284 mg/dL (74-106) H 04/11/24 14:53 04/11/24 TSH 1.72 uIU/mL (0.358-3.74) 08/23/13 15:13 COAG PT 12.8 SECONDS (11.7-14.9) 04/24/20 11:36 Pre-Assessment Diagnosis/Proposed Procedure Planned Operative Procedure(s): Cysto,Transurethral Resection Prostate Anesthesia History 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 When Was Last Pacemaker Check QUESTION #4 FULL TEXT: You/Your Family Experience fever (hyperthermia) with Anesthesia Last Oral Intake Last Oral intake: Last Oral Intake NPO since 07:00 04/13/25 09:11 Meds taken in AM with sips of Yes 04/13/25 09:11 water? Meds patient instructed to take am of surgery PONV PONV - trains service conductor: PONV - trains service conductor Female No 04/01/25 13:32 HX of Motion Sickness No 04/01/25 13:32 HX of N/V After Surgery No 04/01/25 13:32 Non-Smoker Yes 04/01/25 13:32 Duration of Surgery greater Yes 04/01/25 13:32 than 60 minutes Number of Risk Factors 2 04/01/25 13:32 PONV Score Moderate Risk 04/01/25 13:32 Height & Weight Height & Weight: Anesthesia: Height & Weight Height 5 ft 8 in 04/13/25 09:11 Weight: 110 kg 04/13/25 09:11 Body Mass Index (BMI) 36.8 04/13/25 09:11 Respiratory Assessment Respiratory Assessment - trains service conductor: Respiratory Tract Infection Hx - trains service conductor Hx Respiratory Tract Infection No 04/01/25 13:32 STOP Sleep Apnea STOP Sleep Apnea - trains service conductor: STOP Sleep Apnea - trains service conductor Hx Hypertension Yes 04/01/25 13:32 Hx Sleep Apnea Yes 04/01/25 13:32 CPAP Yes: non compliant 04/01/25 13:32 BIPAP No 04/01/25 13:32 Do you snore loudly (louder than talking or can be heard Do you often feel tired/ fatigued/ sleepy during daytime? Has anyone observed you stop breathing during sleep? STOP Results Positive 04/01/25 13:32 QUESTION #5 FULL TEXT : Do you snore loudly (louder than talking or can be heard through closed doors)? 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 service conductor Tobacco Use Smoking Status Former smoker 04/01/25 13:32 Hx Tobacco Use No 04/01/25 13:32 Years Smoking Packs Smoked per Day Smoking Cessation Date was Yes - quit smoking within 15 04/01/25 13:32 within the last 15 years years Hx Smoking Cessation Date 09/01/16 04/01/25 13:32 Hx Smoking Cessation No 04/01/25 13:32 Counseling Hematologic Medial History Hematologic Hx - trains service conductor: Hematologic Medical Hx - gyro mechanic Hx of Blood Transfusion No 04/01/25 13:32 Hx of Transfusion in last 3 No 04/01/25 13:32 Months Date of Last Transfusion (if within last 3 months) Ever experience any problems No 04/01/25 13:32 with transfusion(s)? Specify any problems Hx of Preganancy in last 3 N/A 04/01/25 13:32 Months Nurse Filling Out Transfusion JZOLLTREMAINE 04/01/25 13:32 & Questions: Date: 04/01/25 04/01/25 13:32 Time: 13:33 04/01/25 13:32 Patient unable to answer at this time (ie. confused, unrespo /Reproduction History /Reproductive History - trains service conductor: /Reproductive Hx- trains service conductor Hx Now No 04/01/25 13:32 Gestational Age (in weeks): EDC: Hx Hx Para Hx Section SAB No 04/01/25 13:32 Active Medications Active Medications: Current Medications Generic Name Dose Route Start Last Admin Trade Name Freq PRN Reason Stop Dose Admin Cefazolin Sodium 2 gm/ Sodium 110 mls @ 200 mls/hr 04/13/25 11:00 Chloride IV 04/13/25 11:32 INTRAOP ONE Lactated Ringer's 1,000 mls @ 15 mls/hr 04/13/25 09:15 04/13/25 09:37 IV 15 mls/hr .Q48H DUSTIN Administration PFSH Medical History Dietary restriction CPAP (continuous positive airway pressure) dependence Wears glasses Cancer Prostate disease High cholesterol Restless legs Former smoker Shortness of breath on exertion Neuropathy History of stress test Cardiology follow-up encounter COVID-19 virus detected (08/2020) Obesity Diabetes 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 lymph node Essential (primary) hypertension Atherosclerosis of coronary artery of [place] heart without angina pectoris Hyperlipidemia Displaced oblique fracture of shaft of left fibula, subsequent encounter for closed fracture with routine healing Unspecified fracture of lower end of left tibia, subsequent encounter for closed fracture with routine healing Hyperlipidemia associated with type 2 diabetes mellitus Tobacco abuse disorder Crushing injury of distal finger Home Medications Medication Instructions Recorded Last Taken Type aspirin 81 mg tablet,delayed 81 mg PO DAILY antiplatel et 07/07/15 06/10/22 History release canagliflozin 300 mg tablet 300 mg PO DAILY Check with primary 03/21/19 Unknown History doctor blood sugar diagnostic (OneTouch #200 ea 09/17/21 Unkn own Rx Verio test strips) blood-glucose meter (OneTouch #1 ea 09/17/21 Unknown R x Verio Meter) lancets 33 gauge (OneTouch Delica #200 ea 09/17/21 Unk nown Rx Plus Lancet) metformin 1,000 mg tablet 1,000 mg PO BID #60 tabs 06/08/22 Rx semaglutide 0.25 mg or 0.5 mg (2 0.5 mg subcut QWEEK 0 05/24/24 Unknown History mg/3 mL) subcutaneous pen injector (OzLawPathic) bicalutamide 50 mg tablet 50 mg PO DAILY #90 TABLETS 0 09/06/24 Unknown Rx Oral appliance #1 ea 09/22/24 Unknown Rx isosorbide mononitrate 60 mg 60 mg PO DAILY #90 tabs 0 11/23/24 04/13/25 Rx tablet,extended release 24 hr metoprolol tartrate 25 mg tablet 25 mg PO BID #180 tab s 11/30/24 04/13/25 Rx atorvastatin 80 mg tablet 80 mg PO DAILY #90 tabs 12/0104/13/25 08:00 Rx Allergy/AdvReac Type Severity Reaction Status Date / Time No Known Allergies Allergy Verified 04/01/25 13:10 Family History Mother Heart disease [place] spotted fever cause of heart problems Father Hypertension Diabetes mellitus, type 2 Myocardial infarction Surgical History Hx of colonoscopy History of left heart catheterization (06/10/22) History of coronary artery stent placement (03/22/19) History of open reduction and internal fixation (ORIF) procedure Social History Smoking Status: Former smoker how long ago did patient quit smokin years ago second hand exposure: No alcohol intake: never substance use type: does not use caffeine: Yes Type: coffee Number of servings: 1 Review of Systems (Anesthesia) ROS Narrative System reviewed and no additional complaints, except as documented.
--- NOTE | 2025-04-13 11:00 | PROS_PTH ---
PATIENT: CAIO SENIOR LOC: [facility] U#:[id number] AGE/SX: 69/M ROOM: [facility] [place] RE04/13/[address]: Dr. Geovany Pierce MD : 1955 BED: 1 DIS: 04/14/2025 SPEC #: [id number] RECD: 04/13/25 14:13 STATUS: IGOR STONE #: [id number] NELLY: 04/13/25 11:[address]: Geovany Pierce DEPT: SURGICAL PATHOLOGY RECD BY: Don Carrasquillo ENTERED: 04/13/25 14:41 SP TYPE: TURP OTHR DR: MD Dr. Delgado Gold MD Tissues: A - Prostate, NOS Procedures: Surgery Specimen Level IV HEADER OPERATION: Cysto, transurethral resection prostate PRE-OP DIAGNOSIS: Benign prostatic hyperplasia with obstruction TISSUE SUBMITTED: A- Prostate tissue MICROSCOPIC DIAGNOSIS A. Prostate, transurethral resection: - Benign prostate tissue. MICROSCOPIC DESCRIPTION Slides are reviewed. GROSS DESCRIPTION A. Received in formalin labeled with the patient's name and date of . Designated as " prostate tissue" is a 6.1 g, 4.8 x 4.6 x 0.9 cm aggregate of irregular, lisa, rubbery and cauterized tissue fragments. Entirely submitted in 6 cassettes. NV 04/13/2025 CPT:89126
--- NOTE | 2025-04-13 11:12 | PCM.POST.ANE ---
Anesthesia: Postop Eval I Current Vital Signs Temperature: 97.6 F Pulse Rate: 90 Blood Pressure: 127/78 Respiratory Rate: 15 Pulse Ox: 94 Assessment Airway patent: Yes Spontaneous unlabored respirations: Yes nausea: No Vomiting: No Anesthesia Complication: No Fluid Hydration Crystalloid volume administer (ml): 1,700 Total IV fluid infused: 1,700 Progress Note Anesthesia document: Postop Eval 1 completed: Yes
[2025-04-13] MEDS: Cefazolin 1 GM/5 ML Vial 2 GM IV (11:37)
--- NOTE | 2025-04-13 11:40 | DCINST_ITS ---
Discharge Instructions DC O2, CPAP, BIPAP needs Home O2 Discharge instructions: No Dressing / Incision Discharge Activity: Return to Normal Activity and May Not Drive (while taking narcotic pain medications.) Dressing / Incision Call your doctor if you observe: Fever of 101 or Higher Additional Dressing/Incision Instructions:: push fluids Follow Up Care Please Follow Up With: Geovany Pierce MD When: Call [phone] for an appointment Test Results: Test results from this visit will be discussed in further detail at your follow- up appointment, if applicable. Discharge Plan Admission Primary Reason for Your Visit: donna Attending Provider: Geovany Pierce Primary Care Provider: Delgado Hinkle Consulting Providers: Chester Bryant Instructions Patient Instructions: [facility], [facility] Print Language: Venezuelan Discharge Orders/Prescriptions Prescriptions: Continued (DME) blood-glucose meter [OneTouch Verio Meter] Misc See Rx Instructions .ROUTE .MEDSUPPLY Qty: 1 0RF Rx Instructions: As directed (DME) OneTouch Verio test strips Strip See Rx Instructions .ROUTE .MEDSUPPLY Qty: 200 3RF Rx Instructions: twice a day (DME) lancets [OneTouch Delica Plus Lancet] 33 gauge misc See Rx Instructions .ROUTE .MEDSUPPLY Qty: 200 3RF Rx Instructions: twice a day metformin 1,000 mg tablet 1,000 mg PO BID Qty: 60 6RF Ozempic 0.25 mg or 0.5 mg (2 mg/3 mL) pen injector 0.5 mg subcut QWEEK (DME) Oral appliance See Rx Instructions .ROUTE .MEDSUPPLY Qty: 1 0RF Rx Instructions: As directed canagliflozin 300 MG tablet 300 mg PO DAILY bicalutamide 50 mg tablet 50 mg PO DAILY Qty: 90 3RF isosorbide mononitrate 60 mg tablet extended release 24 hr 60 mg PO DAILY Qty: 90 3RF metoprolol tartrate 25 mg tablet 25 mg PO BID Qty: 180 3RF atorvastatin 80 mg tablet 80 mg PO DAILY Qty: 90 3RF Held aspirin 81 MG tablet,delayed release (DR/EC) 81 mg PO DAILY Hold Instructions: Resume on 04/27/25. Referrals / Follow Up: Geovany Pierce MD [[facility] Staff - Active Staff] - Delgado Hinkle MD [Primary Care Provider] - Disposition Disposition (needs filled in before D/C Order can be placed): Home, Self Care
[2025-04-13] MEDS: Lidocaine 1% (5 ml sdv) 5 ML Vial 10 ML IV (11:43)
[2025-04-13] MEDS: fentaNYL 100 MCG/2 ML Ampul IV (11:50)
--- NOTE | 2025-04-13 12:16 | OP.PCM_ITS ---
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 Type of Anesthesia: General RN Documented Start/Stop Times: Operation Date: 04/13/25 11:00 Case Time Into Pre-Op 04/13/25 09:07 Out of Pre-Op 04/13/25 11:29 Anesthesia Start 04/13/25 11:33 Into Room 04/13/25 11:33 Procedure Start Time: 11:33 Procedure Stop Time: 12:16 Select all DRAINS/GRAFTS/IMPLANTS that apply: Drains Drain details: 22 Ecuadorean three-way Ram catheter discussed Estimated Blood Loss: 25cc Specimen collected: No Description of surgery: this is a 69-year-old male with prostate cancer with metastatic he has overflow incontinence and has been dealing with leakage of urine on ultrasound he has a distended bladder is not emptying his bladder completely and on cystoscopy he has a significant amount of obstruction so organ to proceed with a transurethral section of the prostate but he understands no guarantees this is going to cure his incontinence problem because of his bladder is weak and he can empty his bladder he may have to learn how to do self intermittent catheterization that is always possible He was taken back to the operating room after induction of anesthesia placed in dorsolithotomy position penis and testicles were prepped and draped in usual sterile fashion the penis was retracted from the foreskin it was a little stuck a lot of inflammation around the penis from chronic balanitis and redness dilated the urethra he had a very tight meatus and tight urethral anterior stricture area I then was able to go with a 26 Ecuadorean continuous-flow resectoscope into the bladder I identified the prostate is of obstructive prostate and then used a medium size loop started resecting at the midline resected back to verumontanum and the sphincter resected the right lobe of the prostate completely resect the left lobe of prostate completely resected resected the apical tissue completely Ellik out of the chips cauterized the prostate to obtain hemostasis and then a flow test he had very weak flow but I had resected already completely so no other resection was done sphincter was intact he still had flaps around the apex with these were left in place and then I put a catheter bladder continuous bladder irrigation patient was taken back to PACU in good condition and will do a voiding trial tomorrow possible home without a catheter he can urinate but cannot urinate have to go home with a catheter. Surgical Findings: Obstruction resected does have a stretched out weak bladder Complications Complications: No Admit VTE Documentation VTE Present on Admission: No VTE Mechan Device Prophylaxis: SCD's VTE Pharm Prophylaxis ordered?: No
--- NOTE | 2025-04-13 13:15 | SUR.PHASEI ---
Patient sensitive to IV narcotics, NC O2 4L applied after second dose of dilaudid in PACU. Lowest O2 sat recorded 65%. Responded well to NC. Resting comfortably.
[2025-04-13] MEDS: Lactated Ringers 1,000 ML 125 ML IV ×2 (14:15→22:01)
--- NOTE | 2025-04-13 16:38 | POSTOPAN2_ITS ---
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.KCRO respirations Mental status nausea No 04/13/25 11:12 AUTOMOBILE DETAILER.KCRO Vomiting No 04/13/25 11:12 AUTOMOBILE DETAILER.KCRO Anesthesia Postop Eval I: Fluid Summary Crystalloid volume administer 1,700 04/13/25 11:12 AUTOMOBILE DETAILER.KCRO (ml) Colloids volume administered ( ml) Blood Product volume administered (ml) Total IV fluid infused 1,700 04/13/25 11:12 AUTOMOBILE DETAILER.KCRO Anesthesia Postop Eval I: Summary Notes Anesthesia Complication No 04/13/25 11:12 AUTOMOBILE DETAILER.KCRO Anesthesia Complication Comment: Post-operative progress note Anesthesia: Postop Eval II Evaluation Mental status: Awake Pain Level: 3 nausea: No Vomiting: No
--- NOTE | 2025-04-13 16:38 | PCM.POSTANE2 ---
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.KCRO Spontaneous unlabored Yes 04/13/25 11:12 PACKAGE REINSPECTOR.KCRO respirations Mental status nausea No 04/13/25 11:12 PACKAGE REINSPECTOR.KCRO Vomiting No 04/13/25 11:12 PACKAGE REINSPECTOR.KCRO Anesthesia Postop Eval I: Fluid Summary Crystalloid volume administer 1,700 04/13/25 11:12 PACKAGE REINSPECTOR.KCRO (ml) Colloids volume administered ( ml) Blood Product volume administered (ml) Total IV fluid infused 1,700 04/13/25 11:12 PACKAGE REINSPECTOR.KCRO Anesthesia Postop Eval I: Summary Notes Anesthesia Complication No 04/13/25 11:12 PACKAGE REINSPECTOR.KCRO Anesthesia Complication Comment: Post-operative progress note Anesthesia: Postop Eval II Evaluation Mental status: Awake Pain Level: 3 nausea: No Vomiting: No
--- OUTSIDE RECORDS SUMMARY | 2025-04-13 19:49 | XMS RPT_ITS | CCD ---
Author Organization [facility] Care Team Providers Care Shore Man Name Role Phone Sammy Talley Unavailable Marisa Esquivel Unavailable Unavailable Dr. Marisa Arredondo Primary Care Provider Dr. Marisa Arredondo Referring Provider Roof LINING STRAP CLOSER, LINING STRAP CLOSER-C Delgado Aguiar Attending Provider Roof LINING STRAP CLOSER, LINING STRAP CLOSER-C Delgado Aguiar Referring Provider Roof LINING STRAP CLOSER, LINING STRAP CLOSER-C Delgado Aguiar Other Provider Dr. Long Ware [...] Provider Dr. Marisa Arredondo Referring Provider Roof LINING STRAP CLOSER, LINING STRAP CLOSER-C Delgado Aguiar Attending Provider Dr. Marisa Arredondo MD Primary Care Provider [phone] Kari SAMUELS, Dr. Geovany Siegel Attending Provider Kari MD, Dr. Geovany Siegel Referring Provider Arnulfo SAMUELS, Dr. Marisa Morton Referring Provider Jeanie SAMUELS, Dr. Alves Attending Provider Manan SAMUELS, Dr. Delgado Lindo Primary Care Provider Jeanie SAMUELS, Dr. Alves Referring Provider [phone] Kari SAMUELS, Dr. Geovany Siegel Other Provider Jolliff, Marisa S Primary Care Unavailable Jolliff, Marisa S Referring Unavailable Jolliff, Marisa S Attending Unavailable Kari, Geovany Siegel Referring Unavailable Kari, Geovany Siegel Attending Unavailable Jolliff, Marisa S Primary Care Unavailable Schinner, Delgado E Primary Care Unavailable KariGeovany Consulting Unavailable Jeanie, [place] Referring Unavailable Jeanie, Long Attending Unavailable Kancherfawn, Chester Consulting Unavailable Delgado Hinkle Primary Care Unavailable Kari, Geovany Siegel Referring Unavailable Kari, Geovany Siegel Attending Unavailable Kari, Geovany Siegel Referring Unavailable Kari, Geovany Siegel Attending Unavailable Jolliff, Marisa S Primary Care Unavailable Roof LINING STRAP CLOSER, Delgado Aguiar Attending Unavailable Jolliff, Marisa S Referring Unavailable Jolliff, Marisa S Primary Care Unavailable SchinnerDelgado E Primary Care Unavailable Jolliff, Marisa S Referring Unavailable Jeanie, Long Attending Unavailable SchinDelgado rey E Primary Care Unavailable Kari, Geovany Siegel Referring Unavailable Jeanie, Long Attending Unavailable Jolliff, Marisa S Referring Unavailable Jolliff, Marisa S Primary Care Unavailable Uriarte LINING STRAP CLOSER, Denise Attending Unavailable Jolliff, Marisa S Primary Care Unavailable Jolliff, Marisa S Referring Unavailable Jolliff, Marisa S Attending Unavailable Uriarte LINING STRAP CLOSER, Denise Attending Unavailable Jolliff, Marisa S Primary Care Unavailable Jolliff, Marisa S Referring Unavailable Jolliff, Marisa S Primary Care Unavailable Uriarte LINING STRAP CLOSER, Denise Referring Unavailable Uriarte LINING STRAP CLOSER, Denise Attending Unavailable Roof LINING STRAP CLOSER, Delgado H Referring Unavailable Roof LINING STRAP CLOSER, Delgado H Attending Unavailable Jolliff, Marisa S [...] Start: 09-17-2021 Blood-Glucose Meter (Onetouch Verio Meter) [facility] Active 0 .ROUTE .MEDSUPPLY 1 0 September 17, 2021 1:00am As directed Start: 09-17-2021 Blood-Glucose Meter (Onetouch Verio Meter) [facility] Active 0 .ROUTE .MEDSUPPLY September 17, 2021 12:00am As directed Start: 09-17-2021 Blood-Glucose Meter (Onetouch Verio Meter) [facility] Active 0 .ROUTE .MEDSUPPLY September 17, 2021 [...] 2 po q6h as needed pain OXYCODONE-ACETAMINOPHEN [id number] Sammy Talley Start: 06-18-2017 OXYCODONE-ACET AMINOPHEN 5-325 MG TABS OXYCODONE-ACETAMINOPHEN [id number] Sammy Talley atorvastatin 80 mg oral tablet [...] Coronary atherosclerosis; Translations: [Atherosclerotic heart disease of tejon coronary artery without angina pectoris] 05-08-2020 Chronic [...] Interpretation Reference Range Facility MR/PATBere 04-12-2025 /PAT.[facility] Medical Records Department [address] [place] [address] PAT - Anesthesia 04/12/25 1544 MR#: [id number] Acct: [id number] Name: CAIO SENIOR Rep #: [id number] : 1955 69 From: Chester Bryant MD PCP: Dr. Delgado Hinkle MD Status:PRE [facility] [place] [place] Y Race: C Location: [facility] [place] [place] Pre-Assessment Diagnosis/Proposed Procedure Planned Operative Procedure(s): Cysto,Transurethral Resection Prostate Anesthesia History Anesthesia History - internal communications specialist: Anesthesia History - internal communications specialist Hx Hospitalization No 04/01/25 13:32 Any Problems [...] take am of surgery PONV PONV - internal communications specialist: PONV - internal communications specialist Female No 04/01/25 13:32 HX of Motion [...] 03/24/25 08:55 Respiratory Assessment Respiratory Assessment - internal communications specialist: Respiratory Tract Infection Hx - internal communications specialist Hx Respiratory Tract Infection No 04/01/25 13:32 STOP Sleep Apnea STOP Sleep Apnea - internal communications specialist: STOP Sleep Apnea - internal communications specialist Hx Hypertension Yes 04/01/25 13:32 Hx Sleep [...] Tobacco Use History Tobacco Use History - internal communications specialist: Tobacco Use History - internal communications specialist Tobacco Use Smoking Status Former smoker 04/01/25 13:32 Hx Tobacco Use No 04/01/25 13:32 Years Smoking Packs Smoked per Day Smoking Cessation Date was Yes - quit smoking within 15 04/01/25 13:32 within the last 15 years years Hx Smoking Cessation Date 09/01/16 04/01/25 13:32 Hx Smoking Cessation No 04/01/25 13:32 Counseling Hematologic Medial History Hematologic Hx - internal communications specialist: Hematologic Medical Hx - final operations technician Hx of Blood Transfusion No 04/01/25 13:32 [...] /Reproduct ion History /Reproduct audrey History - internal communications specialist: /Reproduct audrey Hx- internal communications specialist Hx Now No 04/01/25 13:32 Gestational Age (in weeks): EDC: Hx Hx Para Hx Section SAB No 04/01/25 13:32 Active Medications Active Medications: Current Medications Generic Name Dose Route Start Last Admin Trade Name Freq PRN Reason Stop Dose Admin Cefazolin Sodium 2 gm/ Sodium 110 mls @ 200 mls/hr 04/13/25 11:00 Chloride IV 04/13/25 11:32 INTRAOP ONE [facility] Medical History (Updated 04/01/25 @ 13:32 by Allyson Alexis) Dietary restriction CPAP (continuous positive airway pressure) dependence Wears glasses Cancer Prostate disease High cholesterol Restless legs Former smoker Shortness of breath on exertion Neuropathy History of stress test Cardiology follow-up encounter COVID-19 virus detected (08/2020) Obesity Diabetes 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 lymph node Essential (primary) hypertension Atherosclerosis of coronary artery of tejon heart without angina pectoris Hyperlipidemia Displaced oblique fracture (more content not included)... Normal [facility] 12 Lead EKGon 04-11-2025 12 Lead EKG [facility] [address] [place] [address] 12 Lead EKG 04/11/25 0708 MR#: [id number] Acct: [id number] Name: CAIO SENIOR Rep #: [id number] : 1955 69 From: Long Ware MD Attending Dr: Dr. Geovany Estrada MD Status: PRE [facility] [place] [place] Ordering Dr: Geovany Estrada MD Date: 04/11/25 Location: [facility] [place] [place] Sex: M C Admitted: Test Reason : PREOP Blood Pressure : */* mmHG Vent. Rate : 59 BPM Atrial Rate : 59 BPM P-R Int : 186 ms QRS Dur : 84 ms QT Int : 420 ms P-R-T Axes : 6 -29 1 degrees QTcB Int : 415 ms Sinus bradycardia Otherwise normal ECG Confirmed by JEANIE SAMUELS, LONG ([id number]), newspaper editor CASSANDRA OLIVER ([id number]) on 04/11/2025 1:18:29 PM Referred By: Geovany Estrada Confirmed By: LONG WARE MD 04/11/25 1318 Date Long Ware MD CC: Dr. Delgado Hinkle MD; Dr. Geovany Estrada MD Signed Normal [facility] Basic Metabolic Profile (BMP )on 04-11-2025 BUN/CRE 18.7 RATIO Normal 10-20 [facility] Comment on above: Performed By: #### L 501.0900, L500.2500, L500.4100 #### [facility] Laboratory [address] [place], [address] Calcium [Mass/Vol] 9.5 mg/dL Normal 7.6-11.[address] [facility] Comment on above: Performed By: #### L 501.0900, L500.2500, L500.4100 #### [facility] [address] [place], [address] Chloride [Moles/Vol] 104 mmol/L Normal 98-108 [facility] Comment on above: Performed By: #### L 501.0900, L500.2500, L500.4100 #### [facility] [address] [place], [address] CO2 [Moles/Vol] 23.2 mmol/L Normal 21.0-32.0 [facility] Comment on above: Performed By: #### L 501.0900, L500.2500, L500.4100 #### [facility] [address] [place], [address] Creatinine [Mass/Vol] 1.00 mg/dL Normal 0.70-1.20 [facility] Comment on above: Performed By: #### L 501.0900, L500.2500, L500.4100 #### [facility] [address] [place], [address] GAP 12 Normal 5-15 [facility] Comment on above: Performed By: #### L 501.0900, L500.2500, L500.4100 #### [facility] [address] [place], [address] GFR/1.73 sq M.predicted among non-blacks MDRD (S/P/Bld) [Vol rate/Area] 82 mL/min/{1.73_m2} Normal >60 [facility] Comment on above: Result Comment: mL/m in/1.73m2 CKD-EPI Creatinine Equation (2020) Performed By: #### L 501.0900, L500.2500, L500.4100 #### [facility] [address] [place], [address] Glucose [Mass/Vol] 224 mg/dL High 70-[address] [facility] Comment on above: Performed By: #### L 501.0900, L500.2500, L500.4100 #### [facility] [address] [place], [address] Potassium [Moles/Vol] 4.2 mmol/L Normal 3.3-5.1 [facility] Comment on above: Performed By: #### L 501.0900, L500.2500, L500.4100 #### [facility] [address] [place], [address] Sodium [Moles/Vol] 139 mmol/L Normal 133-[address] [facility] Comment on above: Performed By: #### L 501.0900, L500.2500, L500.4100 #### [facility] [address] [place], [address] Urea nitrogen [Mass/Vol] 19 mg/dL Normal 4-19 [facility] Comment on above: Performed By: #### L 501.0900, L500.2500, L500.4100 #### [facility] [address] [place], [address] CBC-Complete Blood Cnt No Di ffon 04-11-2025 Erythrocyte distribution width (RBC) [Ratio] 13.4 % Normal 11.6-14.6 [facility] Comment on above: Performed By: #### L 501.0900, L500.2500, L500.4100 #### [facility] [address] [place], [address] Hematocrit (Bld) [Volume fraction] 37.7 % Low 40-54 [facility] Comment on above: Performed By: #### L 501.0900, L500.2500, L500.4100 #### [facility] [address] [place], [address] Hemoglobin (Bld) [Mass/Vol] 12.4 g/dL Low 13.0-16.5 [facility] Comment on above: Performed By: #### L 501.0900, L500.2500, L500.4100 #### [facility] [address] [place], [address] MCH (RBC) [Entitic mass] 32.4 pg High 27.0-32.0 [facility] Comment on above: Performed By: #### L 501.0900, L500.2500, L500.4100 #### [facility] [address] [place], [address] MCHC (RBC) [Mass/Vol] 32.9 g/dL Normal 32-36 [facility] Comment on above: Performed By: #### L 501.0900, L500.2500, L500.4100 #### [facility] [address] [place], [address] MCV (RBC) [Entitic vol] 98.4 fL High 80-94 [facility] Comment on above: Performed By: #### L 501.0900, L500.2500, L500.4100 #### [facility] [address] [place], [address] Platelet mean volume (Bld) [Entitic vol] 10.1 fL Normal 6.2-12.0 [facility] Comment on above: Performed By: #### L 501.0900, L500.2500, L500.4100 #### [facility] [address] [place], [address] Platelets (Bld) [#/Vol] 172 10*3/uL Normal 150-450 [facility] Comment on above: Performed By: #### L 501.0900, L500.2500, L500.4100 #### [facility] [address] [place], [address] RBC (Bld) [#/Vol] 3.83 10*6/uL Low 4.6-6.2 [facility] Comment on above: Performed By: #### L 501.0900, L500.2500, L500.4100 #### [facility] [address] [place], [address] RDW SD 47.6 fl High 35.1-43.9 [facility] Comment on above: Performed By: #### L 501.0900, L500.2500, L500.4100 #### [facility] [address] [place], [address] WBC (Bld) [#/Vol] 4.8 10*3/uL Normal 4.4-11.[address] [facility] Comment on above: Performed By: #### L 501.0900, L500.2500, L500.4100 #### [facility] [address] [facility] [place], [address] Hemoglobin A1con 04-11-2025 HbA1c (Bld) [Mass fraction] 10.2 % High <=5.6 [facility] Comment on above: Result Comment: Norm al < 5.7 % Prediabetic 5.7 - 6.4 % Diabetic >or= 6.5 % Please note range changes. Performed By: #### L 501.0900, L500.2500, L500.4100 #### [facility] [address] [place], [address] MR/PAT.ANEon 04-01-2025 MR/PAT.[facility] Medical Records Department [address] [place] [address] PAT - Anesthesia 04/01/251941 MR#: [id number] Acct: [id number] Name: CAIO SENIOR Rep #: [id number] : 1955 69 From: Chester Bryant MD PCP: Dr. Delgado Hinkle MD Status:PRE [facility] [place] [place] Y Race: C Location: [facility] [place] [place] Pre-Assessment Diagnosis/Proposed Procedure Planned Operative Procedure(s): Cysto,Transurethral Resection Prostate Anesthesia History Anesthesia History - internal communications specialist: Anesthesia History - internal communications specialist Hx Hospitalization No 04/01/25 13:32 Any Problems [...] take am of surgery PONV PONV - internal communications specialist: PONV - internal communications specialist Female No 04/01/25 13:32 HX of Motion [...] 03/24/25 08:55 Respiratory Assessment Respiratory Assessment - internal communications specialist: Respiratory Tract Infection Hx - internal communications specialist Hx Respiratory Tract Infection No 04/01/25 13:32 STOP Sleep Apnea STOP Sleep Apnea - internal communications specialist: STOP Sleep Apnea - internal communications specialist Hx Hypertension Yes 04/01/25 13:32 Hx Sleep [...] Tobacco Use History Tobacco Use History - internal communications specialist: Tobacco Use History - internal communications specialist Tobacco Use Smoking Status Former smoker 04/01/25 13:32 Hx Tobacco Use No 04/01/25 13:32 Years Smoking Packs Smoked per Day Smoking Cessation Date was Yes - quit smoking within 15 04/01/25 13:32 within the last 15 years years Hx Smoking Cessation Date 09/01/16 04/01/25 13:32 Hx Smoking Cessation No 04/01/25 13:32 Counseling Hematologic Medial History Hematologic Hx - internal communications specialist: Hematologic Medical Hx - final operations technician Hx of Blood Transfusion No 04/01/25 13:32 [...] /Reproduct ion History /Reproduct audrey History - internal communications specialist: /Reproduct audrey Hx- internal communications specialist Hx Now No 04/01/25 13:32 Gestational Age (in weeks): EDC: Hx Hx Para Hx Section SAB No 04/01/25 13:32 [facility] Medical History (Updated 04/01/25 @ 13:32 by Allyson Alexis) Dietary restriction CPAP (continuous positive airway pressure) dependence Wears glasses Cancer Prostate disease High cholesterol Restless legs Former smoker Shortness of breath on exertion Neuropathy History of stress test Cardiology follow-up encounter COVID-19 virus detected (08/2020) Obesity Diabetes 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 lymph node Essential (primary) hypertension Atherosclerosis of coronary artery of tejon heart without angina pectoris Hyperlipidemia Displaced oblique fracture of shaft of left fibula, subsequent encounter for closed fracture with routine healing Unspecified fracture of lower end of left tibia, subsequent encounter for closed fracture with routine healing Hyperlipidemia associated with type 2 diabetes mellitus Tobacco abuse disor (more content not included)... Normal [facility] Bilirubin directOrdered By: Long Ware on 03-24-2025 Bilirubin.direct [Mass/Vol] 0.59 mg/dL High 0.00-0.30 [facility] Comment on above: Hemolysis present, R esults could be affected. Bilirubin, totalOrdered By: Long Ware on 03-24-2025 Bilirubin [Mass/Vol] 1.88 mg/dL High 0.00-1.30 [facility] Calculated very low density lipoprotein (VLDL) cholesterol measurementOrdered By: Long Ware on 03-24-2025 Calculated very low density lipoprotein (VLDL) cholesterol measurement 47 mg/dL High 5-40 [facility] Cardiology Visit Reporton Cardiology Visit Report [facility] [place] [facility] [address] [place], [place] [id number] OFFICE VISIT Date of Service: 03/24/25 MR#: [id number] Acct: [id number] Name: CAIO SENIOR Rep #: [id number] : 1955 Provider: Dr. Long Ware MD Age/Sex: 69/M Location: [facility] Status: Signed HPI HPI History of [...] was moderate to moderately severely diseased with [id number] collaterals and an occluded right coronary artery. [...] Monitor Intake Visit Reasons: 1 Y FU Certified Nurses' Aide Required: No Accompanied by: Self Is patient in pain?: No Allergies No Known Allergies Allergy (Verified 03/24/25 09:09) Medications ???Medication ???Instructions ???Recorded ???Confirmed ???Type aspirin 81 mg tablet,delayed 81 mg PO DAILY antiplatelet 03/24/25 History release canagliflozin 300 mg tablet 300 mg PO DAILY Check with primary 03/21/19 03/24/25 History doctor blood sugar diagnostic ([employer] #200 ea 09/17/21 05/24/24 Rx Verio test strips) blood-glucose meter ([employer] #1 ea 09/17/21 05/24/24 Rx Verio Meter) [...] (primary) hypertension Atherosclerosis of coronary artery of tejon heart without angina pectoris Hyperlipidemia Displaced oblique fracture of shaft of left fibula, subsequent encounter for closed fracture with routine healing Unspecified fracture of lower end of left tibia, subsequent encounter for closed fracture with routine healing Hyperlipidemia associated with type 2 diabetes mellitus Tobacco abuse disorder Crushing injury of distal finger Tian (more content not included)... Normal [facility] LDL calc ser/plasOrdered By: Long Ware on 03-24-2025 Cholesterol in LDL [Mass/Vol] 50 mg/dL [facility] Comment on above: Sjikfnjzzg=527-314 m g/dL & Higher Dbon=448 mg/dL or greater Laboratory - Chemistry and C hemistry - challengeOrdered By: Long Ware on 03-24-2025 AST [Catalytic activity/Vol] 20 U/L <38 [facility] Comment on above: Hemolysis present, R esults could be affected. Lipid Profileon 03-24-2025 CHOL:HDL 3.57 Normal [facility] Comment on above: Performed By: #### L 500.4100, L500.3400 #### [facility] [address] [facility] [place], [place], [id number] Cholesterol [Mass/Vol] 135 mg/dL Normal <=200 [facility] Comment on above: Result Comment: Chol esterol level, Desirable <200 mg/dL Borderline high cholesterol 200-239 mg/dL High cholesterol >=240 mg/dL Recommendations of the NCEP Adult Treatment Panel for the following risk-cutoff thresholds for the [place] population. Performed By: #### L 500.4100, L500.3400 #### [facility] [address] [facility] [place], [address] Cholesterol in HDL [Mass/Vol] 38 mg/dL Low [facility] Comment on above: Result Comment: Jo-Ann onal Cholesterol Education Program (NCEP) guidelines: <40 mg/dL: Low HDL-cholesterol (major risk factor for CHD) >= 60 mg/dL: High HDL-cholesterol (negative risk factor for CHD) HDL-cholesterol is affected by a number of factors, e.g. smoking, exercise, hormones, sex and age. Performed By: #### L 500.4100, L500.3400 #### [facility] [address] [place], [address] Cholesterol in LDL [Mass/Vol] 50 mg/dL Normal [facility] Comment on above: Result Comment: Bord srioaw=674-886 mg/dL Higher Kkyc=866 mg/dL or greater Performed By: #### L 500.4100, L500.3400 #### [facility] [address] [place], [address] Cholesterol in VLDL [Mass/Vol] 47 mg/dL High 5-40 [facility] Comment on above: Performed By: #### L 500.4100, L500.3400 #### [facility] [address] [place], [address] Triglyceride [Mass/Vol] 235 mg/dL High [facility] Comment on above: Result Comment: The drugs N-Acetylcysteine and Metamizole may falsely depress this assay. Normal range: <150 mg/dL Borderline High: 150-199 mg/dL High: 200-499 mg/dL Very High: >500 mg/dL Performed By: #### L 500.4100, L500.3400 #### [facility] [address] [place], [address] Liver Profileon 03-24-2025 Albumin [Mass/Vol] 4.1 g/dL Normal 3.4-4.[address] [facility] Comment on above: Performed By: #### L 500.4100, L500.3400 #### [facility] [address] [place], [address] ALK PHOS 95 U/L Normal 40-129 [facility] Comment on above: Performed By: #### L 500.4100, L500.3400 #### [facility] [address] [place], [address] ALT [Catalytic activity/Vol] 28 U/L Normal <=46 [facility] Comment on above: Performed By: #### L 500.4100, L500.3400 #### [facility] [address] [place], [address] AST [Catalytic activity/Vol] 20 U/L Normal <=37 [facility] Comment on above: Result Comment: Hemo lysis present, Results??could be affected. ?? Performed By: #### L 500.4100, L500.3400 #### [facility] [address] [place], [address] Bilirubin [Mass/Vol] 1.88 mg/dL High 0.00-1.30 [facility] Comment on above: Performed By: #### L 500.4100, L500.3400 #### [facility] [address] [place], [address] Bilirubin.direct [Mass/Vol] 0.59 mg/dL High 0.00-0.30 [facility] Comment on above: Result Comment: Hemo lysis present, Results??could be affected. ?? Performed By: #### L 500.4100, L500.3400 #### [facility] [address] [place], [address] Globulin (S) [Mass/Vol] 3.2 g/dL Normal 2.2-4.2 [facility] Comment on above: Performed By: #### L 500.4100, L500.3400 #### [facility] [address] [place], [address] T PROT 7.3 g/dL Normal 5.9-8.4 [facility] Comment on above: Performed By: #### L 500.4100, L500.3400 #### [facility] [address] [place], [place], [address] PSA,Total- Diagnosticon 03-02 PSA, DIAGNOSTIC 0.42 ng/mL Normal 0.00-4.00 [facility] Comment on above: Result Comment: This test [...] By: #### L 501.0900, L500.2500, L500.4100 #### [facility] [address] [place], [address] Screening total cholesterol/ high density lipoprotein (HDL) cholesterol ratioOrdered By: Long Ware on 03-24-2025 Cholesterol.total/Chol esterol in HDL [Mass ratio] 3.57 {ratio} [facility] Serum globulin measurementOr dered By: Long Ware on 03-24-2025 Globulin (S) [Mass/Vol] 3.2 g/dL 2.2-4.2 [facility] [facility] Serum or plasma alanine shultz otransferase (ALT) measurementOrdered By: Long Ware on 03-24-2025 ALT [Catalytic activity/Vol] 28 U/L <47 [facility] Serum or plasma albumin jhony urement (mass/volume)Ordered By: Long Ware on 03-24-2025 Albumin [Mass/Vol] 4.1 g/dL 3.4-4.[address] [facility] Serum or plasma alkaline peri sphatase measurementOrdered By: Long Jeanie on 03-24-2025 ALP [Catalytic activity/Vol] 95 U/L 40-129 [facility] Serum or plasma cholesterol in HDL measurement (mass/volume)Ordered By: Long Ware on 03-24-2025 Cholesterol in HDL [Mass/Vol] 38 mg/dL Low >40 [facility] Comment on above: National Cholesterol Education Program (NCEP) guidelines:<40 mg/dL: Low HDL-cholesterol (major risk factor for CHD)>= 60 mg/dL: High HDL-cholesterol (negative risk factor for CHD)HDL-cholesterol is affected by a number of factors, e.g. smoking, exercise, hormones, sex and age. Serum or plasma cholesterol measurement (mass/volume)Ordered By: Long Ware on 03-24-2025 Cholesterol [Mass/Vol] 135 mg/dL <201 [facility] Comment on above: Cholesterol level, D esirable <200 mg/dLBorderline high cholesterol 200-239 mg/dLHigh cholesterol >=240 mg/dLRecommendations of the NCEP Adult Treatment Panel for the following risk-cutoff thresholds for the [place] population. Total proteinOrdered By: Saundra Ware on 03-24-2025 Protein [Mass/Vol] 7.3 g/dL 5.9-8.[address] [facility] Triglycerides measurementOrd ered By: Long Ware on 03-24-2025 Triglyceride [Mass/Vol] 235 mg/dL High <199 [facility] Comment on above: The drugs N-Acetylcy steine and Metamizole may falsely depress this assay. Normal range: <150 mg/dLBorderline High: 150-199 mg/dLHigh: 200-499 mg/dLVery High: >500 mg/dL PSA,Total- Diagnosticon 12-01 PSA, DIAGNOSTIC 0.39 ng/mL Normal 0.00-4.00 [facility] Comment on above: Result Comment: This test [...] values. Performed By: #### L 501.9940 #### [facility] [address] [place], [address] Breast Limited Unilateralon 10-15-2024 Breast Limited Unilateral [facility] [address] [place], [place] [address] Breast Limited Unilateral MR#: [id number] Acct: [id number] Name: CAIO SENIOR Rep #: [id number] : 1955 M 69 From: Ebenezer fox MD PCP: Dr. Marisa Arredondo MD Status: REG CLI Study: Breast Limited Unilateral Date of Exam: Exam# [id number] Ordering Dr: Marisa Arredondo MD PROCEDURE: BREAST [...] SCREENING. Follow-up code: Routine Follow-up Reading Location: [facility] CC: Dr. Marisa Arredondo MD Assistant Professor Of Education: Signed Normal [facility] Breast Limited Unilateral [facility] [address] [place] [address] Breast Limited Unilateral MR#: [id number] Acct: [id number] Name: CAIO SENIOR Rep #: [id number] : 1955 M 69 From: Ebenezer fox MD PCP: Dr. Marisa Arredondo MD Status: REG CLI Study: Breast Limited Unilateral Date of Exam: Exam# [id number] Ordering Dr: Marisa Arredondo MD PROCEDURE: BREAST [...] SCREENING. Follow-up code: Routine Follow-up Reading Location: [id number] CC: Dr. Marisa Arredondo MD Assistant Professor Of Education: Signed Normal [facility] DIAG MAMM W/CAD, BILATon DIAG MAMM W/CAD, BILAT [facility] [address] [place], [place] [address] DIAG MAMM W/CAD, BILAT MR#: [id number] Acct: [id number] Name: CAIO SENIOR Rep #: [id number] : 1955 M 69 From: Ebenezer fox MD PCP: Dr. Marisa Arredondo MD Status: REG CLI Study: DIAG MAMM W/CAD, BILAT Date of Exam: 10/15/24 Exam# [id number] Ordering Dr: Marisa Arredondo MD PROCEDURE: DIAG [...] of the results by letter. Reading Location: [id number] CC: Dr. Marisa Arredondo MD Assistant Professor Of Education: Signed Normal [facility] Basic Metabolic Profile (BMP )on 10-08-2024 BUN/CRE 22.0 RATIO High 10-20 [facility] Comment on above: Performed By: #### L 501.0900, L500.2500, L500.4100 #### [facility] [address] [facility] [place], [address] CA,Total 9.7 mg/dL Normal 8.5-10.1 [facility] Comment on above: Performed By: #### L 501.0900, L500.2500, L500.4100 #### [facility] [address] [place], [address] Chloride [Moles/Vol] 105 mmol/L Normal 98-107 [facility] Comment on above: Performed By: #### L 501.0900, L500.2500, L500.4100 #### [facility] [address] [place], [address] CO2 [Moles/Vol] 26.0 mmol/L Normal 21.0-32.0 [facility] Comment on above: Performed By: #### L 501.0900, L500.2500, L500.4100 #### [facility] [address] [place], [address] Creatinine [Mass/Vol] 0.96 mg/dL Normal 0.70-1.30 [facility] Comment on above: Result Comment: The validity of the calculated GFR GFRAA in patients over 70 years has not been determined. Clinical correlation is essential. Performed By: #### L 501.0900, L500.2500, L500.4100 #### [facility] [address] [place], [address] EST GFR - AA 100 mL/min Normal >60 [facility] Comment on above: Result Comment: Afri can [place] GFR Calc Performed By: #### L 501.0900, L500.2500, L500.4100 #### [facility] [address] [place], [address] GAP 8 Normal 5-15 [facility] Comment on above: Performed By: #### L 501.0900, L500.2500, L500.4100 #### [facility] [address] [place], [address] GFR/1.73 sq M.predicted among non-blacks MDRD (S/P/Bld) [Vol rate/Area] 83 mL/min/{1.73_m2} Normal >60 [facility] Comment on above: Result Comment: Non- GFR Calc Performed By: #### L 501.0900, L500.2500, L500.4100 #### [facility] [address] [place], [address] Glucose [Mass/Vol] 95 mg/dL Normal 74-[address] [facility] Comment on above: Performed By: #### L 501.0900, L500.2500, L500.4100 #### [facility] [address] [place], [address] Potassium [Moles/Vol] 4.0 mmol/L Normal 3.5-5.1 [facility] Comment on above: Performed By: #### L 501.0900, L500.2500, L500.4100 #### [facility] [address] [place], [address] Sodium [Moles/Vol] 138 mmol/L Normal 136-[address] [facility] Comment on above: Performed By: #### L 501.0900, L500.2500, L500.4100 #### [facility] [address] [place], [address] Urea nitrogen [Mass/Vol] 21 mg/dL High 7-18 [facility] Comment on above: Performed By: #### L 501.0900, L500.2500, L500.4100 #### [facility] [address] [place], [address] Lipid Profileon 10-08-2024 Cholesterol [Mass/Vol] 121 mg/dL Normal 200 [facility] Comment on above: Result Comment: <200 mg/dL Desirable 200-240 mg/dL Borderline >240 mg/dL High Risk Performed By: #### L 501.0900, L500.2500, L500.4100 #### [facility] [address] [place], [address] Cholesterol in HDL [Mass/Vol] 38 mg/dL Low [facility] Comment on above: Result Comment: The drugs N-Acetylcysteine and Metamizole may falsely depress this assay. Reference Range HDL <40 mg/dL Low HDL Cholesterol HDL >or= 60 mg/dL High HDL Cholesterol Performed By: #### L 501.0900, L500.2500, L500.4100 #### [facility] [address] [place], [address] Cholesterol in LDL [Mass/Vol] 56 mg/dL Normal 0-130 [facility] Comment on above: Performed By: #### L 501.0900, L500.2500, L500.4100 #### [facility] [address] [place], [address] Cholesterol in VLDL [Mass/Vol] 27 mg/dL Normal 5-40 [facility] Comment on above: Performed By: #### L 501.0900, L500.2500, L500.4100 #### [facility] [address] [place], [address] Triglyceride [Mass/Vol] 134 mg/dL Normal [facility] Comment on above: Result Comment: The drugs N-Acetylcysteine and Metamizole may falsely depress this assay. Serum Triglycerides Reference Interval Normal <150 mg/dL Borderline high 150 - 199 mg/dL High 200 - 499 mg/dL Very High > or = 500 mg/dL Performed By: #### L 501.0900, L500.2500, L500.4100 #### [facility] [address] [place], [address] Protein+Creatinine Ratio,Uri neon 10-08-2024 PROT:CRE RATIO 786 mg/g CRE High 0-200 [facility] Comment on above: Performed By: #### L 501.0900, L500.2500, L500.4100 #### [facility] [address] [place], [address] Protein (U) [Mass/Vol] 42.9 mg/dL High <11.9 [facility] Comment on above: Performed By: #### L 501.0900, L500.2500, L500.4100 #### [facility] [address] [place], [address] UR CREAT 54.60 mg/dL Normal NO RANGE EST. [facility] Comment on above: Performed By: #### L 501.0900, L500.2500, L500.4100 #### [facility] [address] [place], [address] PSA,Total- Diagnosticon 09-02 PSA, DIAGNOSTIC 1.78 ng/mL Normal 0.0-4.0 [facility] Comment on above: Result Comment: This test was performed using the TPSA assay method for the [employer] chemistry system. Values obtained with different assay methods cannot be used interchangably. When changing PSA assays in the course of monitoring a patient, additional sequential testing should be carried out to confirm baseline values. Performed By: #### L 501.9909 #### [facility] [address] [place], [address] Pulmonary Visit Reporton Pulmonary Visit Report [facility] [place] 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 He would like to continue working [...] it". 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 [...] F L (more content not included)... Normal [facility] Basic Metabolic Profile (BMP )on 06-14-2024 BUN/CRE 19.8 RATIO Normal 10-20 [facility] Comment on above: Performed By: #### L 500.2500, L500.3400, L500.4100 #### [facility] [address] [place], [address] CA,Total 9.4 mg/dL Normal 8.5-10.1 [facility] Comment on above: Performed By: #### L 500.2500, L500.3400, L500.4100 #### [facility] [address] [place], [address] Chloride [Moles/Vol] 104 mmol/L Normal 98-107 [facility] Comment on above: Performed By: #### L 500.2500, L500.3400, L500.4100 #### [facility] [address] [place], [address] CO2 [Moles/Vol] 29.0 mmol/L Normal 21.0-32.0 [facility] Comment on above: Performed By: #### L 500.2500, L500.3400, L500.4100 #### [facility] [address] [place], [address] Creatinine [Mass/Vol] 1.01 mg/dL Normal 0.70-1.30 [facility] Comment on above: Result Comment: The validity of the calculated GFR GFRAA in patients over 70 years has not been determined. Clinical correlation is essential. Performed By: #### L 500.2500, L500.3400, L500.4100 #### [facility] [address] [place], [address] EST GFR - AA 94 mL/min Normal >60 [facility] Comment on above: Result Comment: Afri can [place] GFR Calc Performed By: #### L 500.2500, L500.3400, L500.4100 #### [facility] [address] [place], [address] GAP 4 Low 5-15 [facility] Comment on above: Performed By: #### L 500.2500, L500.3400, L500.4100 #### [facility] [address] [place], [address] GFR/1.73 sq M.predicted among non-blacks MDRD (S/P/Bld) [Vol rate/Area] 78 mL/min/{1.73_m2} Normal >60 [facility] Comment on above: Result Comment: Non- GFR Calc Performed By: #### L 500.2500, L500.3400, L500.4100 #### [facility] [address] [place], [address] Glucose [Mass/Vol] 179 mg/dL High 74-[address] [facility] Comment on above: Result Comment: Fast ing Glucose result greater than or equal to 126 mg/dL suggests DIABETES MELLITUS per A.D.A. criteria. Performed By: #### L 500.2500, L500.3400, L500.4100 #### [facility] [address] [place], [address] Potassium [Moles/Vol] 4.6 mmol/L Normal 3.5-5.1 [facility] Comment on above: Performed By: #### L 500.2500, L500.3400, L500.4100 #### [facility] [address] [place], [address] Sodium [Moles/Vol] 137 mmol/L Normal 136-[address] [facility] Comment on above: Performed By: #### L 500.2500, L500.3400, L500.4100 #### [facility] [address] [place], [address] Urea nitrogen [Mass/Vol] 20 mg/dL High 7-18 [facility] Comment on above: Performed By: #### L 500.2500, L500.3400, L500.4100 #### [facility] [address] [place], [address] Cardiology Visit Reporton Cardiology Visit Report [facility] [address] [place] [address] OFFICE VISIT Date of Service: 06/14/24 MR#: [id number] Acct: [id number] Name: CAIO SENIOR Rep #: [id number] : 1955 Provider: ANTHONY roldan Age/Sex: 69/M [...] 94 Intake Visit Reasons: 6 M FU Certified Nurses' Aide Required: No Is patient in pain?: No Allergies No Known Allergies Allergy (Verified 06/14/24 08:34) Medications ???Medication ???Instructions ???Recorded ???Confirmed ???Type aspirin 81 mg tablet,delayed 81 mg PO DAILY antiplatelet 07/07/15 06/14/24 History release canagliflozin 300 mg tablet 300 mg PO DAILY Check with primary 03/21/19 06/14/24 History doctor blood sugar diagnostic ([employer] #200 ea 09/17/21 05/24/24 Rx Verio test strips) blood-glucose meter ([employer] #1 ea 09/17/21 05/24/24 Rx Verio Meter) lancets 33 gauge ([employer] Delica #200 ea 09/17/21 06/09/23 Rx Plus [...] (primary) hypertension Atherosclerosis of coronary artery of tejon heart without angina pectoris Hyperlipidemia Displaced oblique [...] (ORIF) procedure Family History Mother Heart disease Cardiff spotted fever cause of heart problems Father Hypertension Diabetes mellitus, type 2 Myocardial infarction (more content not included)... Normal [facility] Lipid Profileon 06-14-2024 Cholesterol [Mass/Vol] 106 mg/dL Normal 200 [facility] Comment on above: Result Comment: <200 mg/dL Desirable 200-240 mg/dL Borderline >240 mg/dL High Risk Performed By: #### L 500.2500, L500.3400, L500.4100 #### [facility] [address] [place], [address] Cholesterol in HDL [Mass/Vol] 34 mg/dL Low [facility] Comment on above: Result Comment: The drugs N-Acetylcysteine and Metamizole may falsely depress this assay. Reference Range HDL <40 mg/dL Low HDL Cholesterol HDL >or= 60 mg/dL High HDL Cholesterol Performed By: #### L 500.2500, L500.3400, L500.4100 #### [facility] [address] [place], [address] Cholesterol in LDL [Mass/Vol] 33 mg/dL Normal 0-130 [facility] Comment on above: Performed By: #### L 500.2500, L500.3400, L500.4100 #### [facility] [address] [place], [address] Cholesterol in VLDL [Mass/Vol] 39 mg/dL Normal 5-40 [facility] Comment on above: Performed By: #### L 500.2500, L500.3400, L500.4100 #### [facility] [address] [place], [address] Triglyceride [Mass/Vol] 193 mg/dL Normal [facility] Comment on above: Result Comment: The drugs N-Acetylcysteine and Metamizole may falsely depress this assay. Serum Triglycerides Reference Interval Normal <150 mg/dL Borderline high 150 - 199 mg/dL High 200 - 499 mg/dL Very High > or = 500 mg/dL Performed By: #### L 500.2500, L500.3400, L500.4100 #### [facility] [address] [place], [address] Liver Profileon 06-14-2024 Albumin [Mass/Vol] 3.7 g/dL Normal 3.2-5.[address] [facility] Comment on above: Performed By: #### L 500.2500, L500.3400, L500.4100 #### [facility] [address] [place], [address] ALK P 81 U/L Normal 45-117 [facility] Comment on above: Performed By: #### L 500.2500, L500.3400, L500.4100 #### [facility] [address] [place], [address] ALT [Catalytic activity/Vol] 40 U/L Normal 16-61 [facility] Comment on above: Performed By: #### L 500.2500, L500.3400, L500.4100 #### [facility] [address] [place], [address] AST [Catalytic activity/Vol] 18 U/L Normal 15-37 [facility] Comment on above: Performed By: #### L 500.2500, L500.3400, L500.4100 #### [facility] [address] [place], [address] Bilirubin [Mass/Vol] 1.80 mg/dL High 0.20-1.00 [facility] Comment on above: Result Comment: For patients on eltrombopag therapy, use of Dimension [place] TBIL is not recommended. Performed By: #### L 500.2500, L500.3400, L500.4100 #### [facility] [address] [place], [address] Bilirubin.direct [Mass/Vol] 0.36 mg/dL High 0.00-0.30 [facility] Comment on above: Performed By: #### L 500.2500, L500.3400, L500.4100 #### [facility] [address] [place], [address] Globulin (S) [Mass/Vol] 3.8 g/dL Normal 2.2-4.2 [facility] Comment on above: Performed By: #### L 500.2500, L500.3400, L500.4100 #### [facility] [address] [place], [address] T PROT 7.5 g/dL Normal 6.4-8.2 [facility] Comment on above: Performed By: #### L 500.2500, L500.3400, L500.4100 #### [facility] [address] [place], [address] Lung Screeningon 06-07-[address] Lung Screening [facility] [address] [place] [address] Lung Screening MR#: [id number] Acct: [id number] Name: CAIO SENIOR Rep #: [id number] : 1955 M 69 From: Ebenezer fox MD PCP: Dr. Marisa Arredondo MD Status: REG [facility] Study: Low Dose CT Lung Screening Date of Exam: 06/07 Exam# [id number] Ordering Dr: Denise Uriarte NP LINING STRAP CLOSER-C -[id number] STUDY: LOW DOSE CT LUNG CANCER [...] 15:24 EDT Reading Location ID and State: [facility] / [place] , Service support , CC: ANTHONY Uriarte; Dr. Marisa Arredondo MD Assistant Professor Of Education: Signed Normal [facility] Pulmonary Visit Reporton Pulmonary Visit Report [facility] [place] 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 He states that he "he is not going to take that machine in the truck with me, I will use it on the weekends". He does have a smoking history. He was a pack per day smoker for 44 years quitting completely 7 years ago. He has never seen a medical office rep. He was prescribed a rescue inhaler back [...] 03/21/19 05/24/24 History doctor blood sugar diagnostic ([employer] #200 ea 09/17/21 05/24/24 Rx Verio test strips) blood-glucose meter ([employer] #1 ea 09/17/21 05/24/24 Rx Verio Meter) [...] Rx tab (more content not included)... Normal [facility] Basophil percentageOrdered B y: Delgado Jacobson on 12-16-2023 Bilirubin [Mass/Vol] 0.90 mg/dL 0.20-1.00 [facility] Comment on above: For patients on eltr ombopag therapy, use of Dimension [place] TBIL is not recommended. Cholesterol [Mass/Vol] 222 mg/dL <200 [facility] Comment on above: <200 mg/dL Desirable 200-240 mg/dL Borderline >240 mg/dL High Risk Protein [Mass/Vol] 7.3 g/dL 6.4-8.[address] [facility] Triglyceride [Mass/Vol] 288 mg/dL <199 [facility] Comment on above: The drugs N-Acetylcy steine and Metamizole may falsely depress this assay.Serum Triglycerides Reference Interval Normal <150 mg/dL Borderline high 150 - 199 mg/dL High 200 - 499 mg/dL Very High > or = 500 mg/dL Direct bilirubinOrdered By: Delgado Jacobson on 12-16-2023 Bilirubin.direct [Mass/Vol] 0.18 mg/dL 0.00-0.30 [facility] Laboratory - Chemistry and C hemistry - challengeOrdered By: Delgado Jacobson on 12-16-2023 ALP [Catalytic activity/Vol] 68 U/L 45-117 [facility] ALT [Catalytic activity/Vol] 33 U/L 16-61 [facility] Cholesterol in HDL [Mass/Vol] 40 mg/dL >40 [facility] Comment on above: The drugs N-Acetylcy steine and Metamizole may falsely depress this assay. Reference Range HDL <40 mg/dL Low HDL Cholesterol HDL >or= 60 mg/dL High HDL Cholesterol Cholesterol in LDL [Mass/Vol] 124 mg/dL 0-130 [facility] Globulin (S) [Mass/Vol] 3.8 g/dL 2.2-4.2 [facility] No Panel InformationOrdered By: Delgado Jacobson on 12-16-2023 VLDL Cholesterol 58 mg/dL 5-40 [facility] Thin prep Papanicolaou smear with manual screeningOrdered By: Delgado Jacobson on 12-16-2023 Thin prep Papanicolaou smear with manual screening 3.5 g/dL 3.2-5.0 [facility] Thin prep Papanicolaou smear with manual screening 14 U/L 15-37 [facility] Whole blood hemoglobin A1c/t otal hemoglobin ratio (mass fraction)Ordered By: Moe Agudelo on 12-16-2023 HbA1c (Bld) [Mass fraction] 10.1 % 3.8-5.6 [facility] Comment on above: Normal < 5.7 % Predi abetic 5.7 - 6.4 % Diabetic >or= 6.5 % Please note range changes. Basophil percentageOrdered B y: Delgado Jacobson on 11-10-2023 Basophil percentage 0.39 ng/mL 0.0-4.0 [facility] Comment on above: This test was perfor med using the TPSA assay method for the[employer] chemistry system. Values obtained with differentassay methods cannot be used interchangably.When changing PSA assays in the course of monitoring apatient, additional sequential testing should be carriedout to confirm baseline values. Bilirubin [Mass/Vol] 1.00 mg/dL 0.20-1.00 [facility] Comment on above: For patients on eltr ombopag therapy, use of Dimension [place] TBIL is not recommended. Cholesterol [Mass/Vol] 233 mg/dL <200 [facility] Comment on above: <200 mg/dL Desirable 200-240 mg/dL Borderline >240 mg/dL High Risk Protein [Mass/Vol] 7.2 g/dL 6.4-8.[address] [facility] Triglyceride [Mass/Vol] 302 mg/dL <199 [facility] Comment on above: The drugs N-Acetylcy steine and Metamizole may falsely depress this assay.Serum Triglycerides Reference Interval Normal <150 mg/dL Borderline high 150 - 199 mg/dL High 200 - 499 mg/dL Very High > or = 500 mg/dL Direct bilirubinOrdered By: Delgado Jacobson on 11-10-2023 Bilirubin.direct [Mass/Vol] 0.20 mg/dL 0.00-0.30 [facility] Laboratory - Chemistry and C hemistry - challengeOrdered By: Delgado Jacobson on 11-10-2023 ALP [Catalytic activity/Vol] 73 U/L 45-117 [facility] ALT [Catalytic activity/Vol] 37 U/L 16-61 [facility] Cholesterol in HDL [Mass/Vol] 36 mg/dL >40 [facility] Comment on above: The drugs N-Acetylcy steine and Metamizole may falsely depress this assay. Reference Range HDL <40 mg/dL Low HDL Cholesterol HDL >or= 60 mg/dL High HDL Cholesterol Cholesterol in LDL [Mass/Vol] 137 mg/dL 0-130 [facility] Globulin (S) [Mass/Vol] 3.8 g/dL 2.2-4.2 [facility] No Panel InformationOrdered By: Delgado Jacobson on 11-10-2023 VLDL Cholesterol 60 mg/dL 5-40 [facility] Thin prep Papanicolaou smear with manual screeningOrdered By: Delgado Jacobson on 11-10-2023 Thin prep Papanicolaou smear with manual screening 3.4 g/dL 3.2-5.0 [facility] Thin prep Papanicolaou smear with manual screening 16 U/L 15-37 [facility] Glucose Glucometer (BldC) [M ass/Vol]Ordered By: Morgan Hutton on 07-15-2023 Glucose [Mass/Vol] 149 mg/dL 74-[address] [facility] Comment on above: MANAGEMENT OF PATIEN T CARE PER NURSING PROTOCOL Absolute lymphocyte countOrd ered By: Mykel Sweeney on 05-19-2023 Lymphocytes Auto (Unsp spec) [#/Vol] 0.93 10*3/uL 0.83-4.51 [facility] Basophil percentageOrdered B y: Mykel Sweeney on 05-19-2023 Basophils/100 WBC (Bld) 1.0 % 0-1 [facility] Bilirubin [Mass/Vol] 0.90 mg/dL 0.20-1.00 [facility] Comment on above: For patients on eltr ombopag therapy, use of Dimension [place] TBIL is not recommended. Chloride [Moles/Vol] 101 mmol/L 98-107 [facility] Eosinophils/100 WBC (Bld) 5.5 % 0-5 [facility] Glucose [Mass/Vol] 283 mg/dL 74-[address] [facility] Comment on above: Glucose result great er than or equal to 200 mg/dLsuggests DIABETES MELLITUS per A.D.A. criteria. LDH [Catalytic activity/Vol] 186 U/L 87-241 [facility] Neutrophils (Bld) [#/Vol] 3.3 10*3/uL 2.0-7.7 [facility] Neutrophils/100 WBC (Bld) 64.8 % 47-70 [facility] Potassium [Moles/Vol] 4.3 mmol/L 3.5-5.1 [facility] Protein [Mass/Vol] 7.3 g/dL 6.4-8.[address] [facility] Sodium [Moles/Vol] 136 mmol/L 136-[address] [facility] WBC (Bld) [#/Vol] 5.1 10*3/uL 4.4-11.[address] [facility] Blood erythrocytes count (nu mber/volume)Ordered By: Mykel Sweeney on 05-19-2023 RBC (Bld) [#/Vol] 4.30 10*6/uL 4.6-6.2 [facility] Blood hemoglobin measurement (mass/volume)Ordered By: Cleveland Aidan on 05-19-2023 Hemoglobin (Bld) [Mass/Vol] 13.7 g/dL 13.0-16.5 [facility] Blood lymphocytes/100 leukoc ytesOrdered By: Cleveland Zahra on 05-19-2023 Lymphocytes/100 WBC (Bld) 18.4 % 19-41 [facility] Blood monocytes/100 leukocyt esOrdered By: [facility] on 05-19-2023 Monocytes/100 WBC (Bld) 8.9 % 0-10 [facility] Blood platelet mean volumeOr dered By: [facility] on 05-19-2023 Platelet mean volume (Bld) [Entitic vol] 9.8 fL 6.2-12.0 [facility] Determination of erythrocyte mean corpuscular volume (MCV)Ordered By: [facility]-2023 MCV (RBC) [Entitic vol] 99.1 fL 80-94 [facility] Hematocrit Auto (Bld) [Volum e fraction]Ordered By: [facility] on 05-19-2023 Hematocrit (Bld) [Volume fraction] 42.6 % 40-54 [facility] Laboratory - Chemistry and C hemistry - challengeOrdered By: [facility] on 05-19-2023 ALP [Catalytic activity/Vol] 79 U/L 45-117 [facility] ALT [Catalytic activity/Vol] 82 U/L 16-61 [facility] CO2 [Moles/Vol] 27.0 mmol/L 21.0-32.0 [facility] Globulin (S) [Mass/Vol] 3.8 g/dL 2.2-4.2 [facility] Urea nitrogen/Creatinine [Mass ratio] 25.5 mg/mg 10-20 [facility] Laboratory - Hematology and Cell countsOrdered By: [facility] on 05-19-2023 Erythrocyte distribution width (RBC) [Entitic vol] 49.7 fL 35.1-43.9 [facility] Erythrocyte distribution width (RBC) [Ratio] 13.6 % 11.6-14.6 [facility] Immature granulocytes/100 WBC (Bld) 1.400 % 0.0-0.9 [facility] Comment on above: IG% - Immature Granu locytes (promyelocytes, myelocytes and metamyelocytes) > 1% indicates that a LEFT SHIFT is Present. MCH (RBC) [Entitic mass] 31.9 pg 27.0-32.0 [facility] Nucleated RBC/100 WBC (Bld) [Ratio] 0 % 0-5 [facility] MCHC Auto (RBC) [Mass/Vol]Or dered By: Mykel Sweeney on 05-19-2023 MCHC (RBC) [Mass/Vol] 32.2 g/dL 32-36 [facility] No Panel InformationOrdered By: Mykel Sweeney on 05-19-2023 Estimated Creatinine Clearance Calc 64.53 ml/min [facility] Estimated GFR (MDRD) Amer 89 mL/min >60 [facility] Comment on above: GFR Calc Estimated GFR (MDRD) Non-Af Amer 74 mL/min >60 [facility] Comment on above: Non- GFR Calc Prostate Specific Antigen Total 22.70 ng/mL 0.0-4.0 [facility] Comment on above: This test was perfor med using the TPSA assay method for the[employer] chemistry system. Values obtained with differentassay methods cannot be used interchangably.When changing PSA assays in the course of monitoring apatient, additional sequential testing should be carriedout to confirm baseline values. Platelets bldOrdered By: Tl Sweeney on 05-19-2023 Platelets (Bld) [#/Vol] 159 10*3/uL 150-450 [facility] Serum or plasma albumin jhony urement (mass/volume)Ordered By: Mykel Sweeney on 05-19-2023 Albumin [Mass/Vol] 3.5 g/dL 3.2-5.[address] [facility] Serum or plasma albumin/glob ulin mass ratioOrdered By: Mykel Sweeney on 05-19-2023 Albumin/Globulin [Mass ratio] 0.9 {ratio} 0.9-2.4 [facility] Serum or plasma calcium jhony urement (mass/volume)Ordered By: Mykel Sweeney on 05-19-2023 Calcium [Mass/Vol] 8.8 mg/dL 8.5-10.[address] [facility] Serum or plasma creatinine m easurement (mass/volume)Ordered By: Mykel Sweeney on 05-19-2023 Creatinine [Mass/Vol] 1.06 mg/dL 0.70-1.30 [facility] Comment on above: The validity of the calculated GFR & GFRAA in patients over 70 years has not been determined. Clinical correlation is essential. Serum or plasma urea nitroge n measurement (mass/volume)Ordered By: Mykel Sweeney on 05-19-2023 Urea nitrogen [Mass/Vol] 27 mg/dL 7-18 [facility] Thin prep Papanicolaou smear with manual screeningOrdered By: Mykel Sweeney on 05-19-2023 Thin prep Papanicolaou smear with manual screening 46 U/L 15-37 [facility] Thin prep Papanicolaou smear with manual screening 8 5-15 [facility] Absolute lymphocyte counton 05-13-2022 Lymphocytes Auto (Unsp spec) [#/Vol] 1.03 10*3/uL 0.83-4.51 [facility] Work Phone: Basophil percentageon 2021 Basophil percentage < 0.9 mg/dL 0.70-1.30 [facility] Work Phone: Basophils/100 WBC (Bld) 1.2 % 0-1 [facility] Work Phone: Bilirubin [Mass/Vol] 1.10 mg/dL 0.20-1.00 [facility] Work Phone: Comment on above: For patients on eltr ombopag therapy, use of Dim[employer] [place] TBIL is not recommended. Chloride [Moles/Vol] 105 mmol/L 98-107 [facility] Work Phone: Eosinophils/100 WBC (Bld) 7.2 % 0-5 [facility] Work Phone: Glucose [Mass/Vol] 201 mg/dL 74-[address] [facility] Work Phone: Comment on above: Glucose result great er than or equal to 200 mg/dLsuggests DIABETES MELLITUS per A.D.A. criteria. Neutrophils (Bld) [#/Vol] 3.8 10*3/uL 2.0-7.7 [facility] Work Phone: Neutrophils/100 WBC (Bld) 63.2 % 47-70 [facility] Work Phone: Potassium [Moles/Vol] 4.5 mmol/L 3.5-5.1 [facility] Work Phone: Protein [Mass/Vol] 7.5 g/dL 6.4-8.2 [facility] Phone: Sodium [Moles/Vol] 137 mmol/L 136-145 [facility] Work Phone: WBC (Bld) [#/Vol] 6.0 10*3/uL 4.4-11.[address] [facility] Work Phone: Blood erythrocytes count (nu mber/volume)on 05-13-2022 RBC (Bld) [#/Vol] 4.22 10*6/uL 4.6-6.2 [facility]: Blood hemoglobin measurement (mass/volume)on 05-13-2022 Hemoglobin (Bld) [Mass/Vol] 13.3 g/dL 13.0-16.5 [facility] Work Phone: Blood lymphocytes/100 leukoc yteson 05-13-2022 Lymphocytes/100 WBC (Bld) 17.2 % 19-41 [facility] Work Phone: Blood monocytes/100 leukocyt eson 05-13-2022 Monocytes/100 WBC (Bld) 10.5 % 0-10 [facility] Work Phone: Blood platelet mean volumeon 05-13-2022 Platelet mean volume (Bld) [Entitic vol] 10.0 fL 6.2-12.0 [facility] Work Phone: Determination of erythrocyte mean corpuscular volume (MCV)on 05-13-2022 MCV (RBC) [Entitic vol] 97.6 fL 80-94 [facility] Work Phone: Hematocrit Auto (Bld) [Volum e fraction]on 05-13-2022 Hematocrit (Bld) [Volume fraction] 41.2 % 40-54 [facility] Work Phone: Laboratory - Chemistry and C hemistry - challengeon 05-13-2022 ALP [Catalytic activity/Vol] 101 U/L 45-117 [facility] Work Phone: ALT [Catalytic activity/Vol] 49 U/L 16-61 [facility] Work Phone: CO2 [Moles/Vol] 24.0 mmol/L 21.0-32.0 [facility] Work Phone: Globulin (S) [Mass/Vol] 3.8 g/dL 2.2-4.2 [facility] Work Phone: Urea nitrogen/Creatinine [Mass ratio] 28.1 mg/mg 10-20 [facility] Work Phone: Laboratory - Hematology and Cell countson 05-13-2022 Erythrocyte distribution width (RBC) [Entitic vol] 49.1 fL 35.1-43.9 [facility] Work Phone: Erythrocyte distribution width (RBC) [Ratio] 13.7 % 11.6-14.6 [facility] Work Phone: Immature granulocytes/100 WBC (Bld) 0.700 % 0.0-0.9 [facility] Work Phone: Comment on above: IG% - Immature Granu locytes (promyelocytes, myelocytes and metamyelocytes) > 1% indicates that a LEFT SHIFT is Present. MCH (RBC) [Entitic mass] 31.5 pg 27.0-32.0 [facility] Work Phone: Nucleated RBC/100 WBC (Bld) [Ratio] 0 % 0-5 [facility] Work Phone: MCHC Auto (RBC) [Mass/Vol]on 05-13-2022 MCHC (RBC) [Mass/Vol] 32.3 g/dL 32-36 [facility] Work Phone: No Panel Informationon 05-13 Bedside Estimated GFR (eGFR) > 60.0000 mL/min >60 [facility] Work Phone: Estimated GFR (MDRD) Amer 77 mL/min >60 [facility] Work Phone: Comment on above: GFR Calc Estimated GFR (MDRD) Non-Af Amer 64 mL/min >60 [facility] Work Phone: Comment on above: Non- GFR Calc Prostate Specific Antigen Total 12.70 ng/mL 0.0-4.0 [facility] Work Phone: Comment on above: This test was perfor med using the TPSA assay method for [employer] chemistry system. Values obtained with differentassay methods cannot be used interchangably.When changing PSA assays in the course of monitoring apatient, additional sequential testing should be carriedout to confirm baseline values. Platelets bldon 05-13-2022 Platelets (Bld) [#/Vol] 195 10*3/uL 150-450 [facility] Work Phone: Serum or plasma albumin jhony urement (mass/volume)on 05-13-2022 Albumin [Mass/Vol] 3.7 g/dL 3.2-5.[address] [facility] Work Phone: Serum or plasma albumin/glob ulin mass ratioon 05-13-2022 Albumin/Globulin [Mass ratio] 1.0 {ratio} 0.9-2.4 [facility] Work Phone: Serum or plasma calcium jhony urement (mass/volume)on 05-13-2022 Calcium [Mass/Vol] 9.5 mg/dL 8.5-10.[address] [facility] Work Phone: Serum or plasma creatinine m easurement (mass/volume)on 05-13-2022 Creatinine [Mass/Vol] 1.21 mg/dL 0.70-1.30 [facility] Work Phone: Comment on above: The validity of the calculated GFR & GFRAA in patients over 70 years has not been determined. Clinical correlation is essential. Serum or plasma urea nitroge n measurement (mass/volume)on 05-13-2022 Urea nitrogen [Mass/Vol] 34 mg/dL 7-18 [facility] Work Phone: Thin prep Papanicolaou smear with manual screeningon 05-13-2022 Thin prep Papanicolaou smear with manual screening 20 U/L 15-37 [facility] Work Phone: Thin prep Papanicolaou smear with manual screening 8 5-15 [facility] Work Phone: Thin prep Papanicolaou smear with manual screening 159 U/L 87-241 [facility] Work Phone: Absolute lymphocyte counton 11-12-2021 Lymphocytes Auto (Unsp spec) [#/Vol] 0.71 10*3/uL 0.83-4.51 [facility] Work Phone: Basophil percentageon 2021 Basophils/100 WBC (Bld) 0.8 % 0-1 [facility] Work Phone: Bilirubin [Mass/Vol] 1.30 mg/dL 0.20-1.00 [facility] Work Phone: Comment on above: For patients on eltr ombopag therapy, use of [employer] [place] TBIL is not recommended. Chloride [Moles/Vol] 102 mmol/L 98-107 [facility] Work Phone: Eosinophils/100 WBC (Bld) 6.0 % 0-5 [facility] Work Phone: Glucose [Mass/Vol] 405 mg/dL 74-[address] [facility] Work Phone: Comment on above: Glucose result great er than or equal to 200 mg/dLsuggests DIABETES MELLITUS per A.D.A. criteria. Neutrophils (Bld) [#/Vol] 3.3 10*3/uL 2.0-7.7 [facility] Work Phone: Neutrophils/100 WBC (Bld) 69.0 % 47-70 [facility] Work Phone: Potassium [Moles/Vol] 3.9 mmol/L 3.5-5.1 [facility] Work Phone: Protein [Mass/Vol] 7.6 g/dL 6.4-8.[address] [facility] Work Phone: Sodium [Moles/Vol] 135 mmol/L 136-[address] [facility] Work Phone: WBC (Bld) [#/Vol] 4.8 10*3/uL 4.4-11.[address] [facility] Work Phone: Blood erythrocytes count (nu mber/volume)on 11-12-2021 RBC (Bld) [#/Vol] 4.26 10*6/uL 4.6-6.2 [facility] Work Phone: Blood hemoglobin measurement (mass/volume)on 11-12-2021 Hemoglobin (Bld) [Mass/Vol] 13.7 g/dL 13.0-16.5 [facility] Work Phone: Blood lymphocytes/100 leukoc yteson 11-12-2021 Lymphocytes/100 WBC (Bld) 14.8 % 19-41 [facility] Work Phone: Blood monocytes/100 leukocyt eson 11-12-2021 Monocytes/100 WBC (Bld) 8.8 % 0-10 [facility] Work Phone: Blood platelet mean volumeon 11-12-2021 Platelet mean volume (Bld) [Entitic vol] 9.9 fL 6.2-12.0 [facility] Work Phone: Determination of erythrocyte mean corpuscular volume (MCV)on 11-12-2021 MCV (RBC) [Entitic vol] 96.5 fL 80-94 [facility] Work Phone: Hematocrit Auto (Bld) [Volum e fraction]on 11-12-2021 Hematocrit (Bld) [Volume fraction] 41.1 % 40-54 [facility] Work Phone: Laboratory - Chemistry and C hemistry - challengeon 11-12-2021 ALP [Catalytic activity/Vol] 120 U/L 45-117 [facility] Work Phone: ALT [Catalytic activity/Vol] 41 U/L 16-61 [facility] Work Phone: CO2 [Moles/Vol] 27.0 mmol/L 21.0-32.0 [facility] Work Phone: Globulin (S) [Mass/Vol] 3.9 g/dL 2.2-4.2 [facility] Work Phone: Urea nitrogen/Creatinine [Mass ratio] 18.9 mg/mg 10-20 [facility] Work Phone: Laboratory - Hematology and Cell countson 11-12-2021 Erythrocyte distribution width (RBC) [Entitic vol] 47.3 fL 35.1-43.9 [facility] Work Phone: Erythrocyte distribution width (RBC) [Ratio] 13.3 % 11.6-14.6 [facility] Work Phone: Immature granulocytes/100 WBC (Bld) 0.600 % 0.0-0.9 [facility] Work Phone: Comment on above: IG% - Immature Granu locytes (promyelocytes, myelocytes and metamyelocytes) > 1% indicates that a LEFT SHIFT is Present. MCH (RBC) [Entitic mass] 32.2 pg 27.0-32.0 [facility] Work Phone: Nucleated RBC/100 WBC (Bld) [Ratio] 0 % 0-5 [facility] Work Phone: MCHC Auto (RBC) [Mass/Vol]on 11-12-2021 MCHC (RBC) [Mass/Vol] 33.3 g/dL 32-36 [facility] Work Phone: No Panel Informationon 11-12 Estimated Creatinine Clearance Calc 57.62 ml/min [facility] Work Phone: Estimated GFR (MDRD) Amer 76 mL/min >60 [facility] Work Phone: Comment on above: GFR Calc Estimated GFR (MDRD) Non-Af Amer 63 mL/min >60 [facility] Work Phone: Comment on above: Non- GFR Calc Prostate Specific Antigen Total 8.52 ng/mL 0.0-4.0 [facility] Work Phone: Comment on above: This test was perfor med using the TPSA assay method for [employer] chemistry system. Values obtained with differentassay methods cannot be used interchangably.When changing PSA assays in the course of monitoring apatient, additional sequential testing should be carriedout to confirm baseline values. Platelets bldon 11-12-2021 Platelets (Bld) [#/Vol] 192 10*3/uL 150-450 [facility] Work Phone: Serum or plasma albumin jhony urement (mass/volume)on 11-12-2021 Albumin [Mass/Vol] 3.7 g/dL 3.2-5.[address] [facility] Work Phone: Serum or plasma albumin/glob ulin mass ratioon 11-12-2021 Albumin/Globulin [Mass ratio] 0.9 {ratio} 0.9-2.4 [facility] Work Phone: Serum or plasma calcium jhony urement (mass/volume)on 11-12-2021 Calcium [Mass/Vol] 9.0 mg/dL 8.5-10.[address] [facility] Work Phone: Serum or plasma creatinine m easurement (mass/volume)on 11-12-2021 Creatinine [Mass/Vol] 1.22 mg/dL 0.70-1.30 [facility] Work Phone: Comment on above: The validity of the calculated GFR & GFRAA in patients over 70 years has not been determined. Clinical correlation is essential. Serum or plasma urea nitroge n measurement (mass/volume)on 11-12-2021 Urea nitrogen [Mass/Vol] 23 mg/dL 7-18 [facility] Work Phone: Thin prep Papanicolaou smear with manual screeningon 11-12-2021 Thin prep Papanicolaou smear with manual screening 16 U/L 15-37 [facility] Work Phone: Thin prep Papanicolaou smear with manual screening 6 5-15 [facility] Work Phone: Thin prep Papanicolaou smear with manual screening 164 U/L 87-241 [facility] Work Phone: Basophil percentageon 2020 Testosterone [Mass/Vol] 14 ng/dL 264-916 [facility] Comment on above: Adult male reference interval is based on a population ofhealthy nonobese males (BMI <30) between 19 and 39 yearsold. Maria G, et.al. JCEM 2017,102;[id number]. PMID:[id number]. Free testosterone percentage on 11-15-2020 Testosterone Free/Testosterone.tota l [Mass fraction] 3.45 % 1.50-4.20 [facility] Comment on above: Performed at: [address] [id number] Director: Jacoby Jimenez PhD, Phone: [phone] at: - [facility] [id number] Director: Zac Nicholas MD, Phone: [phone] Serum or plasma testosterone free measurement (mass/volume)on 11-15-2020 Testosterone Free [Mass/Vol] 0.48 ng/dL 5.00-21.00 [facility] Office Visiton 07-18-2017 Documentation of current medications (procedure) Done Invalid Interpretation Code [facility] Work Phone: Smoking cessation education (procedure) yes Invalid Interpretation Code [facility] Work Phone: Tobacco use [facility] Current every day smoker Invalid Interpretation Code [facility] Work Phone: Office Visiton 06-18-2017 Documentation of current medications (procedure) Done Invalid Interpretation Code [facility] Work Phone: Smoking cessation education (procedure) yes Invalid Interpretation Code [facility] Work Phone: Tobacco use [facility] Current every day smoker Invalid Interpretation Code [facility] Work Phone: Vital Signs Date Time Vital Sign Value Performing Clinician Facility 03-24-2025 08:55-0400 Body height 172.[address] Marisa Arredondo MD Work Phone: [facility] 03-24-2025 08:55-0400 Body mass index (BMI) [Ratio] 38.5 kg/m2 Dr. Marisa Arredondo MD Work Phone: [facility] 03-24-2025 08:55-0400 Body weight 114.[address] Marisa Arredondo MD Work Phone: [phone] [address] 03-24-2025 08:55-0400 Diastolic blood pressure 53 mm[Hg] Dr. Marisa Arredondo MD Work Phone: [phone] [place] [address] 03-24-2025 08:55-0400 Heart rate 68 /min Dr. Marisa Arredondo MD Work Phone: [phone] [place] [address] 03-24-2025 08:55-0400 Respiratory rate 16 /min Dr. Marisa Arredondo MD Work Phone: [phone] [address] 03-24-2025 08:55-0400 Systolic blood pressure 114 mm[Hg] Dr. Marisa Arredondo MD Work Phone: [facility] 12-22-2023 09:02-0400 Body height 172.[address] Marisa Arredondo Work Phone: [facility] 12-22-2023 09:02-0400 Body mass index (BMI) [Ratio] 39.2 kg/m2 Dr. Marisa Arredondo Work Phone: [facility] 12-22-2023 09:02-0400 Body weight 117.[address] Marisa Arredondo Work Phone: [facility] 12-22-2023 09:02-0400 Diastolic blood pressure 56 mm[Hg] Dr. Marisa Arredondo Work Phone: [facility] 12-22-2023 09:02-0400 Respiratory rate 16 /min Dr. Marisa Arredondo Work Phone: [facility] 12-22-2023 09:02-0400 Systolic blood pressure 100 mm[Hg] Dr. Marisa Arredondo Work Phone: [facility] 07-15-2023 08:45-0500 Body temperature 97.3 [degF] Dr. Marisa Arredondo Work Phone: [facility] 07-15-2023 08:45-0500 Diastolic blood pressure 68 mm[Hg] Dr. Marisa Arredondo Work Phone: [facility] 07-15-2023 08:45-0500 Heart rate 57 /min Dr. Marisa Arredondo Work Phone: [facility] 07-15-2023 08:45-0500 Respiratory rate 16 /min Dr. Marisa Arredondo Work Phone: [facility] 07-15-2023 08:45-0500 SaO2% (BldA) [Mass fraction] 99 % Dr. Marisa Arredondo Work Phone: [facility] 07-15-2023 08:45-0500 Systolic blood pressure 105 mm[Hg] Dr. Marisa Arredondo Work Phone: [facility] 07-15-2023 06:48-0500 Body height 172.[address] Marisa Arredondo Work Phone: [facility] 07-15-2023 06:48-0500 Body mass index (BMI) [Ratio] 37.8 kg/m2 Dr. Marisa Arredondo Work Phone: [facility] 07-15-2023 06:48-0500 Body weight 112.[address] Marisa Arredondo Work Phone: [facility] 06-09-2023 08:37-0400 Body mass index (BMI) [Ratio] 39.2 kg/m2 Dr. Marisa Arredondo Work Phone: [facility] 06-09-2023 08:37-0400 Body weight 117.[address] Marisa Arredondo Work Phone: [facility] 06-09-2023 08:37-0400 Diastolic blood pressure 66 mm[Hg] Dr. Marisa Arredondo Work Phone: [facility] 06-09-2023 08:37-0400 Respiratory rate 16 /min Dr. Marisa Arredondo Work Phone: [facility] 06-09-2023 08:37-0400 Systolic blood pressure 131 mm[Hg] Dr. Marisa Arredondo Work Phone: [facility] 05-21-2023 10:16-0400 Body mass index (BMI) [Ratio] 39.2 kg/m2 Dr. Marisa Arredondo Work Phone: [facility] 05-21-2023 10:16-0400 Body weight 117.[address] Marisa Arredondo Work Phone: [facility] 05-21-2023 10:16-0400 Diastolic blood pressure 59 mm[Hg] Dr. Marisa Arredondo Work Phone: [facility] 05-21-2023 10:16-0400 Heart rate 78 /min Dr. Marisa Arredondo Work Phone: [facility] 05-21-2023 10:16-0400 Respiratory rate 20 /min Dr. Marisa Arredondo Work Phone: [facility] 05-21-2023 10:16-0400 Systolic blood pressure 99 mm[Hg] Dr. Marisa Arredondo Work Phone: [facility] 05-19-2023 11:08-0400 Body mass index (BMI) [Ratio] 39.4 kg/m2 Dr. Marisa Arredondo Work Phone: [facility] 05-19-2023 11:08-0400 Body temperature 97.9 [degF] Dr. Marisa Arredondo Work Phone: [facility] 05-19-2023 11:08-0400 Body weight 117.[address] Marisa Arredondo Work Phone: [facility] 05-19-2023 11:08-0400 Diastolic blood pressure 70 mm[Hg] Dr. Marisa Arredondo Work Phone: [facility] 05-19-2023 11:08-0400 Heart rate 65 /min Dr. Marisa Arredondo Work Phone: [facility] 05-19-2023 11:08-0400 Respiratory rate 18 /min Dr. Marisa Arredondo Work Phone: [facility] 05-19-2023 11:08-0400 SaO2% (BldA) [Mass fraction] 95 % Dr. Marisa Arredondo Work Phone: [facility] 05-19-2023 11:08-0400 Systolic blood pressure 128 mm[Hg] Dr. Marisa Arredondo Work Phone: [facility] 06-10-2022 08:15-0400 Body height 172.[address] Marisa Arredondo Work Phone: [facility] Work Phone: 06-10-2022 08:15-0400 Body weight 113.[address] Marisa Arredondo Work Phone: [facility] Work Phone: 06-07-2022 10:00-0400 Body mass index (BMI) [Ratio] 38.1 kg/m2 Dr. Marisa Arredondo Work Phone: [facility] Work Phone: 05-16-2022 15:24-0400 Body height 172.[address] Marisa Arredondo Work Phone: [facility] Work Phone: 05-16-2022 15:24-0400 Body mass index (BMI) [Ratio] 38.5 kg/m2 Dr. Marisa Arredondo Work Phone: [facility] Work Phone: 05-16-2022 15:24-0400 Body temperature 98.2 [degF] Dr. Marisa Arredondo Work Phone: [facility] Work Phone: 05-16-2022 15:24-0400 Body weight 114.[address] Marisa Arredondo Work Phone: [facility] Work Phone: 05-16-2022 15:24-0400 Diastolic blood pressure 63 mm[Hg] Dr. Marisa Arredondo Work Phone: [facility] Work Phone: 05-16-2022 15:24-0400 Heart rate 70 /min Dr. Marisa Arredondo Work Phone: [facility] Work Phone: 05-16-2022 15:24-0400 Respiratory rate 16 /min Dr. Marisa Arredondo Work Phone: [facility] Work Phone: 05-16-2022 15:24-0400 SaO2% (BldA) [Mass fraction] 97 % Dr. Marisa Arredondo Work Phone: [facility] Work Phone: 05-16-2022 15:24-0400 Systolic blood pressure 99 mm[Hg] Dr. Marisa Arredondo Work Phone: [facility] Work Phone: 04-22-2022 13:30-0400 Body height 172.[address] Marisa Arredondo Work Phone: [facility] Work Phone: 04-22-2022 13:30-0400 Body mass index (BMI) [Ratio] 38.1 kg/m2 Dr. Marisa Arredondo Work Phone: [facility] Work Phone: 04-22-2022 13:30-0400 Body weight 113.[address] Marisa Arredondo Work Phone: [facility] Work Phone: 04-22-2022 13:30-0400 Diastolic blood pressure 58 mm[Hg] Dr. Marisa Arredondo Work Phone: [facility] Work Phone: 04-22-2022 13:30-0400 Heart rate 69 /min Dr. Marisa Arredondo Work Phone: [facility] Work Phone: 04-22-2022 13:30-0400 Respiratory rate 18 /min Dr. Marisa Arredondo Work Phone: [facility] Work Phone: 04-22-2022 13:30-0400 Systolic blood pressure 99 mm[Hg] Dr. Marisa Arredondo Work Phone: [facility] Work Phone: 11-15-2020 10:40-0400 Body mass index (BMI) [Ratio] 36.3 kg/m2 Dr. Marisa Arredondo Work Phone: [facility] 11-15-2020 10:40-0400 Body temperature 98.2 [degF] Dr. Marisa Arredondo Work Phone: [facility] 11-15-2020 10:40-0400 Body weight 108.[address] Marisa Arredondo Work Phone: [facility] Work Phone: 11-15-2020 10:40-0400 Diastolic blood pressure 58 mm[Hg] Dr. Marisa Arredondo Work Phone: [facility] 11-15-2020 10:40-0400 Heart rate 62 /min Dr. Marisa Arredondo Work Phone: [facility] 11-15-2020 10:40-0400 Respiratory rate 16 /min Dr. Marisa Arredondo Work Phone: [facility] 11-15-2020 10:40-0400 SaO2% (BldA) [Mass fraction] 94 % Dr. Marisa Arredondo Work Phone: [facility] 11-15-2020 10:40-0400 Systolic blood pressure 103 mm[Hg] Dr. Marisa Arredondo Work Phone: [facility] 06-18-2017 12:53-0400 BMI (Body Mass Index) 33.67 kg/m2 [facility] Work Phone: 06-18-2017 12:53-0400 Height 175.26 cm [facility] Work Phone: 06-18-2017 12:53-0400 Weight 103.42 kg [facility] Work Phone: Encounters Encounter Date Encounter Type Care Provider Facility Start: 04-13-2025 Encounter for other preprocedural examination Geovany Estrada [facility] Start: 04-13-2025 ambulatory Chester Bryant Facilit y:[facility] Start: 04-11-2025 ambulatory Delgado Hinkle Facilit y:[facility] Start: 03-24-2025 End: 03-24-[address] Long Ware MD -[facility] Work Phone: Start: 03-24-2025 End: 03-24-[address] Marisa Arredondo MD Work Phone: -[facility] Start: 03-24-2025 End: 03-24-2025 ambulatory Delgado Hinkle Facility:[facility] Start: 12-27-2024 End: 12-27-[address] Geovany Estrada MD -Laboratory Work Phone: Start: 12-27-2024 End: 12-27-2024 ambulatory Geovany Estrada Facility:[facility] Start: 10-15-2024 End: 10-15-2024 ambulatory Marisa Arredondo Facility:[facility] Start: 10-08-2024 End: 10-08-2024 ambulatory Marisa Arredondo Facility:[facility] Start: 09-27-2024 End: 09-27-2024 ambulatory Geovany Estrada Facility:[facility] Start: 09-22-2024 End: 09-22-2024 ambulatory Denise Uriarte [employer]ING [employer]AP [employer] Facility:[facility] Start: 06-14-2024 End: 06-14-2024 ambulatory Delgado Aguiar Indira [employer]ING [employer] Facility:[facility] Start: 06-14-2024 End: 06-14-2024 ambulatory Delgado Aguiar Indira [employer]ING [employer] Facility:[facility] Start: 06-07-2024 End: 06-07-2024 ambulatory Marisa Arredondo Facility:[facility] Start: 05-24-2024 End: 05-24-2024 ambulatory Marisa Arredondo [facility] Start: 01-05-2024 End: 01-05-[address] Marisa Arredondo Work Phone: [facility] Work Phone: Start: 01-05-2024 End: 01-05-[address] Marisa Arredondo Work Phone: [facility]Sleep Lab Work Phone: Start: 12-22-2023 End: 12-22-[address] Marisa Arredondo Work Phone: [facility] Work Phone: Start: 12-16-2023 End: 12-16-[address] Marisa Arredondo Work Phone: [facility] Work Phone: Start: 12-16-2023 End: 12-16-[address] Marisa Arredondo Work Phone: [facility]Laboratory Work Phone: Start: 11-10-2023 End: 11-10-2023 ambulatory [facility] Work Phone: Start: 11-10-2023 End: 11-10-2023 Patient encounter procedure [facility]Labor[facility] Work Phone: Start: 07-15-2023 Non-patient / Non-visit Dr. Do Arredondo Work Phone: [facility] Start: 07-15-2023 End: 07-15-2023 Admission to same day surgery center Dr. Marisa Arredondo Work Phone: [facility]-Endoscopy Work Phone: Start: 07-15-2023 End: 07-15-[address] Marisa Arredondo Work Phone: [facility] Work Phone: Start: 06-09-2023 End: 06-09-[address] Marisa Arredondo Work Phone: [facility] Work Phone: Start: 05-21-2023 End: 05-21-[address] Marisa Arredondo Work Phone: [facility] Work Phone: Start: 05-19-[address] Marisa velasquez Work Phone: [facility] Start: 05-19-2023 End: 05-19-[address] Marisa Arredondo Work Phone: [facility] Work Phone: Start: 06-10-2022 End: 06-10-2022 Admission to same day surgery center Dr. Marisa Arredondo Work Phone: [facility]-Insect Control Aide/Special Procedures Start: 06-10-2022 End: 06-10-[address] Marisa Arredondo Work Phone: [facility] Work Phone: Start: 06-06-2022 Non-patient / Non-visit Dr. Do Arredondo Work Phone: [facility] Start: 05-16-[address] Marisa velasquez Work Phone: [facility] Start: 05-16-2022 End: 05-16-[address] Marisa Arredondo Work Phone: [facility] Start: 05-14-[address] Steve Arredondo Work Phone: [facility] Start: 05-13-2022 End: 05-13-[address] Marisa Arredondo Work Phone: [facility] Work Phone: Start: 05-13-2022 End: 05-13-[address] Marisa Arredondo Work Phone: [facility] Start: 05-10-2022 Non-patient / Non-visit Dr. Do Arredondo Work Phone: [facility] Start: 05-10-2022 End: 05-10-[address] Marisa Arredondo Work Phone: [facility] Work Phone: Start: 05-10-2022 End: 05-10-[address] Marisa Arredondo Work Phone: [facility]-Cardiovascula r Services Start: 04-22-2022 End: 04-22-[address] Marisa Arredondo Work Phone: [facility] Procedures Date Procedure Procedure [...] Dr. Long Ware MD Comment on above: [id number] OM1 w/ 2.25 x 20 mm Promus Synergy Stent, followed immediately upstream with a 2.25 x 20 mm Promus Synergy Stent 03/22/19 Plan of Treatment Date Care Activity Detail Author Start: 07-15-2023 Patient discharge [facility] Start: 05-19-2023 Patient referral [facility] Work Phone: Start: 08-15-2017 End: 08-15-2017 Appointment Appointment [facility] Work Phone: Start: 07-18-2017 End: 07-18-2017 Appointment Appointment [facility] Work Phone: Start: 07-18-2017 End: 07-18-2017 Radex ankle complete minimum 3 views X-Ray, Ankle [facility] Work Phone: Start: 06-18-2017 End: 06-18-2017 Radex ankle complete minimum 3 views X-Ray, Ankle [facility] Work Phone: Blood chemistry [facility] Colonoscopy [facility] Lipid 1996 panel - S shari or Plasma [facility] Patient referral [facility] Work Phone: Prostate specific an tigen measurement [facility] Work Phone: [facility] Payers Date Payer Category Payer Self-pay [id number] 2023 Medicare [id number] 2023 Unknown [id number] Unknown [facility] [id number] Unknown [facility] PACKAGE PLAN [id number] Unknown [facility] PACKAGE PLAN [id number] Unknown [id number] Unknown [id number] Unknown [id number] Unknown [id number] Unknown [id number] Unknown [id number] Unknown [id number] Unknown [id number] Unknown [id number] Unknown [id number] Unknown [id number] Unknown [id number] Unknown [id number] Social History Date Type Detail Facility Start: 04-22-2022 End: 07-10-2023 Tobacco smoking status WAIS Unknown if ever smoked [facility] Start: 03-21-2019 None [facility] Start: 03-21-2019 With Family [facility] Start: 11-15-2020 Non-smoker [facility] Start: 1955 Sex Assigned At Male [facility] Start: 09-22-2024 Tobacco smoking stat us WAIS Ex-smoker (finding) [facility] Medical Equipment Procedure Code Equipment Code Equipment Origin al Text Equipment Identifier Dates Blood Sugar Diagnostic (Onetouch Verio Test Strips) strip Start: 09-17-2021 Lancets (Onetouc h Delica Plus Lancet) 33 gauge [facility] Start: 09-17-2021 Blood Sugar Diagnostic (Onetouch Verio Test Strips) strip Start: 09-17-2021 Lancets (Onetouc h Delica Plus Lancet) 33 gauge [facility] Start: 09-17-2021 Blood Sugar Diagnostic (Onetouch Verio Test Strips) strip Start: 09-17-2021 Lancets (Onetouc h Delica Plus Lancet) 33 gauge [facility] Start: 09-17-2021 Blood Sugar Diagnostic (Onetouch Verio Test Strips) strip Start: 09-17-2021 Lancets (Onetouc h Delica Plus Lancet) 33 gauge [facility] Start: 09-17-2021 Blood Sugar Diagnostic (Onetouch Verio [...] Assessment Result Facility 07-15-2023 Cognitive function Voice/Name [facility] Work Phone: Evaluation note 03-24-2025 Note Date & Type Note Facility 03-24-2025 Evaluation note Diagnosis Onset Date Resolution Diabetes acute March 24 8:47am Essential (primary) hypertension chronic March 24, 2025 8:47am Hyperlipidemia chronic March 24, 2025 8:47am History of coronary artery stent placement March 22, 2019 resolved March 24, 2025 8:47am [facility] Work Phone: Procedure note 07-15-2023 Note Date & Type Note Facility 07-15-2023 Procedure note [facility] Procedure note 07-15-2023 Note Date & Type Note Facility 07-15-2023 Procedure note [facility] Evaluation note 03-22-2019 Note Date & Type Note Facility 03-22-2019 Evaluation note Diagnosis Onset Date Essential (primary) hypertension chronic Hyperlipidemia chronic History of coronary artery stent placement March 22, 2019 resolved [facility] Work Phone: Evaluation note 03-22-2019 Note Date [...] metastatic t o intrapelvic lymph node chronic [facility] Work Phone: Evaluation note 03-22-2019 Note Date & Type Note Facility 03-22-2019 Evaluation note Diagnosis Onset Date Hypersomnolence acute Essential (primary) hypertension chronic Hyperlipidemia chronic History of coronary artery stent placement March 22, 2019 resolved [facility] Work Phone: Evaluation note Note Date & [...] March 22, 2019 resolved Rectal bleed acute [facility] Work Phone: Evaluation note Note Date & Type Note Facility Evaluation note No assessment information availa [facility] Work Phone: History and physical note Note Date & Type Note Facility History and physical note Note Date/Time July 15, 2023 7:21am [facility] Medical Records Department [address] [place] [address] History & Physical Exam 07/15/2321 MR#: [id number] Acct: [id number] Name: CAIO SENIOR Rep #:[id number] : 1955 68 From: Morgan richmond MD PCP: Dr. Marisa Arredondo MD Status:[facility] [place] [place] Location: [place] [address] History and Physical Date of Admission: 07/15/23 [...] Reasons: RECTAL BLEEDING Chief Complaint: rectal bleeding Certified Nurses' Aide Required: No Is patient in pain?: No [...] 08/06/21 [Rx Confirmed 06/09/23] blood sugar diagnostic ([employer] TechnologyTouch Verio test strips) #200 ea 09/17/21 [Rx Confirmed 06/09/23] blood-glucose meter ([employer] TechnologyTouch Verio Meter) #1 ea 09/17/21 [Rx Confirmed 06/09/23] lancets 33 gauge ([employer] Information TechnologyTouch Delica Plus Lancet) #200 ea 09/17/21 [Rx [...] mg PO DAILY 05/21/23 [History Confirmed 06/09/23] [facility] Medical History Atherosclerosis of coronary artery of te[place] heart without angina pectoris COVID-19 virus detected [...] (ORIF) procedure Family History Mother Heart disease Cardiff spotted fever cause of heart problemsFather Hypertension [...] Brilintafor 5 days. Morgan Hutton MD Pager: [facility] [address] [place] [address], [address] [place] [address] Office: I have examined the patient and the H&P has been reviewed. There are no clinicalchanges since date of exam. 07/15/23 0721 <Electronically signed by Morgan Hutton MD> Cosigner Signature (if applicable): CC: Dr. Marisa Arredondo MD; Dr. Morgan Hutton MD~ Signed [facility] Work Phone: Reason for referral (narrative) Note Date & Type Note Facility Reason for referral (narrative) No reason for referral information available [facility] Work Phone: Chief Complaint and Reason [...] Recorded Date/T clifford mother Cardiac disease Unknown Cardiff spotted fever Unknown father Hypertension Unknown Type 2 diabetes mellitus Unknown Myocardial infarction Unknown Advance Directives No Advanced Directives Records Found Advance Directive Response Recorded Date/ Time Advance Directives No November 12 12:32pm Living Will No November 12, 2021 12:32pm Power of Coal Or Ore Controller No November 12 12:32pm Advance Directive Response Recorded Date/ Time Advance Directives No June 10, 2022 8:15am Living Will No June 10 8:15am Power of Coal Or Ore Controller No June 10, 2022 8:15am Advance Directive Response Recorded Date/ Time Name of Medical Power of Coal Or Ore Controller BIRGIT SENIOR July 10, 2023 12:19pm Advance Directives No May 11:30am Living Will Yes July 10 12:19pm Power of Coal Or Ore Controller Yes July 10, 2023 12:19pm Advance Directive Response Recorded Date/ Time Advance Directives No May 12:30pm Living Will Yes July 10 1:19pm Power of Coal Or Ore Controller Yes July 10, 2023 1:19pm Advance Directive Response Recorded Date/ Time Living Will Yes July 10 1:19pm Do you have a Healthcare Power of Coal Or Ore Controller? Yes July 10, 2023 1:19pm Advance Directives [...] Provider, Referrin g Provider Active Delgado Jacobson LINING STRAP CLOSER, LINING STRAP CLOSER-C Attending Provider Active Team Status: Inactive Member Role Status Dates Dr. Marisa Arredondo MD Primary Care Provider Active Delgado Jacobson LINING STRAP CLOSER, LINING STRAP CLOSER-C Attending Provider, Referring Pro vider Active Team Status: Inactive Member Role Status Dates Dr. Marisa Arredondo MD Primary Care Provider, Referrin g Provider Active Delgado Jacobson LINING STRAP CLOSER, LINING STRAP CLOSER-C Attending Provider Active Team Status: Active Member Role/Relationship Status Dates Dr. Delgado Hinkle MD Primary Care Provider Active Team Status: Inactive Member Role/Relationship Status Dates Dr. Marisa Arredondo MD Primary Care Provider Active Start: December 27, 2024 End: December 27, 2024 Dr. Geovany Estrada MD Attending Provider Active Start: December 27, 2024 End: December 27, 2024 Dr. Geovany Estrdaa MD Referring Provider Active Start: December 27, [...] section and content) DATE CREATED AUTHOR 04/13/2025 [facility] FOR RECORDS PERTAINING TO PATIENTS WHO [...] BE BASED ON THE PRIMARY CLINICAL RECORDS. [employer] provides no warranty or guarantee of the accuracy or completeness of information in this document.
[2025-04-13] MEDS: Nystatin/Triamcin Oint 1 APPLIC TOPICAL (22:03)
[2025-04-14 02:06] VITALS: BP 114/53; PULSE 74; RESP 16; TEMP 36.6; O2SAT 99
[2025-04-14] MEDS: Lactated Ringers 1,000 ML 125 ML IV (06:09)
[2025-04-14] MEDS: Nystatin/Triamcin Oint 1 APPLIC TOPICAL (06:09)
[2025-04-14 06:12] VITALS: BP 125/78; PULSE 70; RESP 16; TEMP 36.3; O2SAT 99
--- NOTE | 2025-04-14 07:18 | PCM.DC.SUM ---
Providers Date of Admission: 04/13/25 Date of Discharge: 04/14/25 Primary Care Physician: Dr. Delgado Hinkle MD Reason For Visit: Cysto,Transurethral Resection Prostate Medications at Discharge Home Medications aspirin 81 mg tablet,delayed release 81 mg PO DAILY antiplatelet 07/07/15 Held on 04/13/25. Instructions: Resume on 04/27/25. canagliflozin 300 mg tablet 300 mg PO DAILY Check with primary doctor 03/21/19 blood sugar diagnostic (OneTouch Verio test strips) #200 ea 09/17/21 blood-glucose meter (OneTouch Verio Meter) #1 ea 09/17/21 lancets 33 gauge (NATIONSPLAYTouch Delica Plus Lancet) #200 ea 09/17/21 metformin 1,000 mg tablet 1,000 mg PO BID #60 tabs 09/17/21 semaglutide 0.25 mg or 0.5 mg (2 mg/3 mL) subcutaneous pen injector (Ozempic) 0.5 mg subcut QWEEK 05/24/24 bicalutamide 50 mg tablet 50 mg PO DAILY #90 TABLETS 09/06/24 Oral appliance #1 ea 09/22/24 isosorbide mononitrate 60 mg tablet,extended release 24 hr 60 mg PO DAILY #90 tabs 11/23/24 metoprolol tartrate 25 mg tablet 25 mg PO BID #180 tabs 11/30/24 atorvastatin 80 mg tablet 80 mg PO DAILY #90 tabs 12/27/24 nystatin 100,000 unit/gram topical ointment 1 applic topical TID #30 grams 04/14/25 Hospital Course Operations TURP Weight / BMI Weight Weight: 110 kg Body Mass Index (BMI) 36.8 ABG / Lab / Microbiology Data 04/11/25 07:23 04/11/25 07:23 Laboratory: Laboratory Results - last 24 hr 04/13/25 09:20: POC Glucose 220 H D/C Instructions Call your doctor if you observe: Fever of 101 or Higher Additional Dressing/Incision Instructions: push fluids DC O2, CPAP, BIPAP Needs Home O2 Discharge instructions: No Please Follow Up With: Geovany Pierce MD When: Call [phone] for an appointment Meaningful Use Info Meaningful Use Meaningful Use Diagnoses (Choose all that apply): None applicable Discharge Plan Admission Admit Date/Time: 04/13/25 11:37 Primary Reason for Your Visit: turp Attending Provider: Geovany Pierce Primary Care Provider: Delgado Hinkle Consulting Providers: Chester Bryant Instructions Patient Instructions: TURP, TURP Home Recovery, TURP Hospital Recovery Discharge Orders/Prescriptions Prescriptions: New nystatin 100,000 unit/gram ointment 1 applic topical TID Qty: 30 0RF Rx Instructions: apply to penis Continued (DME) blood-glucose [place] [OneTouch Verio Meter[place] [facility] [place] .ROUTE .MEDSUPPLY Qty: 1 0RF Rx Instructions: As directed (DME) OneTouch Verio test strips Strip See Rx Instructions .ROUTE .MEDSUPPLY Qty: 200 3RF Rx Instructions: twice a day (DME) lancets [OneTouch Delica Plus Lancet] [facility] See Rx Instructions .ROUTE .MEDSUPPLY Qty: 200 3RF Rx Instructions: twice a day metformin 1,000 mg tablet 1,000 mg PO BID Qty: 60 6RF Ozempic 0.25 mg or 0.5 mg (2 mg/3 mL) pen injector 0.5 mg subcut QWEEK (DME) Oral appliance See Rx Instructions .ROUTE .MEDSUPPLY Qty: 1 0RF Rx Instructions: As directed canagliflozin 300 MG tablet 300 mg PO DAILY bicalutamide 50 mg tablet 50 mg PO DAILY Qty: 90 3RF isosorbide mononitrate 60 mg tablet extended release 24 hr 60 mg PO DAILY Qty: 90 3RF metoprolol tartrate 25 mg tablet 25 mg PO BID Qty: 180 3RF atorvastatin 80 mg tablet 80 mg PO DAILY Qty: 90 3RF Held aspirin 81 MG tablet,delayed release (DR/EC) 81 mg PO DAILY Hold Instructions: Resume on 04/27/25. Referrals / Follow Up: Geovany Pierce MD [Med Staff - Active Staff] - Delgado Hinkle MD [Primary Care Provider] - Disposition Discharge Orders: Discharge Patient (Routine); Ordered 04/14/25 Ordered By: Dr. Geovany Pierce
[2025-04-14 08:44] VITALS: BP 121/60; PULSE 58; RESP 16; TEMP 36.6; O2SAT 98
[2025-04-14 08:50] VITALS: PULSE 60
[2025-04-14] MEDS: 0.9% Saline Lock 10 ML Syringe IV (08:51)
[2025-04-14 13:53] VITALS: BP 122/66; PULSE 61; RESP 16; TEMP 36; O2SAT 99
--- NOTE | 2025-04-14 13:56 | NURSING ---
feels like emptied.
--- NOTE | 2025-06-01 14:50 | PCM.HP.STD ---
HPI - General General Date of Admission: 04/13/25 HPI Narrative CAIO SENIOR, is a 70 M who presents for a TURP. [facility] Medical History Dietary restriction CPAP (continuous positive airway pressure) dependence Wears glasses Cancer Prostate disease High cholesterol Restless legs Former smoker Shortness of breath on exertion Neuropathy History of stress test Cardiology follow-up encounter COVID-19 virus detected (08/2020) Obesity Diabetes 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 lymph node Essential (primary) hypertension Atherosclerosis of coronary artery of [place] heart without angina pectoris Hyperlipidemia Displaced oblique fracture of shaft of left fibula, subsequent encounter for closed fracture with routine healing Unspecified fracture of lower end of left tibia, subsequent encounter for closed fracture with routine healing Hyperlipidemia associated with type 2 diabetes mellitus Tobacco abuse disorder Crushing injury of distal finger Home Medications Medication Instructions Recorded Last Taken Type aspirin 81 mg tablet,delayed 81 mg PO DAILY antiplatelet 07/07/15 06/10/22 History release Held on 04/13/25. Instructions: Resume on 04/27/25. canagliflozin 300 mg tablet 300 mg PO DAILY Check with primary 03/21/19 Unknown History doctor blood sugar diagnostic (OneTouch #200 ea 09/17/21 Unknown Rx Verio test strips) blood-glucose meter (OneTouch #1 ea 09/17/21 Unknown Rx Verio Meter) lancets 33 gauge (OneTouch Delica #200 ea 09/17/21 Unknown Rx Plus Lancet) metformin 1,000 mg tablet 1,000 mg PO BID #60 tabs 09/17/21 06/08/22 Rx semaglutide 0.25 mg or 0.5 mg (2 0.5 mg subcut QWEEK 05/24/24 Unknown History mg/3 mL) subcutaneous pen injector (BlackJet) bicalutamide 50 mg tablet 50 mg PO DAILY #90 TABLETS 09/06/24 Unknown Rx Oral appliance #1 ea 09/22/24 Unknown Rx isosorbide mononitrate 60 mg 60 mg PO DAILY #90 tabs 11/23/24 04/13/25 Rx tablet,extended release 24 hr metoprolol tartrate 25 mg tablet 25 mg PO BID #180 tabs 11/30/24 04/13/25 Rx atorvastatin 80 mg tablet 80 mg PO DAILY #90 tabs 12/27/24 04/13/25 08:00 Rx nystatin 100,000 unit/gram topical 1 applic topical TID #30 grams 04/14/25 Unknown Rx ointment Allergy/AdvReac Type Severity Reaction Status Date / Time No Known Allergies Allergy Verified 04/01/25 13:10 Family History Mother Heart disease [place] spotted fever cause of heart problems Father Hypertension Diabetes mellitus, type 2 Myocardial infarction Surgical History Hx of colonoscopy History of left heart catheterization (06/10/22) History of coronary artery stent placement (03/22/19) History of open reduction and internal fixation (ORIF) procedure Social History Smoking Status: Former smoker how long ago did patient quit smokin years ago second hand exposure: No alcohol intake: never substance use type: does not use caffeine: Yes Type: coffee Number of servings: 1 Vital Signs Vital Signs Vital Signs: Weight Weight: 110 kg Body Mass Index (BMI) 36.8 Results Lab / Micro Data 04/11/25 07:23 04/11/25 07:23
== END 2025-04-14 14:39 | disposition home or self-care (01) ==
LOC: SDC 12:31 → MS3 12:31
PROVIDERS: Anesthesiology; Admitting Provider Urology; PCP Family Medicine; Referring Provider Urology; Visit Provider Urology
PROC: 0VT08ZZ Resection of Prostate, Via Natural or Artificial Opening Endoscopic (ICD-10-PCS; CPT 52601; principal; 2025-04-13 10:50)
DX: N40.1 Benign prostatic hyperplasia with lower urinary tract symptoms (principal); C79.9 Secondary malignant neoplasm of unspecified site; C61 Malignant neoplasm of prostate; E11.40 Type 2 diabetes mellitus with diabetic neuropathy, unspecified; N48.1 Balanitis; N35.914 Unspecified anterior urethral stricture, male; N39.490 Overflow incontinence; Z79.82 Long term (current) use of aspirin; Z79.84 Long term (current) use of oral hypoglycemic drugs; R33.8 Other retention of urine; E78.00 Pure hypercholesterolemia, unspecified; I25.10 Atherosclerotic heart disease of native coronary artery without angina pectoris; Z87.891 Personal history of nicotine dependence; I10 Essential (primary) hypertension; N13.8 Other obstructive and reflux uropathy; Z79.899 Other long term (current) drug therapy
CPT/HCPCS: 52601; 00914; 36415; 80048; 82962; 83036; 85027; 88305; 93005; 94668; 96361; 96374; 99221; A4216; G0378; J2405

== ENCOUNTER → 2025-05-03 | Outpatient (CLI) | payer MEDICARE, OTHER, SELFPAY ==
[2025-05-03 11:22] LABS: Mucous, Urine 0 SEEN /hpf (<or=2+)
[2025-05-03 15:29] LABS: Hematocrit 39.3 % (40-54); Hemoglobin 12.7 g/dL (13.0-16.5); Immature Granulocytes Count 0.030 X10^3/uL (0.0-0.0); Mean Corp Hgb Conc 32.3 g/dL (32-36); Mean Corpuscular Volume 100.5 fL (80-94); Mean Platelet Vol. 10.4 fl (6.2-12.0); NRBC Flagged by Analyzer 0 % (0-5); Platelet Count 196 K/mm3 (150-450); RBC Distribution Width CV 13.8 % (11.6-14.6); RBC Distribution Width SD 50.8 fl (35.1-43.9); Red Blood Count 3.91 M/mm3 (4.6-6.2); White Blood Count 6.4 K/mm3 (4.4-11.0)
[2025-05-03 16:04] LABS: AST(SGOT) 24 U/L (<=37); Alanine Aminotransfer ALT/SGPT 31 U/L (<=46); Albumin, Serum 4.3 g/dL (3.4-4.8); Alkaline Phosphatase 94 U/L (40-129); Anion Gap 13 (5-15); BUN 20 mg/dL (4-19); BUN/Creat Ratio 18.2 RATIO (10-20); CPK Total, Creatine Kinase 30 U/L (24-195); Calcium,Total 10.1 mg/dL (7.6-11.0); Carbon Dioxide 24.7 mmol/L (21.0-32.0); Chloride 100 mmol/L (98-108); Cholesterol 128 mg/dL (<=200); Globulin 3.0 g/dL (2.2-4.2); Glucose 281 mg/dL (70-99); Low Density Lipoprotein Calc. 49 mg/dL; Potassium 4.7 mmol/L (3.3-5.1); Triglycerides 221 mg/dL; Very Low Density Lipoprotein 44 mg/dL (5-40); cholesterol:hdl ratio screen 3.71
[2025-05-03 19:15] LABS: Creatinine, Urine (random) 40.10 mg/dL (39.00-259.00); Microalbumin,Random Urine 251.0 mg/L (<20 mg/L)
[2025-05-03 19:49] LABS: Color, Urine Straw (Yellow); Glucose, Dipstick 1000 mg/dl (Normal); Ketone-Dipstick Negative (Negative); Leukocyte Esterase-Dipstick Negative /ul (Negative); Nitrite-Dipstick Negative (Negative); Occult Blood-Urine 250 /ul (Negative); Protein-Dipstick 30 mg/dl (Negative); Specific Gravity, Urine 1.015 (1.002-1.030); Urine Bilirubin Dipstick Negative (Negative)
[2025-05-03 21:36] LABS: Red Blood Cells-Urine 5-10 SEEN /hpf (0-5)
[2025-05-03 21:37] LABS: Squamous Epithelial Cells - UA 0-5 SEEN /hpf (0-5)
== END | disposition home or self-care (01) ==
LOC: MFPLAB 11:17
PROVIDERS: PCP Family Medicine; Referring Provider Family Medicine; Visit Provider Family Medicine
DX: D64.9 Anemia, unspecified (principal); E11.8 Type 2 diabetes mellitus with unspecified complications; R31.9 Hematuria, unspecified; R53.83 Other fatigue; R74.8 Abnormal levels of other serum enzymes
CPT/HCPCS: 80053; 80061; 81001; 82043; 82550; 82570; 83036; 84439; 84443; 85025

== ENCOUNTER → 2025-05-16 | Outpatient (CLI) | payer MEDICARE, OTHER, SELFPAY ==
--- NOTE | 2025-05-16 07:53 | ECHOCS_ITS ---
Reason For Study Reason For Study: HTN, CAD, Stents Procedure This was a 2D Doppler, Color Flow transthoracic echocardiogram. The study was technically difficult. Contrast injection was performed. Exam performed in department. Left Ventricle Normal LV size. Left ventricular systolic function is normal. The left ventricular ejection fraction is 65 %. Stage 1 diastolic dysfunction. No regional wall motion abnormalities noted. Right Ventricle Normal RV size. Normal systolic function. Atria Normal left atrium. Normal right atrium. Bubble contrast study is negative for PFO/ASD. Mitral Valve Normal mitral valve. There is mild mitral annular calcification. Tricuspid Valve Normal tricuspid valve. Mild (1+) tricuspid valve insufficiency. Pulmonary artery systolic pressure is 25 mmHg. Aortic Valve Trisinus/trileaflet aortic valve. Mild focal aortic valve calcification. Mild (1+) aortic valve insufficiency. Pulmonic Valve Normal pulmonic valve. Great Vessels Normal aortic root. The pulmonary artery is normal size. Inferior vena cava collapse with respiration. Pericardium/Pleural No pericardial effusion. Medication 22 gauge I.V. with prn adaptor inserted into right arm. Diluted definity 2.5ml given slow IV push to enhance endocardial definition. Performed a rapid injection of agitated mix of 9 cc saline and 1cc air to assess for atrial septal defect. MMode/2D Measurements & Calculations LVIDd: 4.3 cm IVSd: 1.4 cm Ao root diam: 3.4 cm LVIDs: 2.5 cm LVPWd: 1.1 cm RVDd: 3.8 cm FS: 41.1 % LAV(MOD-bp): 49.2 ml LVAd ap4: 34.0 cm2 SV(MOD-sp4): 77.3 ml LAV(MOD-bp) Indexed: 22.5 ml/m2 LVLd ap4: 8.1 cm SI(MOD-sp4): 35.3 ml/m2 LAV(MOD-sp2): 48.0 ml EDV(MOD-sp4): 116.6 ml LAV(MOD-sp4): 45.8 ml EDV(sp4-el): 121.1 ml LVAs ap4: 17.4 cm2 LVLs ap4: 6.1 cm ESV(MOD-sp4): 39.3 ml ESV(sp4-el): 42.0 ml EF(MOD-sp4): 66.3 % EF(sp4-el): 65.3 % SV(sp4-el): 79.0 ml LA A4 area: 17.0 cm2 LA dimension(2D): 4.6 cm RA A4 area: 17.1 cm2 Time Measurements MV dec time: 0.26 sec Doppler Measurements & Calculations MV E max jame: 74.1 cm/sec Lat Peak E' Jame: 6.8 cm/sec Med Peak E' Jame: 7.6 cm/sec MV A max jame: 82.5 cm/sec E/E' lat: 10.8 E/E' med: 9.8 MV E/A: 0.90 MV V2 max: 104.3 cm/sec MV P1/2t max jame: 85.9 cm/sec Ao V2 max: 176.4 cm/sec MV max P.4 mmHg MV P1/2t: 93.3 msec Ao max P.5 mmHg MV V2 mean: 52.2 cm/sec MV dec slope: 269.7 cm/sec2 Ao V2 mean: 123.7 cm/sec MV mean P.3 mmHg MVA(P1/2t): 2.4 cm2 Ao mean P.0 mmHg MV V2 VTI: 33.5 cm Ao V2 VTI: 38.3 cm AV (velocity ratio): 0.62 AI max jame: 445.5 cm/sec LV V1 max: 117.0 cm/sec PA V2 max: 99.2 cm/sec AI max P.5 mmHg LV V1 max P.5 mmHg AI dec slope: 213.1 cm/sec2 LV V1 mean P.8 mmHg AI P1/2t: 612.2 msec LV V1 mean: 77.4 cm/sec LV V1 VTI: 23.8 cm TR max jame: 225.4 cm/sec TR max P.8 mmHg ECHO/Echo Complete W/ Contrast Interpretation Summary Bubble contrast study is negative for PFO/ASD. Normal LV size. Left ventricular systolic function is normal. The left ventricular ejection fraction is 65 %. Stage 1 diastolic dysfunction. Contrast injection was performed. Ordering Physician: Long Ware Referring Physician: Long Ware Performed By: Elias Parker RCS
== END | disposition home or self-care (01) ==
LOC: CVS 07:48
PROVIDERS: PCP Family Medicine; Referring Provider Internal Medicine Cardiovascular Disease; Visit Provider Internal Medicine Cardiovascular Disease
DX: I25.10 Atherosclerotic heart disease of native coronary artery without angina pectoris (principal); I10 Essential (primary) hypertension
CPT/HCPCS: 93306; Q9957; A4216; C8929

== ENCOUNTER → 2025-05-31 | Outpatient (CLI) | payer MEDICARE, OTHER, SELFPAY ==
--- NOTE | 2025-05-31 | FLU_PTH ---
PATIENT: CAIO SENIOR LOC: [facility] U#:[id number] AGE/SX: 70/M ROOM: RE05/31/[address]: Dr. Delgado Hinkle MD : 1955 BED: DIS: 05/31/2025 SPEC #: [id number] RECD: 05/31/25 09:54 STATUS: IGOR STONE #: [id number] NELLY: 05/31/25 00:[address]: Delgado Hinkle DEPT: CYTOLOGY RECD BY: Don Carrasquillo Tissues: A - Urine Procedures: Special Stain Group II Cytospin Fluid HEADER OPERATION: Not noted PRE-OP DIAGNOSIS: Hematuria TISSUE SUBMITTED: A- Urine for cytology - voided DIAGNOSIS CYTOLOGY A. Urine, voided (cytospin): * No malignant cells identified. * Acute inflammation noted. CYTOLOGY STUDY Slides are reviewed. CYTOLOGY GROSS A. Received is 5 ml of cloudy-yellow fluid labeled with the patient's name and and designated per the requisition as urine. Submitted for cytology preparation. Mr 05/31/2025 CPT: 11678
--- NOTE | 2025-05-31 | FLU_PTH ---
PATIENT: CAIO SENIOR LOC: [facility] U#:[id number] AGE/SX: 70/M ROOM: RE05/31/[address]: Dr. Delgado Hinkle MD : 1955 BED: DIS: 05/31/2025 SPEC #: [id number] RECD: 05/31/25 09:54 STATUS: IGOR STONE #: [id number] NELLY: 05/31/25 00:[address]: Delgado Hinkle DEPT: CYTOLOGY RECD BY: Don Carrasquillo Tissues: A - Urine Procedures: Special Stain Group II Cytospin Fluid HEADER OPERATION: Not noted PRE-OP DIAGNOSIS: Hematuria TISSUE SUBMITTED: A- Urine for cytology - voided DIAGNOSIS CYTOLOGY A. Urine, voided (cytospin): * No malignant cells identified. * Acute inflammation noted. CYTOLOGY STUDY Slides are reviewed. CYTOLOGY GROSS A. Received is 5 ml of cloudy-yellow fluid labeled with the patient's name and and designated per the requisition as urine. Submitted for cytology preparation. Mr 05/31/2025 CPT: 30958
[2025-05-31 09:55] LABS: Cytology, Body Fluid / CSF SEE PATHOLOGY REPORT
[2025-05-31 12:53] LABS: Creatinine, Urine (random) 74.90 mg/dL (39.00-259.00)
[2025-05-31 13:05] LABS: Microalbumin,Random Urine 471.0 mg/L (<20 mg/L)
[2025-05-31 13:06] LABS: AST(SGOT) 19 U/L (<=37); Alanine Aminotransfer ALT/SGPT 24 U/L (<=46); Albumin, Serum 4.1 g/dL (3.4-4.8); Alkaline Phosphatase 97 U/L (40-129); Bilirubin, Direct 0.72 mg/dL (0.00-0.30); Ferritin 357 ng/mL (37-417); Globulin 2.8 g/dL (2.2-4.2); Iron 64 ug/dL (65-175); Iron Binding Capacity,Total 263 ug/dL (250-450); Iron Binding Capacity,Unsat 199 ug/dL (228-428); Vitamin B12 564 pg/mL (180-914)
[2025-05-31 15:22] LABS: Cholesterol 103 mg/dL (<=200); Low Density Lipoprotein Calc. 24 mg/dL; Triglycerides 233 mg/dL; Very Low Density Lipoprotein 47 mg/dL (5-40); cholesterol:hdl ratio screen 3.14
[2025-05-31 15:22] LABS: AST(SGOT) 19 U/L (<=37); Alanine Aminotransfer ALT/SGPT 24 U/L (<=46); Albumin, Serum 4.1 g/dL (3.4-4.8); Alkaline Phosphatase 99 U/L (40-129); Anion Gap 17 (5-15); BUN 23 mg/dL (4-19); BUN/Creat Ratio 20.6 RATIO (10-20); Calcium,Total 9.6 mg/dL (7.6-11.0); Carbon Dioxide 21.5 mmol/L (21.0-32.0); Chloride 100 mmol/L (98-108); Cholesterol 101 mg/dL (<=200); Globulin 2.9 g/dL (2.2-4.2); Glucose 172 mg/dL (70-99); Low Density Lipoprotein Calc. 22 mg/dL; Potassium 4.1 mmol/L (3.3-5.1); Triglycerides 232 mg/dL; Very Low Density Lipoprotein 46 mg/dL (5-40); cholesterol:hdl ratio screen 3.09
[2025-05-31 15:43] LABS: Hematocrit 36.7 % (40-54); Hemoglobin 12.3 g/dL (13.0-16.5); Immature Granulocytes Count 0.050 X10^3/uL (0.0-0.0); Mean Corp Hgb Conc 33.5 g/dL (32-36); Mean Corpuscular Volume 98.9 fL (80-94); Mean Platelet Vol. 10.7 fl (6.2-12.0); NRBC Flagged by Analyzer 0 % (0-5); Platelet Count 194 K/mm3 (150-450); RBC Distribution Width CV 13.3 % (11.6-14.6); RBC Distribution Width SD 48.1 fl (35.1-43.9); Red Blood Count 3.71 M/mm3 (4.6-6.2); White Blood Count 7.9 K/mm3 (4.4-11.0)
== END | disposition home or self-care (01) ==
LOC: MTLAB 09:26
PROVIDERS: PCP Family Medicine; Referring Provider Family Medicine; Visit Provider Family Medicine
DX: D64.9 Anemia, unspecified (principal); E11.69 Type 2 diabetes mellitus with other specified complication; R03.0 Elevated blood-pressure reading, without diagnosis of hypertension; E80.6 Other disorders of bilirubin metabolism; R30.0 Dysuria; R31.9 Hematuria, unspecified
CPT/HCPCS: 36415; 80053; 80061; 80076; 82043; 82570; 82607; 82728; 83036; 83540; 83550; 85025; 87086; 87088; 88108; 88305; 88313

== ENCOUNTER → 2025-06-30 | Outpatient (CLI) | payer MEDICARE, OTHER, SELFPAY ==
--- NOTE | 2025-06-30 | CYSPIN_PTH ---
PATIENT: CAIO SENIOR LOC: CT U#:[id number] AGE/SX: 70/M ROOM: RE06/30/[address]: ANTHONY Mena : 1955 BED: DIS: 06/30/2025 SPEC #: [id number] RECD: 06/30/25 10:04 STATUS: IGOR BERTHA #: [id number] NELLY: 06/30/25 00:[address]: Delgado Hinkle DEPT: CYTOLOGY RECD BY: Don Carrasquillo ENTERED: 06/30/25 12:01 SP TYPE: CYSPIN FL OTHR DR: MD Denise Senior, VICE PRESIDENT FIXED INCOMEAnu Tissues: A - Urine Procedures: Pap Stain (control) Special Stain Group II Cytospin Fluid HEADER OPERATION: Not noted PRE-OP DIAGNOSIS: Hematuria TISSUE SUBMITTED: A- Urine for cytology - voided DIAGNOSIS CYTOLOGY A. Urine, voided (cytospin): - No malignant cells identified. - Predominantly squamous cells present with acute inflammation. CYTOLOGY STUDY Slides are reviewed. CYTOLOGY GROSS A. Received is 7.5 ml of hazy fluid labeled with the patient's name and and designated per the requisition as urine. Submitted for cytology preparation. 06/30/2025 CPT: 36078
--- NOTE | 2025-06-30 09:16 | CT_ITS ---
PROCEDURE: CT/Low Dose CT Lung Screening
--- NOTE | 2025-06-30 09:16 | CT_ITS ---
PROCEDURE: CT/Abdomen/Pelvis W IV Cont ONLY
[2025-06-30 09:41] LABS: Hematocrit 36.2 % (40-54); Hemoglobin 12.4 g/dL (13.0-16.5); Mean Corp Hgb Conc 34.3 g/dL (32-36); Mean Corpuscular Volume 95.8 fL (80-94); Mean Platelet Vol. 10.0 fl (6.2-12.0); Platelet Count 182 K/mm3 (150-450); RBC Distribution Width CV 13.6 % (11.6-14.6); RBC Distribution Width SD 48.0 fl (35.1-43.9); Red Blood Count 3.78 M/mm3 (4.6-6.2); White Blood Count 6.6 K/mm3 (4.4-11.0)
[2025-06-30 10:05] LABS: Cytology, Body Fluid / CSF SEE PATHOLOGY REPORT
[2025-06-30 10:39] LABS: PSA,Total- Diagnostic 0.16 ng/mL (0.00-4.00)
[2025-06-30 10:48] LABS: FOLATES,SERUM (FOLIC ACID) 8.09 ng/mL (4.60-34.80)
== END | disposition home or self-care (01) ==
LOC: CT 09:04
PROVIDERS: Urology; PCP Family Medicine; Referring Provider Nurse Practitioner Acute Care; Visit Provider Nurse Practitioner Acute Care
DX: Z12.2 Encounter for screening for malignant neoplasm of respiratory organs (principal); C61 Malignant neoplasm of prostate; E11.8 Type 2 diabetes mellitus with unspecified complications; R31.9 Hematuria, unspecified; D64.9 Anemia, unspecified; E80.6 Other disorders of bilirubin metabolism; F17.210 Nicotine dependence, cigarettes, uncomplicated
CPT/HCPCS: 36415; 71271; 74177; 82746; 83036; 84153; 85027; 87077; 87086; 87088; 88108; 88313; Q9967